=== PATIENT | male | born 1945 | race Caucasian/White ===

== ENCOUNTER → 2018-01-01 08:41 | Outpatient (CLI) | payer MEDICARE, SELFPAY ==
[2018-01-01 09:46] LABS: AST(SGOT) 21 U/L (15-37); Alanine Aminotransfer ALT/SGPT 29 U/L (16-61); Albumin, Serum 3.6 g/dL (3.2-5.0); Alkaline Phosphatase 107 U/L (45-117); Bilirubin, Direct 0.12 mg/dL (0.00-0.30); Cholesterol 96 mg/dL (200); Globulin 3.8 g/dL (2.2-4.2); High Density Lipoprotein 36 mg/dL; Protein, Total 7.4 g/dL (6.4-8.2); Triglycerides 81 mg/dL; Very Low Density Lipoprotein 16 mg/dL (5-40)
== END ==
PROVIDERS: Family Provider Family Medicine Geriatric Medicine; PCP Family Medicine Geriatric Medicine; Visit Provider Internal Medicine Cardiovascular Disease
DX: E78.5 Hyperlipidemia, unspecified (principal); Z79.899 Other long term (current) drug therapy
CPT/HCPCS: 36415; 80061; 80076

== ENCOUNTER → 2018-06-11 16:15 | Outpatient (CLI) | payer MEDICARE, SELFPAY ==
[2018-06-11 17:44] LABS: Absolute Lymphocyte Count 2.13 X10^3/ul (0.83-4.51); Absolute Neutrophil Count 4.4 X10^3/uL (2.0-7.7); Basophil# 0.03 X10^3/uL; Basophil% 0.4 % (0-1); Eosinophil# 0.27 X10^3/uL; Eosinophils% 3.5 % (0-5); Hematocrit 37.2 % (40-54); Hemoglobin 12.7 g/dl (13.0-16.5); Lymphocyte # 2.13 X10^3/ul (4.0); Lymphocyte % 27.4 % (19-41); Mean Corp Hgb Conc 34.1 g/gl (32-36); Mean Corpuscular Hgb 34.5 pg (27.0-32.0); Mean Corpuscular Volume 101.1 fL (80-94); Mean Platelet Vol. 10.2 fl (6.2-12.0); Monocyte# 0.95 X10^3/uL; Monocyte% 12.2 % (0-10); Neutrophil # 4.37 X10^3/uL (2.7-7.7); Neutrophil % 56.2 % (47-70); Platelet Count 191 K/mm3 (150-450); RBC Distribution Width CV 12.8 % (11.6-14.6); RBC Distribution Width SD 46.5 fl (35.1-43.9); Red Blood Count 3.68 M/mm3 (4.6-6.2); White Blood Count 7.8 K/mm3 (4.4-11.0)
[2018-06-11 18:16] LABS: POSITIVE COUNT NO; POSITIVE DIFFERENTIAL NO; POSITIVE MORPHOLOGY NO
[2018-06-11 18:25] LABS: ALB/GLOB Ratio 0.9 RATIO (0.9-2.4); AST(SGOT) 31 U/L (15-37); Alanine Aminotransfer ALT/SGPT 43 U/L (16-61); Albumin, Serum 3.7 g/dL (3.2-5.0); Alkaline Phosphatase 91 U/L (45-117); Anion Gap 6 (5-15); BUN 20 mg/dL (7-18); BUN/Creat Ratio 18.5 RATIO (10-20); Calcium,Total 8.5 mg/dL (8.5-10.1); Chloride 108 mmol/L (98-107); Creatinine, Serum 1.08 mg/dL (0.70-1.30); EST Glomerular Filtration Rate 71 mL/min (>60); Est Glom Filt Rate - Afr Amer 86 mL/min (>60); Globulin 3.9 g/dL (2.2-4.2); Glucose 87 mg/dL (74-106); Potassium 4.4 mmol/L (3.5-5.1); Protein, Total 7.6 g/dL (6.4-8.2); Sodium Level 140 mmol/L (136-145); Thyroid Stim Hormone (TSH) 4.31 uIU/mL (0.358-3.74)
[2018-06-12 09:52] LABS: Vitamin D,25 Hydroxy 30.2 ng/mL (29.95-100.01)
== END ==
PROVIDERS: Family Provider Family Medicine Geriatric Medicine; PCP Family Medicine Geriatric Medicine; Visit Provider Family Medicine Geriatric Medicine
DX: E55.9 Vitamin D deficiency, unspecified (principal); I10 Essential (primary) hypertension
CPT/HCPCS: 36415; 80053; 82306; 84443; 85025

== ENCOUNTER → 2018-06-25 08:40 | Outpatient (CLI) | payer MEDICARE, SELFPAY ==
[2018-06-25 10:14] LABS: AST(SGOT) 35 U/L (15-37); Alanine Aminotransfer ALT/SGPT 47 U/L (16-61); Albumin, Serum 3.7 g/dL (3.2-5.0); Alkaline Phosphatase 91 U/L (45-117); Cholesterol 78 mg/dL (200); High Density Lipoprotein 33 mg/dL; Protein, Total 7.7 g/dL (6.4-8.2); Triglycerides 54 mg/dL; Very Low Density Lipoprotein 11 mg/dL (5-40)
== END ==
PROVIDERS: Family Provider Family Medicine Geriatric Medicine; PCP Family Medicine Geriatric Medicine; Visit Provider Physician Assistant Medical
DX: R07.2 Precordial pain (principal); E78.5 Hyperlipidemia, unspecified
CPT/HCPCS: 36415; 80061; 80076

== ENCOUNTER → 2018-12-02 12:08 | Outpatient (CLI) | payer MEDICARE, SELFPAY ==
[2018-08-01 09:13] VITALS: BMI 29.8
[2018-12-02 13:15] LABS: Absolute Lymphocyte Count 1.68 X10^3/ul (0.83-4.51); Absolute Neutrophil Count 4.7 X10^3/uL (2.0-7.7); Basophil# 0.04 X10^3/uL; Basophil% 0.5 % (0-1); Eosinophil# 0.23 X10^3/uL; Hematocrit 38.7 % (40-54); Hemoglobin 13.1 g/dl (13.0-16.5); Lymphocyte # 1.68 X10^3/ul (4.0); Lymphocyte % 22.2 % (19-41); Mean Corp Hgb Conc 33.9 g/gl (32-36); Mean Corpuscular Hgb 34.3 pg (27.0-32.0); Mean Corpuscular Volume 101.3 fL (80-94); Mean Platelet Vol. 11.1 fl (6.2-12.0); Monocyte# 0.89 X10^3/uL; Monocyte% 11.8 % (0-10); Neutrophil # 4.69 X10^3/uL (2.7-7.7); Neutrophil % 62.1 % (47-70); Platelet Count 212 K/mm3 (150-450); RBC Distribution Width CV 12.7 % (11.6-14.6); Red Blood Count 3.82 M/mm3 (4.6-6.2); White Blood Count 7.6 K/mm3 (4.4-11.0)
[2018-12-02 13:17] LABS: POSITIVE COUNT NO; POSITIVE DIFFERENTIAL NO; POSITIVE MORPHOLOGY NO
[2018-12-02 13:36] LABS: ALB/GLOB Ratio 0.9 RATIO (0.9-2.4); AST(SGOT) 36 U/L (15-37); Alanine Aminotransfer ALT/SGPT 81 U/L (16-61); Albumin, Serum 3.7 g/dL (3.2-5.0); Alkaline Phosphatase 112 U/L (45-117); Anion Gap 8 (5-15); BUN 22 mg/dL (7-18); BUN/Creat Ratio 17.9 RATIO (10-20); Calcium,Total 8.7 mg/dL (8.5-10.1); Chloride 106 mmol/L (98-107); Creatinine, Serum 1.23 mg/dL (0.70-1.30); EST Glomerular Filtration Rate 61 mL/min (>60); Est Glom Filt Rate - Afr Amer 74 mL/min (>60); Globulin 4.1 g/dL (2.2-4.2); Glucose 82 mg/dL (74-106); Potassium 4.3 mmol/L (3.5-5.1); Protein, Total 7.8 g/dL (6.4-8.2); Sodium Level 141 mmol/L (136-145); Thyroid Stim Hormone (TSH) 2.73 uIU/mL (0.358-3.74)
== END ==
PROVIDERS: Family Provider Family Medicine Geriatric Medicine; PCP Family Medicine Geriatric Medicine; Visit Provider Family Medicine Geriatric Medicine
DX: E55.9 Vitamin D deficiency, unspecified (principal); I10 Essential (primary) hypertension
CPT/HCPCS: 36415; 80053; 82306; 84443; 85025

== ENCOUNTER → 2019-06-03 | Outpatient (CLI) | payer MEDICARE, SELFPAY ==
[2018-08-01 09:13] VITALS: BMI 29.8
[2019-06-03 13:01] LABS: Absolute Lymphocyte Count 1.98 X10^3/uL (0.83-4.51); Absolute Neutrophil Count 3.4 X10^3/uL (2.0-7.7); Basophil# 0.05 X10^3/uL; Basophil% 0.8 % (0-1); Eosinophil# 0.24 X10^3/uL; Eosinophils% 3.7 % (0-5); Hemoglobin 12.7 g/dL (13.0-16.5); Lymphocyte # 1.98 X10^3/ul (4.0); Lymphocyte % 30.7 % (19-41); Mean Corp Hgb Conc 33.4 g/dL (32-36); Mean Corpuscular Hgb 34.1 pg (27.0-32.0); Mean Corpuscular Volume 102.2 fL (80-94); Mean Platelet Vol. 10.3 fl (6.2-12.0); Monocyte# 0.73 X10^3/uL; Monocyte% 11.3 % (0-10); NRBC Flagged by Analyzer 0 % (0-5); Neutrophil # 3.42 X10^3/uL (2.7-7.7); Platelet Count 200 K/mm3 (150-450); RBC Distribution Width CV 12.7 % (11.6-14.6); RBC Distribution Width SD 47.8 fl (35.1-43.9); Red Blood Count 3.72 M/mm3 (4.6-6.2); White Blood Count 6.5 K/mm3 (4.4-11.0)
[2019-06-03 13:13] LABS: Vitamin D,25 Hydroxy 29.8 ng/mL (29.95-100.01)
[2019-06-03 13:40] LABS: ALB/GLOB Ratio 0.9 RATIO (0.9-2.4); AST(SGOT) 23 U/L (15-37); Alanine Aminotransfer ALT/SGPT 41 U/L (16-61); Albumin, Serum 3.6 g/dL (3.2-5.0); Alkaline Phosphatase 104 U/L (45-117); Anion Gap 10 (5-15); BUN 20 mg/dL (7-18); BUN/Creat Ratio 20.1 RATIO (10-20); Calcium,Total 8.9 mg/dL (8.5-10.1); Chloride 105 mmol/L (98-107); EST Glomerular Filtration Rate 78 mL/min (>60); Est Glom Filt Rate - Afr Amer 94 mL/min (>60); Globulin 3.9 g/dL (2.2-4.2); Glucose 101 mg/dL (74-106); Potassium 4.7 mmol/L (3.5-5.1); Protein, Total 7.5 g/dL (6.4-8.2); Sodium Level 139 mmol/L (136-145); Thyroid Stim Hormone (TSH) 3.89 uIU/mL (0.358-3.74)
== END | disposition home or self-care (01) ==
LOC: POLAB3 09:05
PROVIDERS: Family Provider Family Medicine Geriatric Medicine; PCP Family Medicine Geriatric Medicine; Visit Provider Family Medicine Geriatric Medicine
DX: I10 Essential (primary) hypertension (principal); E55.9 Vitamin D deficiency, unspecified
CPT/HCPCS: 36415; 80053; 82306; 84443; 85025

== ENCOUNTER → 2019-07-21 09:18 | Outpatient (CLI) | payer MEDICARE, SELFPAY ==
[2018-08-01 09:13] VITALS: BMI 29.8
[2019-07-21 12:58] LABS: Thyroid Stim Hormone (TSH) 1.76 uIU/mL (0.358-3.74)
== END ==
PROVIDERS: Family Provider Family Medicine Geriatric Medicine; PCP Family Medicine Geriatric Medicine; Visit Provider Family Medicine Geriatric Medicine
DX: E03.9 Hypothyroidism, unspecified (principal)
CPT/HCPCS: 36415; 84443

== ENCOUNTER → 2019-07-31 09:31 | Outpatient (CLI) | payer MEDICARE, SELFPAY ==
[2019-07-31 10:37] LABS: AST(SGOT) 30 U/L (15-37); Alanine Aminotransfer ALT/SGPT 40 U/L (16-61); Albumin, Serum 3.5 g/dL (3.2-5.0); Alkaline Phosphatase 103 U/L (45-117); Cholesterol 87 mg/dL (200); Globulin 3.9 g/dL (2.2-4.2); High Density Lipoprotein 37 mg/dL; Protein, Total 7.4 g/dL (6.4-8.2); Triglycerides 57 mg/dL; Very Low Density Lipoprotein 11 mg/dL (5-40)
== END ==
PROVIDERS: Physician Assistant Medical; Family Provider Family Medicine Geriatric Medicine; PCP Family Medicine Geriatric Medicine; Referring Provider Internal Medicine Cardiovascular Disease; Visit Provider Internal Medicine Cardiovascular Disease
DX: E78.5 Hyperlipidemia, unspecified (principal)
CPT/HCPCS: 36415; 80061; 80076

== ENCOUNTER → 2019-12-03 09:21 | Outpatient (CLI) | payer MEDICARE, SELFPAY ==
[2019-08-05 08:05] VITALS: BMI 29.0
[2019-12-03 12:32] LABS: Absolute Lymphocyte Count 1.86 X10^3/uL (0.83-4.51); Absolute Neutrophil Count 4.6 X10^3/uL (2.0-7.7); Basophil# 0.05 X10^3/uL; Basophil% 0.6 % (0-1); Eosinophil# 0.35 X10^3/uL; Eosinophils% 4.5 % (0-5); Hematocrit 38.4 % (40-54); Hemoglobin 12.6 g/dL (13.0-16.5); Lymphocyte # 1.86 X10^3/ul (4.0); Lymphocyte % 23.9 % (19-41); Mean Corp Hgb Conc 32.8 g/dL (32-36); Mean Corpuscular Hgb 33.1 pg (27.0-32.0); Mean Corpuscular Volume 100.8 fL (80-94); Mean Platelet Vol. 10.6 fl (6.2-12.0); Monocyte# 0.91 X10^3/uL; Monocyte% 11.7 % (0-10); NRBC Flagged by Analyzer 0 % (0-5); Neutrophil # 4.59 X10^3/uL (2.7-7.7); Neutrophil % 58.9 % (47-70); Platelet Count 194 K/mm3 (150-450); RBC Distribution Width CV 12.6 % (11.6-14.6); RBC Distribution Width SD 47.1 fl (35.1-43.9); Red Blood Count 3.81 M/mm3 (4.6-6.2); White Blood Count 7.8 K/mm3 (4.4-11.0)
[2019-12-03 12:42] LABS: Vitamin D,25 Hydroxy 29.7 ng/mL (29.95-100.01)
[2019-12-03 12:45] LABS: ALB/GLOB Ratio 0.9 RATIO (0.9-2.4); AST(SGOT) 31 U/L (15-37); Alanine Aminotransfer ALT/SGPT 57 U/L (16-61); Albumin, Serum 3.7 g/dL (3.2-5.0); Alkaline Phosphatase 105 U/L (45-117); Anion Gap 6 (5-15); BUN 17 mg/dL (7-18); BUN/Creat Ratio 15.5 RATIO (10-20); Calcium,Total 8.7 mg/dL (8.5-10.1); Chloride 107 mmol/L (98-107); EST Glomerular Filtration Rate 69 mL/min (>60); Est Glom Filt Rate - Afr Amer 84 mL/min (>60); Glucose 105 mg/dL (74-106); Protein, Total 7.7 g/dL (6.4-8.2); Sodium Level 138 mmol/L (136-145); Thyroid Stim Hormone (TSH) 2.99 uIU/mL (0.358-3.74)
== END ==
PROVIDERS: PCP Family Medicine Geriatric Medicine; Visit Provider Family Medicine Geriatric Medicine
DX: I10 Essential (primary) hypertension (principal); E55.9 Vitamin D deficiency, unspecified
CPT/HCPCS: 36415; 80053; 82306; 84443; 85025

== ENCOUNTER → 2020-05-12 12:34 | Outpatient (CLI) | payer MEDICARE, SELFPAY ==
[2019-08-05 08:05] VITALS: BMI 29.0
[2020-05-19 04:07] LABS: Lyme IgG P18 Ab Absent (.); Lyme IgG P23 Ab Absent (.); Lyme IgG P28 Ab Absent (.); Lyme IgG P30 Ab Absent (.); Lyme IgG P39 Ab Absent (.); Lyme IgG P41 Ab Present (.); Lyme IgG P45 Ab Absent (.); Lyme IgG P58 Ab Absent (.); Lyme IgG P66 Ab Absent (.); Lyme IgG P93 Ab Absent (.); Lyme IgM P23 Ab Absent (.); Lyme IgM P39 Ab Absent (.); Lyme IgM P41 Ab Absent (.)
[2020-05-19 04:19] LABS: Lyme IgG WB Interpretation Negative (.); Lyme IgM WB Interpretation Negative (.)
== END ==
PROVIDERS: PCP Family Medicine Geriatric Medicine; Referring Provider Family Medicine Geriatric Medicine; Visit Provider Family Medicine Geriatric Medicine
DX: K14.1 Geographic tongue (principal)
CPT/HCPCS: 36415; 86617

== ENCOUNTER → 2020-06-18 10:46 | Outpatient (CLI) | payer MEDICARE, SELFPAY ==
[2019-08-05 08:05] VITALS: BMI 29.0
--- NOTE | 2020-06-18 11:15 | RAD_ITS ---
STUDY: X-RAY CHEST REASON FOR EXAM: Male, 74 years old. Shortness of breath. TECHNIQUE: PA and lateral views of the chest. COMPARISON: None. FINDINGS: The lungs are clear and expanded. There is no demonstrated pleural abnormality. Sternal cerclage wires are present from a prior sternotomy. Normal mediastinum and jono. Normal visualized pulmonary arteries. Normal visualized aortic arch and descending thoracic aorta. Normal visualized thoracic spine. Normal visualized ribs, clavicles, and shoulders. There is no demonstrated abnormality of the visualized soft tissue structures of the upper abdomen. RAD/Chest PA and Lateral IMPRESSION: Evidence of median sternotomy. There is no acute cardiopulmonary disease. Electronically Signed: Sandro Person DO at 17:39 EDT Tel [phone], Service support ,
[2020-06-18 11:55] LABS: Absolute Lymphocyte Count 1.36 X10^3/uL (0.83-4.51); Absolute Neutrophil Count 5.9 X10^3/uL (2.0-7.7); Basophil# 0.04 X10^3/uL; Basophil% 0.5 % (0-1); Eosinophil# 0.21 X10^3/uL; Eosinophils% 2.4 % (0-5); Hematocrit 38.3 % (40-54); Hemoglobin 12.6 g/dL (13.0-16.5); Lymphocyte # 1.36 X10^3/ul (4.0); Lymphocyte % 15.5 % (19-41); Mean Corp Hgb Conc 32.9 g/dL (32-36); Mean Corpuscular Hgb 33.6 pg (27.0-32.0); Mean Corpuscular Volume 102.1 fL (80-94); Mean Platelet Vol. 10.2 fl (6.2-12.0); Monocyte% 13.7 % (0-10); NRBC Flagged by Analyzer 0 % (0-5); Neutrophil # 5.91 X10^3/uL (2.7-7.7); Neutrophil % 67.4 % (47-70); Platelet Count 186 K/mm3 (150-450); RBC Distribution Width CV 12.8 % (11.6-14.6); RBC Distribution Width SD 48.5 fl (35.1-43.9); Red Blood Count 3.75 M/mm3 (4.6-6.2); White Blood Count 8.8 K/mm3 (4.4-11.0)
[2020-06-18 12:11] LABS: Vitamin D,25 Hydroxy 34.8 ng/mL
[2020-06-18 12:18] LABS: ALB/GLOB Ratio 0.8 RATIO (0.9-2.4); AST(SGOT) 21 U/L (15-37); Alanine Aminotransfer ALT/SGPT 54 U/L (16-61); Albumin, Serum 3.3 g/dL (3.2-5.0); Alkaline Phosphatase 93 U/L (45-117); Anion Gap 4 (5-15); BUN 22 mg/dL (7-18); BUN/Creat Ratio 21.6 RATIO (10-20); CPK Total, Creatine Kinase 84 U/L (39-308); Chloride 111 mmol/L (98-107); Creatinine, Serum 1.02 mg/dL (0.70-1.30); EST Glomerular Filtration Rate 75 mL/min (>60); Est Glom Filt Rate - Afr Amer 91 mL/min (>60); Globulin 3.9 g/dL (2.2-4.2); Glucose 103 mg/dL (74-106); PSA,Total - Annual Screen 1.34 ng/mL (0.00-4.00); Potassium 4.4 mmol/L (3.5-5.1); Protein, Total 7.2 g/dL (6.4-8.2); Sodium Level 139 mmol/L (136-145); Thyroid Stim Hormone (TSH) 1.47 uIU/mL (0.358-3.74)
[2020-06-18 12:25] LABS: BNP,B-Type NATRIURETIC PEPTIDE 139.6 pg/mL (0-100)
[2020-06-20 01:18] LABS: Myoglobin, Serum 69 ng/mL (28-72)
== END ==
LOC: POLAB3 10:48 → RAD 11:13
PROVIDERS: PCP Family Medicine Geriatric Medicine; Referring Provider Family Medicine Geriatric Medicine; Visit Provider Family Medicine Geriatric Medicine
DX: R06.02 Shortness of breath (principal); I10 Essential (primary) hypertension; E55.9 Vitamin D deficiency, unspecified; N40.0 Benign prostatic hyperplasia without lower urinary tract symptoms
CPT/HCPCS: 36415; 71046; 80053; 82306; 82550; 83874; 83880; 84153; 84443; 84484; 85025; G0103

== ENCOUNTER → 2020-06-23 05:51 | Outpatient (CLI) | payer MEDICARE, SELFPAY ==
[2019-08-05 08:05] VITALS: BMI 29.0
[2020-06-21 12:40] VITALS: BMI 28.7
--- NOTE | 2020-06-23 17:30 | STRESSREP ---
Stress Test Report Pharmacologic myocardial perfusion stress test. 74-year-old male with a history of coronary artery bypass surgery. Assess for ischemia. Resting EKG demonstrates normal sinus rhythm with a rate of 64 bpm normal intervals are noted resting blood pressure is 148/80 mmHg. 0.4 mg of regadenoson was infused per usual protocol followed by Intravenous saline flush injection continuous EKG monitoring was performed. The patient maintained sinus rhythm throughout the recording with frequent premature ventricular complexes noted. At rest there were no ST or T wave changes noted to suggest abnormal flow reserve at peak infusion nonspecific ST-T wave changes were noted with no meet the criteria for ischemia. The resting blood pressure is 148/80 with a final blood pressure of 128/70 mmHg. Myocardial perfusion protocol. 14.7 mCi of technetium 99m sestamibi was injected at rest. 0.4 mg of regadenoson was infused per usual protocol. At peak infusion 44.5 mCi of technetium 99m sestamibi was injected stress images were obtained stress and rest images were reconstructed and compared in the short axis vertical long horizontal long axis. Gated images were not obtained Perfusion SPECT analysis: Review of the stress images demonstrate normal uptake of tracer noted in all areas of the myocardium the resting images similar demonstrate normal uptake of tracer noted in all areas of the myocardium. No reversibility is noted to suggest ischemia no previous infarct is noted. Conclusion: Normal pharmacologic myocardial perfusion stress test. Occasional premature ventricular complexes noted.
== END ==
PROVIDERS: PCP Family Medicine Geriatric Medicine; Referring Provider Family Medicine Geriatric Medicine; Visit Provider Family Medicine Geriatric Medicine
DX: R07.9 Chest pain, unspecified (principal)
CPT/HCPCS: 78452; 93017; A9500; A4216; J2785

== ENCOUNTER → 2020-06-24 07:30 | Outpatient (CLI) | payer MEDICARE, SELFPAY ==
[2020-06-21 12:40] VITALS: BMI 28.7
--- NOTE | 2020-06-24 07:32 | CDU_ITS ---
Reason For Study: Dizziness Rt. Velocities/BP Lt. Velocities/BP Prox CCA 82.6/8.8 cm/sec. Prox CCA 83.9/18.8 cm/sec. Mid CCA 71.7/15.7 cm/sec. Mid CCA 102.3/22.5 cm/sec. Dist CCA 67.3/16.8 cm/sec. Dist CCA 80.2/20 cm/sec. Prox ICA 101/31.6 cm/sec. Prox ICA 145.5/44.5 cm/sec. Mid ICA 75.3/26.2 cm/sec. Mid ICA 132.4/29.2 cm/sec. Dist ICA 79/26.2 cm/sec. Dist ICA 84.6/24.3 cm/sec. Rt. ICA/CCA = 1.4. Lt. ICA/CCA = 1.7. Prox ECA 121.1/9.7 cm/sec. Prox ECA 94.9/15.1 cm/sec. Rt. Vert. 60.5/18.8 cm/sec. Lt. Vert. 52/16.8 cm/sec. Right Extracranial There is intimal thickening but no significant atherosclerotic plaque noted in the right common carotid artery. There is heterogeneous, irregular atherosclerotic plaque noted in the right internal carotid artery. There is intimal thickening but no significant atherosclerotic plaque noted in the right external carotid artery. Antegrade flow is noted in the right vertebral artery. Left Extracranial There is intimal thickening but no significant atherosclerotic plaque noted in the left common carotid artery. There is heterogeneous, irregular atherosclerotic plaque noted in the left internal carotid artery. The atherosclerotic plaque causes acoustic shadowing. There is intimal thickening but no significant atherosclerotic plaque noted in the left external carotid artery. Antegrade flow is noted in the left vertebral artery. Procedure Carotid Duplex 56093. Exam performed in department. Interpretation Summary Irregular calcific plaque at the proximal right internal carotid artery with less than 50% stenosis. <50% stenosis right external carotid Irregular calcific plaque in the proximal left internal carotid artery with 50 to 69% stenosis. <50% stenosis left external carotid Patent and antegrade vertebrals bilaterally Ordering Physician: Tomas Guerrero Referring Physician: Earnest Alex Chi Performed By: Rebecca Mcfarland RVT
== END ==
PROVIDERS: PCP Family Medicine Geriatric Medicine; Referring Provider Nurse Practitioner Family; Visit Provider Nurse Practitioner Family
DX: I65.22 Occlusion and stenosis of left carotid artery (principal); I25.10 Atherosclerotic heart disease of native coronary artery without angina pectoris; R42 Dizziness and giddiness
CPT/HCPCS: 93880

== ENCOUNTER → 2020-06-28 10:43 | Outpatient (CLI) | payer MEDICARE, SELFPAY ==
[2020-06-21 12:40] VITALS: BMI 28.7
== END ==
PROVIDERS: PCP Family Medicine Geriatric Medicine; Referring Provider Nurse Practitioner Family; Visit Provider Nurse Practitioner Family
DX: I49.3 Ventricular premature depolarization (principal); I25.10 Atherosclerotic heart disease of native coronary artery without angina pectoris
CPT/HCPCS: 93225; 93226

== ENCOUNTER → 2020-06-29 13:40 | Outpatient (CLI) | payer MEDICARE, SELFPAY ==
[2020-06-21 12:40] VITALS: BMI 28.7
[2020-06-30 07:02] LABS: SARS-COV-2 TOTAL ABS Nonreactive (Nonreactive)
== END ==
PROVIDERS: PCP Family Medicine Geriatric Medicine; Visit Provider Family Medicine Geriatric Medicine
DX: R06.02 Shortness of breath (principal)
CPT/HCPCS: 36415; 86769

== ENCOUNTER → 2020-07-29 06:53 | Outpatient (CLI) | payer MEDICARE, SELFPAY ==
[2020-06-21 12:40] VITALS: BMI 28.7
[2020-07-13 08:30] VITALS: BMI 28.5
== END ==
PROVIDERS: PCP Family Medicine Geriatric Medicine; Referring Provider Family Medicine Geriatric Medicine; Visit Provider Family Medicine Geriatric Medicine
DX: R06.02 Shortness of breath (principal)
CPT/HCPCS: 94060; 94726; 94729

== ENCOUNTER → 2020-08-02 07:54 | Outpatient (CLI) | payer MEDICARE, SELFPAY ==
[2020-07-13 08:30] VITALS: BMI 28.5
--- NOTE | 2020-08-02 07:54 | ECHOD_ITS ---
Reason For Study: Dyspnea/SOB Procedure This was a 2D Doppler, Color Flow transthoracic echocardiogram. Contrast injection was performed. Exam performed in department. Left Ventricle Normal LV size. Left ventricular systolic function is normal. The estimated ejection fraction is 60 %. No regional wall motion abnormalities noted. Right Ventricle Normal RV size. Normal systolic function. Atria Normal left atrium. Normal right atrium. Mitral Valve Normal mitral valve. Tricuspid Valve Normal tricuspid valve. Aortic Valve Normal aortic valve. Pulmonic Valve Normal pulmonic valve. Great Vessels Normal aortic root. The pulmonary artery is normal size. Normal inferior vena cava. Pericardium/Pleural No pericardial effusion. Medication Diluted definity 4ml given slow IV push to enhance endocardial definition. MMode/2D Measurements & Calculations LVIDd: 5.2 cm IVSd: 1.3 cm Ao root diam: 3.6 cm LVIDs: 3.7 cm LVPWd: 1.1 cm RVDd: 4.5 cm FS: 29.3 % LAV(MOD-bp): 64.6 ml LVAd ap4: 30.8 cm2 SV(MOD-sp4): 58.1 ml LAV(MOD-bp) Indexed: 27.2 ml/m2 EDV(MOD-sp4): 90.3 ml LAV(MOD-sp2): 60.1 ml EDV(sp4-el): 94.5 ml LAV(MOD-sp4): 65.0 ml LVAs ap4: 17.3 cm2 ESV(MOD-sp4): 32.2 ml ESV(sp4-el): 34.0 ml EF(MOD-sp4): 64.4 % EF(sp4-el): 64.0 % SV(sp4-el): 60.5 ml LA A4 area: 20.3 cm2 LA dimension(2D): 4.2 cm RA A4 area: 19.0 cm2 Doppler Measurements & Calculations MV E max elder: 64.5 cm/sec Lat Peak E' Elder: 8.4 cm/sec Med Peak E' Elder: 5.5 cm/sec MV A max elder: 71.3 cm/sec E/E' lat: 7.7 E/E' med: 11.8 MV E/A: 0.90 Ao V2 max: 148.8 cm/sec LV V1 max: 122.7 cm/sec PA V2 max: 111.9 cm/sec Ao max P.9 mmHg LV V1 max P.0 mmHg Ao V2 mean: 103.3 cm/sec Ao mean P.7 mmHg Ao V2 VTI: 34.4 cm TR max elder: 172.6 cm/sec TR max P.9 mmHg Interpretation Summary Normal LV size. Left ventricular systolic function is normal. The estimated ejection fraction is 60 %. Contrast injection was performed. Ordering Physician: Tomas Guerrero Referring Physician: Earnest Alex Chi Performed By: Polly Guerrero RDCS, RVT
== END ==
PROVIDERS: PCP Family Medicine Geriatric Medicine; Referring Provider Nurse Practitioner Family; Visit Provider Nurse Practitioner Family
DX: R06.00 Dyspnea, unspecified (principal); Z95.1 Presence of aortocoronary bypass graft; I49.3 Ventricular premature depolarization; I25.10 Atherosclerotic heart disease of native coronary artery without angina pectoris
CPT/HCPCS: 93306; Q9957; A4216; C8929

== ENCOUNTER → 2020-08-10 15:38 | Outpatient (CLI) | payer MEDICARE, SELFPAY ==
[2020-07-13 08:30] VITALS: BMI 28.5
--- NOTE | 2020-08-10 15:40 | CT_ITS ---
HISTORY: DYSPNEA X 3 MONTHS. CABG TECHNIQUE: Helically acquired images were obtained of the chest. A radiation dose optimization technique was used for this scan. IV Contrast dosage and agent: None. COMPARISON: Chest radiograph on June 18, 2020 FINDINGS: # of images incl. paperwork: [id number] HEART AND PERICARDIUM: The heart is enlarged. CABG. No pericardial effusion VESSELS: Thoracic aorta is not dilated. MEDIASTINUM AND NAVEEN: No mediastinal adenopathy. There are mediastinal lymph nodes are pathologic by size criteria Without intravenous contrast it is difficult to assess for hilar adenopathy SOFT TISSUES: The thyroid gland is unremarkable. No axillary adenopathy LUNGS AND LARGE AIRWAYS: Subpleural groundglass opacities with septal thickening seen within the upper lobes bilaterally. This is most marked on the left. Semisolid nodule within the right upper lobe seen on axial image 69 series 2 measuring approximately 6.3 mm. No additional nodules are seen within the right lung. There is subpleural septal thickening seen within the bilateral lower lobes greater on the left. PLEURA: There is minimal pleural thickening seen along the medial aspect of the superior right lower lobe. No pleural effusions. There is also apical pleural thickening seen bilaterally UPPER ABDOMEN: Cholecystectomy BONES: Midline sternotomy wires. No acute osseous abnormality CT/Chest without Contrast IMPRESSION: Cardiomegaly CABG No adenopathy Nonspecific Subpleural septal thickening is seen within the lungs bilaterally but greater on the left with associated minimal groundglass opacities probably related to atelectasis. Areas of platelike atelectasis is seen within the upper lobes greater on the left as well as the bilateral lower lobes Minimal pleural thickening along the medial aspect of the right lower lobe and apical pleural thickening Cholecystectomy Semisolid nodule within the right upper lobe measuring approximately 6.3 mm. Per Hina recommendation follow-up in 6-12 months or sooner if clinically indicated Individualized dose optimization techniques were used for this CT. at 0636 Reported and signed by: Malu Obrien DO Electronically Signed: Malu Obrien DO at 6:34 EDT Tel , Service support ,
== END ==
PROVIDERS: PCP Family Medicine Geriatric Medicine; Referring Provider Internal Medicine Pulmonary Disease; Visit Provider Internal Medicine Pulmonary Disease
DX: R06.00 Dyspnea, unspecified (principal)
CPT/HCPCS: 71250

== ENCOUNTER → 2020-08-19 09:45 | Outpatient (CLI) | payer MEDICARE, SELFPAY ==
[2020-08-12 09:28] VITALS: BMI 29.0
[2020-08-19 10:15] LABS: Hematocrit 37.1 % (40-54); Hemoglobin 12.2 g/dL (13.0-16.5); Mean Corp Hgb Conc 32.9 g/dL (32-36); Mean Corpuscular Hgb 34.5 pg (27.0-32.0); Mean Corpuscular Volume 104.8 fL (80-94); Mean Platelet Vol. 9.8 fl (6.2-12.0); Platelet Count 205 K/mm3 (150-450); Red Blood Count 3.54 M/mm3 (4.6-6.2); White Blood Count 8.8 K/mm3 (4.4-11.0)
[2020-08-19 10:51] LABS: AST(SGOT) 15 U/L (15-37); Alanine Aminotransfer ALT/SGPT 28 U/L (16-61); Albumin, Serum 3.6 g/dL (3.2-5.0); Alkaline Phosphatase 105 U/L (45-117); CRP 4.93 mg/L (0.0-3.0); Globulin 3.8 g/dL (2.2-4.2); Protein, Total 7.4 g/dL (6.4-8.2); Rheumatoid Factor < 10.0 IU/mL (<15)
[2020-08-20 12:07] LABS: Anti-Scleroderma-70 AB <0.2 AI (0.0-0.9)
[2020-08-20 15:29] LABS: ANTINUCLEAR ANTIBODIES DIRECT Negative (Negative)
[2020-08-20 20:08] LABS: Cytoplasmic Ab (C-ANCA) <1:20 titer (Neg:<1:20)
[2020-08-20 21:59] LABS: Angiotensin Convert Enzyme < 15 U/L (14-82); Perinuclear Ab (P-ANCA) <1:20 titer (Neg:<1:20)
== END ==
PROVIDERS: PCP Family Medicine Geriatric Medicine; Referring Provider Internal Medicine Pulmonary Disease; Visit Provider Internal Medicine Pulmonary Disease
CPT/HCPCS: 36415; 80076; 82164; 85027; 86038; 86140; 86235; 86256; 86431

== ENCOUNTER → 2020-11-08 08:12 | Outpatient (CLI) | payer MEDICARE, SELFPAY ==
[2020-08-12 09:28] VITALS: BMI 29.0
--- NOTE | 2020-11-08 08:13 | CT_ITS ---
STUDY: CT CHEST WITHOUT CONTRAST REASON FOR EXAM: Male, 74 years old. INTERSTITIAL LUNG DZ, COMPARE TO SCAN, SOB, 38 YR SMOKER X 1/2 PPD, QUIT SMOKING 20 YRS AGO, CABG, HTN RADIATION DOSAGE (If Supplied By Facility): CTDIvol = ( 17.67 ) mGy, DLP = ( 719.93 ) mGycm TECHNIQUE: Transaxial imaging was performed without the administration of intravenous contrast material. Multiplanar coronal and sagittal images were reformatted. Individualized dose optimization techniques were used for this CT. COMPARISON: 08/10/2020 FINDINGS: Subpleural hazy groundglass opacity and intralobular septal thickening identified in the upper lobes, lower lobes, right middle lobe and lingula overall similar since the prior study. Mild degree of traction bronchiectasis but no demonstrated honeycombing. Subpleural nodule on image 68 of series 4 measuring 5 mm is slightly smaller when compared side by side. No endobronchial lesions are seen. There is no demonstrated pleural abnormality. Normal heart and pericardium. Sternal wires and mediastinal surgical clips compatible with prior CABG. Normal mediastinum. Normal hilar regions. Normal unenhanced pulmonary arteries. There is atherosclerotic tortuosity of the aortic arch and descending thoracic aorta. There are multi-level degenerative changes of the thoracic spine. Gallstones are present. There is a nonobstructing calculus of the left kidney measuring 2 mm on image 133. CT/Chest without Contrast IMPRESSION: 1. Stable multilobar interstitial fibrotic changes with minimal groundglass opacities. Similar bronchiectasis, no honeycombing. 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 2. Slightly smaller right upper lobe nodule (subpleural). Electronically Signed: Krishan Larose MD ([place]) at 13:13 EST , Service support ,
[2020-11-08 09:47] LABS: Erythrocyte Sedimentation Rate 9 mm/hr (0-20)
[2020-11-08 10:14] LABS: CRP < 2.90 mg/L (0.0-3.0)
== END ==
PROVIDERS: PCP Family Medicine Geriatric Medicine; Referring Provider Internal Medicine Pulmonary Disease; Visit Provider Internal Medicine Pulmonary Disease
DX: R91.1 Solitary pulmonary nodule (principal); J84.9 Interstitial pulmonary disease, unspecified
CPT/HCPCS: 36415; 71250; 85652; 86140

== ENCOUNTER 2020-11-24 08:46 | Outpatient (RCR) | payer MEDICARE, SELFPAY ==
[2020-11-09 08:46] VITALS: BMI 29.9
[2020-11-24 09:58] LABS: AST(SGOT) 23 U/L (15-37); Alanine Aminotransfer ALT/SGPT 91 U/L (16-61); Albumin, Serum 3.4 g/dL (3.2-5.0); Alkaline Phosphatase 73 U/L (45-117); Globulin 3.6 g/dL (2.2-4.2)
== END 2020-11-24 18:00 | disposition home or self-care (01) ==
LOC: LAB 08:46
PROVIDERS: PCP Family Medicine Geriatric Medicine; Referring Provider Internal Medicine Pulmonary Disease; Visit Provider Internal Medicine Pulmonary Disease
DX: J84.10 Pulmonary fibrosis, unspecified (principal)
CPT/HCPCS: 36415; 80076

== ENCOUNTER → 2020-11-29 15:31 | Outpatient (CLI) | payer MEDICARE, SELFPAY ==
[2020-11-09 08:46] VITALS: BMI 29.9
[2020-11-29 16:57] LABS: AST(SGOT) 25 U/L (15-37); Alanine Aminotransfer ALT/SGPT 80 U/L (16-61); Albumin, Serum 3.7 g/dL (3.2-5.0); Alkaline Phosphatase 76 U/L (45-117); Anion Gap 7 (5-15); BUN 31 mg/dL (7-18); Calcium,Total 8.8 mg/dL (8.5-10.1); Chloride 102 mmol/L (98-107); Creatinine, Serum 1.24 mg/dL (0.70-1.30); EST Glomerular Filtration Rate 60 mL/min (>60); Est Glom Filt Rate - Afr Amer 73 mL/min (>60); Globulin 3.7 g/dL (2.2-4.2); Glucose 177 mg/dL (74-106); Potassium 4.8 mmol/L (3.5-5.1); Protein, Total 7.4 g/dL (6.4-8.2); Sodium Level 135 mmol/L (136-145)
[2020-12-01 12:08] LABS: HEPATITIS B SURFACE AG Negative (Negative); Hepatitis A AB, Total Negative (Negative); Hepatitis A IgM Antibody Negative (Negative); Hepatitis B Core AB IgM Negative (Negative); Hepatitis B Core Ab Total Negative (Negative); Hepatitis C Ab <0.1 s/co ratio (0.0-0.9)
[2020-12-01 15:20] LABS: Hep B Surface Antibodies Non Reactive (.)
== END ==
PROVIDERS: PCP Family Medicine Geriatric Medicine; Visit Provider Family Medicine Geriatric Medicine
DX: I10 Essential (primary) hypertension (principal); R74.8 Abnormal levels of other serum enzymes
CPT/HCPCS: 36415; 80053; 86704; 86705; 86706; 86708; 86709; 86803; 87340

== ENCOUNTER → 2020-12-06 10:32 | Outpatient (CLI) | payer MEDICARE, SELFPAY ==
[2020-11-09 08:46] VITALS: BMI 29.9
--- NOTE | 2020-12-06 10:34 | US_ITS ---
STUDY: ABDOMINAL ULTRASOUND - RIGHT UPPER QUADRANT REASON FOR VISIT: Male, 75 years old elevated LFT''s TECHNIQUE: Ultrasound evaluation of the right upper quadrant was performed with real-time and static alvarez-scale imaging. TECHNICAL QUALITY: Adequate. COMPARISON: None. FINDINGS: Liver: The liver measures 13.3 cm. There is increased echogenicity consistent with fatty infiltration. The bile ducts are within normal limits. There is hepatic color flow. The direction of portal flow is hepatopetal. There is no demonstrated mass lesion. Gallbladder: Normal distended gallbladder. The gallbladder wall measures 2 mm. There is a negative sonographic Wu''s sign. There is no pericholecystic fluid. There are multiple echogenic structures within the gallbladder, consistent with multiple gallstones. Common Bile Duct (C.B.D.): The common bile duct measures 3 mm. Pancreas: Normal size of the head, body and tail of the pancreas. There is increased echogenicity of the pancreas. There is no demonstrated pancreatic mass or cyst. Right Kidney: Normal size of the right kidney. The right kidney measures 11.5 cm x 5.7 cm x 5.8 cm. Normal renal cortex. The right cortex measures 1.3 cm. There is no demonstrated renal mass or cyst. There is no right hydronephrosis. US/Abdomen Limited IMPRESSION: Multiple gallstones. Electronically Signed: Ventura Manzo MD at 11:55 EST , Service support ,
== END ==
PROVIDERS: PCP Family Medicine Geriatric Medicine; Referring Provider Family Medicine Geriatric Medicine; Visit Provider Family Medicine Geriatric Medicine
DX: R74.8 Abnormal levels of other serum enzymes (principal)
CPT/HCPCS: 76705

== ENCOUNTER → 2020-12-08 09:31 | Outpatient (CLI) | payer MEDICARE, SELFPAY ==
[2020-11-09 08:46] VITALS: BMI 29.9
[2020-12-08 12:36] LABS: Absolute Lymphocyte Count 1.42 X10^3/uL (0.83-4.51); Absolute Neutrophil Count 6.6 X10^3/uL (2.0-7.7); Basophil# 0.02 X10^3/uL; Basophil% 0.2 % (0-1); Eosinophil# 0.03 X10^3/uL; Eosinophils% 0.3 % (0-5); Hematocrit 42.8 % (40-54); Hemoglobin 14.2 g/dL (13.0-16.5); Lymphocyte # 1.42 X10^3/ul (4.0); Lymphocyte % 16.1 % (19-41); Mean Corp Hgb Conc 33.2 g/dL (32-36); Mean Corpuscular Hgb 33.7 pg (27.0-32.0); Mean Corpuscular Volume 101.7 fL (80-94); Mean Platelet Vol. 10.1 fl (6.2-12.0); Monocyte# 0.74 X10^3/uL; Monocyte% 8.4 % (0-10); NRBC Flagged by Analyzer 0 % (0-5); Neutrophil # 6.56 X10^3/uL (2.7-7.7); Neutrophil % 74.3 % (47-70); Platelet Count 178 K/mm3 (150-450); RBC Distribution Width CV 13.2 % (11.6-14.6); RBC Distribution Width SD 50.2 fl (35.1-43.9); Red Blood Count 4.21 M/mm3 (4.6-6.2); White Blood Count 8.8 K/mm3 (4.4-11.0)
[2020-12-08 12:56] LABS: ALB/GLOB Ratio 0.9 RATIO (0.9-2.4); AST(SGOT) 25 U/L (15-37); Alanine Aminotransfer ALT/SGPT 70 U/L (16-61); Albumin, Serum 3.3 g/dL (3.2-5.0); Alkaline Phosphatase 73 U/L (45-117); Anion Gap 7 (5-15); BUN 31 mg/dL (7-18); BUN/Creat Ratio 28.7 RATIO (10-20); Chloride 105 mmol/L (98-107); Creatinine, Serum 1.08 mg/dL (0.70-1.30); EST Glomerular Filtration Rate 71 mL/min (>60); Est Glom Filt Rate - Afr Amer 85 mL/min (>60); Globulin 3.8 g/dL (2.2-4.2); Glucose 98 mg/dL (74-106); Potassium 4.6 mmol/L (3.5-5.1); Protein, Total 7.1 g/dL (6.4-8.2); Sodium Level 136 mmol/L (136-145); Thyroid Stim Hormone (TSH) 0.65 uIU/mL (0.358-3.74)
== END ==
PROVIDERS: PCP Family Medicine Geriatric Medicine; Visit Provider Family Medicine Geriatric Medicine
DX: I10 Essential (primary) hypertension (principal); E55.9 Vitamin D deficiency, unspecified
CPT/HCPCS: 36415; 80053; 82306; 84443; 85025

== ENCOUNTER → 2020-12-09 08:12 | Outpatient (CLI) | payer MEDICARE, SELFPAY ==
[2020-11-09 08:46] VITALS: BMI 29.9
--- NOTE | 2020-12-09 08:14 | US_ITS ---
STUDY: ABDOMINAL ULTRASOUND - ELASTOGRAPHY REASON FOR VISIT: Male, 75 years old. Fatty infiltration of the liver. TECHNIQUE: Liver stiffness measurements were obtained on a [facility] RS 85 ultrasound machine using a CA 1-7 probe following the SRU guidelines. 3 measurements were obtained using a 2-D-SWE method. The IQR/M was 15% suggesting a quality data set. TECHNICAL QUALITY: Adequate. COMPARISON: None. FINDINGS: Liver: There is evidence of fatty infiltration of the liver. Median liver stiffness measured 7.3 kPa. US/Elastography Parenchyma/Organ IMPRESSION: Liver stiffness measures 7.3 kPa compatible with F2 -- F 3 Metavir score. Electronically Signed: Ventura Manzo MD at 9:35 EST , Service support ,
== END ==
PROVIDERS: PCP Family Medicine Geriatric Medicine; Referring Provider Family Medicine Geriatric Medicine; Visit Provider Family Medicine Geriatric Medicine
DX: K76.0 Fatty (change of) liver, not elsewhere classified (principal)
CPT/HCPCS: 76981

== ENCOUNTER 2020-12-28 10:31 | Outpatient (RCR) | payer MEDICARE, SELFPAY ==
[2020-11-09 08:46] VITALS: BMI 29.9
[2020-12-28 11:08] LABS: AST(SGOT) 19 U/L (15-37); Alanine Aminotransfer ALT/SGPT 60 U/L (16-61); Albumin, Serum 3.3 g/dL (3.2-5.0); Alkaline Phosphatase 59 U/L (45-117); Bilirubin, Direct 0.25 mg/dL (0.00-0.30); Globulin 3.4 g/dL (2.2-4.2); Protein, Total 6.7 g/dL (6.4-8.2)
== END 2020-12-28 18:00 | disposition home or self-care (01) ==
LOC: LAB 10:31
PROVIDERS: PCP Family Medicine Geriatric Medicine; Referring Provider Internal Medicine Pulmonary Disease; Visit Provider Internal Medicine Pulmonary Disease
DX: J84.10 Pulmonary fibrosis, unspecified (principal)
CPT/HCPCS: 36415; 80076

== ENCOUNTER 2021-01-27 08:33 | Outpatient (RCR) | payer MEDICARE, SELFPAY ==
[2020-11-09 08:46] VITALS: BMI 29.9
[2021-01-27 10:28] LABS: AST(SGOT) 24 U/L (15-37); Alanine Aminotransfer ALT/SGPT 36 U/L (16-61); Alkaline Phosphatase 58 U/L (45-117); Bilirubin, Direct 0.25 mg/dL (0.00-0.30); Globulin 3.6 g/dL (2.2-4.2); Protein, Total 6.6 g/dL (6.4-8.2)
== END 2021-01-27 18:00 | disposition home or self-care (01) ==
LOC: LAB 08:33
PROVIDERS: PCP Family Medicine Geriatric Medicine; Referring Provider Internal Medicine Pulmonary Disease; Visit Provider Internal Medicine Pulmonary Disease
DX: J84.10 Pulmonary fibrosis, unspecified (principal)
CPT/HCPCS: 36415; 80076

== ENCOUNTER → 2021-02-02 08:23 | Outpatient (CLI) | payer MEDICARE, SELFPAY ==
[2020-11-09 08:46] VITALS: BMI 29.9
[2021-02-02 08:41] LABS: Erythrocyte Sedimentation Rate 7 mm/hr (0-20)
[2021-02-02 09:23] LABS: CRP 3.75 mg/L (0.0-3.0)
== END ==
PROVIDERS: PCP Family Medicine Geriatric Medicine; Referring Provider Internal Medicine Pulmonary Disease; Visit Provider Internal Medicine Pulmonary Disease
DX: J84.10 Pulmonary fibrosis, unspecified (principal); I10 Essential (primary) hypertension; R06.00 Dyspnea, unspecified
CPT/HCPCS: 36415; 85652; 86140

== ENCOUNTER → 2021-02-22 09:27 | Outpatient (CLI) | payer MEDICARE, SELFPAY ==
[2020-11-09 08:46] VITALS: BMI 29.9
--- NOTE | 2021-02-22 09:32 | PR.ITP_ITS ---
General Information - General Information Admitting Diagnosis: Other INterstitial Pulmonary Diseases with Fibrosis, Idiop athic Pulmonary Fibrosis, CAD, HTN. - PFT FEV1:: 2.54 FVC:: 3.16 FEV1/FVC%:: 80 - Education/Goals Barriers to Learning: Vision Impairment Individual Counseling: Initial Assessment: Dyspnea control techniques at rest, activity, and ADLs, Inhaled and respiratory medications, Home exercise plan & guidelines Patient Goals: Breathe better: Initial Assessment, Increase endurance/stamina: Initial Assessment, Return to recreation/hobby: Initial Assessment, Improve diet and nutrition: Initial Assessment, Symptom management: Initial Assessment, Take medications correctly: Initial Assessment, Improve weight: Initial Assessment Exercise - Initial Assessment - Visit Date of Eval: 02/22/21 - Pre-pulmonary rehab evaluation - Problem/Goals Problems: Deconditioning, Knowledge deficit exercise guidelines, Knowledge deficit exercise safety Goals:: Aerobic exercise 30-60 mins x 9 weeks - Physician Prescribed Exercise Modalities: Treadmill, Rower, Airdyne, NuStep Intensity: 60-80% of age predicted maximum heart rate reserve Target Heart Rate:: 86-114 - Plan Plan and Plan to Review:: Benefits of exercise, Core components of exercise, How to measure dyspnea level, How to monitor dyspnea level, Exercise intensity, Exercise safety guideline, Home exercise guidelines, Lana: 3-4/11-13 Disease Management - Initial - Problems/Goals-Hypoxemia Hypoxemia Goals:: Hypoxemia managed - Problems/Goals-Medications Medication Goals: Adherence to prescribed medications, Correct technique/timing & care of MDI, DPI, nebulizer, and spacer. - Initial Assessment Patient Reports:: No cough - Plans Hypoxemia Plan:: Monitor SpO2 rest & with exercise Reviewed prescribed medications:: Purpose, Schedule, Side effects, Importance of compliance Instruct correct technique/timing & care:: Return demo use of inhaler Bronchial Hygiene Plan: Controlled cough, Vibratory PEP device, Role of exercise in secretion clearance, Hydration, Hand hygiene, Signs/symptoms to report:, Influenza/Pneumovax vaccines Psychosocial - Initial Assess - Problems/Goals Problems: Impaired Q.O.L. - Psychosocial Test Depression:: Impaired QOL Tests Completed: SF - 36 survey completed, Mood Scale Test Referred to MD for counseling:: No - Plan Reviewed screening results: Yes Instructions given regarding:: Benefits of exercise, Relaxation techniques, Training in coping strategies Tobacco - Initial Assessment - Program Goals Tobacco Program Goals: Complete smoking cessation. Attend education classes. Improve Knowledge Test score - Stage of Change Stages of Change:: Action - Learning Barriers Learning Barriers: Vision, Ready to Learn - Family Support Do you have family support?: Yes - Tobacco Use Tobacco Use: Non-smoker Do you use smokeless tobacco?: No - Intervention Smoking Cessation Referral:: No Individual Education/Counseling:: No Education Schedule Given:: Yes - Education Gave Education Materials For:: Pulmonary Disease, Risk Factors, Breathing Techniques, Medical Compliance, Pulmonary A&P, Exacerbation Signs & Symptoms, Stress & Relaxation Nutrition/Wt Mgmt - Initial - Problems/Goals Problems: Overweight Goals: BMI 21-25, Wt Loss 1-2 lbs per week - Weight Management Knowledge Deficit Management of:: Overweight Admit Height:: 6 ft 4 in Admit Weight:: 253 lb Admit BMI:: 30.8 - Diabetes Diabetes:: No - Intervention Referral to dietitian:: Yes - Why Weight Program, Medical Nutrition Therapy Referral to Diabetic Clinic:: No Will attend diet classes:: Yes - Plan Nutrition Plan: Yes Review BMI or WC & identify target wt & strategies for wt control, Yes Weight control education class: Patient Health Questionnaire Initial Assessment 1. Little interest or pleasure in doing things: Several days 2. Feeling down, depressed, or hopeless: Several days 3. Trouble falling or staying asleep, or sleeping too much: Not at all 4. Feeling tired or having little energy: Several days 5. Poor appetite or overeating: More than half the days 6. Feeling bad about yourself -- or that you are a failure or have let yourself or your family down: Not at all 7. Trouble concentrating on things, such as reading the newspaper or watching television: Not at all 8. Moving or speaking so slowly that other people could have noticed. Or the opposite - being so fidgety or restless that you have been moving around a lot more than usual: Not at all 9. Thoughts that you would be better off , or of hurting yourself in some way: Not at all How difficult have these problems made it for you to do your work, take care of things at home, or get along with other people?: Not difficult at all Total Score: 5 COPD Knowledge Test Initial COPD is a lung disease that:: Makes it hard to breathe & gets worse over time In the [place] the term COPD describes 2 main lung conditions:: Emphysema & chroni c bronchitis The most common lung irritant that causes COPD is:: Cigarette smoke Common signs and symptoms of COPD include:: An ongoing cough/cough that produces a large amount of mucus, & SOB If you have COPD, what steps can you take?: All of the above Swelling of the ankles is common in COPD:: False Fatigue [tiredness] is common in COPD:: False Wheezing is common in COPD:: False Crushing chest pain is common in COPD:: False Rapid weight loss is common in COPD:: False Breathlessness is a normal response to exercise: True Exercise should be avoided if it makes you short of breath: True All bronchodilators act within 10 minutes: False A spacer device increases the medication to the lungs: False Annual flu vaccine is recommended for pts w/lung disease: True COPD Knowledge Test Total Score:: 11 Self-Efficacy Initial Assessment We would like to know how confident you are in doing certain activities. Please select your confidence level for:: Select your confidence level for the [facility] using the scale 1-10 where 1 is not at all confident and 10 is totally confident. Your score is the average of all 6 responses. Fatigue: How confident are you that you can keep the fatigue caused by your disease from interfering with the things you want to do? Select Number: 4 Physical Discomfort or Pain: How confident are you that you can keep the physical discomfort or pain of your disease from interfering with the things you want to do? Select Number: 4 Emotional Distress: How confident are you that you can keep the emotional distress caused by your disease from interfering with the things you want to do? Select Number: 4 Other Symptoms or Health Problems: How confident are you that you can keep other symptoms or health problems from interfering with the things you want to do? Select Number: 4 Different Tasks and Activities: How confident are you that you can do the different tasks and activities needed to manage your health condition so as to reduce your need to see a doctor? Select Number: 8 Medication: How confident are you that you can do things other than just taking medication to reduce how much your illness affects your everyday life? Select Number: 8 Total Score:: 5 Nutrition Survey - Nutrition Survey Instructions Scoring Instructions: Scoring is as follows: Yes = 1 points. No = 0 point. Patient score that is >/=12 is considered to be at potential nutritional risk a nd could benefit from a referral to a registered dietitian. - Nutrition Survey Initial Have you lost >10 lbs over the past 2 months without trying?: No Are you following a special diet at home for diabetes, low fat, or low salt?: No Are you interested in meeting with a dietitian for help understanding your diet?: No Do you eat less than 3 meals a day?: No Do you eat fatty meats (davalos, sausage, ribs, etc), fried foods, desserts, large amounts of salad dressings, margarine, butter, or cheese most days?: No Do you have food allergies? [Enter types in comment field]: No Do you eat in restaurants more than 3 times a week?: No Do you season food with salt, seasoning salt, or garlic salt?: Yes Do you used canned, boxed, frozen meals, or soups, seasoning packets?: Yes Total Score:: 2
--- NOTE | 2021-02-22 09:32 | PR.HP_ITS ---
History of Present Illness Arrival date:: 02/22/21 Arrival time:: 09:35 Date of Referral:: 02/11/21 Date of Evaluation: 02/22/21 Referring Physician: Dr. Francisco Camacho Primary Diagnosis: Idiopathic Pulmonary Fibrosis History of Present Illness: 75 yr male history of SHAHIDA, hypertension, CAD, other interstitial pulmonary disease with fibrosis, unspecified dyspnea, solitary pulmonary nodule, idi opathic pulmonary fibrosis, and personla history of nicotine dependence. THe patient was a 3/4 PPD for 30 years, but quit smoking in 2004. mMRC Breathless Scale: When is the patient short of breath? Y/N Grade: Description of Breathlessness: 0 I only get breathless with strenuous exercise. 1 I get short of breath when hurrying on level ground or walking up a slight hill. 2 On level ground, I walk slower than people of the same age because of breathless, or have to stop for breath when walking at my own pace. 3 I stop for breath after walking 100 yards or after a few minutes on level ground. 4 I am too breathless to leave the house or I am breathless when dressing. Respiratory Problems: Yes: Retain Secretions, Able to Speak in Full Sentences, Dyspnea with Activity No: Limited Range of Motion, Dyspnea at Rest, Cough with Secretions Home Medications: Home Medications lisinopril 5 mg tablet 5 mg PO QDAY 12/31/17 tamsulosin 0.4 mg capsule 0.4 mg PO QDAY 12/31/17 metoprolol tartrate 25 mg tablet 12.5 mg PO BID tab 01/04/18 aspirin 325 mg tablet 325 mg PO DAILY 08/05/19 atorvastatin 20 mg tablet 20 mg PO QPM #90 tab 08/05/19 levothyroxine 75 mcg tablet 75 mcg PO DAILY #90 tab 08/05/19 vit A 7,160 unit-vit C 113 mg-vit E 100 mfxs-xsti-zbqijw tablet tab PO tab 08/05/19 fish oil-dha-epa 1,200 mg-144 mg-216 mg capsule 2 cap PO DAILY cap 08/12/20 prednisone 10 mg tablet 10 mg PO DAILY tab 11/09/20 furosemide 40 mg tablet 40 mg PO DAILY #90 tab 11/24/20 Allergies/Adverse Reactions: Allergies Penicillins Adverse Reaction (Severe, Verified 11/09/20 08:46) Rash - Secretions Normal Color:: clear Amount/Day:: depends on time of day Cough:: No A.T.C.: Yes Hx of Sleep Apnea: Yes Do you snore loudly (louder than talking or can be heard through closed doors)?: Yes - SHAHIDA has home BiPAP Do you often feel tired/ fatigued/ sleepy during daytime?: No Has anyone observed you stop breathing during sleep?: Yes History of Hypertension (for STOP score): Yes STOP Results: Positive Medical Utilization Do you use a peak flow meter at home?: No Do you use a spacer device with your inhalers?: No Number of hospital visits in the last year?: 0 Number of emergency room visits in the last year?: 0 Do you see your physician on a regular schedule?: Yes How often?: Bernice-6mo; PCP- 6 mo; Isabellailia to often (2-3 months Advanced Directives - Advanced Directives Power of Employee Relations Director: Yes Living Will: Yes Advance Directives Information Provided: No Advance Directives on File: No DNR Order?:: No - MOLST See MOLST form: No Past Medical History - Covid-19 Screening Fever: No Unexplained muscle aches: No Current respiratory symptoms: Yes - unspecified dyspnea related to lung disease Upper respiratory infections symptoms: No Gastro-intestinal symptoms: No Uho-Hyfa-Elnkrr symptoms: No Has tested positive for COVID-19 in last 30 days: No Had contact w/person w/symptoms or Covid-19 (+) last 14 days: No Has High Risk Exposures ID'd by Health dept/Inf Control team: No 65 years or older:: Yes Lives in Assisted Living facility:: No Has a chronic lung disease or moderate to severe asthma:: Yes Has a serious heart condition:: Yes Immunocompromised:: No Severely obese (Body Mass Index of 40 or higher):: No Diabetic:: No Has chronic kidney disease undergoing dialysis:: No Has liver disease:: No Medical History: Past Medical History (Last Updated 02/22/21 @ 10:00 by Channing Fontenot, DESK DIRECTOR, OCCUPATIONAL THERAPY TECHNICIAN, BS) Pulmonary fibrosis (Chronic) J84.10 Chronic diastolic (congestive) heart failure (Chronic) I50.32 Atherosclerotic heart disease of [place] coronary artery without angina pectoris (Chronic) I25.10 Essential (primary) hypertension (Chronic) I10 Hyperlipidemia (Chronic) E78.5 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 Tru Queen MD) H/O coronary artery bypass surgery (Resolved) Onset Date: 09/13/07 Z95.1 CABG x 3 CRANE-LAD, SVG-D1 and SVG-RCA 09/13/2007 History of detached retina repair Z98.890, Z86.69 History of left heart catheterization Onset Date: 09/12/07 Z98.890 Family History: Family History (Last Reviewed 11/09/20 @ 09:[address] Tru Queen MD) Father Cancer Prostate cancer FH: CABG (coronary artery bypass surgery) FH: rheumatic fever Heart disease Mother Cancer Other Family history of coronary artery disease - Current/ Previous Services Pulmonary Rehab:: No - Comments Comments: [facility]. Social History - Smoking History Smoking Status: Former smoker Years Smokin Hx Smoking Cessation Date: 04/05/05 Hx Tobacco Use: Yes Hx Smoking Exposure: Yes - Alcohol Use Alcohol Usage: Yes - rare occasional (burbon) - Substance Abuse Hx Substance Use: No - Occupation Occupation (List type of work in comments):: Retired - Hobbies, Recreation, Social Activities Hobbies: Sports - Golfing, Woodworking - woodworking (occasionally wears mask), Other - yard work, lawn, working around the house outside. Recreational Activities: I am able to engage in a few activities Functioning ADL/IADL - Current Ability Current Ability: Independent Self-Care (e.g.,grooming, dressing, & bathing), Independent Ambulation, Independent Transfer, Independent Household tasks (e.g., light meal prep, laundry, shopping) - Pt Functioning Prior to Problem Prior Functioning: Self-Care (e.g.,grooming, dressing, & bathing): Independent, Ambulation: Independent, Transfer: Independent, Household tasks (e.g., light meal prep, laundry, shopping): Independent Social Environment - Status Marital Status: - Current Living Arrangements Living Environment:: Spouse - Children How many children do you have?: 1 - daughter, 2 grandchildren Do any of your children live nearby?: Yes - Safety Do you feel safe in your surroundings?: Yes Review of Systems Review of Systems: Right click = Denies (Slash). Left click = Reports ([place]) Respiratory: Reports: SOB upon Exertion, Appetite, Normal, Fatigue - easily fatigues, Sleep, Normal. Denies: Cough, SOB at Rest, Sputum production, Wheezing, Dizziness/Lightheadedness, Sexual changes Is Patient Pain Free?: Yes Pain Location: none Pain Level: 0/10 Risk Factor Assessment - Vital Signs Temperature: 97.3 F Pulse Rate: 60 Pulse Rhythm: Regular Respiratory Rate: 16 Pulse Ox: 95 Blood Pressure: 134/82 - Diabetes Nutrition Referral for Diabetes: No - Obesity Height: 6 ft 4 in Weight:: 253 lb Weight in Pounds: 253.0 lbs Weight Source: Standing Scale Body Mass Index (BMI): 30.8 Nutritional Referral for Obesity: Yes - Risk Stratification Risk Guidelines: Lowest Risk: Risk Factor for Smoking, Risk Factor for Dyslipidemia, Risk Factor for Diabetes, Risk Factor for Sedentary Lifestyle, Risk Factor for Depression, Moderate Risk: Risk Factor for Hypertension, Highest Risk: Risk Factor for Obesity - For Smoking Smoking Risk Guidelines: Smoking Low Risk: None or quit greater than 6 months ago. Smoking Moderate Risk: Smoker or quit 6 months or less ago. Smoking High Risk: Smoker - For Dyslipidemia Dyslipidemia Risk Guidelines: Low Risk: Moderate Risk: High Risk: 15-25% fat 25.1-29% fat >/= 30% fat. <7% sat fat 7-9% sat fat >9% sat fat. <150 mg chol 150-299 mg chol >/= 300 mg chol. LDL <100 LDL 100-129 LDL >/= 130. Chol/HDL ratio <5.0 Chol/HDL ratio 5.0-6.0 Chol/HDL ratio >6.0. Triglycerides <100 Triglycerides 100-149 Triglycerides >/= 150 - For Diabetes Mellitus Diabetes Risk Guidelines: Diabetes Low Risk: HgA1c <6.5% and/or FBG <120. Diabetes Moderate Risk: HgA1c 6.6-7.9% and/or FBG 120-180. Diabetes High Risk: HgA1c >/= 8% and/or FBG >180 - For Obesity/Overweight Obesity/Overweight Risk Guidelines: Obesity Low Risk: BMI <25.0. Obesity Moderate Risk: BMI 25-29.9. Obesity High Risk: BMI >/= 30.0 - For Hypertension Hypertension Risk Guidelines: Hypertension Low Risk: Systolic <120 and Diastolic <80. Hypertension Moderate Risk: Systolic 120-139 and Diastolic 80-89. Hypertension High Risk: Systolic >/= 140 and Diastolic >/= 90 - For Sedentary Lifestyle Sedentary Lifestyle Risk Guidelines: Sedentary Lifestyle Low Risk: >/= 1,500 kcal/week. Sedentary Lifestyle Moderate Risk: 700-1,499 kcal/week. Sedentary Lifestyle High Risk: < 700 kcal/week - For Depression Depression Risk Guidelines: Depression Low Risk: Not clinically depressed. Depression Moderate Risk: Mildly depressed. Depression High Risk: Clinically depressed Motivation - Motivation to Participate On a scale of 1 to 10, how prepared are you to commit to attending program?: 5 - honest; I know I need to. $30.00/visit co-pay What do you see as barriers to successfully being able to complete the program?: Co-pay per visit What do you see as the benefits of succesfully completing the program? In other words, what do you hope to get out of participating in the program?: getting in shape, breathing better Are there issues you are dealing with that will interfere with completing the program?: no Do you have a spouse or signficant other, family or friends who will help support you to complete the program?: Yes Diagnostic Data Review - Pulmonary Function Test FEV1:: 2.54 FVC:: 3.16 FEV1/FVC%:: 80
[2021-02-22 09:53] VITALS: BMI 30.8
[2021-02-22 10:10] VITALS: BP 134/82; PULSE 60; RESP 16; TEMP 36.3; O2SAT 95; BMI 30.8
== END ==
PROVIDERS: PCP Family Medicine Geriatric Medicine; Visit Provider Internal Medicine Pulmonary Disease
DX: I11.0 Hypertensive heart disease with heart failure (principal); I50.32 Chronic diastolic (congestive) heart failure; E78.5 Hyperlipidemia, unspecified

== ENCOUNTER → 2021-02-25 13:17 | Outpatient (CLI) | payer MEDICARE, SELFPAY ==
[2020-11-09 08:46] VITALS: BMI 29.9
[2021-02-22 10:10] VITALS: BMI 30.8
--- NOTE | 2021-02-25 13:20 | CT_ITS ---
STUDY: CT CHEST WITHOUT CONTRAST REASON FOR EXAM: Male, 75 years old. PULM FIBROSIS/DYSPNEA RADIATION DOSAGE (If Supplied By Facility): CTDIvol = ( 19.60 ) mGy, DLP = ( 683.24 ) mGycm TECHNIQUE: Transaxial imaging was performed without the administration of intravenous contrast material. Multiplanar coronal and sagittal images were reformatted. Individualized dose optimization techniques were used for this CT. COMPARISON: Comparison is made with prior examination dated 11/08/2020. FINDINGS: Stable appearance of the bilateral increased interstitial markings involving both lungs both upper and lower lobes with areas of confluence suggestive of a scarring. There is evidence of intralobular septal thickening in the upper and lower lobes. Mild degree of bronchiectasis. There is no demonstrated pleural abnormality. Sternal cerclage wires and vascular clips are present from a prior sternotomy and coronary artery bypass graft procedure (CABG). Coronary artery calcification. Normal mediastinum. Normal hilar regions. Normal unenhanced pulmonary arteries. There is atherosclerotic tortuosity of the aortic arch and descending thoracic aorta. There are multi-level degenerative changes of the thoracic spine. Contracted gallbladder containing gallstones. 2 mm nonobstructive calculus in the upper pole calyx of the left kidney. CT/Chest without Contrast IMPRESSION: Stable examination. Electronically Signed: Ventura Manzo MD at 15:11 EDT , Service support ,
== END ==
PROVIDERS: PCP Family Medicine Geriatric Medicine; Referring Provider Internal Medicine Pulmonary Disease; Visit Provider Internal Medicine Pulmonary Disease
DX: J84.10 Pulmonary fibrosis, unspecified (principal); R06.00 Dyspnea, unspecified
CPT/HCPCS: 36415; 71250; 80076; 97150; G0239

== ENCOUNTER 2021-02-25 13:34 | Outpatient (RCR) | payer MEDICARE, SELFPAY ==
[2020-11-09 08:46] VITALS: BMI 29.9
[2021-02-22 10:10] VITALS: BMI 30.8
[2021-02-25 15:31] LABS: AST(SGOT) 18 U/L (15-37); Alanine Aminotransfer ALT/SGPT 34 U/L (16-61); Albumin, Serum 3.4 g/dL (3.2-5.0); Alkaline Phosphatase 64 U/L (45-117); Globulin 3.5 g/dL (2.2-4.2); Protein, Total 6.9 g/dL (6.4-8.2)
== END 2021-02-25 18:00 | disposition home or self-care (01) ==
LOC: LAB 13:34
PROVIDERS: PCP Family Medicine Geriatric Medicine; Referring Provider Internal Medicine Pulmonary Disease; Visit Provider Internal Medicine Pulmonary Disease
DX: J84.10 Pulmonary fibrosis, unspecified (principal)
CPT/HCPCS: 36415; 80076

== ENCOUNTER 2021-03-04 09:15 | Outpatient (RCR) | payer MEDICARE, SELFPAY ==
[2021-02-22 10:10] VITALS: BMI 30.8
== END 2021-03-04 23:59 ==
LOC: PR 09:15
PROVIDERS: PCP Family Medicine Geriatric Medicine; Referring Provider Internal Medicine Pulmonary Disease; Visit Provider Internal Medicine Pulmonary Disease
DX: J84.10 Pulmonary fibrosis, unspecified (principal)
CPT/HCPCS: 97150; G0239

== ENCOUNTER 2021-03-28 09:45 | Outpatient (RCR) | payer MEDICARE, SELFPAY ==
[2021-02-22 10:10] VITALS: BMI 30.8
[2021-03-28 10:41] LABS: AST(SGOT) 27 U/L (15-37); Alanine Aminotransfer ALT/SGPT 39 U/L (16-61); Albumin, Serum 3.4 g/dL (3.2-5.0); Alkaline Phosphatase 62 U/L (45-117); Bilirubin, Direct 0.23 mg/dL (0.00-0.30); Globulin 3.7 g/dL (2.2-4.2); Protein, Total 7.1 g/dL (6.4-8.2)
== END 2021-03-28 18:00 | disposition home or self-care (01) ==
LOC: LAB 09:45
PROVIDERS: PCP Family Medicine Geriatric Medicine; Referring Provider Internal Medicine Pulmonary Disease; Visit Provider Internal Medicine Pulmonary Disease
DX: J84.10 Pulmonary fibrosis, unspecified (principal)
CPT/HCPCS: 36415; 80076; 97150; G0239

== ENCOUNTER 2021-04-01 09:15 | Outpatient (RCR) | payer MEDICARE, SELFPAY ==
[2021-02-22 10:10] VITALS: BMI 30.8
--- NOTE | 2021-03-22 07:24 | PCM.PR.TP ---
Exercise - 30-Day Assessment - Physician Prescribed Exercise Modalities: Treadmill, Airdyne, NuStep, SciFit Frequency (days/week): 3 Duration (Minutes):: 30-45 Intensity: 60-80% of age predicted maximum heart rate reserve Aerobic Exercise [30-60 min 3-7x/week]:: Progressing Target heart rate: 86-114 Lana-15 METs - Progression: 0.5-1.0 MET, RPE 11-14 WEEK: 4.0 - increase from 3.0 Disease Management - 30-Day - Hypoxemia Reassessment: Demonstrates knowledge of O2 Rx with exercise - Medications Medication list reviewed:: Yes Taking medications 100% of the time:: Met Medication reassessment: Yes Pt demonstrates correct technique timing for MDI, Yes Pt demonstrates correct technique timing for DPI, Yes Pt demonstrates correct technique timing for NEB, Yes Pt demonstrates correct technique timing for spacer - Bronchial Hygiene Bronchial Hygiene Plan: Yes Pt demo correct for improved hydration, Yes Pt demo correct for hand hygiene Psychosocial - 30-Day - Assessment Reassessment: Management of stress & depression, Practicing interventions, Demonstrate coping strategies, Self efficacy score Tobacco - Initial Assessment Tobacco - 30-Day Assessment - Stage of Change Stages of Change:: Action - Learning Barriers Learning Barriers: Participates in education - Family Support Do you have family support?: Yes - Tobacco Use Tobacco Use: Non-smoker - Intervention Smoking Cessation Referral:: No Individual Education/Counseling:: No Education Schedule Given:: Yes - Education Gave Education Materials For:: Pulmonary Disease, Risk Factors, Breathing Techniques, Medical Compliance, Pulmonary A&P, Exacerbation Signs & Symptoms, Stress & Relaxation Tobacco - 60-Day Assessment Tobacco - 90-Day Assessment Tobacco - Final Assessment Nutrition/Wt Mgmt - 30-Day - Weight Management Weight Assessment:: Wt loss 1-2 lbs per week Weight:: 249 lb 8 oz - BMI 30.8 Weight Goals Progress:: Progressing Patient Health Questionnaire 30-Day Re-eval Assessment 1. Little interest or pleasure in doing things: Not at all 2. Feeling down, depressed, or hopeless: Several days 3. Trouble falling or staying asleep, or sleeping too much: Not at all 4. Feeling tired or having little energy: Not at all 5. Poor appetite or overeating: Several days 6. Feeling bad about yourself -- or that you are a failure or have let yourself or your family down: Not at all 7. Trouble concentrating on things, such as reading the newspaper or watching television: Not at all 8. Moving or speaking so slowly that other people could have noticed. Or the opposite - being so fidgety or restless that you have been moving around a lot more than usual: Not at all 9. Thoughts that you would be better off , or of hurting yourself in some way: Not at all How difficult have these problems made it for you to do your work, take care of things at home, or get along with other people?: Not difficult at all Total Score: 2 Self-Efficacy 30-Day Re-eval Assessment We would like to know how confident you are in doing certain activities. Please select your confidence level for:: Select your confidence level for the following using the scale 1-10 where 1 is not at all confident and 10 is totally confident. Your score is the average of all 6 responses. Fatigue: How confident are you that you can keep the fatigue caused by your disease from interfering with the things you want to do? Select Number: 5 Physical Discomfort or Pain: How confident are you that you can keep the physical discomfort or pain of your disease from interfering with the things you want to do? Select Number: 6 Emotional Distress: How confident are you that you can keep the emotional distress caused by your disease from interfering with the things you want to do? Select Number: 7 Other Symptoms or Health Problems: How confident are you that you can keep other symptoms or health problems from interfering with the things you want to do? Select Number: 7 Different Tasks and Activities: How confident are you that you can do the different tasks and activities needed to manage your health condition so as to reduce your need to see a doctor? Select Number: 9 Medication: How confident are you that you can do things other than just taking medication to reduce how much your illness affects your everyday life? Select Number: 9 Total Score:: 7 Nutrition Survey
== END 2021-04-04 23:59 ==
LOC: PR 09:15
PROVIDERS: PCP Family Medicine Geriatric Medicine; Referring Provider Internal Medicine Pulmonary Disease; Visit Provider Internal Medicine Pulmonary Disease
DX: J84.10 Pulmonary fibrosis, unspecified (principal)
CPT/HCPCS: 97150; G0239

== ENCOUNTER 2021-04-25 09:41 | Outpatient (RCR) | payer MEDICARE, SELFPAY ==
[2021-02-22 10:10] VITALS: BMI 30.8
[2021-04-25 11:50] LABS: AST(SGOT) 21 U/L (15-37); Alanine Aminotransfer ALT/SGPT 40 U/L (16-61); Albumin, Serum 3.4 g/dL (3.2-5.0); Alkaline Phosphatase 67 U/L (45-117); Bilirubin, Direct 0.22 mg/dL (0.00-0.30); Globulin 3.5 g/dL (2.2-4.2); Protein, Total 6.9 g/dL (6.4-8.2)
== END 2021-04-25 18:00 | disposition home or self-care (01) ==
LOC: LAB 09:41
PROVIDERS: PCP Family Medicine Geriatric Medicine; Referring Provider Internal Medicine Pulmonary Disease; Visit Provider Internal Medicine Pulmonary Disease
DX: J84.10 Pulmonary fibrosis, unspecified (principal)
CPT/HCPCS: 36415; 80076

== ENCOUNTER → 2021-05-02 09:42 | Outpatient (CLI) | payer MEDICARE, SELFPAY ==
[2021-02-22 10:10] VITALS: BMI 30.8
[2021-05-02 10:31] LABS: Erythrocyte Sedimentation Rate 16 mm/hr (0-20)
[2021-05-02 10:32] LABS: Hematocrit 38.4 % (40-54); Hemoglobin 13.1 g/dL (13.0-16.5); Mean Corp Hgb Conc 34.1 g/dL (32-36); Mean Corpuscular Hgb 36.2 pg (27.0-32.0); Mean Corpuscular Volume 106.1 fL (80-94); Platelet Count 189 K/mm3 (150-450); RBC Distribution Width CV 13.4 % (11.6-14.6); RBC Distribution Width SD 52.8 fl (35.1-43.9); Red Blood Count 3.62 M/mm3 (4.6-6.2); White Blood Count 10.4 K/mm3 (4.4-11.0)
[2021-05-02 11:20] LABS: CRP 4.42 mg/L (0.0-3.0)
== END ==
PROVIDERS: PCP Family Medicine Geriatric Medicine; Referring Provider Internal Medicine Pulmonary Disease; Visit Provider Internal Medicine Pulmonary Disease
DX: R91.1 Solitary pulmonary nodule (principal); R06.00 Dyspnea, unspecified; J84.10 Pulmonary fibrosis, unspecified
CPT/HCPCS: 36415; 85027; 85652; 86140

== ENCOUNTER 2021-05-04 09:15 | Outpatient (RCR) | payer MEDICARE, SELFPAY ==
[2021-02-22 10:10] VITALS: BMI 30.8
--- NOTE | 2021-04-22 07:06 | PCM.PR.TP ---
Exercise - 60-Day Assessment - Physician Prescribed Exercise Modalities: Treadmill, NuStep, SciFit Frequency (days/week): 3 Duration (Minutes):: 30-45 Intensity: 60-80% of age predicted maximum heart rate reserve Aerobic Exercise [30-60 min 3-7x/week]:: Progressing Target heart rate: 86-114 max HR 99 Lana-15 - Home Exercise Home Exercise:: No Disease Management - 60-Day - Hypoxemia Reassessment: Demonstrates knowledge of O2 Rx with exercise - Medications Medication list reviewed:: Yes Taking medications 100% of the time:: Met Medication reassessment: Yes Pt demonstrates correct technique timing for MDI, Yes Pt demonstrates correct technique timing for DPI, Yes Pt demonstrates correct technique timing for NEB, Yes Pt demonstrates correct technique timing for spacer - Bronchial Hygiene Bronchial Hygiene Plan: Yes Pt demo correct for device, Yes Pt demo correct for improved hydration, Yes Pt demo correct for hand hygiene, Yes Pt demo correct for verbalize when to call MD Psychosocial - 60-Day - Assessment Depression reassess: Management of stress: Met, Management of depression: Met, Practicing interventions: Met Tobacco - Initial Assessment Tobacco - 30-Day Assessment Tobacco - 60-Day Assessment - Stage of Change Stages of Change:: Action - Learning Barriers Learning Barriers: Participates in education - Family Support Do you have family support?: Yes - Tobacco Use Tobacco Use: Non-smoker Do you use smokeless tobacco?: No - Intervention Smoking Cessation Referral:: No Individual Education/Counseling:: No - Education Gave Education Materials For:: Pulmonary Disease, Risk Factors, Breathing Techniques, Medical Compliance, Pulmonary A&P, Exacerbation Signs & Symptoms, Stress & Relaxation Tobacco - 90-Day Assessment Tobacco - Final Assessment Nutrition/Wt Mgmt - 60-Day - Weight Management Weight Assessment:: Wt loss 1-2 lbs per week Weight:: 244 lb - BMI Weight Goals Progress:: Progressing Patient Health Questionnaire 60-Day Re-eval Assessment 1. Little interest or pleasure in doing things: Not at all 2. Feeling down, depressed, or hopeless: Several days 3. Trouble falling or staying asleep, or sleeping too much: Several days 4. Feeling tired or having little energy: Not at all 5. Poor appetite or overeating: Several days 6. Feeling bad about yourself -- or that you are a failure or have let yourself or your family down: Not at all 7. Trouble concentrating on things, such as reading the newspaper or watching television: Not at all 8. Moving or speaking so slowly that other people could have noticed. Or the opposite - being so fidgety or restless that you have been moving around a lot more than usual: Not at all 9. Thoughts that you would be better off , or of hurting yourself in some way: Not at all How difficult have these problems made it for you to do your work, take care of things at home, or get along with other people?: Somewhat difficult Total Score: 3 Self-Efficacy 60-Day Re-eval Assessment We would like to know how confident you are in doing certain activities. Please select your confidence level for:: Select your confidence level for the following using the scale 1-10 where 1 is not at all confident and 10 is totally confident. Your score is the average of all 6 responses. Fatigue: How confident are you that you can keep the fatigue caused by your disease from interfering with the things you want to do? Select Number: 6 Physical Discomfort or Pain: How confident are you that you can keep the physical discomfort or pain of your disease from interfering with the things you want to do? Select Number: 6 Emotional Distress: How confident are you that you can keep the emotional distress caused by your disease from interfering with the things you want to do? Select Number: 7 Other Symptoms or Health Problems: How confident are you that you can keep other symptoms or health problems from interfering with the things you want to do? Select Number: 8 Different Tasks and Activities: How confident are you that you can do the different tasks and activities needed to manage your health condition so as to reduce your need to see a doctor? Select Number: 9 Medication: How confident are you that you can do things other than just taking medication to reduce how much your illness affects your everyday life? Select Number: 9 Total Score:: 7 Nutrition Survey
== END 2021-05-04 23:59 ==
LOC: PR 09:15
PROVIDERS: PCP Family Medicine Geriatric Medicine; Referring Provider Internal Medicine Pulmonary Disease; Visit Provider Internal Medicine Pulmonary Disease
DX: J84.10 Pulmonary fibrosis, unspecified (principal)
CPT/HCPCS: 97150; G0239

== ENCOUNTER → 2021-05-27 08:20 | Outpatient (CLI) | payer MEDICARE, SELFPAY ==
[2021-05-20 12:35] VITALS: BMI 29.5
[2021-05-27 09:43] LABS: Hematocrit 34.9 % (40-54); Hemoglobin 11.7 g/dL (13.0-16.5); Mean Corp Hgb Conc 33.5 g/dL (32-36); Mean Corpuscular Hgb 35.7 pg (27.0-32.0); Mean Corpuscular Volume 106.4 fL (80-94); Mean Platelet Vol. 10.3 fl (6.2-12.0); Platelet Count 225 K/mm3 (150-450); RBC Distribution Width CV 13.2 % (11.6-14.6); RBC Distribution Width SD 51.4 fl (35.1-43.9); Red Blood Count 3.28 M/mm3 (4.6-6.2); White Blood Count 11.6 K/mm3 (4.4-11.0)
[2021-05-27 10:14] LABS: AST(SGOT) 22 U/L (15-37); Alanine Aminotransfer ALT/SGPT 50 U/L (16-61); Albumin, Serum 3.2 g/dL (3.2-5.0); Alkaline Phosphatase 60 U/L (45-117); Anion Gap 7 (5-15); BUN 17 mg/dL (7-18); Bilirubin, Direct 0.15 mg/dL (0.00-0.30); CPK Total, Creatine Kinase 42 U/L (39-308); Chloride 103 mmol/L (98-107); EST Glomerular Filtration Rate 70 mL/min (>60); Globulin 3.4 g/dL (2.2-4.2); Potassium 3.8 mmol/L (3.5-5.1); Protein, Total 6.6 g/dL (6.4-8.2); Sodium Level 137 mmol/L (136-145)
== END ==
PROVIDERS: PCP Family Medicine Geriatric Medicine; Referring Provider Internal Medicine Pulmonary Disease; Visit Provider Internal Medicine Pulmonary Disease
DX: I25.10 Atherosclerotic heart disease of native coronary artery without angina pectoris (principal); R09.02 Hypoxemia; R06.00 Dyspnea, unspecified; J84.10 Pulmonary fibrosis, unspecified
CPT/HCPCS: 80051; 80076; 82550; 84520; 85027; 97150; G0239

== ENCOUNTER 2021-05-27 09:30 | Outpatient (RCR) | payer MEDICARE, SELFPAY ==
[2021-02-22 10:10] VITALS: BMI 30.8
--- NOTE | 2021-05-20 07:23 | PCM.PR.TP ---
Exercise - Final Assessment - Physician Prescribed Exercise Modalities: Treadmill, NuStep, SciFit Frequency (days/week): 3 Duration (Minutes):: 30-45 Aerobic Exercise [30-60 min 3-7x/week]:: Progressing - Goal was to meet 5.0 MET Further followup [see D/C Summary]:: Yes Target heart rate: 86-114 Lana-14 METs - Progression: 0.5-1.0 MET, RPE 11-14 WEEK: 4.0 - Home Exercise Home Exercise:: No Disease Management - Final - Hypoxemia Final Assessment: Demonstrates knowledge of O2 Rx with exercise - Medications Medication list reviewed:: Yes Taking medications 100% of the time:: Met Medication reassessment: Yes Pt demonstrates correct technique timing for MDI, Yes Pt demonstrates correct technique timing for DPI, Yes Pt demonstrates correct technique timing for NEB, Yes Pt demonstrates correct technique timing for spacer - Bronchial Hygiene Bronchial Hygiene Plan: Yes Pt demonstrates correctly for effective cough, Yes Pt demo correct for device, Yes Pt demo correct for improved hydration, Yes Pt demo correct for hand hygiene, Yes Pt demo correct for verbalize when to call MD Psychosocial - Final Assess - Assessment Depression reassess: Management of stress: Met, Management of depression: Met, Practicing interventions: Met Tobacco - Initial Assessment Tobacco - 30-Day Assessment Tobacco - 60-Day Assessment Tobacco - 90-Day Assessment Tobacco - Final Assessment - Stage of Change Stages of Change:: Action - Learning Barriers Learning Barriers: Participates in education - Family Support Do you have family support?: Yes - Tobacco Use Tobacco Use: Non-smoker Do you use smokeless tobacco?: No - Intervention Smoking Cessation Referral:: No Individual Education/Counseling:: No Education Schedule Given:: Yes - Education Education Goal Reached?: Yes Nutrition/Wt Mgmt - Final - Weight Management Final Weight Assessment: Wt stable Weight:: 242 lb - DOWN FROM 253 !! Weight Goals Progress:: Progressing Patient Health Questionnaire Discharge Assessment 1. Little interest or pleasure in doing things: Not at all 2. Feeling down, depressed, or hopeless: Not at all 3. Trouble falling or staying asleep, or sleeping too much: Several days 4. Feeling tired or having little energy: Not at all 5. Poor appetite or overeating: Not at all 6. Feeling bad about yourself -- or that you are a failure or have let yourself or your family down: Not at all 7. Trouble concentrating on things, such as reading the newspaper or watching television: Not at all 8. Moving or speaking so slowly that other people could have noticed. Or the opposite - being so fidgety or restless that you have been moving around a lot more than usual: Not at all How difficult have these problems made it for you to do your work, take care of things at home, or get along with other people?: Not difficult at all Total Score: 1 Self-Efficacy Discharge Assessment We would like to know how confident you are in doing certain activities. Please select your confidence level for:: Select your confidence level for the following using the scale 1-10 where 1 is not at all confident and 10 is totally confident. Your score is the average of all 6 responses. Fatigue: How confident are you that you can keep the fatigue caused by your disease from interfering with the things you want to do? Select Number: 9 Physical Discomfort or Pain: How confident are you that you can keep the physical discomfort or pain of your disease from interfering with the things you want to do? Select Number: 9 Emotional Distress: How confident are you that you can keep the emotional distress caused by your disease from interfering with the things you want to do? Select Number: 9 Other Symptoms or Health Problems: How confident are you that you can keep other symptoms or health problems from interfering with the things you want to do? Select Number: 9 Different Tasks and Activities: How confident are you that you can do the different tasks and activities needed to manage your health condition so as to reduce your need to see a doctor? Select Number: 9 Medication: How confident are you that you can do things other than just taking medication to reduce how much your illness affects your everyday life? Nutrition Survey
== END 2021-06-04 23:59 ==
LOC: PR 09:30
PROVIDERS: PCP Family Medicine Geriatric Medicine; Referring Provider Internal Medicine Pulmonary Disease; Visit Provider Internal Medicine Pulmonary Disease
DX: J84.10 Pulmonary fibrosis, unspecified (principal)
CPT/HCPCS: 97150; G0239

== ENCOUNTER 2021-05-30 06:46 | Day surgery (SDC) | payer MEDICARE, SELFPAY ==
[2021-05-20 12:35] VITALS: BMI 29.5
[2021-05-20 15:15] LABS: Absolute Lymphocyte Count 1.26 X10^3/uL (0.83-4.51); Absolute Neutrophil Count 6.1 X10^3/uL (2.0-7.7); Basophil# 0.04 X10^3/uL; Basophil% 0.5 % (0-1); Eosinophil# 0.03 X10^3/uL; Eosinophils% 0.4 % (0-5); Hematocrit 36.2 % (40-54); Hemoglobin 12.4 g/dL (13.0-16.5); Lymphocyte # 1.26 X10^3/ul (0.83-4.51); Lymphocyte % 15.3 % (19-41); Mean Corp Hgb Conc 34.3 g/dL (32-36); Mean Corpuscular Volume 105.2 fL (80-94); Mean Platelet Vol. 10.3 fl (6.2-12.0); Monocyte# 0.74 X10^3/uL; NRBC Flagged by Analyzer 0 % (0-5); Neutrophil # 6.11 X10^3/uL (2.7-7.7); Platelet Count 219 K/mm3 (150-450); RBC Distribution Width CV 13.5 % (11.6-14.6); RBC Distribution Width SD 51.8 fl (35.1-43.9); Red Blood Count 3.44 M/mm3 (4.6-6.2); White Blood Count 8.3 K/mm3 (4.4-11.0)
[2021-05-20 16:08] LABS: Anion Gap 10 (5-15); BUN 14 mg/dL (7-18); BUN/Creat Ratio 10.6 RATIO (10-20); Calcium,Total 9.1 mg/dL (8.5-10.1); Chloride 105 mmol/L (98-107); Creatinine, Serum 1.32 mg/dL (0.70-1.30); EST Glomerular Filtration Rate 56 mL/min (>60); Est Glom Filt Rate - Afr Amer 68 mL/min (>60); Glucose 161 mg/dL (74-106); Potassium 4.2 mmol/L (3.5-5.1); Sodium Level 134 mmol/L (136-145)
[2021-05-27 08:20] VITALS: BMI 29.5
--- NOTE | 2021-05-30 08:13 | CL.D_ITS ---
Patient Name: JOEL YUSUF Study Date: 05/30/2021 Performing: Tru Queen MD Ht: 75.98 inches 193 cm : 1945 Wt: 242.51 lbs 110 kg Age: 75 Gender: male BSA: 2.4 PROCEDURE(S) PERFORMED [id number]-[id number]/COR/LV/CABG CLINICAL PROFILE AND INDICATIONS Indications: Other Heart Failure: None Stress/Imaging Stress/Image Study Performed: No CAD Presentations: Symptom unlikely to be ischemic. CONCLUSIONS [place] coronary artery disease with patent bypass graft to the LAD from the CRANE, saphenous vein judy t to the diagonal branch and saphenous vein graft to right coronary artery. Moderate left circumflex [place] vessel disease and preserved ejection fraction. RECOMMENDATIONS Medical therapy DESCRIPTION OF PROCEDURE The patient arrived to the procedure lab. The risks and benefits of the procedure as well as a full d escription of our services here and current unavailability of surgical backup were fully explained to the patient and/or their significant other prior to the catheterization. The Timeout was completed, verifying the correct patient and procedure. The patient's procedural site was prepped and draped in the usual fashion. Local anesthetic was given subcutaneously to right groin region with Lidocaine 2%. Using a modified Seldinger technique, arterial access was obtained via the right femoral artery, a 5 Fr sheath was inserted. Left Coronary Artery selective angiography was performed in multiple views u sing a 5 Fr. JL4 catheter. Right Coronary Artery selective angiography was then performed in multiple views using a 5 Fr. 3DRC (Yariel) catheter. Saphenous Vein graft to the DIAG 1 selective angiograp hy was performed in multiple views using a 5 Fr. 3DRC (Yariel) catheter. Saphenous Vein graft to the RCA selective angiography was performed in multiple views using a 5 Fr. 3DRC (Yariel) catheter. Left internal mammary artery graft to the LAD selective angiography was performed in multip le views using a 5 Fr. IM catheter. Left Ventriculography was performed in ANTUNEZ projection using a 5 F r. Pigtail catheter. LV to AO pullback pressures were then recorded.The arterial sheath was pulled an d manual compression applied until hemostasis is achieved. CORONARY ANGIOGRAPHY DOMINANCE: Right Dominant LEFT HEART ASSESSMENT Left Ventricular Ejection Fraction: by LV Gram 60 % Normal LV wall motion Normal Left Ventricular systolic function LEFT MAIN: 50 distal % Stenosis LEFT ANTERIOR DESCENDING ARTERY: Severe calcification, Multiple areas of 80% stenosis % Stenosis CIRCUMFLEX ARTERY: PROX CIRC: 70 % Stenosis RIGHT CORONARY ARTERY: MID RCA: is occluded ACUTE MARGINAL: Mild luminal irregularities GRAFTS: CRANE graft to the Mid LAD is patent Saphenous Vein graft to the 1st Diagonal is patent Saphenous Vein graft to the RCA is patent COMPLICATIONS No Complications PROCEDURE MEDICATIONS Versed 1 mg IV Versed 1 mg IV Oxygen: 3 L/min via nasal cannula-as per home SUMMARY OF HEMODYNAMIC DATA Time AIR REST ECG 07:12:32 AO 151/72 (100) SA 07:42:49 LV 146/1, 13 08:01:42 LV 148/1, 16 08:01:48 LV 147/0, 16 08:02:27 LV 151/4, 22 08:02:34 LVp 119/3, 20 08:02:37 AOp 155/64 (96) 08:02:42 Signed By Tru Queen MD On 05/30/2021 08:12:40 Tru Queen MD
== END 2021-05-30 13:30 | disposition home or self-care (01) ==
LOC: CLSP 06:47
PROVIDERS: PCP Family Medicine Geriatric Medicine; Referring Provider Internal Medicine Cardiovascular Disease; Visit Provider Internal Medicine Cardiovascular Disease
DX: I25.10 Atherosclerotic heart disease of native coronary artery without angina pectoris (principal); N40.0 Benign prostatic hyperplasia without lower urinary tract symptoms; I11.0 Hypertensive heart disease with heart failure; I50.32 Chronic diastolic (congestive) heart failure; E78.5 Hyperlipidemia, unspecified; E03.9 Hypothyroidism, unspecified; I65.22 Occlusion and stenosis of left carotid artery; G47.33 Obstructive sleep apnea (adult) (pediatric); J84.112 Idiopathic pulmonary fibrosis; Z95.1 Presence of aortocoronary bypass graft; Z79.82 Long term (current) use of aspirin; Z79.899 Other long term (current) drug therapy; Z87.891 Personal history of nicotine dependence
CPT/HCPCS: 36415; 80048; 85025; 93459; 99152; 99153; J7040; Q9967; C1769

== ENCOUNTER → 2021-05-31 14:48 | Outpatient (CLI) | payer MEDICARE, SELFPAY ==
[2021-05-20 12:35] VITALS: BMI 29.5
[2021-05-27 08:20] VITALS: BMI 29.5
--- NOTE | 2021-05-31 14:49 | CT_ITS ---
STUDY: CT CHEST WITHOUT CONTRAST REASON FOR EXAM: Male, 75 years old. PULMONARY NODULE follow-up. History of pulmonary fibrosis. RADIATION DOSAGE (If Supplied By Facility): CTDIvol = ( 13.95 ) mGy, DLP = ( 561.84 ) mGycm TECHNIQUE: Transaxial imaging was performed without the administration of intravenous contrast material. Multiplanar coronal and sagittal images were reformatted. Individualized dose optimization techniques were used for this CT. COMPARISON: Comparison is made with prior study dated 02/25/2021. FINDINGS: Once again, this is increased interstitial markings in both lungs involving both the upper and lower lobes suggestive of scarring. Stable intralobular septal thickening in the upper and lower lobes. Minimal degree of bibasilar bronchiectasis. There is no demonstrated pleural abnormality. Sternal cerclage wires and vascular clips are present from a prior sternotomy and coronary artery bypass graft procedure (CABG). There are calcifications of the coronary arteries. Normal mediastinum. Normal hilar regions. Normal unenhanced pulmonary arteries. There is atherosclerotic calcification of the aortic arch with tortuosity and elongation of the aortic arch and descending thoracic aorta. There are multi-level degenerative changes of the thoracic spine. Small gallstones. Stable tiny bilateral nonobstructive intrarenal calculi. CT/Chest without Contrast IMPRESSION: Stable examination with evidence of bile bilateral pulmonary scarring. Electronically Signed: Ventura Manzo MD at 12:34 EDT , Service support ,
== END ==
PROVIDERS: PCP Family Medicine Geriatric Medicine; Referring Provider Internal Medicine Pulmonary Disease; Visit Provider Internal Medicine Pulmonary Disease
DX: R91.1 Solitary pulmonary nodule (principal); J84.10 Pulmonary fibrosis, unspecified
CPT/HCPCS: 71250

== ENCOUNTER → 2021-06-08 11:14 | Outpatient (CLI) | payer MEDICARE, SELFPAY ==
[2021-05-27 08:20] VITALS: BMI 29.5
[2021-06-08 12:37] LABS: Absolute Lymphocyte Count 0.78 X10^3/uL (0.83-4.51); Absolute Neutrophil Count 8.9 X10^3/uL (2.0-7.7); Basophil# 0.02 X10^3/uL; Basophil% 0.2 % (0-1); Eosinophil# 0.01 X10^3/uL; Eosinophils% 0.1 % (0-5); Hematocrit 40.1 % (40-54); Lymphocyte # 0.78 X10^3/ul (0.83-4.51); Lymphocyte % 7.2 % (19-41); Mean Corp Hgb Conc 32.4 g/dL (32-36); Mean Corpuscular Hgb 35.9 pg (27.0-32.0); Mean Corpuscular Volume 110.8 fL (80-94); Mean Platelet Vol. 10.3 fl (6.2-12.0); Monocyte% 9.2 % (0-10); NRBC Flagged by Analyzer 0 % (0-5); Neutrophil # 8.85 X10^3/uL (2.7-7.7); Neutrophil % 81.4 % (47-70); Platelet Count 178 K/mm3 (150-450); RBC Distribution Width CV 13.7 % (11.6-14.6); RBC Distribution Width SD 56.5 fl (35.1-43.9); Red Blood Count 3.62 M/mm3 (4.6-6.2); White Blood Count 10.9 K/mm3 (4.4-11.0)
[2021-06-08 12:54] LABS: Vitamin D,25 Hydroxy 32.7 ng/mL
[2021-06-08 13:01] LABS: AST(SGOT) 21 U/L (15-37); Alanine Aminotransfer ALT/SGPT 61 U/L (16-61); Albumin, Serum 3.4 g/dL (3.2-5.0); Alkaline Phosphatase 64 U/L (45-117); Anion Gap 7 (5-15); BUN 17 mg/dL (7-18); BUN/Creat Ratio 18.3 RATIO (10-20); Calcium,Total 9.1 mg/dL (8.5-10.1); Chloride 102 mmol/L (98-107); Creatinine, Serum 0.93 mg/dL (0.70-1.30); EST Glomerular Filtration Rate 84 mL/min (>60); Est Glom Filt Rate - Afr Amer 101 mL/min (>60); Globulin 3.4 g/dL (2.2-4.2); Glucose 134 mg/dL (74-106); Potassium 4.5 mmol/L (3.5-5.1); Protein, Total 6.8 g/dL (6.4-8.2); Sodium Level 134 mmol/L (136-145); Thyroid Stim Hormone (TSH) 0.36 uIU/mL (0.358-3.74)
== END ==
PROVIDERS: PCP Family Medicine Geriatric Medicine; Visit Provider Family Medicine Geriatric Medicine
DX: I10 Essential (primary) hypertension (principal); E55.9 Vitamin D deficiency, unspecified
CPT/HCPCS: 36415; 80053; 82306; 84443; 85025

== ENCOUNTER → 2021-06-13 11:24 | Outpatient (CLI) | payer MEDICARE, SELFPAY ==
[2021-05-27 08:20] VITALS: BMI 29.5
[2021-06-13 12:40] LABS: Absolute Lymphocyte Count 1.01 X10^3/uL (0.83-4.51); Absolute Neutrophil Count 9.5 X10^3/uL (2.0-7.7); Basophil# 0.02 X10^3/uL; Basophil% 0.2 % (0-1); Eosinophil# 0.05 X10^3/uL; Eosinophils% 0.4 % (0-5); Hematocrit 39.1 % (40-54); Lymphocyte # 1.01 X10^3/ul (0.83-4.51); Lymphocyte % 8.4 % (19-41); Mean Corp Hgb Conc 33.2 g/dL (32-36); Mean Corpuscular Hgb 36.1 pg (27.0-32.0); Mean Corpuscular Volume 108.6 fL (80-94); Mean Platelet Vol. 9.9 fl (6.2-12.0); Monocyte# 1.09 X10^3/uL; Monocyte% 9.1 % (0-10); NRBC Flagged by Analyzer 0 % (0-5); Neutrophil # 9.54 X10^3/uL (2.7-7.7); Neutrophil % 79.6 % (47-70); Platelet Count 179 K/mm3 (150-450); RBC Distribution Width CV 13.4 % (11.6-14.6); RBC Distribution Width SD 54.4 fl (35.1-43.9)
== END ==
PROVIDERS: PCP Family Medicine Geriatric Medicine; Visit Provider Family Medicine Geriatric Medicine
DX: D64.9 Anemia, unspecified (principal)
CPT/HCPCS: 36415; 85025

== ENCOUNTER → 2021-06-28 08:27 | Outpatient (CLI) | payer MEDICARE, SELFPAY ==
[2021-06-28 09:30] LABS: Hematocrit 39.2 % (40-54); Hemoglobin 13.1 g/dL (13.0-16.5); Mean Corp Hgb Conc 33.4 g/dL (32-36); Mean Corpuscular Hgb 36.5 pg (27.0-32.0); Mean Corpuscular Volume 109.2 fL (80-94); Mean Platelet Vol. 9.5 fl (6.2-12.0); Platelet Count 113 K/mm3 (150-450); RBC Distribution Width CV 13.2 % (11.6-14.6); RBC Distribution Width SD 53.1 fl (35.1-43.9); Red Blood Count 3.59 M/mm3 (4.6-6.2); White Blood Count 10.3 K/mm3 (4.4-11.0)
[2021-06-28 10:29] LABS: BUN 17 mg/dL (7-18); Creatinine, Serum 1.01 mg/dL (0.70-1.30); EST Glomerular Filtration Rate 76 mL/min (>60); Est Glom Filt Rate - Afr Amer 92 mL/min (>60)
== END ==
LOC: MTLAB 08:28 → LAB 08:28
PROVIDERS: PCP Family Medicine Geriatric Medicine; Referring Provider Internal Medicine Pulmonary Disease; Visit Provider Internal Medicine Pulmonary Disease
DX: R06.00 Dyspnea, unspecified (principal)
CPT/HCPCS: 36415; 82565; 84520; 85027

== ENCOUNTER → 2021-07-04 10:04 | Outpatient (CLI) | payer MEDICARE, SELFPAY ==
[2021-07-04 11:33] LABS: Absolute Lymphocyte Count 1.18 X10^3/uL (0.83-4.51); Absolute Neutrophil Count 7.9 X10^3/uL (2.0-7.7); Basophil# 0.03 X10^3/uL; Basophil% 0.3 % (0-1); Eosinophil# 0.01 X10^3/uL; Eosinophils% 0.1 % (0-5); Hematocrit 39.1 % (40-54); Hemoglobin 12.8 g/dL (13.0-16.5); Lymphocyte # 1.18 X10^3/ul (0.83-4.51); Lymphocyte % 11.4 % (19-41); Mean Corp Hgb Conc 32.7 g/dL (32-36); Mean Corpuscular Hgb 36.2 pg (27.0-32.0); Mean Corpuscular Volume 110.5 fL (80-94); Mean Platelet Vol. 9.6 fl (6.2-12.0); Monocyte# 0.88 X10^3/uL; Monocyte% 8.5 % (0-10); NRBC Flagged by Analyzer 0.3 % (0-5); Neutrophil # 7.85 X10^3/uL (2.7-7.7); Neutrophil % 75.6 % (47-70); Platelet Count 119 K/mm3 (150-450); RBC Distribution Width CV 13.5 % (11.6-14.6); RBC Distribution Width SD 55.6 fl (35.1-43.9); Red Blood Count 3.54 M/mm3 (4.6-6.2); White Blood Count 10.4 K/mm3 (4.4-11.0)
== END ==
PROVIDERS: PCP Family Medicine Geriatric Medicine; Visit Provider Family Medicine Geriatric Medicine
DX: D64.9 Anemia, unspecified (principal)
CPT/HCPCS: 36415; 85025

== ENCOUNTER → 2021-07-05 | Outpatient (CLI) | payer MEDICARE, SELFPAY | END | disposition home or self-care (01) | LOC: LABSPEC 10:07 | PROVIDERS: PCP Family Medicine Geriatric Medicine; Referring Provider Family Medicine Geriatric Medicine; Visit Provider Family Medicine Geriatric Medicine | DX: K92.1 Melena (principal) | CPT/HCPCS: 82274 ==

== ENCOUNTER 2021-08-03 11:35 | Outpatient (RCR) | payer MEDICARE, SELFPAY ==
[2021-02-22 10:10] VITALS: BMI 30.8
[2021-08-03 13:34] LABS: AST(SGOT) 19 U/L (15-37); Alanine Aminotransfer ALT/SGPT 56 U/L (16-61); Albumin, Serum 3.1 g/dL (3.2-5.0); Alkaline Phosphatase 54 U/L (45-117); Bilirubin, Direct 0.17 mg/dL (0.00-0.30); Globulin 3.2 g/dL (2.2-4.2); Protein, Total 6.3 g/dL (6.4-8.2)
== END 2021-08-03 18:00 | disposition home or self-care (01) ==
LOC: LAB 11:35
PROVIDERS: PCP Family Medicine Geriatric Medicine; Referring Provider Internal Medicine Pulmonary Disease; Visit Provider Internal Medicine Pulmonary Disease
DX: J84.10 Pulmonary fibrosis, unspecified (principal)
CPT/HCPCS: 36415; 80076

== ENCOUNTER 2021-10-01 08:27 | Emergency (ER) | payer MEDICARE, SELFPAY ==
[2021-10-01 08:29] VITALS: BP 123/76; PULSE 108; RESP 20; TEMP 36.2; O2SAT 93; BMI 30.4
--- NOTE | 2021-10-01 08:45 | VDLE_ITS ---
Reason For Study: swelling RIGHT CFV, FV, POP V, T/P Trunk, PTV, Peroneal V, and Gastroc V are dilated and noncompressible. GSV is normal. Procedure This is a venous duplex using B-mode, color flow and spectral Doppler. Exam performed portable in ED. The exam was abbreviated due to the COVID 19 protocol. The exam was diagnostic. A preliminary report was called and/or faxed to Dr. Purvis. VL/Venous Duplex US, Unilateral Interpretation Summary Acute deep vein thrombosis is noted in the right common femoral vein. Acute irasema p vein thrombosis is noted in the right femoral vein. Acute deep vein thrombosis is noted in the rig ht popliteal vein. Acute deep vein thrombosis is noted in the right tibio-peroneal trunk. Acute de ep vein thrombosis is noted in the right posterior tibial vein. Acute deep vein thrombosis is noted i n the right peroneal vein. Acute deep vein thrombosis is noted in the right gastrocnemius vein. The right great saphenous vein appears patent and compressible segmentally. Ordering Physician: Julian Purvis Performed By: Bryan Juan RVT
--- NOTE | 2021-10-01 08:46 | EDS_ITS ---
HPI History of Present Illness Chief Complaint: Lower Extremity Injury Informant: patient Narrative Narrative: Patient presents with right lower extremity swelling that he really noted mostly today. He sometimes gets swelling of his feet for which he will take Lasix. He took that today. However normally gets both feet and this is just the right leg and its more the entire right leg. It is a little bit sore but not notably painful. He has no chest pain or palpitations. He has chronic dyspnea from pulmonary fibrosis but is not new or different. He is not coughing. No hemoptysis. He has never had a DVT or PE. No known history of cancer. About 3 weeks ago he did have a flight out to [place] [facility]. He estimates this was about 5 hours. He had no symptoms until late last night where he started to feel a little tightness in his leg. He is on prednisone and has been on this for 13 months. He is down to 15 mg a day on a taper. Nothing really makes his symptoms better or worse. He is on no anticoagulation other than baby aspirin. 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 els ewhere Parageusia Pulmonary fibrosis Solitary pulmonary nodule Home Medications lisinopril 5 mg tablet 5 mg PO QDAY 12/31/17 [History Last Taken 05/30/21] tamsulosin 0.4 mg capsule 0.4 mg PO QDAY 12/31/17 [History Last Taken Unknown] metoprolol tartrate 25 mg tablet 12.5 mg PO BID tab 01/04/18 [History Last Taken 05/30/21] atorvastatin 20 mg tablet 20 mg PO QPM #90 tab 08/05/19 [History Last Taken Unknown] levothyroxine 75 mcg tablet 75 mcg PO DAILY #90 tab 08/05/19 [History Last Taken 05/30/21] vit A 7,160 unit-vit C 113 mg-vit E 100 [id number] tablet tab PO tab 08/05/19 [History Last Taken Unknown] fish oil-dha-epa 1,200 mg-144 mg-216 mg capsule 2 cap PO DAILY cap 10/08/20 [History Last Taken Unknown] prednisone 10 mg tablet 10 mg PO DAILY tab 11/09/20 [History Last Taken Unknown] aspirin 81 mg tablet,delayed release 81 mg PO DAILY 05/20/21 [History Last Taken 05/30/21] furosemide 40 mg tablet 40 mg PO DAILY PRN tab 05/20/21 [History Last Taken Unknown] apixaban [Eliquis] 5 mg PO BID #74 tab 10/01/21 [Rx Last Taken Unknown] Allergy/AdvReac Type Severity Reaction Status Date / Time Penicillins AdvReac Severe Rash Verified 10/01/21 08:32 Family History Father Cancer Prostate cancer FH: CABG (coronary artery bypass surgery) FH: rheumatic fever Heart disease Mother Cancer Other Family history of coronary artery disease Surgical History 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) History of detached retina repair History of left heart catheterization (05/30/21) Social History Smoking Status: Former smoker how long ago did patient quit smokin alcohol intake: current alcohol intake frequency: a few times a month Alcohol type: hard liquor substance use type: does not use caffeine: Yes Type: tea what type of physical activity do you participate in: none seatbelt use: always do you feel safe at home: Yes ROS ROS ED Constitutional Constitutional ED: Denies chills or fever(s) Eyes Eyes: Denies change in vision ENT ENT ED: Denies rhinorrhea or sore throat Cardiovascular Cardiovascular: Denies chest pain Respiratory/Chest Respiratory/Chest: Reports other Details: Chronic dyspnea but no change. ; Denies cough, dyspnea or sputum Gastrointestinal Gastrointestinal: Reports other Details: No melena or hematochezia. ; Denies abdominal pain, nausea or vomiting Genitourinary Genitourinary ED: Denies hematuria Musculoskeletal Musculoskeletal: Reports other Details: Swelling of right leg as in history of present illness. ; Denies back pain, myalgias or neck pain Integumentary Denies rash Neurologic Neurologic: Denies headache(s), paresthesias or weakness Endocrine Endocrinology: Denies polydipsia or polyuria Hematologic/Lymphatic Hematologic/Lymphatic: Denies easy bleeding or easy bruising Allergic/Immunologic Allergic/Immunologic ED: Denies urticaria EXAM Physical Exam Const Vital Signs: 10/01/21 08:29 10/01/21 11:03 Temperature 97.1 F L Temperature Source Oral Pulse Rate 108 H 114 H Respiratory Rate 20 H 18 Blood Pressure 123/76 H 112/72 Blood Pressure Mean 91 85 Pulse Ox 93 96 Oxygen Delivery Method Room Air Room Air Positive well nourished and well developed General Appearance ED: well developed and NAD HEENT Reports moist mucous membranes Neck full ROM Chest Wall inspection of chest normal Resp normal respiratory effort and clear to auscultation bilaterally Auscultation: Negative for rhonchi, wheezes or diminished lung sounds Cardio regular rate, regular rhythm and no murmurs GI non-tender Palpation: soft Back/Spine no CVA tenderness Extremity Extremity Narrative: There is swelling of his right foot leg and thigh area. It is not cold. No change in color. Pulses seem normal. His left leg looks normal. There is a clear difference between the 2. Neuro oriented x3 Sensorium / Orientation: alert Psych mental status grossly normal Skin Lesions: no lesions Rashes: no rashes MDM MDM MDM Narrative Medical decision making narrative: CBC showed no marked abnormalities. Platelets were 132 just minimally low. PT and PTT are normal. Electrolytes are normal other than mild elevation in creatinine. This might be due to increasing his dose of Lasix. I talked to the tech. His ultrasound is positive for DVT that goes all the way up above the inguinal ligament. He really cannot see the terminus or origin of this. Patient would really not want to be admitted to the hospital. I did discuss the case with hospitalist. We agree that we would normally bring this patient in for heparinization to check to make sure he does not progress to any ischemic or blood flow issues for his legs. Patient states he and his watch this very closely. He will elevated every time he is down. He would really want to go home. I think this is a reasonable intelligent and capable patient who will return it for signs of problems. If he develops worsening pain, color changes, trouble breathing, worsening swelling he needs to return. I will start him off on Eliquis. His creatinine is below 1.5. He is age is below 80. I think his creatinine is a little bit high because of his increased dose of Lasix. He will take his normal dose from now on. Lab Data Attestation: I reviewed the patient's lab results. Labs: Laboratory Results - last 24 hr 10/01/21 10/01/21 10/01/21 09:25 09:25 09:25 WBC 9.4 RBC 3.56 L Hgb 12.8 L Hct 37.8 L MCV 106.2 H MCH 36.0 H MCHC 33.9 RDW Std Deviation 60.1 H RDW Coeff of Andrea 15.3 H Plt Count 132 L MPV 9.6 Immature Gran % (Auto) 1.500 H Neut % (Auto) 69.6 Lymph % (Auto) 18.3 L [place] % (Auto) 10.0 Eos % (Auto) 0.3 Baso % (Auto) 0.3 Absolute Neuts (auto) 6.6 Absolute Lymphs (auto) 1.72 Nucleated RBC % 0 PT 13.1 INR 1.1 APTT 24.5 Sodium 138 Potassium 4.3 Chloride 105 Carbon Dioxide 24.0 Anion Gap 9 BUN 24 H Creatinine 1.49 H Estim Creat Clear Calc 50.97 Est GFR (MDRD) Af Amer 59 L Est GFR (MDRD) Non-Af 49 L BUN/Creatinine Ratio 16.1 Glucose 134 H Calcium 9.4 Discharge Plan Triage Chief Complaint: Lower Extremity Injury ED Provider: Julian Purvis Dx/Rx/DC Orders Clinical Impression: Acute deep vein thrombosis (DVT) of right lower extremity Instructions: DVT Complications, DVT Dc Prescriptions: New Eliquis 5 mg tablet 5 mg PO BID Qty: 74 RF: 0 No Action tamsulosin 0.4 mg capsule,extended release 24hr 0.4 mg PO QDAY RF: 0 lisinopril 5 mg tablet 5 mg PO QDAY RF: 0 metoprolol tartrate 25 mg tablet 12.5 mg PO BID RF: 0 vit A-vit C-vit [id number]-kvpzxo 7,160-113-100 uwje-ub-aayg tablet PO RF: 0 levothyroxine 75 mcg tablet 75 mcg PO DAILY Qty: 90 RF: 0 atorvastatin 20 mg tablet 20 mg PO QPM Qty: 90 RF: 0 fish oil-dha-epa 1,200-144-216 mg capsule 2 cap PO DAILY RF: 0 prednisone 10 mg tablet 10 mg PO DAILY RF: 0 furosemide [Lasix] 40 mg tablet 40 mg PO DAILY PRN (Reason: Shortness Of Breath) RF: 0 aspirin [Adult Low Dose Aspirin] 81 mg tablet,delayed release (DR/EC) 81 mg PO DAILY RF: 0 Primary Care Provider: Earnest Alex Chi Referrals: Earnest Alex Chi, MD [Primary Care Provider] - 3-5 Days Disposition Disposition: Home, Self Care
[2021-10-01 09:33] LABS: Absolute Lymphocyte Count 1.72 X10^3/uL (0.83-4.51); Absolute Neutrophil Count 6.6 X10^3/uL (2.0-7.7); Basophil# 0.03 X10^3/uL; Basophil% 0.3 % (0-1); Eosinophil# 0.03 X10^3/uL; Eosinophils% 0.3 % (0-5); Hematocrit 37.8 % (40-54); Hemoglobin 12.8 g/dL (13.0-16.5); Lymphocyte # 1.72 X10^3/ul (0.83-4.51); Lymphocyte % 18.3 % (19-41); Mean Corp Hgb Conc 33.9 g/dL (32-36); Mean Corpuscular Volume 106.2 fL (80-94); Mean Platelet Vol. 9.6 fl (6.2-12.0); Monocyte# 0.94 X10^3/uL; NRBC Flagged by Analyzer 0 % (0-5); Neutrophil # 6.56 X10^3/uL (2.7-7.7); Neutrophil % 69.6 % (47-70); Platelet Count 132 K/mm3 (150-450); RBC Distribution Width CV 15.3 % (11.6-14.6); RBC Distribution Width SD 60.1 fl (35.1-43.9); Red Blood Count 3.56 M/mm3 (4.6-6.2); White Blood Count 9.4 K/mm3 (4.4-11.0)
[2021-10-01 09:41] LABS: International Normalized Ratio 1.1; Prothrombin Time (Protime)PT. 13.1 SECONDS (11.7-14.9)
[2021-10-01 09:42] LABS: Partial Thromboplast Time 24.5 Seconds (24.1-36.2)
[2021-10-01 09:46] LABS: Anion Gap 9 (5-15); BUN 24 mg/dL (7-18); BUN/Creat Ratio 16.1 RATIO (10-20); Calcium,Total 9.4 mg/dL (8.5-10.1); Chloride 105 mmol/L (98-107); Creatinine, Serum 1.49 mg/dL (0.70-1.30); EST Glomerular Filtration Rate 49 mL/min (>60); Est Glom Filt Rate - Afr Amer 59 mL/min (>60); Estimated Creatinine Clearance 50.97 ml/min; Glucose 134 mg/dL (74-106); Potassium 4.3 mmol/L (3.5-5.1); Sodium Level 138 mmol/L (136-145)
[2021-10-01 11:03] VITALS: BP 112/72; PULSE 114; RESP 18; O2SAT 96
[2021-10-01] MEDS: APIXABAN 5 MG TABLET 10 MG PO (12:16)
== END 2021-10-01 12:35 | disposition home or self-care (01) ==
PROVIDERS: Emergency Provider Emergency Medicine; PCP Family Medicine Geriatric Medicine
DX: I82.401 Acute embolism and thrombosis of unspecified deep veins of right lower extremity (principal); E03.9 Hypothyroidism, unspecified; E78.5 Hyperlipidemia, unspecified; G47.33 Obstructive sleep apnea (adult) (pediatric); I25.10 Atherosclerotic heart disease of native coronary artery without angina pectoris; I11.0 Hypertensive heart disease with heart failure; I50.32 Chronic diastolic (congestive) heart failure; I65.22 Occlusion and stenosis of left carotid artery; N40.0 Benign prostatic hyperplasia without lower urinary tract symptoms; J84.112 Idiopathic pulmonary fibrosis; Z95.1 Presence of aortocoronary bypass graft; Z79.01 Long term (current) use of anticoagulants; Z79.82 Long term (current) use of aspirin; Z79.899 Other long term (current) drug therapy; Z87.891 Personal history of nicotine dependence
CPT/HCPCS: 80048; 85025; 85610; 85730; 93971; 99283; A4216

== ENCOUNTER 2021-11-10 16:31 | Outpatient (CLI) | payer MEDICARE, SELFPAY ==
--- NOTE | 2021-11-10 17:00 | RAD_ITS ---
STUDY: X-RAY - ABDOMEN/PELVIS REASON FOR EXAM: Male, 75 years old. ABD. PAIN TECHNIQUE: Single AP view of the abdomen / pelvis. COMPARISON: None. FINDINGS: Sternal wires and mediastinal surgical clips compatible with prior CABG. There is an unremarkable bowel gas pattern. There is no demonstrated free abdominal air. The visualized liver, spleen and kidneys are grossly normal in size and morphology. There are calcified phleboliths in the pelvis. There are diffuse degenerative changes of the visualized lumbar spine. There are degenerative changes of the bilateral hips. Arterial vascular calcifications are present. RAD/Abd Inc Decub and/or Erect IMPRESSION: Nonacute x-ray examination of the abdomen and pelvis. Electronically Signed: Krishan Larose MD ([place]) at 8:47 EST , Service support ,
[2021-11-10 17:07] LABS: Absolute Lymphocyte Count 2.72 X10^3/uL (0.83-4.51); Absolute Neutrophil Count 4.6 X10^3/uL (2.0-7.7); Basophil# 0.06 X10^3/uL; Basophil% 0.7 % (0-1); Eosinophil# 0.17 X10^3/uL; Eosinophils% 1.9 % (0-5); Hemoglobin 11.6 g/dL (13.0-16.5); Lymphocyte # 2.72 X10^3/ul (0.83-4.51); Lymphocyte % 30.4 % (19-41); Mean Corp Hgb Conc 33.1 g/dL (32-36); Mean Corpuscular Hgb 34.9 pg (27.0-32.0); Mean Corpuscular Volume 105.4 fL (80-94); Mean Platelet Vol. 9.5 fl (6.2-12.0); Monocyte# 1.37 X10^3/uL; Monocyte% 15.3 % (0-10); NRBC Flagged by Analyzer 0 % (0-5); Neutrophil # 4.58 X10^3/uL (2.7-7.7); Neutrophil % 51.3 % (47-70); Platelet Count 351 K/mm3 (150-450); RBC Distribution Width CV 13.6 % (11.6-14.6); RBC Distribution Width SD 52.9 fl (35.1-43.9); Red Blood Count 3.32 M/mm3 (4.6-6.2); White Blood Count 8.9 K/mm3 (4.4-11.0)
[2021-11-10 17:40] LABS: Anion Gap 14 (5-15); BUN 11 mg/dL (7-18); BUN/Creat Ratio 7.1 RATIO (10-20); Chloride 100 mmol/L (98-107); Creatinine, Serum 1.54 mg/dL (0.70-1.30); EST Glomerular Filtration Rate 47 mL/min (>60); Est Glom Filt Rate - Afr Amer 57 mL/min (>60); Glucose 162 mg/dL (74-106); Sodium Level 136 mmol/L (136-145)
== END 2021-11-10 23:59 | disposition short-term general hospital (02) ==
PROVIDERS: PCP Family Medicine Geriatric Medicine; Visit Provider Family Medicine Geriatric Medicine
DX: R10.9 Unspecified abdominal pain (principal); R42 Dizziness and giddiness
CPT/HCPCS: 36415; 74019; 80048; 85025

== ENCOUNTER 2021-11-11 08:18 | Outpatient (CLI) | payer MEDICARE, SELFPAY ==
--- NOTE | 2021-11-11 10:31 | VDLE_ITS ---
Reason For Study: EDEMA RIGHT LEFT RT CFV is PARTIALLY COMPRESSIBLE . CFV is compressible, spontaneous, phasic, RT SFJ is PARTIALLY COMPRESSIBLE. competent, and demonstrates normal RT FV is NONCOMPRESSIBLE. augmentation. RT POPV, T/P TRUNK, PTV, PEROV are FV is compressible, spontaneous, phasic, compressible . competent and demonstrates normal RT and LEFT GSV have been harvested for CABG. augmentation. Previous positive study done 10/01/21. POP V is compressible, spontaneous, phasic, Procedure competent and demonstrates normal Exam performed in department. augmentation. A preliminary report was called and/or faxed T/P Trunk is compressible. to DR ALEX. PTV is compressible. LT PerV is compressible. VL/Venous Duplex US - Kam Extrem Interpretation Summary Deep venous thrombosis right common femoral and femoral veins. Partial compress ibility noted of the right common femoral vein and right saphenofemoral junction which suggests slig ht improvement at that location from a previous examination of October 01, 2021 No evidence for acute deep vein thrombosis left lower extremity Proximal right great saphenous vein patent and compressible Surgically harvested left great saphenous vein Ordering Physician: Earnest Alex Referring Physician: Earnest Alex Chi Performed By: Doreen Monsivais, RDCS, RVT
== END 2021-11-11 23:59 | disposition short-term general hospital (02) ==
PROVIDERS: PCP Family Medicine Geriatric Medicine; Referring Provider Family Medicine Geriatric Medicine; Visit Provider Family Medicine Geriatric Medicine
DX: R60.0 Localized edema (principal); N17.0 Acute kidney failure with tubular necrosis; R68.83 Chills (without fever)
CPT/HCPCS: 36415; 80048; 87635; 87804; 87807; 93970; C9803; U0003; U0005

== ENCOUNTER 2021-11-11 11:43 | Outpatient (CLI) | payer MEDICARE, SELFPAY ==
[2021-11-11 13:30] LABS: Anion Gap 10 (5-15); BUN 11 mg/dL (7-18); Calcium,Total 8.7 mg/dL (8.5-10.1); Chloride 106 mmol/L (98-107); Creatinine, Serum 1.57 mg/dL (0.70-1.30); EST Glomerular Filtration Rate 46 mL/min (>60); Est Glom Filt Rate - Afr Amer 55 mL/min (>60); Glucose 114 mg/dL (74-106); Potassium 4.4 mmol/L (3.5-5.1); Sodium Level 138 mmol/L (136-145)
== END 2021-11-11 23:59 | disposition short-term general hospital (02) ==
LOC: POLAB3 11:44
PROVIDERS: PCP Family Medicine Geriatric Medicine; Visit Provider Family Medicine Geriatric Medicine
DX: N17.0 Acute kidney failure with tubular necrosis (principal)
CPT/HCPCS: 36415; 80048

== ENCOUNTER 2021-11-17 10:47 | Outpatient (CLI) | payer MEDICARE, SELFPAY | END 2021-11-17 23:59 | disposition short-term general hospital (02) | PROVIDERS: PCP Family Medicine Geriatric Medicine; Referring Provider Family Medicine Geriatric Medicine; Visit Provider Family Medicine Geriatric Medicine | DX: U07.1 COVID-19 (principal) | CPT/HCPCS: 87635; C9803; U0003; U0005 ==

== ENCOUNTER → 2022-04-11 | Outpatient (CLI) | payer MEDICARE, SELFPAY ==
[2022-04-11 12:34] LABS: Absolute Lymphocyte Count 0.96 X10^3/uL (0.83-4.51); Absolute Neutrophil Count 5.4 X10^3/uL (2.0-7.7); Basophil# 0.03 X10^3/uL; Basophil% 0.4 % (0-1); Eosinophil# 0.02 X10^3/uL; Eosinophils% 0.3 % (0-5); Hematocrit 37.5 % (40-54); Hemoglobin 12.2 g/dL (13.0-16.5); Lymphocyte # 0.96 X10^3/ul (0.83-4.51); Lymphocyte % 13.7 % (19-41); Mean Corp Hgb Conc 32.5 g/dL (32-36); Mean Corpuscular Hgb 32.7 pg (27.0-32.0); Mean Corpuscular Volume 100.5 fL (80-94); Mean Platelet Vol. 10.1 fl (6.2-12.0); Monocyte# 0.51 X10^3/uL; Monocyte% 7.3 % (0-10); NRBC Flagged by Analyzer 0 % (0-5); Neutrophil # 5.43 X10^3/uL (2.7-7.7); Neutrophil % 77.6 % (47-70); Platelet Count 201 K/mm3 (150-450); RBC Distribution Width CV 13.2 % (11.6-14.6); Red Blood Count 3.73 M/mm3 (4.6-6.2)
[2022-04-11 12:54] LABS: ALB/GLOB Ratio 0.9 RATIO (0.9-2.4); AST(SGOT) 23 U/L (15-37); Alanine Aminotransfer ALT/SGPT 27 U/L (16-61); Albumin, Serum 3.4 g/dL (3.2-5.0); Alkaline Phosphatase 75 U/L (45-117); Anion Gap 4 (5-15); BUN 16 mg/dL (7-18); BUN/Creat Ratio 13.7 RATIO (10-20); Chloride 105 mmol/L (98-107); Creatinine, Serum 1.17 mg/dL (0.70-1.30); EST Glomerular Filtration Rate 64 mL/min (>60); Est Glom Filt Rate - Afr Amer 78 mL/min (>60); Globulin 3.7 g/dL (2.2-4.2); Glucose 169 mg/dL (74-106); Potassium 4.7 mmol/L (3.5-5.1); Protein, Total 7.1 g/dL (6.4-8.2); Sodium Level 136 mmol/L (136-145); Thyroid Stim Hormone (TSH) 1.28 uIU/mL (0.358-3.74)
[2022-04-11 13:05] LABS: Vitamin D,25 Hydroxy 32.6 ng/mL
== END | disposition home or self-care (01) ==
LOC: POLAB3 11:15
PROVIDERS: PCP Family Medicine Geriatric Medicine; Visit Provider Family Medicine Geriatric Medicine
DX: E11.9 Type 2 diabetes mellitus without complications (principal); E55.9 Vitamin D deficiency, unspecified; I10 Essential (primary) hypertension
CPT/HCPCS: 36415; 80053; 82306; 84443; 85025

== ENCOUNTER → 2022-10-12 | Outpatient (CLI) | payer MEDICARE, SELFPAY ==
[2022-10-12 13:27] LABS: Absolute Lymphocyte Count 1.28 X10^3/uL (0.83-4.51); Absolute Neutrophil Count 8.4 X10^3/uL (2.0-7.7); Basophil# 0.04 X10^3/uL; Basophil% 0.4 % (0-1); Eosinophil# 0.09 X10^3/uL; Eosinophils% 0.9 % (0-5); Hematocrit 40.3 % (40-54); Lymphocyte # 1.28 X10^3/ul (0.83-4.51); Lymphocyte % 12.2 % (19-41); Mean Corp Hgb Conc 32.3 g/dL (32-36); Mean Corpuscular Hgb 33.7 pg (27.0-32.0); Mean Corpuscular Volume 104.4 fL (80-94); Mean Platelet Vol. 10.6 fl (6.2-12.0); Monocyte# 0.68 X10^3/uL; Monocyte% 6.5 % (0-10); NRBC Flagged by Analyzer 0 % (0-5); Neutrophil # 8.37 X10^3/uL (2.7-7.7); Neutrophil % 79.3 % (47-70); Platelet Count 204 K/mm3 (150-450); RBC Distribution Width CV 13.4 % (11.6-14.6); RBC Distribution Width SD 50.6 fl (35.1-43.9); Red Blood Count 3.86 M/mm3 (4.6-6.2); White Blood Count 10.5 K/mm3 (4.4-11.0)
[2022-10-12 13:41] LABS: Vitamin D,25 Hydroxy 31.7 ng/mL
[2022-10-12 13:52] LABS: AST(SGOT) 24 U/L (15-37); Alanine Aminotransfer ALT/SGPT 35 U/L (16-61); Albumin, Serum 3.5 g/dL (3.2-5.0); Alkaline Phosphatase 79 U/L (45-117); Anion Gap 4 (5-15); BUN 19 mg/dL (7-18); BUN/Creat Ratio 16.8 RATIO (10-20); Calcium,Total 8.9 mg/dL (8.5-10.1); Chloride 107 mmol/L (98-107); Creatinine, Serum 1.13 mg/dL (0.70-1.30); EST Glomerular Filtration Rate 67 mL/min (>60); Est Glom Filt Rate - Afr Amer 81 mL/min (>60); Globulin 3.5 g/dL (2.2-4.2); Glucose 115 mg/dL (74-106); Potassium 4.2 mmol/L (3.5-5.1); Sodium Level 140 mmol/L (136-145); Thyroid Stim Hormone (TSH) 2.58 uIU/mL (0.358-3.74)
== END | disposition home or self-care (01) ==
LOC: POLAB3 09:34
PROVIDERS: PCP Family Medicine Geriatric Medicine; Visit Provider Family Medicine Geriatric Medicine
DX: I10 Essential (primary) hypertension (principal); E11.65 Type 2 diabetes mellitus with hyperglycemia; E55.9 Vitamin D deficiency, unspecified
CPT/HCPCS: 36415; 80053; 82306; 84443; 85025

== ENCOUNTER → 2023-04-12 | Outpatient (CLI) | payer MEDICARE, SELFPAY ==
[2023-04-12 10:53] LABS: Absolute Lymphocyte Count 1.18 X10^3/uL (0.83-4.51); Absolute Neutrophil Count 8.3 X10^3/uL (2.0-7.7); Basophil# 0.08 X10^3/uL; Basophil% 0.7 % (0-1); Eosinophil# 0.09 X10^3/uL; Eosinophils% 0.8 % (0-5); Hematocrit 39.5 % (40-54); Hemoglobin 12.8 g/dL (13.0-16.5); Lymphocyte # 1.18 X10^3/ul (0.83-4.51); Mean Corp Hgb Conc 32.4 g/dL (32-36); Mean Corpuscular Hgb 33.9 pg (27.0-32.0); Mean Corpuscular Volume 104.5 fL (80-94); Monocyte# 1.07 X10^3/uL; NRBC Flagged by Analyzer 0 % (0-5); Neutrophil # 8.26 X10^3/uL (2.7-7.7); Platelet Count 188 K/mm3 (150-450); RBC Distribution Width CV 13.2 % (11.6-14.6); RBC Distribution Width SD 50.5 fl (35.1-43.9); Red Blood Count 3.78 M/mm3 (4.6-6.2); White Blood Count 10.7 K/mm3 (4.4-11.0)
[2023-04-12 11:38] LABS: AST(SGOT) 24 U/L (15-37); Alanine Aminotransfer ALT/SGPT 31 U/L (16-61); Albumin, Serum 3.5 g/dL (3.2-5.0); Alkaline Phosphatase 76 U/L (45-117); Anion Gap -1 (5-15); BUN 21 mg/dL (7-18); BUN/Creat Ratio 18.6 RATIO (10-20); Calcium,Total 8.8 mg/dL (8.5-10.1); Chloride 111 mmol/L (98-107); Creatinine, Serum 1.13 mg/dL (0.70-1.30); EST Glomerular Filtration Rate 67 mL/min (>60); Est Glom Filt Rate - Afr Amer 80 mL/min (>60); Globulin 3.5 g/dL (2.2-4.2); Glucose 114 mg/dL (74-106); Potassium 4.2 mmol/L (3.5-5.1); Sodium Level 136 mmol/L (136-145)
[2023-04-12 11:39] LABS: Vitamin D,25 Hydroxy 48.5 ng/mL
== END | disposition home or self-care (01) ==
LOC: LAB 10:01
PROVIDERS: PCP Family Medicine Geriatric Medicine; Referring Provider Family Medicine Geriatric Medicine; Visit Provider Family Medicine Geriatric Medicine
DX: E11.65 Type 2 diabetes mellitus with hyperglycemia (principal); I10 Essential (primary) hypertension; E55.9 Vitamin D deficiency, unspecified
CPT/HCPCS: 36415; 80053; 82306; 84443; 85025

== ENCOUNTER → 2023-10-18 | Outpatient (CLI) | payer MEDICARE, SELFPAY ==
[2023-10-18 13:15] LABS: Absolute Lymphocyte Count 1.22 X10^3/uL (0.83-4.51); Basophil# 0.05 X10^3/uL; Basophil% 0.5 % (0-1); Eosinophil# 0.11 X10^3/uL; Eosinophils% 1.2 % (0-5); Hematocrit 40.9 % (40-54); Hemoglobin 13.4 g/dL (13.0-16.5); Lymphocyte # 1.22 X10^3/ul (0.83-4.51); Mean Corp Hgb Conc 32.8 g/dL (32-36); Mean Corpuscular Hgb 34.6 pg (27.0-32.0); Mean Corpuscular Volume 105.7 fL (80-94); Mean Platelet Vol. 10.1 fl (6.2-12.0); Monocyte# 0.86 X10^3/uL; Monocyte% 9.2 % (0-10); NRBC Flagged by Analyzer 0 % (0-5); Neutrophil # 7.04 X10^3/uL (2.7-7.7); Neutrophil % 75.4 % (47-70); Platelet Count 208 K/mm3 (150-450); RBC Distribution Width CV 13.5 % (11.6-14.6); RBC Distribution Width SD 52.1 fl (35.1-43.9); Red Blood Count 3.87 M/mm3 (4.6-6.2); White Blood Count 9.4 K/mm3 (4.4-11.0)
[2023-10-18 13:27] LABS: Vitamin D,25 Hydroxy 32.6 ng/mL
[2023-10-18 13:33] LABS: ALB/GLOB Ratio 0.9 RATIO (0.9-2.4); AST(SGOT) 23 U/L (15-37); Alanine Aminotransfer ALT/SGPT 34 U/L (16-61); Albumin, Serum 3.6 g/dL (3.2-5.0); Alkaline Phosphatase 80 U/L (45-117); Anion Gap 5 (5-15); BUN 21 mg/dL (7-18); BUN/Creat Ratio 16.3 RATIO (10-20); Calcium,Total 9.1 mg/dL (8.5-10.1); Chloride 106 mmol/L (98-107); Creatinine, Serum 1.29 mg/dL (0.70-1.30); EST Glomerular Filtration Rate 57 mL/min (>60); Est Glom Filt Rate - Afr Amer 69 mL/min (>60); Globulin 3.9 g/dL (2.2-4.2); Glucose 148 mg/dL (74-106); Potassium 4.2 mmol/L (3.5-5.1); Protein, Total 7.5 g/dL (6.4-8.2); Sodium Level 137 mmol/L (136-145); Thyroid Stim Hormone (TSH) 1.88 uIU/mL (0.358-3.74)
== END | disposition home or self-care (01) ==
LOC: POLAB3 09:42
PROVIDERS: PCP Family Medicine Geriatric Medicine; Visit Provider Family Medicine Geriatric Medicine
DX: E11.65 Type 2 diabetes mellitus with hyperglycemia (principal); I10 Essential (primary) hypertension; E55.9 Vitamin D deficiency, unspecified
CPT/HCPCS: 36415; 80053; 82306; 84443; 85025

== ENCOUNTER → 2024-04-17 | Outpatient (CLI) | payer MEDICARE, SELFPAY ==
[2024-04-17 11:21] LABS: Absolute Lymphocyte Count 1.03 X10^3/uL (0.83-4.51); Absolute Neutrophil Count 7.2 X10^3/uL (2.0-7.7); Basophil# 0.04 X10^3/uL; Basophil% 0.4 % (0-1); Eosinophil# 0.06 X10^3/uL; Eosinophils% 0.7 % (0-5); Hematocrit 39.8 % (40-54); Hemoglobin 13.3 g/dL (13.0-16.5); Lymphocyte # 1.03 X10^3/ul (0.83-4.51); Lymphocyte % 11.3 % (19-41); Mean Corp Hgb Conc 33.4 g/dL (32-36); Mean Corpuscular Hgb 34.7 pg (27.0-32.0); Mean Corpuscular Volume 103.9 fL (80-94); Monocyte# 0.75 X10^3/uL; Monocyte% 8.2 % (0-10); NRBC Flagged by Analyzer 0 % (0-5); Neutrophil # 7.18 X10^3/uL (2.7-7.7); Neutrophil % 78.7 % (47-70); Platelet Count 181 K/mm3 (150-450); RBC Distribution Width CV 12.9 % (11.6-14.6); RBC Distribution Width SD 49.5 fl (35.1-43.9); Red Blood Count 3.83 M/mm3 (4.6-6.2); White Blood Count 9.1 K/mm3 (4.4-11.0)
[2024-04-17 11:48] LABS: Vitamin D,25 Hydroxy 35.3 ng/mL
[2024-04-17 15:37] LABS: Hemoglobin A1c 5.5 % (3.8-5.6)
[2024-04-17 16:45] LABS: ALB/GLOB Ratio 0.9 RATIO (0.9-2.4); AST(SGOT) 29 U/L (15-37); Alanine Aminotransfer ALT/SGPT 34 U/L (16-61); Albumin, Serum 3.4 g/dL (3.2-5.0); Alkaline Phosphatase 77 U/L (45-117); Anion Gap 6 (5-15); BUN 19 mg/dL (7-18); Calcium,Total 9.1 mg/dL (8.5-10.1); Chloride 108 mmol/L (98-107); Cholesterol 101 mg/dL (200); EST Glomerular Filtration Rate 76 mL/min (>60); Est Glom Filt Rate - Afr Amer 92 mL/min (>60); Globulin 3.8 g/dL (2.2-4.2); Glucose 124 mg/dL (74-106); High Density Lipoprotein 49 mg/dL; Potassium 4.1 mmol/L (3.5-5.1); Protein, Total 7.2 g/dL (6.4-8.2); Sodium Level 138 mmol/L (136-145); Thyroid Stim Hormone (TSH) 1.23 uIU/mL (0.358-3.74); Triglycerides 105 mg/dL; Very Low Density Lipoprotein 21 mg/dL (5-40)
== END | disposition home or self-care (01) ==
LOC: LAB 10:27
PROVIDERS: PCP Family Medicine Geriatric Medicine; Referring Provider Family Medicine Geriatric Medicine; Visit Provider Family Medicine Geriatric Medicine
DX: I10 Essential (primary) hypertension (principal); E11.65 Type 2 diabetes mellitus with hyperglycemia; E55.9 Vitamin D deficiency, unspecified; E78.5 Hyperlipidemia, unspecified
CPT/HCPCS: 36415; 80053; 80061; 82306; 83036; 84443; 85025

== ENCOUNTER → 2024-06-30 | Outpatient (CLI) | payer MEDICARE, SELFPAY ==
--- NOTE | 2024-06-30 16:05 | RAD_ITS ---
INDICATION: SOB EXAMINATION/TECHNIQUE: X-RAY - XR Chest 1 View COMPARISON: CT of the chest on same date. FINDINGS: LIFE-SUPPORT AND LINES: 1. Postop changes of prior CABG. HEART AND VESSELS: Cardiac silhouette is large. No congestive failure. LUNGS AND PLEURAL SPACES: Elevation LEFT hemidiaphragm, interstitial prominence at both lung bases greater on LEFT than RIGHT. No airspace consolidation. No effusion. No pulmonary mass is noted. MEDIASTINUM AND HILAR REGIONS: No masses adenopathy noted. No areas of calcification. Visualized upper airway is normal in position. BONY ELEMENTS: No acute bony changes noted. RAD/Chest PA and Lateral IMPRESSION: 1. Postop changes of prior CABG. 2. Borderline cardiomegaly without congestive failure. 3. Coarse interstitial markings at the lung bases. Baseline pattern of interstitial fibrosis/interstitial lung disease suspected. 4. No focal infiltrate or lobar consolidation or effusion. Electronically Signed: Lauro Perera MD at 21:46 EDT ,
[2024-06-30 16:10] LABS: Absolute Lymphocyte Count 1.52 X10^3/uL (0.83-4.51); Absolute Neutrophil Count 8.6 X10^3/uL (2.0-7.7); Basophil# 0.03 X10^3/uL; Basophil% 0.3 % (0-1); Eosinophil# 0.03 X10^3/uL; Eosinophils% 0.3 % (0-5); Hematocrit 37.1 % (40-54); Hemoglobin 12.3 g/dL (13.0-16.5); Lymphocyte # 1.52 X10^3/ul (0.83-4.51); Lymphocyte % 13.5 % (19-41); Mean Corp Hgb Conc 33.2 g/dL (32-36); Mean Corpuscular Hgb 33.7 pg (27.0-32.0); Mean Corpuscular Volume 101.6 fL (80-94); Mean Platelet Vol. 9.4 fl (6.2-12.0); Monocyte# 1.05 X10^3/uL; Monocyte% 9.3 % (0-10); NRBC Flagged by Analyzer 0 % (0-5); Neutrophil # 8.55 X10^3/uL (2.7-7.7); Neutrophil % 76.1 % (47-70); Platelet Count 225 K/mm3 (150-450); RBC Distribution Width SD 49.1 fl (35.1-43.9); Red Blood Count 3.65 M/mm3 (4.6-6.2); White Blood Count 11.2 K/mm3 (4.4-11.0)
[2024-06-30 16:44] LABS: D-Dimer Quantitative (DVT/PE) 0.59 FEU/ug/m (0.27-0.49)
[2024-06-30 16:55] LABS: Anion Gap 7 (5-15); BUN 21 mg/dL (7-18); BUN/Creat Ratio 17.8 RATIO (10-20); Calcium,Total 9.4 mg/dL (8.5-10.1); Chloride 104 mmol/L (98-107); Creatinine, Serum 1.18 mg/dL (0.70-1.30); EST Glomerular Filtration Rate 63 mL/min (>60); Est Glom Filt Rate - Afr Amer 76 mL/min (>60); Glucose 180 mg/dL (74-106); Potassium 4.8 mmol/L (3.5-5.1); Sodium Level 136 mmol/L (136-145)
== END | disposition home or self-care (01) ==
PROVIDERS: PCP Family Medicine Geriatric Medicine; Referring Provider Family Medicine Geriatric Medicine; Visit Provider Family Medicine Geriatric Medicine
DX: E78.5 Hyperlipidemia, unspecified (principal); R53.83 Other fatigue; R06.02 Shortness of breath; R06.2 Wheezing
CPT/HCPCS: 36415; 71046; 80048; 85025; 85379; 87631

== ENCOUNTER → 2024-07-01 | Outpatient (CLI) | payer MEDICARE, SELFPAY ==
--- NOTE | 2024-07-01 09:53 | CT_ITS ---
STUDY: CTA CHEST REASON FOR EXAM: Male, 78 years old. Shortness of breath ELEVATED D DIMER RADIATION DOSAGE (If Supplied By Facility): CTDIvol = ( 11.47 ) mGy, DLP = ( 591.70 ) mGycm TECHNIQUE: The examination was performed with the intravenous administration of IV 100mL Isovue-370. Post-processing of the angiographic images was performed, with multiplanar reformation and 3D reconstruction. Individualized dose optimization techniques were used for this CT. COMPARISON: Comparison is made with prior study dated May 31, 2021. FINDINGS: Normal enhancement of the main pulmonary artery and right and left pulmonary arteries. Normal enhancement of the bilateral peripheral pulmonary arteries. There is no demonstrated pulmonary embolism. Normal thoracic aorta and visualized great vessels. There is no demonstrated aortic dissection. Sternal cerclage wires and vascular clips are present from a prior sternotomy and coronary artery bypass graft procedure (CABG). There are calcifications of the coronary arteries. Cardiomegaly. Normal mediastinum. Normal hilar regions. Normal visualized trachea and bronchi. The lungs are well expanded. Since prior study, there is been a progression of increased interstitial markings in both lungs with areas of confluence more prominent at the upper and lower lobes suggestive of a chronic interstitial fibrosis. Normal pleura. Normal chest wall structures. There are degenerative changes of thoracic spine. Tiny nonobstructive calculi in the upper pole calyx of the left kidney. Layering gallstones along the dependent portion of the gallbladder lumen. CT/CTA Chest W/WO Contrast IMPRESSION: No evidence of pulmonary embolism. Progressive bilateral pulmonary scarring. Electronically Signed: Ventura Manzo MD at 10:44 EDT ,
== END | disposition home or self-care (01) ==
PROVIDERS: PCP Family Medicine Geriatric Medicine; Referring Provider Family Medicine Geriatric Medicine; Visit Provider Family Medicine Geriatric Medicine
DX: R06.02 Shortness of breath (principal)
CPT/HCPCS: 71275; Q9967; A4216

== ENCOUNTER → 2024-07-08 | Outpatient (CLI) | payer MEDICARE, SELFPAY ==
--- NOTE | 2024-07-08 15:12 | RAD_ITS ---
STUDY: X-RAY - RIGHT FOOT CLINICAL: Male, 78 years old. Right-sided pain. TECHNIQUE: 2 view(s) of the foot. COMPARISON: None. FINDINGS: Osteopenia. Large inferior calcaneal spur. Mild arthrosis of the tibiotalar and subtalar joints. Mild arthrosis of the midfoot. Mild arthrosis of the TMT joints. Moderate arthrosis of the MTP and IP joints with hammertoe deformities. Normal soft tissues. RAD/Foot 2 Views IMPRESSION: Osteopenia with calcaneal spur and osteoarthritic changes as described. Electronically Signed: Tawanda Ulrich MD at 15:35 EDT ,
[2024-07-08 16:53] LABS: M R Staph aureus DNA By PCR Negative (Negative); Probe Check PASS; Specimen Processing Control PASS; Staph aureus DNA By PCR POSITIVE (Negative)
== END | disposition home or self-care (01) ==
PROVIDERS: PCP Family Medicine Geriatric Medicine; Referring Provider Family Medicine Geriatric Medicine; Visit Provider Family Medicine Geriatric Medicine
DX: M79.671 Pain in right foot (principal); L97.519 Non-pressure chronic ulcer of other part of right foot with unspecified severity; B95.62 Methicillin resistant Staphylococcus aureus infection as the cause of diseases classified elsewhere
CPT/HCPCS: 73620; 87070; 87075; 87077; 87186; 87205; 87640

== ENCOUNTER → 2024-07-11 | Outpatient (CLI) | payer MEDICARE, SELFPAY ==
--- NOTE | 2024-07-11 09:36 | VDLE_ITS ---
Reason For Study: SWELLING, POLYNEUROPATHY RIGHT LEFT GSV is normal at groin & prox thigh; balance GSV is normal at groin & prox thigh; balance harvested for CABG. harvested for CABG. CFV is compressible, spontaneous, phasic, CFV is compressible, spontaneous, phasic, competent and demonstrates normal competent, and demonstrates normal augmentation. augmentation. FV is compressible, spontaneous, phasic, FV is compressible, spontaneous, phasic, competent and demonstrates normal competent and demonstrates normal augmentation. augmentation. POP V is compressible, spontaneous, phasic, POP V is compressible, spontaneous, phasic, competent and demonstrates normal competent and demonstrates normal augmentation. augmentation. T/P Trunk is compressible. T/P Trunk is compressible. PTV is compressible. PTV is compressible. RT PerV is compressible. LT PerV is compressible. Procedure This is a venous duplex using B-mode, color flow and spectral Doppler. Exam performed in department. A preliminary report was called and/or faxed to Dr. Alex @ [phone] @ 10:20 am. BILAT GSV previously harvest below thigh for CABG. VL/Venous Duplex US - Kam Extrem Interpretation Summary Deep veins of the lower extremities are bilaterally patent and compressible seg mentally. There is no evidence of deep vein thrombosis on either side. Valvular competence appears in tact within the proximal deep venous systems bilaterally. The great saphenous veins are patent and compressible in the groins and proximal thighs bilaterally, but previously harvested more dista lly on both sides. Ordering Physician: Earnest Alex Chi Referring Physician: Earnest Alex Chi Performed By: Alesia Magana, TAJ, RVT
== END | disposition home or self-care (01) ==
LOC: CVS 09:34
PROVIDERS: PCP Family Medicine Geriatric Medicine; Referring Provider Family Medicine Geriatric Medicine; Visit Provider Family Medicine Geriatric Medicine
DX: G62.9 Polyneuropathy, unspecified (principal); M79.89 Other specified soft tissue disorders
CPT/HCPCS: 93970

== ENCOUNTER 2024-07-16 12:40 | Outpatient (CLI) | payer MEDICARE, SELFPAY ==
--- NOTE | 2024-07-16 12:42 | ART_ITS ---
Reason For Study: Polyneuropathy Procedure A bilateral lower extremity continuous wave Doppler with analog waveform analysis and ankle brachial indexes. Left Segmental Pressures Left brachial= 142mmHg. Left posterior tibial artery = >254mmHg. Left dorsalis pedis artery = 146mmHg. Left digit = 99 mmHg. The left dorsalis pedis waveforms are triphasic. The left posterior tibial artery waveforms are triphasic. Right Segmental Pressures Right brachial= 143mmHg. Right posterior tibial artery = 233mmHg. Right dorsalis pedis artery = 194mmHg. Right digit = 119 mmHg. The right dorsalis pedis waveforms are triphasic. The right posterior tibial artery waveforms are triphasic. Indices The right ankle brachial index by the dorsalis pedis is 1.36. The right ankle brachial index by the posterior tibial artery is 1.63. The right digital-brachial index is 0.83. The left ankle brachial index by the dorsalis pedis is 1.02. The left ankle brachial index by the posterior tibial artery is NC. The left digital-brachial index is 0.69. VL/Ankle Brachial Index Interpretation Summary Right REMA 1.63, normal. TBI and Doppler/PVR waveforms of the right leg normal a t rest. Left REMA 1.02, normal. Doppler/PVR waveforms of the left leg normal at rest. TB I diminished, pedal/digit disease vs spasm Ordering Physician: Earnest Alex Chi Referring Physician: EARNEST ALEX CHI, MD Performed By: Rebecca Mcfarland RVT
== END 2024-07-16 23:59 | disposition home or self-care (01) ==
LOC: CVS 12:41
PROVIDERS: PCP Family Medicine Geriatric Medicine; Referring Provider Family Medicine Geriatric Medicine; Visit Provider Family Medicine Geriatric Medicine
DX: L97.512 Non-pressure chronic ulcer of other part of right foot with fat layer exposed (principal); G62.9 Polyneuropathy, unspecified; M79.89 Other specified soft tissue disorders
CPT/HCPCS: 93922

== ENCOUNTER → 2024-08-05 | Outpatient (CLI) | payer MEDICARE, SELFPAY ==
[2024-08-05 12:16] LABS: Absolute Lymphocyte Count 0.83 X10^3/uL (0.83-4.51); Absolute Neutrophil Count 7.4 X10^3/uL (2.0-7.7); Basophil# 0.04 X10^3/uL; Basophil% 0.4 % (0-1); Eosinophil# 0.01 X10^3/uL; Eosinophils% 0.1 % (0-5); Hematocrit 38.2 % (40-54); Hemoglobin 12.8 g/dL (13.0-16.5); Lymphocyte # 0.83 X10^3/ul (0.83-4.51); Lymphocyte % 9.2 % (19-41); Mean Corp Hgb Conc 33.5 g/dL (32-36); Mean Corpuscular Hgb 34.4 pg (27.0-32.0); Mean Corpuscular Volume 102.7 fL (80-94); Mean Platelet Vol. 9.6 fl (6.2-12.0); Monocyte# 0.57 X10^3/uL; Monocyte% 6.3 % (0-10); NRBC Flagged by Analyzer 0 % (0-5); Neutrophil % 82.6 % (47-70); Platelet Count 207 K/mm3 (150-450); RBC Distribution Width CV 13.4 % (11.6-14.6); RBC Distribution Width SD 50.9 fl (35.1-43.9); Red Blood Count 3.72 M/mm3 (4.6-6.2)
[2024-08-05 12:39] LABS: ALB/GLOB Ratio 0.7 RATIO (0.9-2.4); AST(SGOT) 19 U/L (15-37); Alanine Aminotransfer ALT/SGPT 29 U/L (16-61); Albumin, Serum 3.1 g/dL (3.2-5.0); Alkaline Phosphatase 86 U/L (45-117); Anion Gap 5 (5-15); BUN 19 mg/dL (7-18); BUN/Creat Ratio 14.7 RATIO (10-20); Calcium,Total 9.6 mg/dL (8.5-10.1); Chloride 103 mmol/L (98-107); Creatinine, Serum 1.29 mg/dL (0.70-1.30); EST Glomerular Filtration Rate 57 mL/min (>60); Est Glom Filt Rate - Afr Amer 69 mL/min (>60); Globulin 4.6 g/dL (2.2-4.2); Glucose 153 mg/dL (74-106); Protein, Total 7.7 g/dL (6.4-8.2); Sodium Level 132 mmol/L (136-145)
== END | disposition home or self-care (01) ==
LOC: POLAB3 11:47
PROVIDERS: PCP Family Medicine Geriatric Medicine; Visit Provider Family Medicine Geriatric Medicine
DX: I10 Essential (primary) hypertension (principal); L03.031 Cellulitis of right toe; B95.62 Methicillin resistant Staphylococcus aureus infection as the cause of diseases classified elsewhere
CPT/HCPCS: 36415; 80053; 85025; 87070; 87075; 87077; 87186; 87205

== ENCOUNTER → 2024-08-11 | Outpatient (CLI) | payer MEDICARE, SELFPAY ==
--- NOTE | 2024-08-11 10:36 | MRI_ITS ---
STUDY: MRI RIGHT FOREFOOT WITH AND WITHOUT CONTRAST REASON FOR EXAM: Male, 78 years old. OSTEOMYELITIS, PT POPPED BLISTER MEDIAL 1ST TOE A FEW WEEKS AGO, SWELLING/REDNESS TECHNIQUE: Standardized fat and water weighted pulse sequences were obtained in all 3 orthogonal planes, post contrast administration. IV 23 cc Clariscan was administered for the contrast portion of the examination. COMPARISON: None. FINDINGS: There is skin ulceration along the medial aspect of the great toe with fluid signal tracking from the skin surface to the medial cortex of the distal phalanx of the great toe (coronal T2 series 6 image 13; axial T2 series 5 images 28-29). There is abnormal marrow signal in the distal phalanx of the great toe, with enhancement following IV contrast, concerning for osteomyelitis. Normal bone marrow of the remainder of the phalanges, metatarsals, phalanges and visualized distal tarsal row, without fracture, periostitis, erosions or reactive bone edema. Normal sesamoids without sesamoiditis, fracture or avascular necrosis. Normal joint spaces, without effusions. There are no extraarticular fluid collections. Normal visualized Lisfranc joints and normal Lisfranc ligament. Normal intermetatarsal spaces without intermetatarsal (Gore) neuroma or bursitis. There is a tear/rupture of the flexor hallucis longus tendon from the level of the first MTP joint to the interphalangeal joint of the great toe (sagittal STIR series 9 images 7-9). Normal visualized extensor tendons. Normal visualized plantar fascia without fasciitis, fibromatosis or tear. There is atrophy and fatty infiltration of the intrinsic muscles of the foot. There is subcutaneous soft tissue edema around the great toe and along the dorsum of the foot. MRI/Lower Ext Joint Only W/WO Cont IMPRESSION: Skin ulceration along the medial aspect of the great toe with fluid signal tracking from the skin surface to the medial cortex of the distal phalanx of the great toe. Suspected osteomyelitis of the distal phalanx of the great toe. Tear/rupture of the flexor hallucis longus tendon from the level of the first MTP joint to the interphalangeal joint of the great toe. Atrophy and fatty infiltration of the intrinsic muscles of the foot. Subcutaneous soft tissue edema around the great toe and along the dorsum of the foot. Electronically Signed: Grady Patel MD at 13:31 EDT ,
== END | disposition home or self-care (01) ==
PROVIDERS: PCP Family Medicine Geriatric Medicine; Referring Provider Family Medicine Geriatric Medicine; Visit Provider Family Medicine Geriatric Medicine
DX: M79.671 Pain in right foot (principal)
CPT/HCPCS: 73723; A9575

== ENCOUNTER 2024-08-12 11:48 | Inpatient (IN) | payer MEDICARE, SELFPAY ==
[2024-08-12] VITALS (12 sets, daily range): BP systolic 99–186; BP diastolic 56–106; PULSE 57–110; RESP 15–20; TEMP 36.4–36.7; O2SAT 94–98; BMI 29.5; BMI 28.8
--- NOTE | 2024-08-12 12:25 | EKG12_ITS ---
Test Reason : WOUND Blood Pressure : / mmHG Vent. Rate : 055 BPM Atrial Rate : 055 BPM P-R Int : 236 ms QRS Dur : 128 ms QT Int : 458 ms P-R-T Axes : 026 -48 035 degrees QTc Int : 438 ms Sinus bradycardia with 1st degree A-V block Left axis deviation Left ventricular hypertrophy with QRS widening ( R in aVL , Abdoulaye product ) Abnormal ECG Confirmed by INOCENTE KHAN, SOUMYA ([id number]), film editor supervisor ROSA MORROW ([id number]) on 08/13/2024 9:37:31 AM Referred By: Confirmed By:SOUMYA BROWER MD
--- NOTE | 2024-08-12 12:36 | EDS_ITS ---
HPI History of Present Illness Chief Complaint: Wound Narrative Narrative: 78-year-old male past medical history of pulmonary fibrosis, not diabetic, presents with osteomyelitis of the right great toe. He relates history that he became somewhat aggressive and clipping his toenails 3 weeks ago. He started having bleeding on the medial aspect of his right great toe. Since then, the toe has become red, and he is being treated with antibiotics. He is on doxycycline and another medication that his cannot remember the name of. He had an MRI of his right foot yesterday which showed osteomyelitis of the right great toe. Although he is not diabetic, what complicates it is that he has a pressure sore because his second toe presses against his right great toe. While he denies any fevers or chills, no nausea or vomiting, he denies other symptoms and thinks that the great toe redness is actually improved. He has past medical history of neuropathy so he cannot say that he actually has a lot of great toe pain. 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 Kim for admission. 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 in diseases classified elsewhere Idiopathic pulmonary fibrosis Obstructive sleep apnea Pulmonary fibrosis Chronic diastolic (congestive) heart failure Multiple premature ventricular complexes Left carotid artery stenosis Hypothyroidism Essential (primary) hypertension BPH (benign prostatic hyperplasia) Atherosclerotic heart disease of [place] coronary artery without angina pectoris Hyperlipidemia Home Medications ?Medication ?Instructions ?Recorded ?Last Taken ?Type lisinopril 5 mg tablet 5 mg PO DAILY BLOOD PRESSURE 12/31/17 05/30/21 History tamsulosin 0.4 mg capsule 0.4 mg PO DAILY PROSTATE 12/31/17 Unknown History metoprolol tartrate 25 mg tablet 12.5 mg PO DAILY BLOOD PRESSURE 01/04/18 05/30/21 History atorvastatin 20 mg tablet 20 mg PO QPM CHOLESTEROL #90 tabs 08/05/19 Unknown History levothyroxine 75 mcg tablet 75 mcg PO DAILY THYROID #90 tabs 08/05/19 05/30/21 History prednisone 10 mg tablet 10 mg PO DAILY STEROID 11/09/20 Unknown History furosemide 40 mg tablet (Lasix) 40 mg PO DAILY PRN EDEMA 05/20/21 Unknown History albuterol sulfate 90 mcg/actuation 2 puff inhalation Q4H PRN 08/12/24 Unknown History aerosol inhaler SHORTNESS OF BREATH/WHEEZING fexofenadine 180 mg tablet 180 mg PO DAILY 08/12/24 Unknown History (Allergy Relief (fexofenadine)) Allergy/AdvReac Type Severity Reaction Status Date / Time Penicillins AdvReac Severe Rash Verified 08/12/24 11:50 Family History Father Cancer Prostate cancer FH: CABG (coronary artery bypass surgery) FH: rheumatic fever Heart disease Mother Cancer Other Family history of coronary artery disease Surgical History History of detached retina repair History of left heart catheterization (05/30/21) 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) Social History Smoking Status: Former smoker how long ago did patient quit smokin alcohol intake: current alcohol intake frequency: a few times a month Alcohol type: hard liquor substance use type: does not use caffeine: Yes Type: tea what type of physical activity do you participate in: none seatbelt use: always do you feel safe at home: Yes ROS ROS ED ROS Narrative Constitutional: No fever, no chills. HEENT: No sore throat. No neck pain. No loss of vision. No rhinorrhea. Cardiovascular: No chest pain. No palpitations. No pedal edema. Respiratory: No cough, chronic shortness of breath. Abdominal: No abdominal pain. No nausea. No vomiting. Genitourinary: No dysuria. No hematuria. Musculoskeletal: No myalgias. Right great toe erythema, mild pain, but limited secondary to neuropathy. Neurologic: No headaches. No dizziness. No lightheadedness. Skin: No rash. No change in color. Psychiatric: No depression. No anxiety. EXAM Physical Exam Narrative Exam Narrative: Afebrile. Vital signs noted. Nontoxic-appearing. Regular rate and rhythm. Respiratory examination shows no evidence of tachypnea, no overt wheezing or stridor. Abdomen soft nontender with normal active bowel sounds. Inspection of the right great toe shows diffuse erythema throughout the phalanx. Palpable dorsalis pedis pulse. No crepitance. Const Vital Signs: 08/12/24 11:49 08/12/24 11:54 08/12/24 12:44 Temperature 97.5 F L 97.5 F L Temperature Source Oral Oral Pulse Rate 66 66 Respiratory Rate 16 16 Blood Pressure 130/79 H 130/79 H Blood Pressure Mean 96 96 Pulse Ox 98 98 Oxygen Delivery Method Room Air Room Air Room Air 08/12/24 13:30 08/12/24 14:52 Temperature 97.8 F Temperature Source Pulse Rate 57 L 110 H Respiratory Rate 18 18 Blood Pressure 149/77 H 99/56 L Blood Pressure Mean 101 70 Pulse Ox 98 98 Oxygen Delivery Method Room Air MDM MDM MDM Narrative Medical decision making narrative: Differential diagnosis includes but not limited to cellulitis versus osteomyelitis versus necrotizing fasciitis. While the patient is not currently showing any signs of SIRS, sepsis workup will be pursued with addition of a lactic acid. I will obtain blood cultures. I reviewed his prior outpatient rec ord. His outpatient MRI does show ulceration of the skin on the medial aspect of his right great toe consistent with pressure sore with fluid tracking. There is osteomyelitis present of the distal phalanx. I reviewed his laboratory work and he has normal white count of 10.3 with hemoglobin 13.3, hematocrit 40.0, platelet count normal at 231. Sodium normal at 136 with potassium 4.6 and chloride 104, BUN of 13 and creatinine 1.20. Glucose elevated at 135 but anion gap normal at 9. LFTs are grossly unremarkable. Urinalysis is negative for infection. While his lactic acid is elevated at 3.3, he is not meeting any other SIRS criteria, he is not febrile, is not tachycardic, he does not have an elevated white count. His osteomyelitis may be producing his lactic acidosis. I did obtain blood cultures which are pending. He was started on vancomycin and clindamycin as IV antibiotics. I will discuss patient with the hospitalist for admission with consult to podiatry. Patient is in stable condition. History & Record Review Discussion w/independent historian: Patient and Family () Additional record(s) reviewed:: Prior outpatient record Lab Data Attestation: I reviewed the patient's lab results. Labs: Laboratory Results - last 24 hr 10/08/24 10/08/24 12:00 13:00 WBC 10.3 RBC 3.90 L Hgb 13.3 Hct 40.0 MCV 102.6 H MCH 34.1 H MCHC 33.3 RDW Std Deviation 50.8 H RDW Coeff of Andrea 13.3 Plt Count 231 MPV 9.0 Immature Gran % (Auto) 0.600 Neut % (Auto) 79.9 H Lymph % (Auto) 11.3 L [place] % (Auto) 7.2 Eos % (Auto) 0.5 Baso % (Auto) 0.5 Absolute Neuts (auto) 8.3 H Absolute Lymphs (auto) 1.17 Nucleated RBC % 0 Sodium 136 Potassium 4.6 Chloride 104 Carbon Dioxide 23.0 Anion Gap 9 BUN 23 H Creatinine 1.20 Estim Creat Clear Calc 66.67 Est GFR (MDRD) Af Amer 75 Est GFR (MDRD) Non-Af 62 BUN/Creatinine Ratio 19.2 Glucose 135 H Lactic Acid 3.3 H* Calcium 9.2 Total Bilirubin 0.90 AST 22 ALT 39 Alkaline Phosphatase 87 Total Protein 7.6 Albumin 3.2 Globulin 4.4 H Albumin/Globulin Ratio 0.7 L Urine Color Yellow Urine Clarity Clear Urine pH 6.0 Ur Specific [place] 1.020 Urine Protein 30 H Urine Glucose (UA) Normal Urine Ketones Negative Urine Occult Blood 10 H Urine Nitrite Negative Urine Bilirubin Negative Urine Urobilinogen Normal Ur Leukocyte Esterase Negative Urine RBC 0-5 SEEN Urine WBC 0 SEEN Ur Squamous Epith Cells 0 SEEN Urine Bacteria 1+ Urine Mucus 1+ Management Discussion w/another healthcare provider: Hospitalist (Dr. Call) Discharge Plan Triage Chief Complaint: Wound ED Provider: Israel Paiz Dx/Rx/DC Orders Clinical Impression: Osteomyelitis, Pulmonary fibrosis, Lactic acidosis Prescriptions: No Action tamsulosin 0.4 mg capsule,extended release 24hr 0.4 mg PO DAILY lisinopril 5 mg tablet 5 mg PO DAILY metoprolol tartrate 25 mg tablet 12.5 mg PO DAILY levothyroxine 75 mcg tablet 75 mcg PO DAILY Qty: 90 atorvastatin 20 mg tablet 20 mg PO QPM Qty: 90 prednisone 10 mg tablet 10 mg PO DAILY furosemide [Lasix] 40 mg tablet 40 mg PO DAILY PRN (Reason: EDEMA ) albuterol sulfate 90 mcg/actuation HFA aerosol inhaler 2 puff inhalation Q4H PRN (Reason: SHORTNESS OF BREATH/WHEEZING ) fexofenadine [Allergy Relief (fexofenadine)] 180 mg tablet 180 mg PO DAILY Primary Care Provider: Earnest Alex Chi Referrals: Earnest Alex Chi, MD [Primary Care Provider] - Print Language: Ukrainian
[2024-08-12 12:54] LABS: Absolute Lymphocyte Count 1.17 X10^3/uL (0.83-4.51); Absolute Neutrophil Count 8.3 X10^3/uL (2.0-7.7); Basophil# 0.05 X10^3/uL; Basophil% 0.5 % (0-1); Eosinophil# 0.05 X10^3/uL; Eosinophils% 0.5 % (0-5); Hemoglobin 13.3 g/dL (13.0-16.5); Lymphocyte # 1.17 X10^3/ul (0.83-4.51); Lymphocyte % 11.3 % (19-41); Mean Corp Hgb Conc 33.3 g/dL (32-36); Mean Corpuscular Hgb 34.1 pg (27.0-32.0); Mean Corpuscular Volume 102.6 fL (80-94); Monocyte# 0.74 X10^3/uL; Monocyte% 7.2 % (0-10); NRBC Flagged by Analyzer 0 % (0-5); Neutrophil # 8.26 X10^3/uL (2.7-7.7); Neutrophil % 79.9 % (47-70); Platelet Count 231 K/mm3 (150-450); RBC Distribution Width CV 13.3 % (11.6-14.6); RBC Distribution Width SD 50.8 fl (35.1-43.9); White Blood Count 10.3 K/mm3 (4.4-11.0)
[2024-08-12] MEDS: WATER IV (12:56)
[2024-08-12] MEDS: DEXTROSE 5% IV (12:56)
[2024-08-12] MEDS: VANCOMYCIN HCL IV (12:56)
[2024-08-12 13:07] LABS: ALB/GLOB Ratio 0.7 RATIO (0.9-2.4); AST(SGOT) 22 U/L (15-37); Alanine Aminotransfer ALT/SGPT 39 U/L (16-61); Albumin, Serum 3.2 g/dL (3.2-5.0); Alkaline Phosphatase 87 U/L (45-117); Anion Gap 9 (5-15); BUN 23 mg/dL (7-18); BUN/Creat Ratio 19.2 RATIO (10-20); Calcium,Total 9.2 mg/dL (8.5-10.1); Chloride 104 mmol/L (98-107); EST Glomerular Filtration Rate 62 mL/min (>60); Est Glom Filt Rate - Afr Amer 75 mL/min (>60); Estimated Creatinine Clearance 66.67 ml/min; Globulin 4.4 g/dL (2.2-4.2); Glucose 135 mg/dL (74-106); Potassium 4.6 mmol/L (3.5-5.1); Protein, Total 7.6 g/dL (6.4-8.2); Sodium Level 136 mmol/L (136-145)
[2024-08-12 13:09] LABS: Squamous Epithelial Cells - UA 0 SEEN /hpf (0-5); White Blood Cells 0 SEEN /hpf (0-5)
[2024-08-12 13:15] LABS: Color, Urine Yellow (Yellow); Glucose, Dipstick Normal (Normal); Ketone-Dipstick Negative (Negative); Leukocyte Esterase-Dipstick Negative /ul (Negative); Nitrite-Dipstick Negative (Negative); Occult Blood-Urine 10 /ul (Negative); Protein-Dipstick 30 mg/dl (Negative); Urine Bilirubin Dipstick Negative (Negative); Urine Clarity Clear (Clear); Urine Urobilinogen Normal (Normal)
[2024-08-12 13:22] LABS: Bacteria 1+ /hpf (None Seen); Mucous, Urine 1+ /hpf (<or=2+)
[2024-08-12 13:23] LABS: Red Blood Cells-Urine 0-5 SEEN /hpf (0-5)
[2024-08-12 13:59] LABS: Lactic Acid 3.3 mmol/L (0.4-1.9)
--- NOTE | 2024-08-12 14:40 | HP.PCM.HOS_ITS ---
HPI - General General Date of Admission: 08/12/24 Date of Service: 08/12/24 Chief Complaint: Osteomyelitis HPI Narrative JOEL YUSUF, is a 78 M with a significant history of pulmonary fibrosis and neuropathy who presents to the hospital with osteomyelitis. Of note imaging outpatient showed osteomyelitis of the big toe of the right foot. His symptoms began when he accidentally nipped his right big toe while cutting his toenails. Also patient has also of the medial side of the second toe of his right foot. [facility] Medical History (Updated 08/12/24 @ 23:[address] 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 in diseases classified elsewhere Idiopathic pulmonary fibrosis Obstructive sleep apnea Pulmonary fibrosis Chronic diastolic (congestive) heart failure Multiple premature ventricular complexes Left carotid artery stenosis Hypothyroidism Essential (primary) hypertension BPH (benign prostatic hyperplasia) Atherosclerotic heart disease of [place] coronary artery without angina pectoris Hyperlipidemia Home Medications ?Medication ?Instructions ?Recorded ?Last Taken ?Type lisinopril 5 mg tablet 5 mg PO DAILY BLOOD PRESSURE 12/31/17 05/30/21 History tamsulosin 0.4 mg capsule 0.4 mg PO DAILY PROSTATE 12/31/17 Unknown History metoprolol tartrate 25 mg tablet 12.5 mg PO DAILY BLOOD PRESSURE 01/04/18 05/30/21 History atorvastatin 20 mg tablet 20 mg PO QPM CHOLESTEROL #90 tabs 08/05/19 Unknown History levothyroxine 75 mcg tablet 75 mcg PO DAILY THYROID #90 tabs 08/05/19 05/30/21 History prednisone 10 mg tablet 10 mg PO DAILY STEROID 11/09/20 Unknown History furosemide 40 mg tablet (Lasix) 40 mg PO DAILY PRN EDEMA 05/20/21 Unknown History albuterol sulfate 90 mcg/actuation 2 puff inhalation Q4H PRN 08/12/24 Unknown History aerosol inhaler SHORTNESS OF BREATH/WHEEZING fexofenadine 180 mg tablet 180 mg PO DAILY 08/12/24 Unknown History (Allergy Relief (fexofenadine)) Allergy/AdvReac Type Severity Reaction Status Date / Time Penicillins AdvReac Severe Rash Verified 08/12/24 11:50 Family History Father Cancer Prostate cancer FH: CABG (coronary artery bypass surgery) FH: rheumatic fever Heart disease Mother Cancer Other Family history of coronary artery disease Surgical History History of detached retina repair History of left heart catheterization (05/30/21) 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) Social History Smoking Status: Former smoker how long ago did patient quit smokin alcohol intake: current alcohol intake frequency: a few times a month Alcohol type: hard liquor substance use type: does not use caffeine: Yes Type: tea what type of physical activity do you participate in: none seatbelt use: always do you feel safe at home: Yes ROS ROS Narrative Pertinent positives and pertinent negatives as noted in HPI. All other systems were reviewed and are negative Vital Signs Vital Signs Vital Signs: 08/12/24 11:49 08/12/24 11:54 08/12/24 12:44 Temperature 97.5 F L 97.5 F L Temperature Source Oral Oral Pulse Rate 66 66 Respiratory Rate 16 16 Blood Pressure 130/79 H 130/79 H Blood Pressure Mean 96 96 Pulse Ox 98 98 Oxygen Delivery Method Room Air Room Air Room Air 08/12/24 13:30 Temperature Temperature Source Pulse Rate 57 L Respiratory Rate 18 Blood Pressure 149/77 H Blood Pressure Mean 101 Pulse Ox 98 Oxygen Delivery Method Room Air Weight Weight: 109.798 kg Body Mass Index (BMI) 29.5 Physical Exam Narrative Physical exam: General: Well-nourished, well-developed. Head: Normocephalic, excoriation at frontal side of head. Eyes: Vision is grossly intact. EOMI ENT, no trauma, moist mucous membranes, no rhinorrhea Neck: Nontender, No thyromegaly. CVS: Regular rate and rhythm. S1-S2 present. No murmur, gallop or rub. Respiratory : clear to auscultation bilaterally, chest wall nontender Abdomen: Soft, nontender, nondistended, normal bowel sounds, no masses : Deferred Back: Nontender, no CVA tenderness, no midline spinal tenderness, deformities, step-offs Extremities: Desquamation of the big toe of right foot. Ulcer at medial side of second toe of right foot. Skin: Normal color, no trauma, abrasions Neuro: Alert, oriented, cranial nerves II through XII grossly intact. Psychiatry: Normal mood. Normal affect. Not depressed. Not anxious. Results Lab / Micro Data 08/12/24 12:00 08/12/24 12:00 Labs: Laboratory Results - last 24 hr 08/12/24 12:00: WBC 10.3, RBC 3.90 L, Hgb 13.3, Hct 40.0, MCV 102.6 H, MCH 34.1 H, MCHC 33.3, RDW Std Deviation 50.8 H, RDW Coeff of Andrea 13.3, Plt Count 231, MPV 9.0, Immature Gran % (Auto) 0.600, Neut % (Auto) 79.9 H, Lymph % (Auto) 11.3 L, [place] % (Auto) 7.2, Eos % (Auto) 0.5, Baso % (Auto) 0.5, Absolute Neuts (auto) 8.3 H, Absolute Lymphs (auto) 1.17, Nucleated RBC % 0, Sodium 136, Potassium 4.6, Chloride 104, Carbon Dioxide 23.0, Anion Gap 9, BUN 23 H, Creatinine 1.20, Estim Creat Clear Calc 66.67, Est GFR (MDRD) Af Amer 75, Est GFR (MDRD) Non-Af 62, BUN/Creatinine Ratio 19.2, Glucose 135 H, Calcium 9.2, Total Bilirubin 0.90, AST 22, ALT 39, Alkaline Phosphatase 87, Total Protein 7.6, Albumin 3.2, G lobulin 4.4 H, Albumin/Globulin Ratio 0.7 L 08/12/24 13:00: Lactic Acid 3.3 H*, Urine Color Yellow, Urine Clarity Clear, Urine pH 6.0, Ur Specific [place] 1.020, Urine Protein 30 H, Urine Glucose (UA) Normal, Urine Ketones Negative, Urine Occult Blood 10 H, Urine Nitrite Negative, Urine Bilirubin Negative, Urine Urobilinogen Normal, Ur Leukocyte Esterase Negative, Urine RBC 0-5 SEEN, Urine WBC 0 SEEN, Ur Squamous Epith Cells 0 SEEN, Urine Bacteria 1+, Urine Mucus 1+ Assessment & Plan Assessment/Plan (1) Osteomyelitis: QUALIFIERS: Osteomyelitis type: other acute Laterality: right O steomyelitis location: foot Qualified Code(s): M86.171 - Other acute osteomyelitis, right ankle and foot (2) Lactic acidosis: PLAN: Plan Labs and imaging were reviewed. Started on vancomycin and clindamycin at the emergency department. Vancomycin continued. Cefepime and Flagyl ordered. As needed pain control with Tylenol and oxycodone. Consult podiatry. Trend CBC and BMP. Pulmonary fibrosis?stable with no supplemental oxygen required. Advance care planning: Discussed with patient and family advanced directives as well as CODE STATUS. Explained various CODE STATUS: FULL CODE, DNR CCA, DNR CCA with no intubation, and DNR CC- and what each meant. Patient elected to be a DNR CCA with no intubation. is surrogate decision maker.. Order was placed. Time spent on discussion 16 minutes. Time spent in the patient's overall evaluation,decision-making process, review of diagnostic data, adjustment of management, discussion with other providers, nursing and ancillary staff involved in patient's care documentation, 75 minutes. Charges/Coding Visit Charges Inpatient E&M: 70499 Init Hosp L3 Procedures Hospitalists Procedures: 84671 Advncd Care Plan 30 Min
--- NOTE | 2024-08-12 17:00 | PHA.PHARE_ITS ---
Consult Antibiotic Management Pharmacy has been consulted to manage selected antibiotic: Vancomycin Type of Intervention Type of Consult: New start Suspected Infection Suspected Infection: Osteomyelitis Prior Doses of Antibiotics Prior Doses of Antibiotics Received/Current Regimen: received vanc 1750mg IV x1 in E.R. today at 12:56 Labs Labs: Sodium 136 mmol/L (136-145) 08/12/24 12:00 Potassium 4.6 mmol/L (3.5-5.1) 08/12/24 12:00 Chloride 104 mmol/L (98-107) 08/12/24 12:00 Carbon Dioxide 23.0 mmol/L (21.0-32.0) 08/12/24 12:00 Anion Gap 9 (5-15) 08/12/24 12:00 BUN 23 mg/dL (7-18) H 08/12/24 12:00 Creatinine 1.20 mg/dL (0.70-1.30) 08/12/24 12:00 Est GFR (MDRD) Af Amer 75 mL/min (>60) 08/12/24 12:00 Est GFR (MDRD) Non-Af 62 mL/min (>60) 08/12/24 12:00 BUN/Creatinine Ratio 19.2 RATIO (10-20) 08/12/24 12:00 Glucose 135 mg/dL (74-106) H 08/12/24 12:00 Dosing Weight Weight used for dosin.6 kg Estimated Creatinine Clearance Estimated Creatinine Clearance: 67 ml/min Goal Trough Goal Trough: 15-20 mcg/mL Pharmacy Plan for Drug Dosing Pharmacy Plan for Drug Dosing: Starting 12 hours after the E.R. dose, will continue with vanc 1250mg IV q12h per [facility] dosing protocol. Will check a trough before the 4th overall dose. Pharmacy Service will continue to monitor and adjust dosing as required. Follow-Up Labs Follow-Up Labs: Trough: Vancomycin Date/Time Labs Ordered Labs to be done on [date and time ordered]: 08/14/24 00:30
[2024-08-12 17:06] LABS: Reflex Lactate? Y
[2024-08-12] MEDS: Clindamycin 600 MG/50 ML BAG 100 MG IV (17:12)
[2024-08-12] MEDS: 0.9% Normal Saline (1000mL) 1,000 ML 999 ML IV (17:19)
[2024-08-12 18:18] LABS: Lactic Acid 1.7 mmol/L (0.4-1.9)
[2024-08-12] MEDS: 0.9% Normal Saline (1000mL) 1,000 ML 75 ML IV (18:27)
--- NOTE | 2024-08-12 20:24 | PCM.CONS.GEN ---
Assessment & Plan Assessment/Plan (1) Acute osteomyelitis of right foot: (2) Other hereditary and idiopathic neuropathies: PLAN: Plan Evaluation performed. Reviewed diagnostic data. There is evidence of infection right 1st toe, but also trace erythema and edema to right 2nd toe with ulceration. MRI shows findings consistent with osteomyelitis right 1st toe distal phalanx, also concern for osteomyelitis right 2nd toe distal phalanx. I have placed a call to radiologist to discuss this. At this time there is nothing to culture via swab, reviewed previous culture from Jul 2024 which show MSSA. Patient is on antibiotic therapy at this time. Discussed further options with patient course of antibiotic therapy and also amputation options. Reviewed possible benefits vs risks, goals, expectations of each. He relates he is leaning toward the surgery/amputation. He relates his family will be in first time tomorrow morning and would like to involve them in decision, so will discuss with them in morning with patient. If we proceed with the amputation we would plan for 08/14/2024 in the afternoon. Reviewed recent LEAS and noted good arterial flow to right foot. Podiatry will continue to follow, thank you for consultation. HPI Consult Data Date of Consult: 08/12/24 HPI Narrative Reason for Consultation: Right 1st toe bone infection HPI Narrative: JOEL YUSUF, is a 78 M who presents due to osteomyelitis right 1st toe. He relates he has neuropathy in feet, and trimmed his right 1st toenail to close, also 1st toe rubs on 2nd toe, and he has a wound on right 2nd toe as well. He relates to redness and swelling of the right 1st and 2nd toes, although he relates it does appear to be improving. He relates the wound on the right 2nd toe is healing nicely. Patient had MRI right yesterday and shows bone marrow edema to the distal phalanx of the right 1st toe, I also noticed there is bone marrow edema right 2nd toe distal phalanx but radiologist did not read this. Patient has been started on antibiotics Vanc and Cefepime, as well as flagyl. Patient has been admitted for further evaluation and management. [facility] Medical History (Updated 08/12/24 @ 21:[address] 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 in diseases classified elsewhere Idiopathic pulmonary fibrosis Obstructive sleep apnea Pulmonary fibrosis Chronic diastolic (congestive) heart failure Multiple premature ventricular complexes Left carotid artery stenosis Hypothyroidism Essential (primary) hypertension BPH (benign prostatic hyperplasia) Atherosclerotic heart disease of [place] coronary artery without angina pectoris Hyperlipidemia Home Medications ?Medication ?Instructions ?Recorded ?Last Taken ?Type lisinopril 5 mg tablet 5 mg PO DAILY BLOOD PRESSURE 12/31/17 05/30/21 History tamsulosin 0.4 mg capsule 0.4 mg PO DAILY PROSTATE 12/31/17 Unknown History metoprolol tartrate 25 mg tablet 12.5 mg PO DAILY BLOOD PRESSURE 01/04/18 05/30/21 History atorvastatin 20 mg tablet 20 mg PO QPM CHOLESTEROL #90 tabs 08/05/19 Unknown History levothyroxine 75 mcg tablet 75 mcg PO DAILY THYROID #90 tabs 08/05/19 05/30/21 History prednisone 10 mg tablet 10 mg PO DAILY STEROID 11/09/20 Unknown History furosemide 40 mg tablet (Lasix) 40 mg PO DAILY PRN EDEMA 05/20/21 Unknown History albuterol sulfate 90 mcg/actuation 2 puff inhalation Q4H PRN 08/12/24 Unknown History aerosol inhaler SHORTNESS OF BREATH/WHEEZING fexofenadine 180 mg tablet 180 mg PO DAILY 08/12/24 Unknown History (Allergy Relief (fexofenadine)) Allergy/AdvReac Type Severity Reaction Status Date / Time Penicillins AdvReac Severe Rash Verified 08/12/24 11:50 Family History Father Cancer Prostate cancer FH: CABG (coronary artery bypass surgery) FH: rheumatic fever Heart disease Mother Cancer Other Family history of coronary artery disease Surgical History History of detached retina repair History of left heart catheterization (05/30/21) 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) Social History Smoking Status: Former smoker how long ago did patient quit smokin alcohol intake: current alcohol intake frequency: a few times a month Alcohol type: hard liquor substance use type: does not use caffeine: Yes Type: tea what type of physical activity do you participate in: none seatbelt use: always do you feel safe at home: Yes Physical Exam Const alert, oriented x3 and no apparent distress Constitutional Narrative: Right 1st toe with erythema and edema with increased temperature c/w osteomyelitis, the 1st toenail is thickened and dystrophic, there is some distal onycholysis, there is no drainage visible at this time, no fluctuance, no blistering, no maloder, no gangrenous changes, the right 2nd toe has trace erythema and edema distally with dry wound appears down to superficial subcutaneous tissue with no drainage - tissues are viable, no necrosis, no fluctuance, no blistering, no maloder, no gangrenous changes. No visible abscess right foot. Decreased sensation to foot c/w chronic peripheral neuropathy, right; no POP or pain on ROM to foot or ankle, CFT < 2 seconds to all toes with no evidence of acute ischemia right foot. No streaking right foot. No evidence of DVT bilateral. Lab / Micro Data 08/12/24 12:00 08/12/24 12:00 Labs: Laboratory Results - last 24 hr 08/12/24 12:00: WBC 10.3, RBC 3.90 L, Hgb 13.3, Hct 40.0, MCV 102.6 H, MCH 34.1 H, MCHC 33.3, RDW Std Deviation 50.8 H, RDW Coeff of Andrea 13.3, Plt Count 231, MPV 9.0, Immature Gran % (Auto) 0.600, Neut % (Auto) 79.9 H, Lymph % (Auto) 11.3 L, [place] % (Auto) 7.2, Eos % (Auto) 0.5, Baso % (Auto) 0.5, Absolute Neuts (auto) 8.3 H, Absolute Lymphs (auto) 1.17, Nucleated RBC % 0, Sodium 136, Potassium 4.6, Chloride 104, Carbon Dioxide 23.0, Anion Gap 9, BUN 23 H, Creatinine 1.20, Estim Creat Clear Calc 66.67, Est GFR (MDRD) Af Amer 75, Est GFR (MDRD) Non-Af 62, BUN/Creatinine Ratio 19.2, Glucose 135 H, Calcium 9.2, Total Bilirubin 0.90, AST 22, ALT 39, Alkaline Phosphatase 87, Total Protein 7.6, Albumin 3.2, Globulin 4.4 H, Albumin/Globulin Ratio 0.7 L 08/12/24 13:00: Lactic Acid 3.3 H*, Urine Color Yellow, Urine Clarity Clear, Urine pH 6.0, Ur Specific [place] 1.020, Urine Protein 30 H, Urine Glucose (UA) Normal, Urine Ketones Negative, Urine Occult Blood 10 H, Urine Nitrite Negative, Urine Bilirubin Negative, Urine Urobilinogen Normal, Ur Leukocyte Esterase Negative, Urine RBC 0-5 SEEN, Urine WBC 0 SEEN, Ur Squamous Epith Cells 0 SEEN, Urine Bacteria 1+, Urine Mucus 1+ 08/12/24 17:19: Lactic Acid 1.7
[2024-08-12] MEDS: Cefepime HCl 2 GM in 0.9% Normal Saline (100mL MB+) 100 ML IV (21:21)
[2024-08-12] MEDS: metroNIDAZOLE 500 MG/100 ML BAG 100 MG IV (22:35)
[2024-08-13] VITALS (7 sets, daily range): BP systolic 123–148; BP diastolic 69–82; PULSE 63–71; RESP 15–20; TEMP 36.5–36.7; O2SAT 93–99
[2024-08-13] MEDS: Vancomycin HCl 1,250 MG in 0.9% Normal Saline (250mL Bag) 250 ML 167 MG IV ×2 (01:22→13:57)
[2024-08-13] MEDS: Cefepime HCl 2 GM in 0.9% Normal Saline (100mL MB+) 100 ML IV (05:16)
[2024-08-13] MEDS: metroNIDAZOLE 500 MG/100 ML BAG 100 MG IV (05:52)
[2024-08-13 07:03] LABS: Absolute Lymphocyte Count 2.06 X10^3/uL (0.83-4.51); Absolute Neutrophil Count 4.2 X10^3/uL (2.0-7.7); Basophil# 0.05 X10^3/uL; Basophil% 0.7 % (0-1); Eosinophil# 0.13 X10^3/uL; Eosinophils% 1.8 % (0-5); Hematocrit 33.6 % (40-54); Hemoglobin 10.9 g/dL (13.0-16.5); Lymphocyte # 2.06 X10^3/ul (0.83-4.51); Lymphocyte % 28.5 % (19-41); Mean Corp Hgb Conc 32.4 g/dL (32-36); Mean Corpuscular Hgb 33.2 pg (27.0-32.0); Mean Corpuscular Volume 102.4 fL (80-94); Mean Platelet Vol. 9.3 fl (6.2-12.0); Monocyte# 0.77 X10^3/uL; Monocyte% 10.7 % (0-10); NRBC Flagged by Analyzer 0 % (0-5); Neutrophil # 4.18 X10^3/uL (2.7-7.7); Neutrophil % 57.9 % (47-70); Platelet Count 184 K/mm3 (150-450); RBC Distribution Width CV 13.4 % (11.6-14.6); RBC Distribution Width SD 50.7 fl (35.1-43.9); Red Blood Count 3.28 M/mm3 (4.6-6.2); White Blood Count 7.2 K/mm3 (4.4-11.0)
[2024-08-13 07:17] LABS: Anion Gap 4 (5-15); BUN 20 mg/dL (7-18); BUN/Creat Ratio 17.9 RATIO (10-20); Calcium,Total 8.4 mg/dL (8.5-10.1); Chloride 108 mmol/L (98-107); Creatinine, Serum 1.12 mg/dL (0.70-1.30); EST Glomerular Filtration Rate 67 mL/min (>60); Est Glom Filt Rate - Afr Amer 81 mL/min (>60); Estimated Creatinine Clearance 70.77 ml/min; Glucose 90 mg/dL (74-106); Sodium Level 136 mmol/L (136-145)
--- NOTE | 2024-08-13 07:50 | WOUNDNOTE ---
In to assess the right great toe with Dr Kim. no wound or drainage noted at this time. there is some redness and edema noted. family with lots of questions about surgery versus 6 weeks of IV antibiotocs. Dr Lopez has been consulted and notified via text. no need for wound care at this time since there is no open wound. will monitor.
--- NOTE | 2024-08-13 07:51 | PCM.PN.HOSP ---
Reason for Visit Reason for Visit: Right foot osteomyelitis Subjective Subjective Patient is an 78-year-old white male who presented to the emergency department at [facility] on 08/13/2020 for with right foot wound of the great toe. He reported that he became somewhat aggressive and clipping his toenails about 3 weeks prior to presentation and started having bleeding on the medial aspect of his great toe. Since that point in time his great toe had become red and he was being treated in the outpatient setting with oral antibiotics. He is on doxycycline and another medication of which he could not remember at the time of presentation. He follows in the outpatient setting with Dr. Cope but was seen by Dr. Kim due to no improvement in his symptoms and an MRI was performed in the outpatient setting yesterday and consistent with osteomyelitis of the great toe. He had no systemic symptoms and he indicated that he feels that his toe is actually decreased in the amount of redness he has had. He does have some neuropathy but is not diabetic and is not having a great deal of pain. Vital signs on presentation showed temperature of 97.5, heart rate 66, blood pressure 130/79, pulse ox was 98% room air. CBC had no leukocytosis but he did have his left shift with a 79.9% neutrophilia. Chemistry panel was overtly unremarkable other than some mild hyperglycemia with a blood sugar of 135. He did have a hemoglobin A1c in April which was 5.5. Liver functions are normal. Lactic acid on presentation was 3.3 but resolved quickly with fluid administration down to 1.7. His UA is not consistent with infection. MRI was reviewed and shows skin ulceration on the medial aspect of the great toe with a fluid signal tracking from the skin surface to the medial cortex of the distal phalanx of the great toe with suspected osteomyelitis of the distal phalanx of the great toe, tendon rupture at the flexor houses longus at the first MTP, atrophy and fat infiltration of the intrinsic musculature of the foot, subcutaneous soft tissue edema around the great toe and along the dorsum of the foot and increased T2 signal marrow edema consistent with osteomyelitis of the second distal phalanx. He was admitted to the medical floor and placed on broad-spectrum antibiotics. Consultation to podiatry was placed and he was evaluated. Currently patient is leaning towards surgical intervention with amputation but will decide further today. Patient states he is really not having any pain because he has neuropathy in that foot. He is waiting to see what Dr. Lopez has to say and then will make a decision with regards to long-term antibiotics with bone biopsy versus surgery he knows the best options per infectious disease recommendations. He has been putting full weight on that leg. Objective Data Objective Data Vital Signs: Vital Signs Temp Pulse Resp BP Pulse Ox O2 Del Method O2 Flow Rate 97.9 F 63 15 145/75 H 97 Room Air 2 08/13/24 03:00 08/13/24 03:00 08/13/24 04:00 08/13/24 03:00 08/13/24 07:24 08/13/24 07:24 08/13/24 03:00 Oxygen Flow Rate (L/min) 2 Oxygen Delivery Method Room Air Weight: 107.592 kg Body Mass Index (BMI) 28.8 Intake & Output: Intake and Output for Last 24 Hours 08/11/24 08/12/24 08/13/24 23:59 23:59 23:59 Intake Total 2285 / 2285 475 / 475 Balance 2285 / 2285 475 / 475 Lab / Micro Data 08/13/24 06:11 08/13/24 06:11 Labs: Laboratory Results - last 24 hr 08/12/24 12:00: WBC 10.3, RBC 3.90 L, Hgb 13.3, Hct 40.0, MCV 102.6 H, MCH 34.1 H, MCHC 33.3, RDW Std Deviation 50.8 H, RDW Coeff of [place] 13.3, Plt Count 231, MPV 9.0, Immature Gran % (Auto) 0.600, Neut % (Auto) 79.9 H, Lymph % (Auto) 11.3 L, [place] % (Auto) 7.2, Eos % (Auto) 0.5, Baso % (Auto) 0.5, Absolute Neuts (auto) 8.3 H, Absolute Lymphs (auto) 1.17, Nucleated RBC % 0, Sodium 136, Potassium 4.6, Chloride 104, Carbon Dioxide 23.0, Anion Gap 9, BUN 23 H, Creatinine 1.20, Estim Creat Clear Calc 66.67, Est GFR (MDRD) Af Amer 75, Est GFR (MDRD) Non-Af 62, BUN/Creatinine Ratio 19.2, Glucose 135 H, Calcium 9.2, Total Bilirubin 0.90, AST 22, ALT 39, Alkaline Phosphatase 87, Total Protein 7.6, Albumin 3.2, Globulin 4.4 H, Albumin/Globulin Ratio 0.7 L 08/12/24 13:00: Lactic Acid 3.3 H*, Urine Color Yellow, Urine Clarity Clear, Urine pH 6.0, Ur Specific [place] 1.020, Urine Protein 30 H, Urine Glucose (UA) Normal, Urine Ketones Negative, Urine Occult Blood 10 H, Urine Nitrite Negative, Urine Bilirubin Negative, Urine Urobilinogen Normal, Ur Leukocyte Esterase Negative, Urine RBC 0-5 SEEN, Urine WBC 0 SEEN, Ur Squamous Epith Cells 0 SEEN, Urine Bacteria 1+, Urine Mucus 1+ 08/12/24 17:19: Lactic Acid 1.7 08/13/24 06:11: WBC 7.2, RBC 3.28 L, Hgb 10.9 L, Hct 33.6 L, MCV 102.4 H, MCH 33.2 H, MCHC 32.4, RDW Std Deviation 50.7 H, RDW Coeff of [place] 13.4, Plt Count 184, MPV 9.3, Immature Gran % (Auto) 0.400, Neut % (Auto) 57.9, Lymph % (Auto) 28.5, [place] % (Auto) 10.7 H, Eos % (Auto) 1.8, Baso % (Auto) 0.7, Absolute Neuts (auto) 4.2, Absolute Lymphs (auto) 2.06, Nucleated RBC % 0, Sodium 136, Potassium 4.0, Chloride 108 H, Carbon Dioxide 24.0, Anion Gap 4 L, BUN 20 H, Creatinine 1.12, Estim Creat Clear Calc 70.77, Est GFR (MDRD) Af Amer 81, Est GFR (MDRD) Non-Af 67, BUN/Creatinine Ratio 17.9, Glucose 90, Calcium 8.4 L Physical Exam Const alert, oriented x3, no apparent distress, healthy appearing and well nourished Constitutional Narrative: Overweight, elderly, white male, sitting up in bed on computer, family at bedside, appears comfortable, nontoxic appearing HEENT head/scalp atraumatic and moist oral mucous membranes HEENT Narrative: Mallampati 3, no thrush Head and Scalp: normocephalic Resp normal respiratory effort, no retractions, no use of accessory muscles and clear to auscultation bilaterally Auscultation: Negative for rales, rhonchi or wheezes Cardio regular rate, regular rhythm, S1 normal heart sound, S2 normal heart sound, no murmurs, no rub, no gallops and no clicks GI normal to inspection, nondistended, normoactive bowel sounds, soft to palpation and non-tender Extremity no clubbing, cyanosis or edema Skin Skin Narrative: Great toe on right lower extremity is mildly erythematous with clear wound but no significant drainage, digit is swollen and skin is peeling around the distal tip on the medial side Neuro oriented x3, moves all extremities and no focal motor deficits Neuro Narrative: Decreased sensation bilateral lower extremities Speech: speech normal Psych affect normal Psych Narrative: Very pleasant, interacts appropriately, eye contact is good Assessment & Plan Assessment/Plan (1) Acute osteomyelitis of right foot: PLAN: Plan Osteomyelitis of the right first distal phalanx and second distal phalanx -No cultures able to be obtained -Previous culture showed MSSA--> performed in July -Will continue antibiotics but discontinue cefepime and Flagyl and placed on Levaquin -Continue vancomycin for now -Infectious diseases consulted and I suspect we will be able to narrow further for just MSSA coverage -Patient plans to make a surgical decision based on ID input -Possible surgical intervention if patient decides to proceed and will be planned for , 08/14/2024 -With baseline pulmonary issues would recommend block anesthesia versus general anesthesia -Continue as needed Tylenol -Continue as needed oxycodone -Patient does have bowel regimen ordered as needed Acute mild macrocytic anemia -10.9 this morning however patient was hydrated -Appears that baseline is between 12 and 13 -Will follow closely and trend but no signs of obvious bleeding CAD/essential HTN/HPL/chronic HFpEF secondary to diastolic dysfunction -CABG in 2006 and last heart catheterization in 2020 -Hold home lisinopril in the perioperative period and restart postoperatively next-continue home metoprolol -As needed hydralazine for systolic blood pressure greater than 150 -Continue home atorvastatin -Patient is on as needed Lasix and will monitor Pulmonary fibrosis -Patient stable on room air -Continue home chronic prednisone 10 mg BPH with obstruction -Continue home Flomax SHAHIDA -Will continue home BiPAP Left carotid artery stenosis -Continue current management -Continue outpatient follow-up History of tobacco abuse -Remote -Recommend ongoing cessation DVT prophylaxis -Start enoxaparin 40 daily CODE STATUS -DNR CCA okay for short-term intubation per discussion on admission Charges/Coding Visit Charges Inpatient E&M: 69573 Subs Hosp L2
[2024-08-13] MEDS: levoFLOXacin IV 750 MG/150 ML BAG 100 MG IV (08:41)
--- NOTE | 2024-08-13 10:11 | PCM.PROGNOTE ---
Subjective Subjective Patient was seen this morning for follow up on right 1st and 2nd toe osteomyelitis. His daughter and are at bedside. Patient is resting comfortably in bed, no new complaints. No complaints of f/c/n/v. Objective Data Objective Data Vital Signs: Vital Signs Temp Pulse Resp BP Pulse Ox O2 Del Method O2 Flow Rate 98.0 F 66 18 144/77 H 94 Room Air 2 08/13/24 08:17 08/13/24 08:17 08/13/24 08:17 08/13/24 08:17 08/13/24 08:17 08/13/24 08:17 08/13/24 03:00 Oxygen Flow Rate (L/min) 2 Oxygen Delivery Method Room Air Weight: 107.592 kg Body Mass Index (BMI) 28.8 Intake & Output: Intake and Output for Last 24 Hours 08/11/24 08/12/24 08/13/24 23:59 23:59 23:59 Intake Total 2285 / 2285 1475 / 1475 Balance 2285 / 2285 1475 / 1475 Lab / Micro Data 08/13/24 06:11 08/13/24 06:11 Labs: Laboratory Results - last 24 hr 08/12/24 12:00: WBC 10.3, RBC 3.90 L, Hgb 13.3, Hct 40.0, MCV 102.6 H, MCH 34.1 H, MCHC 33.3, RDW Std Deviation 50.8 H, RDW Coeff of [place] 13.3, Plt Count 231, MPV 9.0, Immature Gran % (Auto) 0.600, Neut % (Auto) 79.9 H, Lymph % (Auto) 11.3 L, [place] % (Auto) 7.2, Eos % (Auto) 0.5, Baso % (Auto) 0.5, Absolute Neuts (auto) 8.3 H, Absolute Lymphs (auto) 1.17, Nucleated RBC % 0, Sodium 136, Potassium 4.6, Chloride 104, Carbon Dioxide 23.0, Anion Gap 9, BUN 23 H, Creatinine 1.20, Estim Creat Clear Calc 66.67, Est GFR (MDRD) Af Amer 75, Est GFR (MDRD) Non-Af 62, BUN/Creatinine Ratio 19.2, Glucose 135 H, Calcium 9.2, Total Bilirubin 0.90, AST 22, ALT 39, Alkaline Phosphatase 87, Total Protein 7.6, Albumin 3.2, Globulin 4.4 H, Albumin/Globulin Ratio 0.7 L 08/12/24 13:00: Lactic Acid 3.3 H*, Urine Color Yellow, Urine Clarity Clear, Urine pH 6.0, Ur Specific [place] 1.020, Urine Protein 30 H, Urine Glucose (UA) Normal, Urine Ketones Negative, Urine Occult Blood 10 H, Urine Nitrite Negative, Urine Bilirubin Negative, Urine Urobilinogen Normal, Ur Leukocyte Esterase Negative, Urine RBC 0-5 SEEN, Urine WBC 0 SEEN, Ur Squamous Epith Cells 0 SEEN, Urine Bacteria 1+, Urine Mucus 1+ 08/12/24 17:19: Lactic Acid 1.7 08/13/24 06:11: WBC 7.2, RBC 3.28 L, Hgb 10.9 L, Hct 33.6 L, MCV 102.4 H, MCH 33.2 H, MCHC 32.4, RDW Std Deviation 50.7 H, RDW Coeff of [place] 13.4, Plt Count 184, MPV 9.3, Immature Gran % (Auto) 0.400, Neut % (Auto) 57.9, Lymph % (Auto) 28.5, [place] % (Auto) 10.7 H, Eos % (Auto) 1.8, Baso % (Auto) 0.7, Absolute Neuts (auto) 4.2, Absolute Lymphs (auto) 2.06, Nucleated RBC % 0, Sodium 136, Potassium 4.0, Chloride 108 H, Carbon Dioxide 24.0, Anion Gap 4 L, BUN 20 H, Creatinine 1.12, Estim Creat Clear Calc 70.77, Est GFR (MDRD) Af Amer 81, Est GFR (MDRD) Non-Af 67, BUN/Creatinine Ratio 17.9, Glucose 90, Calcium 8.4 L Physical Exam Const alert, oriented x3 and no apparent distress Constitutional Narrative: Right 1st toe with erythema and edema with increased temperature c/w osteomyelitis - improved today, the 1st toenail is thickened and dystrophic, there is some distal onycholysis, there is no drainage visible at this time, no fluctuance, no blistering, no maloder, no gangrenous changes, the right 2nd toe has trace erythema and edema distally with dry wound appears down to superficial subcutaneous tissue with no drainage - tissues are viable, no necrosis, no fluctuance, no blistering, no maloder, no gangrenous changes. No visible abscess right foot. Decreased sensation to foot c/w chronic peripheral neuropathy, right; no POP or pain on ROM to foot or ankle, CFT < 2 seconds to all toes with no evidence of acute ischemia right foot. No streaking right foot. No evidence of DVT bilateral. Assessment & Plan Assessment/Plan (1) Acute osteomyelitis of right foot: (2) Other hereditary and idiopathic neuropathies: PLAN: Plan Evaluation performed. Reviewed diagnostic data. There is evidence of infection right 1st toe, also trace erythema and edema to right 2nd toe. MRI shows findings consistent with osteomyelitis right 1st and 2nd toe distal phalanx, discussed with radiologist and MRI findings also consistent with osteomyelitis to distal phalanx right 2nd toe. At this time there is nothing to culture via swab, reviewed previous culture from Jul 2024 which show MSSA. Patient is on antibiotic therapy at this time. Discussed further options with patient course of antibiotic therapy and also amputation options. Reviewed possible benefits vs risks, goals, expectations of each. He relates he is leaning toward the surgery/amputation, but his family had further questions which were answered but Dr. Lopez has been consulted as well. If we proceed with the amputation we would plan for 08/14/2024 in the afternoon. Reviewed recent LEAS and noted good arterial flow to right foot. Podiatry will continue to follow.
[2024-08-13] MEDS: Levothyroxine 75 MCG Tablet PO (10:52)
[2024-08-13] MEDS: predniSONE 10 MG Tablet PO (10:52)
[2024-08-13] MEDS: Loratadine 10 MG Tablet PO (10:53)
[2024-08-13] MEDS: Enoxaparin 40 MG/0.4 ML Syringe SC (10:53)
[2024-08-13] MEDS: Metoprolol Tartrate 25 MG Tablet 12.5 MG PO (10:57)
--- NOTE | 2024-08-13 11:40 | CASEMGMT ---
MARGARITA MADDEN Assessment: Face to Face with pt for initial transition planning/care coordination assessment. MARGARITA MADDEN introduced self and role at [facility], pt voices understanding and consents to assessment. Pt is A&O x4 and answers all questions appropriately at this time. Pt sitting up in bed on laptop playing a game. Pt and dtr present. Pt agreeable to assessment with family present. Care providers, pharmacy, and demographics verified/updated. Admitting Dx: osteomyelitis of R great toe Strata Score: 2 PCP:Isai Specialists:Anatoliy pod; Bernice cardio Preferred Pharmacy: [facility] Insurance: [facility] Prescription Benefit: yes LNOK: Becca Vizcaino, Living Arrangements: Pt lives with in a single story home with no steps to enter. Pt reports he is I in ADLs and denies concerns at home. Transportation: Pt drives self and denies concerns with transportation. DME:shower chair, bipap, oxygen through [facility] with portability, pox, walker, canes HHC/SNF: Denies hx of- pt was on hospice but they dc'd 2 years ago Pt states no concerns with going home at time of dc. Pt states he was told his options for care for his toe and currently he is leaning towards IV atb at home. Pt states his son in law is a pharmacist and his was a nurse. Pt states his and dtr would be the teachable cgs for IV's. Discussed the process for this as far as [facility] and infusion company should this be needed. Pt and family verbalize understanding. Pt states he will discuss with ID. MARGARITA MADDEN to follow. Pt states no further concerns/needs. Advised pt to ask CM if any further question/concerns/needs arise, voices understanding. Pt Goal: Home with atb Plan: Home pending ID consult and course of hospitalization Kavon AVILA CM
--- NOTE | 2024-08-13 15:47 | PCM.CONS.GEN ---
Assessment & Plan Assessment/Plan (1) Acute osteomyelitis of right foot: PLAN: Wound cx 07/08/24 with s. epi, enterococcus, MRSA, corynebacter, schaalia. Wound cx 08/05 with mssa and anaerobes. Currently on vanc/levaquin. Podiatry following. D/w Dr. Kim. Toe improving, tentative plan at this will be 6 weeks abx. Will follow, thank you (2) Other hereditary and idiopathic neuropathies: HPI Consult Data Date of Consult: 08/13/24 HPI Narrative Reason for Consultation: osteo HPI Narrative: JOEL YUSUF, is a 78 M with h/o pulm fibrosis, CAD, neuropathy, presented with 3 weeks progressive R 1st and 2nd toe swelling, redness, drainage, and ulceration on 2nd toe. Started after cutting nail on R hallux 4 weeks ago. No fever or chills, no pain in foot. Saw PCP, given doxy and keflex for a week then for a second week, referred to podiatry. MRI done, admitted, started on vanc and levaquin. reports toe much less red today. Full ROS performed and neg except as noted above. FOR[facility]LY [facility] Medical History Former smoker BiPAP (biphasic positive airway pressure) dependence On home oxygen therapy Hypertension Solitary pulmonary nodule Parageusia Other interstitial pulmonary diseases with fibrosis in diseases classified elsewhere Idiopathic pulmonary fibrosis Obstructive sleep apnea Pulmonary fibrosis Chronic diastolic (congestive) heart failure Multiple premature ventricular complexes Left carotid artery stenosis Hypothyroidism Essential (primary) hypertension BPH (benign prostatic hyperplasia) Atherosclerotic heart disease of [place] coronary artery without angina pectoris Hyperlipidemia Home Medications ?Medication ?Instructions ?Recorded ?Last Taken ?Type lisinopril 5 mg tablet 5 mg PO DAILY BLOOD PRESSURE 12/31/17 05/30/21 History tamsulosin 0.4 mg capsule 0.4 mg PO DAILY PROSTATE 12/31/17 Unknown History metoprolol tartrate 25 mg tablet 12.5 mg PO DAILY BLOOD PRESSURE 01/04/18 05/30/21 History atorvastatin 20 mg tablet 20 mg PO QPM CHOLESTEROL #90 tabs 08/05/19 Unknown History levothyroxine 75 mcg tablet 75 mcg PO DAILY THYROID #90 tabs 08/05/19 05/30/21 History prednisone 10 mg tablet 10 mg PO DAILY STEROID 11/09/20 Unknown History furosemide 40 mg tablet (Lasix) 40 mg PO DAILY PRN EDEMA 05/20/21 Unknown History albuterol sulfate 90 mcg/actuation 2 puff inhalation Q4H PRN 08/12/24 Unknown History aerosol inhaler SHORTNESS OF BREATH/WHEEZING fexofenadine 180 mg tablet 180 mg PO DAILY 08/12/24 Unknown History (Allergy Relief (fexofenadine)) Allergy/AdvReac Type Severity Reaction Status Date / Time Penicillins AdvReac Severe Rash Verified 08/12/24 11:50 Family History Father Cancer Prostate cancer FH: CABG (coronary artery bypass surgery) FH: rheumatic fever Heart disease Mother Cancer Other Family history of coronary artery disease Surgical History History of detached retina repair History of left heart catheterization (05/30/21) 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) Social History Smoking Status: Former smoker how long ago did patient quit smokin alcohol intake: current alcohol intake frequency: a few times a month Alcohol type: hard liquor substance use type: does not use caffeine: Yes Type: tea what type of physical activity do you participate in: none seatbelt use: always do you feel safe at home: Yes Physical Exam Const alert, oriented x3 and no apparent distress General Appearance: cooperative HEENT normocephalic and head/scalp atraumatic Eyes PERRL and EOMs intact bilaterally Neck supple and No nodes Resp clear to auscultation bilaterally Auscultation: diminished lung sounds Cardio regular rate and regular rhythm GI soft to palpation, non-tender and non-distended Extremity General Extremity: Negative for edema Skin Skin Narrative: R 1st toe redness, swelling, mild drainage. R 2nd toe shallow ulcer, mild swelling Neuro CN's II-XII intact bilaterally Lab / Micro Data Attestation: I reviewed the patient's lab results. 08/13/24 06:11 08/13/24 06:11 Labs: Laboratory Results - last 24 hr 08/12/24 17:19: Lactic Acid 1.7 08/13/24 06:11: WBC 7.2, RBC 3.28 L, Hgb 10.9 L, Hct 33.6 L, MCV 102.4 H, MCH 33.2 H, MCHC 32.4, RDW Std Deviation 50.7 H, RDW Coeff of Andrea 13.4, Plt Count 184, MPV 9.3, Immature Gran % (Auto) 0.400, Neut % (Auto) 57.9, Lymph % (Auto) 28.5, [place] % (Auto) 10.7 H, Eos % (Auto) 1.8, Baso % (Auto) 0.7, Absolute Neuts (auto) 4.2, Absolute Lymphs (auto) 2.06, Nucleated RBC % 0, Sodium 136, Potassium 4.0, Chloride 108 H, Carbon Dioxide 24.0, Anion Gap 4 L, BUN 20 H, Creatinine 1.12, Estim Creat Clear Calc 70.77, Est GFR (MDRD) Af Amer 81, Est GFR (MDRD) Non-Af 67, BUN/Creatinine Ratio 17.9, Glucose 90, Calcium 8.4 L
[2024-08-13] MEDS: Tamsulosin HCl 0.4 MG Capsule PO (18:22)
[2024-08-13] MEDS: Atorvastatin Calcium 20 MG Tablet PO (21:05)
[2024-08-14 01:35] LABS: Vancomycin, Trough Level 18.6 ug/mL (5.0-15.0)
--- NOTE | 2024-08-14 01:43 | PCM.RX.CS ---
Consult Antibiotic Management Pharmacy has been consulted to manage selected antibiotic: Vancomycin Type of Intervention Type of Consult: Follow-up Suspected Infection Suspected Infection: Osteomyelitis Labs Labs: Sodium 136 mmol/L (136-145) 08/13/24 06:11 Potassium 4.0 mmol/L (3.5-5.1) 08/13/24 06:11 Chloride 108 mmol/L (98-107) H 08/13/24 06:11 Carbon Dioxide 24.0 mmol/L (21.0-32.0) 08/13/24 06:11 Anion Gap 4 (5-15) L 08/13/24 06:11 BUN 20 mg/dL (7-18) H 08/13/24 06:11 Creatinine 1.12 mg/dL (0.70-1.30) 08/13/24 06:11 Est GFR (MDRD) Af Amer 81 mL/min (>60) 08/13/24 06:11 Est GFR (MDRD) Non-Af 67 mL/min (>60) 08/13/24 06:11 BUN/Creatinine Ratio 17.9 RATIO (10-20) 08/13/24 06:11 Glucose 90 mg/dL (74-106) 08/13/24 06:11 Vancomycin Trough 18.6 ug/mL (5.0-15.0) H 08/14/24 00:51 Dosing Weight Weight used for dosin.6 kg Estimated Creatinine Clearance Estimated Creatinine Clearance: 71 Goal Trough Goal Trough: 15-20 mcg/mL Pharmacy Plan for Drug Dosing Pharmacy Plan for Drug Dosing: Vancomycin trough level of 18.6, drawn 11 hours post-dose, was within the target range of 15-20. Will continue dosing at 1250mg q12h and will draw another trough in two days. Pharmacy Service will continue to monitor and adjust dosing as required. Follow-Up Labs Follow-Up Labs: Trough: Vancomycin Date/Time Labs Ordered Labs to be done on [date and time ordered]: 08/16/24 @0030
[2024-08-14 01:46] VITALS: BP 153/80; PULSE 65; RESP 18; TEMP 36.5; O2SAT 95
[2024-08-14] MEDS: 0.9% Saline Lock 10 ML Syringe IV ×2 (01:54→06:58)
[2024-08-14] MEDS: Vancomycin HCl 1,250 MG in 0.9% Normal Saline (250mL Bag) 250 ML 167 MG IV ×2 (01:54→13:24)
[2024-08-14] MEDS: Levothyroxine 75 MCG Tablet PO (05:33)
[2024-08-14 06:27] LABS: Absolute Lymphocyte Count 2.23 X10^3/uL (0.83-4.51); Absolute Neutrophil Count 4.8 X10^3/uL (2.0-7.7); Basophil# 0.06 X10^3/uL; Basophil% 0.7 % (0-1); Eosinophil# 0.12 X10^3/uL; Eosinophils% 1.5 % (0-5); Hematocrit 35.2 % (40-54); Hemoglobin 11.6 g/dL (13.0-16.5); Lymphocyte # 2.23 X10^3/ul (0.83-4.51); Lymphocyte % 27.3 % (19-41); Mean Corpuscular Hgb 33.6 pg (27.0-32.0); Monocyte# 0.91 X10^3/uL; Monocyte% 11.1 % (0-10); NRBC Flagged by Analyzer 0 % (0-5); Neutrophil # 4.81 X10^3/uL (2.7-7.7); Neutrophil % 58.9 % (47-70); Platelet Count 174 K/mm3 (150-450); RBC Distribution Width CV 13.3 % (11.6-14.6); RBC Distribution Width SD 50.1 fl (35.1-43.9); Red Blood Count 3.45 M/mm3 (4.6-6.2); White Blood Count 8.2 K/mm3 (4.4-11.0)
[2024-08-14 07:04] VITALS: O2SAT 98
[2024-08-14 07:17] LABS: Anion Gap 5 (5-15); BUN 18 mg/dL (7-18); BUN/Creat Ratio 16.1 RATIO (10-20); Calcium,Total 8.8 mg/dL (8.5-10.1); Chloride 107 mmol/L (98-107); Creatinine, Serum 1.12 mg/dL (0.70-1.30); EST Glomerular Filtration Rate 67 mL/min (>60); Est Glom Filt Rate - Afr Amer 81 mL/min (>60); Estimated Creatinine Clearance 70.77 ml/min; Glucose 88 mg/dL (74-106); Potassium 4.2 mmol/L (3.5-5.1); Sodium Level 137 mmol/L (136-145)
[2024-08-14 08:19] VITALS: BP 155/67; PULSE 64; RESP 20; TEMP 36.6; O2SAT 94
[2024-08-14 08:27] VITALS: PULSE 64
[2024-08-14] MEDS: Metoprolol Tartrate 25 MG Tablet 12.5 MG PO (08:27)
[2024-08-14] MEDS: predniSONE 10 MG Tablet PO (08:28)
[2024-08-14] MEDS: Loratadine 10 MG Tablet PO (08:28)
[2024-08-14] MEDS: Enoxaparin 40 MG/0.4 ML Syringe SC (08:28)
[2024-08-14] MEDS: Lisinopril 5 MG Tablet PO (08:30)
--- NOTE | 2024-08-14 09:49 | CASEMGMT ---
Discharge Planning A list of HH providers including quality and resource use data and consistent with the patient's preferred geographic region, medical needs, and insurance network was created in [employer] Guide.? This list was provided to the RN MARYANNE. Mary Ellis, Discharge Planning Asst.
--- NOTE | 2024-08-14 10:24 | PCM.PN.ID ---
Physical Exam Narrative Feeling better, able to move toe now, no fever, no n/v/d. Mild soft stool. Const alert and no apparent distress General Appearance: cooperative Resp normal air movement and clear to auscultation bilaterally Cardio regular rate and regular rhythm GI soft to palpation, non-tender and non-distended Skin Skin Narrative: R 1st toe much less red ID ID: Route of nutrition/ use of supplements: [] Nutritional Intake: [] IV Site: [] Walters Catheter: [] Assessment & Plan Assessment/Plan (1) Acute osteomyelitis of right foot: PLAN: Wound cx 07/08/24 with s. epi, enterococcus, MRSA, corynebacter, schaalia. Wound cx 08/05 with mssa and anaerobes. Currently on vanc/levaquin. Podiatry following. D/w Dr. Kim. Toe improving, plan at this will be 6 weeks abx. Will order 6 weeks iv vanc/ceftriaxone and po flagyl, stop date 09/23/24 with weekly labs, ID followup in 2 weeks. Will follow, d/w primary team and telephonic nurse case manager (2) Other hereditary and idiopathic neuropathies:
[2024-08-14] MEDS: Ceftriaxone 2 GM in 0.9% Normal Saline (50mL MB+) 50 ML IV (10:37)
[2024-08-14] MEDS: metroNIDAZOLE 500 MG Tablet PO (10:38)
--- NOTE | 2024-08-14 11:02 | CASEMGMT ---
Addendum entered by Octavia Hughes 08/14/24 14:01: Faxed [facility] IV rx at this time. Addendum entered by Octavia Hughes 08/14/24 13:59: MARGARITA MADDEN into pt room, pt , son in law and dtr present. Pt is aware of cost of medication/supplies for IV and agreeable to this cost. Updated [facility]. Pt is aware that [facility] from [facility] accepted him and will see him tomorrow morning and will call and set up a time for him today yet. Pt states his dtr is a physical therapist and he does not feel that he needs therapy. He states he has DME available if needed but feels he can maintain his wt bearing status. Pt is aware that will follow [facility] until he sees . Discussed that pt will have both meds in the morning as he does not want to stay for a 1am dose of vanc. All questions answered and pt and family deny further questions. Addendum entered by Octavia Hughes 08/14/24 13:33: Received acceptance from Magdalene at [facility], they will see pt in the morning for IV atb. Spoke with [facility], meds will be delivered tonight. Pt cost is $116.16 per week. Spoke to Dr. Kim, he is willing to follow the [facility] until pt sees . Magdalene at [facility] is aware of this. Original Note: Received iv rx for pt from ID. MARGARITA MADDEN into pt room, pt present. Provided pt with a list of [employer] created by [place] social work assistant. Pt has chosen 1.[facility] 2.[facility] 3.[facility] 4. [facility]. 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 Referral sent to [facility] at this time via [employer]. TC to Magdalene at [facility], referral made. Will await acceptance.
--- NOTE | 2024-08-14 12:48 | PCM.DC.SUM ---
Providers Date of Admission: 08/12/24 Date of Discharge: 08/14/24 Primary Care Physician: Dr. Earnest Alex MD Consultations 08/12/24 16:44 Consult: Podiatry Routine Consulting Provider: Crow Kim Reason for Consult: R great toe osteomyelitis EMERGENT Consult: No Notified: Yes Date Notified: 08/12/24 Time Notified: 16:49 Method of Notification: Text 08/13/24 07:42 Consult: Infectious Disease Routine Consulting Provider: Francisco Lopez Reason for Consult: right great and 2nd toe infection EMERGENT Consult: No Notified: Yes Date Notified: 08/13/24 Time Notified: 07:42 Method of Notification: Answering Service Reason For Visit: OSTEOMYELITIS OF R GREAT TOE Diagnosis Discharge Diagnosis (1) Acute osteomyelitis of right foot: Status: Acute Code(s): M86.171 - Other acute osteomyelitis, right ankle and foot (2) Other hereditary and idiopathic neuropathies: Status: Acute Code(s): G60.8 - Other hereditary and idiopathic neuropathies Medications at Discharge Home Medications lisinopril 5 mg tablet 5 mg PO DAILY BLOOD PRESSURE 12/31/17 tamsulosin 0.4 mg capsule 0.4 mg PO DAILY PROSTATE 12/31/17 metoprolol tartrate 25 mg tablet 12.5 mg PO DAILY BLOOD PRESSURE 01/04/18 atorvastatin 20 mg tablet 20 mg PO QPM CHOLESTEROL #90 tabs 08/05/19 levothyroxine 75 mcg tablet 75 mcg PO DAILY THYROID #90 tabs 08/05/19 prednisone 10 mg tablet 10 mg PO DAILY STEROID 11/09/20 furosemide 40 mg tablet (Lasix) 40 mg PO DAILY PRN EDEMA 05/20/21 albuterol sulfate 90 mcg/actuation aerosol inhaler 2 puff inhalation Q4H PRN SHORTNESS OF BREATH/WHEEZING 08/12/24 fexofenadine 180 mg tablet (Allergy Relief (fexofenadine)) 180 mg PO DAILY 08/12/24 ceftriaxone 2 gram intravenous solution 2 g IV Q24H 39 days 08/14/24 metronidazole 500 mg tablet 500 mg PO TID 39 days #117 tabs 08/14/24 vancomycin 1.25 gram intravenous solution 1.25 g IV Q12H 39 days 08/14/24 Hospital Course Operations None Procedures PICC line placement Summary of Care Provided Minutes Spent on Discharge: 37 Hospital Course: Patient is an 78-year-old white male who presented to the emergency department at [facility] on 08/13/2020 for with right foot wound of the great toe. He reported that he became somewhat aggressive and clipping his toenails about 3 weeks prior to presentation and started having bleeding on the medial aspect of his great toe. Since that point in time his great toe had become red and he was being treated in the outpatient setting with oral antibiotics. He is on doxycycline and another medication of which he could not remember at the time of presentation. He follows in the outpatient setting with Dr. Cope but was seen by Dr. Kim due to no improvement in his symptoms and an MRI was performed in the outpatient setting yesterday and consistent with osteomyelitis of the great toe. He had no systemic symptoms and he indicated that he feels that his toe is actually decreased in the amount of redness he has had. He does have some neuropathy but is not diabetic and is not having a great deal of pain. Vital signs on presentation showed temperature of 97.5, heart rate 66, blood pressure 130/79, pulse ox was 98% room air. CBC had no leukocytosis but he did have his left shift with a 79.9% neutrophilia. Chemistry panel was overtly unremarkable other than some mild hyperglycemia with a blood sugar of 135. He did have a hemoglobin A1c in April which was 5.5. Liver functions are normal. Lactic acid on presentation was 3.3 but resolved quickly with fluid administration down to 1.7. His UA is not consistent with infection. MRI was reviewed and shows skin ulceration on the medial aspect of the great toe with a fluid signal tracking from the skin surface to the medial cortex of the distal phalanx of the great toe with suspected osteomyelitis of the distal phalanx of the great toe, tendon rupture at the flexor houses longus at the first MTP, atrophy and fat infiltration of the intrinsic musculature of the foot, subcutaneous soft tissue edema around the great toe and along the dorsum of the foot and increased T2 signal marrow edema consistent with osteomyelitis of the second distal phalanx. He was admitted to the medical floor and placed on broad-spectrum antibiotics. He was evaluated by podiatry and infectious disease. Podiatry offered amputation versus antibiotics and the patient wanted to discuss options with infectious disease as well. They evaluated the patient and patient opted for long-term antibiotics with ongoing outpatient evaluation. A PICC line was placed. Based on previous outpatient cultures with staph epi, Enterococcus, MRSA, corynebacterium, and schaalia and culture on 08 05 with MSSA and anaerobes discharge antibiotics were recommended to be 6 weeks of IV vancomycin, ceftriaxone, and oral Flagyl with stop date of 09/23/2024. The patient is to have weekly labs ordered by infectious disease as outpatient and follow-up with ID in 2 weeks. Case was discussed with Dr. Kim from podiatry and he would like to see the patient in 1 week. The patient was advised to be partial weightbearing through the heel on his right lower extremity in a postoperative shoe was given to the patient. He will likely need to ambulate with his cane or a walker for balance and he has both available at home. He does have a history of chronic nondiabetic neuropathy which will affect his gait and balance with his weightbearing status changes. PICC line was placed prior to discharge and home health care was set up by case management. The patient was discharged home in stable condition on 08/14/2024. He has to follow-up with his primary care physician as needed per previous recommendations. Discharge diagnoses: Acute osteomyelitis of the right foot-distal first and second phalanx Acute mild macrocytic anemia CAD Essential hypertension Hyperlipidemia Chronic HFpEF secondary to diastolic dysfunction Pulmonary fibrosis BPH with obstruction SHAHIDA Left carotid artery stenosis Tobacco abuse history Physical Exam Const alert, oriented x3, no apparent distress, no limitations, healthy appearing and well nourished; Negative for average body habitus Constitutional Narrative: Overweight, elderly, white male, sitting up in bed and is just returned from the bathroom, family at bedside, appears comfortable, nontoxic, excited that he is able to go home today General Appearance: cooperative, comfortable, well kempt and well developed Orientation / Consciousness: awake, oriented to person, oriented to place and oriented to time Exam Limitations: no limitations Nutritional Appearance: overweight HEENT normocephalic, head/scalp atraumatic and moist oral mucous membranes; Negative for hearing grossly normal bilaterally HEENT Narrative: Mild hearing loss, Mallampati 3, no thrush Eyes EOMs intact bilaterally Eyes Narrative: No scleral icterus Neck no lymphadenopathy and supple Neck Narrative: Neck is short and thick, trachea midline Resp normal respiratory effort, no retractions, no use of accessory muscles and clear to auscultation bilaterally Auscultation: Negative for rales, rhonchi or wheezes Cardio regular rate, regular rhythm, S1 normal heart sound, S2 normal heart sound, no murmurs, no rub, no gallops and no clicks GI normal to inspection, nondistended, normoactive bowel sounds, soft to palpation and non-tender Extremity no clubbing, cyanosis or edema Skin skin turgor normal and no jaundice Skin Narrative: Right great toe and foot are dressed with clean dry and intact dressing at this time Neuro oriented x3, moves all extremities and no focal motor deficits Neuro Narrative: Decreased sensation bilateral lower extremities Speech: speech normal Psych affect normal Psych Narrative: Very pleasant, interacts appropriately, eye contact is good Weight / BMI Weight Weight: 107.592 kg Body Mass Index (BMI) 28.8 ABG / Lab / Microbiology Data 08/14/24 05:41 08/14/24 05:41 Laboratory: Laboratory Results - last 24 hr 08/14/24 00:51: Vancomycin Trough 18.6 H 08/14/24 05:41: WBC 8.2, RBC 3.45 L, Hgb 11.6 L, Hct 35.2 L, MCV 102.0 H, MCH 33.6 H, MCHC 33.0, RDW Std Deviation 50.1 H, RDW Coeff of Andrea 13.3, Plt Count 174, MPV 9.0, Immature Gran % (Auto) 0.500, Neut % (Auto) 58.9, Lymph % (Auto) 27.3, [place] % (Auto) 11.1 H, Eos % (Auto) 1.5, Baso % (Auto) 0.7, Absolute Neuts (auto) 4.8, Absolute Lymphs (auto) 2.23, Nucleated RBC % 0, Sodium 137, Potassium 4.2, Chloride 107, Carbon Dioxide 25.0, Anion Gap 5, BUN 18, Creatinine 1.12, Estim Creat Clear Calc 70.77, Est GFR (MDRD) Af Amer 81, Est GFR (MDRD) Non-Af 67, BUN/Creatinine Ratio 16.1, Glucose 88, Calcium 8.8 Microbiology: Microbiology 08/12/24 13:00 Urine, Clean Catch Urine Culture - Final Culture exhibits no growth. D/C Instructions Discharge Diet: Low fat / Low cholesterol Discharge Activity: Use Walker (Or cane and limit weight on right foot to heel only for now) Weight Bearing Status: Partial weight bearing (Heel only right lower extremity) Keep extremity elevated above heart level: Right Leg (When you are resting) Meaningful Use Info Meaningful Use Meaningful Use Diagnoses (Choose all that apply): None applicable Ischemic Stroke Statin Dosing Therapy Reference: STATIN DOSE THERAPY REFERENCE: * Patients > 75 years receive moderate or high dose statin therapy. * Patients 75 years or YOUNGER should receive HIGH intensity statin dose unless contraindicated. You will be required to document reason for non-treatment if statin daily dose does not meet guidelines. HIGH DOSE STATIN THERAPY DAILY Atorvastatin > than or = to 40 mg Rosuvastatin > than or = to 20 mg Amlodipine + Atorvastatin > than or = to 2.5/40 mg Ezetimibe + Simvastatin 10/80 mg Simvastatin 80mg Discharge Plan Admission Admit Date/Time: 08/12/24 14:43 Primary Reason for Your Visit: Right foot wound Attending Provider: Oralia Patel Primary Care Provider: Earnest Alex Chi Consulting Providers: Crow Kim; Miguel Call; Francisco Lopez Discharge Orders/Prescriptions Prescriptions: New ceftriaxone 2 gram recon soln 2 g IV Q24H 39 Days Rx Instructions: stop date 09/23/24. Dx: toe osteomyelitis weekly bmp, cbc, vanc trough, and esr. Fax to [phone]. routine picc care per protocol metronidazole 500 mg Tablet 500 mg PO TID 39 Days Qty: 117 0RF vancomycin 1.25 gram recon soln 1.25 g IV Q12H 39 Days Rx Instructions: stop date 09/23/24. Dx: toe osteomyelitis weekly bmp, cbc, vanc trough, and esr. Fax to [phone]. routine picc care per protocol Continued tamsulosin 0.4 mg capsule,extended release 24hr 0.4 mg PO DAILY lisinopril 5 mg tablet 5 mg PO DAILY metoprolol tartrate 25 mg tablet 12.5 mg PO DAILY levothyroxine 75 mcg tablet 75 mcg PO DAILY Qty: 90 atorvastatin 20 mg tablet 20 mg PO QPM Qty: 90 prednisone 10 mg tablet 10 mg PO DAILY furosemide [Lasix] 40 mg tablet 40 mg PO DAILY PRN (Reason: EDEMA ) albuterol sulfate 90 mcg/actuation HFA aerosol inhaler 2 puff inhalation Q4H PRN (Reason: SHORTNESS OF BREATH/WHEEZING ) fexofenadine [Allergy Relief (fexofenadine)] 180 mg tablet 180 mg PO DAILY Referrals / Follow Up: Crow Kim DPM [Med Staff - Active Staff] - Within 1 Week Francisco Lopez MD [Med Staff - Active Staff] - Within 2 Weeks Earnest Alex Chi, MD [Primary Care Provider] - See Referral Note (as scheduled for next appt) Disposition Disposition (needs filled in before D/C Order can be placed): Home Health Service Charges/Coding Visit Charges Inpatient E&M: 73652 Disch Hosp >30min
--- NOTE | 2024-08-14 13:30 | RAD_ITS ---
STUDY: X-RAY - RIGHT FOOT CLINICAL: Male, 78 years old. Pain TECHNIQUE: 3 view(s) of the foot. COMPARISON: None. FINDINGS: There is irregularity on the proximal medial aspect of the distal phalanx of the great toe with some erosions and a bubble of subcutaneous emphysema suggesting there may be osteomyelitis present. Normal talus and tarsal bones. Calcaneal spurs Normal visualized subtalar, talonavicular, calcaneocuboid, tarsal and tarsometatarsal articulations. Normal metatarsi. There is mild arthrosis of the metatarsophalangeal joint of the hallux . Normal tibial and fibular sesamoid bones. There is mild arthrosis of the interphalangeal joint of the great toe. Normal phalanges of the great toe. Normal second through fifth metatarsophalangeal joints. Mild interphalangeal joint narrowing. Normal remaining phalanges of the lesser toes. Vascular calcifications are noted RAD/Foot min 3 Views IMPRESSION: Erosive changes of the proximal medial cortex of the distal phalanx of the great toe with subcutaneous emphysema noted. Findings are concerning for osteomyelitis here. Distal joint arthrosis Calcaneal spurs Electronically Signed: Ye Lima MD at 13:42 EDT ,
--- NOTE | 2024-08-14 13:40 | PN_ITS ---
Subjective Subjective Patient was seen today for follow up on right 1st and 2nd toes. He has elected to proceed with course of antibiotic therapy. He relates he is excited to go home. He is resting comfortably in bed with son in law at bedside. No new complaints. Objective Data Objective Data Vital Signs: Vital Signs Temp Pulse Resp BP Pulse Ox O2 Del Method O2 Flow Rate 97.8 F 64 20 H 155/67 H 94 Room Air 2 08/14/24 08:19 08/14/24 08:27 08/14/24 08:19 08/14/24 08:19 08/14/24 08:19 08/14/24 08:19 08/13/24 03:00 Oxygen Flow Rate (L/min) 2 Oxygen Delivery Method Room Air Weight: 107.592 kg Body Mass Index (BMI) 28.8 Intake & Output: Intake and Output for Last 24 Hours 08/12/24 08/13/24 08/14/24 23:59 23:59 23:59 Intake Total 2285 / 2285 2910 / 2910 1125 / 1125 Balance 2285 / 2285 2910 / 2910 1125 / 1125 Lab / Micro Data 08/14/24 05:41 08/14/24 05:41 Labs: Laboratory Results - last 24 hr 08/14/24 00:51: Vancomycin Trough 18.6 H 08/14/24 05:41: WBC 8.2, RBC 3.45 L, Hgb 11.6 L, Hct 35.2 L, MCV 102.0 H, MCH 33.6 H, MCHC 33.0, RDW Std Deviation 50.1 H, RDW Coeff of Andrea 13.3, Plt Count 174, MPV 9.0, Immature Gran % (Auto) 0.500, Neut % (Auto) 58.9, Lymph % (Auto) 27.3, [place] % (Auto) 11.1 H, Eos % (Auto) 1.5, Baso % (Auto) 0.7, Absolute Neuts (auto) 4.8, Absolute Lymphs (auto) 2.23, Nucleated RBC % 0, Sodium 137, Potassium 4.2, Chloride 107, Carbon Dioxide 25.0, Anion Gap 5, BUN 18, Creatinine 1.12, Estim Creat Clear Calc 70.77, Est GFR (MDRD) Af Amer 81, Est GFR (MDRD) Non-Af 67, BUN/Creatinine Ratio 16.1, Glucose 88, Calcium 8.8 Micro: Microbiology 08/12/24 12:00 Blood Culture (Wb) - Anticubital Left Blood Culture - Preliminary No growth in 48 hours. 08/12/24 13:00 Urine, Clean Catch Urine Culture - Final Culture exhibits no growth. Physical Exam Const alert, oriented x3 and no apparent distress Constitutional Narrative: Right 1st toe with erythema and edema with increased temperature c/w osteomyelitis - continued improvement, the 1st toenail is thickened and dystrophic, there is ulceration to the medial aspect of the 1st toe at level of IPJ with nonviable tissue, no fluctuance, no blistering, no maloder, no gangrenous changes, the right 2nd toe has trace erythema and edema distally with dry wound appears down to superficial subcutaneous tissue with no drainage - tissues are viable, no necrosis, no fluctuance, no blistering, no maloder, no gangrenous changes. No visible abscess right foot. Decreased sensation to foot c/w chronic peripheral neuropathy, right; no POP or pain on ROM to foot or ankle, CFT < 2 seconds to all toes with no evidence of acute ischemia right foot. No streaking right foot. No evidence of DVT bilateral. Assessment & Plan Assessment/Plan (1) Acute osteomyelitis of right foot: (2) Other hereditary and idiopathic neuropathies: PLAN: Plan Evaluation performed. Reviewed diagnostic data. Infectious Disease is on consult and managing antibiotic therapy - vanc/ceftriaxone and po flagyl - patient has elected to proceed with course of antibiotic and hold off on surgery at this time. Reviewed recent LEAS and noted good arterial flow to right foot. There is a wound to the medial right 1st toe - there was some nonviable tissue and the ulceration was debrided today in excisional fashion using an 11 blade down to and including subcutaneous tissue - measured 0.3cm x 0.3cm and down to and including subcutaneous tissue, hemostasis achieved with pressure and gauze, applied betadine soln and gauze dressing - change daily. Patient has surgical shoe he will use when on right foot, advised patient to limit weightbearing to right foot as much as possible. Podiatry will continue to follow, patient to follow up in office next week, sooner if needed.
[2024-08-14 14:57] VITALS: BP 124/71; PULSE 67; RESP 18; TEMP 37.1; O2SAT 95
== END 2024-08-14 15:55 | disposition home health service (06) | DRG 540 ==
LOC: ED 12:32 → MS3 15:24
PROVIDERS: Admitting Provider Hospitalist; Emergency Provider Emergency Medicine; PCP Family Medicine Geriatric Medicine; Visit Provider Internal Medicine
DX: M86.171 Other acute osteomyelitis, right ankle and foot (principal); E87.20 Acidosis, unspecified; I50.32 Chronic diastolic (congestive) heart failure; I11.0 Hypertensive heart disease with heart failure; D53.9 Nutritional anemia, unspecified; I65.22 Occlusion and stenosis of left carotid artery; E03.9 Hypothyroidism, unspecified; J84.10 Pulmonary fibrosis, unspecified; G60.9 Hereditary and idiopathic neuropathy, unspecified; I25.10 Atherosclerotic heart disease of native coronary artery without angina pectoris; E78.5 Hyperlipidemia, unspecified; G47.33 Obstructive sleep apnea (adult) (pediatric); G62.9 Polyneuropathy, unspecified; Z87.891 Personal history of nicotine dependence; Z79.52 Long term (current) use of systemic steroids; N40.1 Benign prostatic hyperplasia with lower urinary tract symptoms; Z99.81 Dependence on supplemental oxygen; Z79.899 Other long term (current) drug therapy; B95.61 Methicillin susceptible Staphylococcus aureus infection as the cause of diseases classified elsewhere
CPT/HCPCS: 36415; 36569; 73630; 73723; 80048; 80053; 80202; 81001; 83605; 85025; 87040; 87086; 93005; 97802; 99285; A9575; J7030; J7040; J7050; A4216; J0696

== ENCOUNTER 2024-08-20 10:41 | Outpatient (RCR) | payer MEDICARE, SELFPAY ==
[2024-08-20 11:14] LABS: Hematocrit 27.9 % (40-54); Hemoglobin 9.3 g/dL (13.0-16.5); Mean Corp Hgb Conc 33.3 g/dL (32-36); Mean Corpuscular Hgb 34.6 pg (27.0-32.0); Mean Corpuscular Volume 103.7 fL (80-94); Mean Platelet Vol. 10.2 fl (6.2-12.0); Platelet Count 103 K/mm3 (150-450); RBC Distribution Width CV 13.8 % (11.6-14.6); Red Blood Count 2.69 M/mm3 (4.6-6.2); White Blood Count 10.7 K/mm3 (4.4-11.0)
[2024-08-20 11:15] LABS: Erythrocyte Sedimentation Rate 7 mm/hr (0-20)
[2024-08-20 11:17] LABS: Anion Gap 7 (5-15); BUN 24 mg/dL (7-18); BUN/Creat Ratio 11.2 RATIO (10-20); Calcium,Total 8.3 mg/dL (8.5-10.1); Chloride 108 mmol/L (98-107); Creatinine, Serum 2.15 mg/dL (0.70-1.30); EST Glomerular Filtration Rate 32 mL/min (>60); Est Glom Filt Rate - Afr Amer 38 mL/min (>60); Glucose 165 mg/dL (74-106); Potassium 3.5 mmol/L (3.5-5.1); Sodium Level 138 mmol/L (136-145)
[2024-08-20 11:19] LABS: Vancomycin, Trough Level 34.2 ug/mL (5.0-15.0)
[2024-08-22 13:59] LABS: Anion Gap 7 (5-15); BUN 29 mg/dL (7-18); BUN/Creat Ratio 13.7 RATIO (10-20); Calcium,Total 8.3 mg/dL (8.5-10.1); Chloride 108 mmol/L (98-107); Creatinine, Serum 2.11 mg/dL (0.70-1.30); EST Glomerular Filtration Rate 32 mL/min (>60); Est Glom Filt Rate - Afr Amer 39 mL/min (>60); Glucose 153 mg/dL (74-106); Potassium 3.3 mmol/L (3.5-5.1); Sodium Level 138 mmol/L (136-145)
[2024-08-22 14:05] LABS: Vancomycin, Trough Level 20.5 ug/mL (5.0-15.0)
[2024-08-22 14:28] LABS: Hematocrit 28.1 % (40-54); Hemoglobin 9.2 g/dL (13.0-16.5); Mean Corp Hgb Conc 32.7 g/dL (32-36); Mean Corpuscular Hgb 33.9 pg (27.0-32.0); Mean Corpuscular Volume 103.7 fL (80-94); Mean Platelet Vol. 10.1 fl (6.2-12.0); Platelet Count 116 K/mm3 (150-450); RBC Distribution Width CV 13.9 % (11.6-14.6); Red Blood Count 2.71 M/mm3 (4.6-6.2); White Blood Count 8.9 K/mm3 (4.4-11.0)
[2024-08-22 14:37] LABS: Erythrocyte Sedimentation Rate 11 mm/hr (0-20)
== END 2024-08-20 18:00 | disposition home or self-care (01) ==
LOC: HHLAB 10:41
PROVIDERS: PCP Family Medicine Geriatric Medicine; Referring Provider Internal Medicine Infectious Disease; Visit Provider Internal Medicine Infectious Disease
DX: M86.171 Other acute osteomyelitis, right ankle and foot (principal)
CPT/HCPCS: 80048; 80202; 85027; 85652

== ENCOUNTER → 2024-08-21 | Outpatient (CLI) | payer MEDICARE, SELFPAY | END | disposition home or self-care (01) | LOC: LAB 16:35 | PROVIDERS: PCP Family Medicine Geriatric Medicine; Referring Provider Family Medicine Geriatric Medicine; Visit Provider Family Medicine Geriatric Medicine | DX: D64.9 Anemia, unspecified (principal) | CPT/HCPCS: 82274 ==

== ENCOUNTER 2024-09-03 10:10 | Outpatient (RCR) | payer MEDICARE, SELFPAY ==
[2024-08-26 09:33] LABS: Hematocrit 27.6 % (40-54); Mean Corp Hgb Conc 32.6 g/dL (32-36); Mean Corpuscular Volume 104.2 fL (80-94); Mean Platelet Vol. 10.1 fl (6.2-12.0); Platelet Count 167 K/mm3 (150-450); RBC Distribution Width CV 13.9 % (11.6-14.6); RBC Distribution Width SD 52.6 fl (35.1-43.9); Red Blood Count 2.65 M/mm3 (4.6-6.2); White Blood Count 8.5 K/mm3 (4.4-11.0)
[2024-08-26 09:35] LABS: Erythrocyte Sedimentation Rate 13 mm/hr (0-20)
[2024-08-26 09:44] LABS: Anion Gap 6 (5-15); BUN 22 mg/dL (7-18); BUN/Creat Ratio 12.2 RATIO (10-20); Calcium,Total 8.6 mg/dL (8.5-10.1); Chloride 108 mmol/L (98-107); EST Glomerular Filtration Rate 39 mL/min (>60); Est Glom Filt Rate - Afr Amer 47 mL/min (>60); Glucose 121 mg/dL (74-106); Potassium 3.6 mmol/L (3.5-5.1); Sodium Level 139 mmol/L (136-145); Vancomycin, Trough Level 15.8 ug/mL (5.0-15.0)
[2024-09-03 10:40] LABS: Anion Gap 7 (5-15); BUN 19 mg/dL (7-18); BUN/Creat Ratio 10.9 RATIO (10-20); Calcium,Total 8.5 mg/dL (8.5-10.1); Chloride 107 mmol/L (98-107); Creatinine, Serum 1.74 mg/dL (0.70-1.30); EST Glomerular Filtration Rate 40 mL/min (>60); Est Glom Filt Rate - Afr Amer 49 mL/min (>60); Glucose 127 mg/dL (74-106); Potassium 3.5 mmol/L (3.5-5.1); Sodium Level 141 mmol/L (136-145)
[2024-09-03 10:41] LABS: Vancomycin, Trough Level 14.5 ug/mL (5.0-15.0)
[2024-09-03 10:54] LABS: Hematocrit 29.9 % (40-54); Hemoglobin 9.5 g/dL (13.0-16.5); Mean Corp Hgb Conc 31.8 g/dL (32-36); Mean Corpuscular Hgb 33.6 pg (27.0-32.0); Mean Corpuscular Volume 105.7 fL (80-94); Mean Platelet Vol. 10.3 fl (6.2-12.0); Platelet Count 186 K/mm3 (150-450); RBC Distribution Width CV 14.3 % (11.6-14.6); RBC Distribution Width SD 55.2 fl (35.1-43.9); Red Blood Count 2.83 M/mm3 (4.6-6.2); White Blood Count 6.6 K/mm3 (4.4-11.0)
[2024-09-03 11:11] LABS: Erythrocyte Sedimentation Rate 8 mm/hr (0-20)
== END 2024-09-03 18:00 | disposition home or self-care (01) ==
LOC: HHLAB 10:10
PROVIDERS: PCP Family Medicine Geriatric Medicine; Referring Provider Internal Medicine Infectious Disease; Visit Provider Internal Medicine Infectious Disease
DX: M86.171 Other acute osteomyelitis, right ankle and foot (principal)
CPT/HCPCS: 80048; 80202; 85027; 85652

== ENCOUNTER → 2024-09-09 | Outpatient (CLI) | payer MEDICARE, SELFPAY ==
[2024-09-09 16:47] LABS: Absolute Neutrophil Count 4.7 X10^3/uL (2.0-7.7); Basophil# 0.05 X10^3/uL; Basophil% 0.8 % (0-1); Eosinophil# 0.07 X10^3/uL; Eosinophils% 1.1 % (0-5); Hematocrit 31.2 % (40-54); Hemoglobin 10.4 g/dL (13.0-16.5); Lymphocyte % 13.8 % (19-41); Mean Corp Hgb Conc 33.3 g/dL (32-36); Mean Corpuscular Hgb 34.7 pg (27.0-32.0); Mean Platelet Vol. 10.3 fl (6.2-12.0); Monocyte# 0.74 X10^3/uL; Monocyte% 11.4 % (0-10); NRBC Flagged by Analyzer 0 % (0-5); Neutrophil # 4.72 X10^3/uL (2.7-7.7); Neutrophil % 72.6 % (47-70); Platelet Count 172 K/mm3 (150-450); RBC Distribution Width CV 14.2 % (11.6-14.6); RBC Distribution Width SD 54.2 fl (35.1-43.9); RET-HE 37.1 pg (30-35); Reticulocyte Count 1.38 % (0.5-1.5); White Blood Count 6.5 K/mm3 (4.4-11.0)
[2024-09-09 17:04] LABS: Vitamin B12 412 pg/mL (211-911)
[2024-09-09 17:14] LABS: Ferritin 369 ng/mL (26-388); Iron 39 ug/dL (65-175); Iron Binding Capacity,Total 167 ug/dL (250-450); PERCENT IRON SATURATION 23.4 % (15.0-55.0)
== END | disposition home or self-care (01) ==
LOC: POLAB3 16:29
PROVIDERS: PCP Family Medicine Geriatric Medicine; Visit Provider Family Medicine Geriatric Medicine
DX: D64.9 Anemia, unspecified (principal)
CPT/HCPCS: 36415; 82607; 82728; 82746; 83540; 83550; 85025; 85045

== ENCOUNTER 2024-09-22 09:50 | Outpatient (RCR) | payer MEDICARE, SELFPAY ==
[2024-09-08 10:56] LABS: Erythrocyte Sedimentation Rate 8 mm/hr (0-20)
[2024-09-08 10:58] LABS: Hematocrit 28.3 % (40-54); Mean Corp Hgb Conc 31.8 g/dL (32-36); Mean Corpuscular Hgb 33.8 pg (27.0-32.0); Mean Corpuscular Volume 106.4 fL (80-94); Mean Platelet Vol. 10.6 fl (6.2-12.0); Platelet Count 147 K/mm3 (150-450); RBC Distribution Width CV 14.2 % (11.6-14.6); RBC Distribution Width SD 55.6 fl (35.1-43.9); Red Blood Count 2.66 M/mm3 (4.6-6.2); White Blood Count 6.3 K/mm3 (4.4-11.0)
[2024-09-08 11:00] LABS: Anion Gap 7 (5-15); BUN 13 mg/dL (7-18); BUN/Creat Ratio 8.2 RATIO (10-20); Calcium,Total 8.4 mg/dL (8.5-10.1); Chloride 106 mmol/L (98-107); Creatinine, Serum 1.58 mg/dL (0.70-1.30); EST Glomerular Filtration Rate 45 mL/min (>60); Est Glom Filt Rate - Afr Amer 54 mL/min (>60); Glucose 124 mg/dL (74-106); Potassium 3.9 mmol/L (3.5-5.1); Sodium Level 140 mmol/L (136-145)
[2024-09-08 11:03] LABS: Vancomycin, Trough Level 13.7 ug/mL (5.0-15.0)
[2024-09-15 09:34] LABS: Erythrocyte Sedimentation Rate 10 mm/hr (0-20)
[2024-09-15 09:41] LABS: Anion Gap 4 (5-15); BUN 20 mg/dL (7-18); Calcium,Total 8.8 mg/dL (8.5-10.1); Chloride 104 mmol/L (98-107); Creatinine, Serum 1.43 mg/dL (0.70-1.30); EST Glomerular Filtration Rate 51 mL/min (>60); Est Glom Filt Rate - Afr Amer 61 mL/min (>60); Glucose 119 mg/dL (74-106); Potassium 3.9 mmol/L (3.5-5.1); Sodium Level 137 mmol/L (136-145)
[2024-09-15 09:43] LABS: Hematocrit 28.7 % (40-54); Hemoglobin 9.3 g/dL (13.0-16.5); Mean Corp Hgb Conc 32.4 g/dL (32-36); Mean Corpuscular Hgb 34.1 pg (27.0-32.0); Mean Corpuscular Volume 105.1 fL (80-94); Mean Platelet Vol. 10.2 fl (6.2-12.0); Platelet Count 161 K/mm3 (150-450); RBC Distribution Width CV 14.2 % (11.6-14.6); RBC Distribution Width SD 54.5 fl (35.1-43.9); Red Blood Count 2.73 M/mm3 (4.6-6.2); Vancomycin, Trough Level 14.3 ug/mL (5.0-15.0); White Blood Count 7.2 K/mm3 (4.4-11.0)
[2024-09-23 09:51] LABS: Erythrocyte Sedimentation Rate 9 mm/hr (0-20)
[2024-09-23 09:53] LABS: Hemoglobin 9.5 g/dL (13.0-16.5); Mean Corp Hgb Conc 32.8 g/dL (32-36); Mean Corpuscular Hgb 34.4 pg (27.0-32.0); Mean Corpuscular Volume 105.1 fL (80-94); Mean Platelet Vol. 9.9 fl (6.2-12.0); Platelet Count 153 K/mm3 (150-450); RBC Distribution Width SD 53.9 fl (35.1-43.9); Red Blood Count 2.76 M/mm3 (4.6-6.2)
[2024-09-23 10:12] LABS: Vancomycin, Trough Level 14.5 ug/mL (5.0-15.0)
[2024-09-23 10:19] LABS: Anion Gap 5 (5-15); BUN 25 mg/dL (7-18); BUN/Creat Ratio 19.1 RATIO (10-20); Calcium,Total 8.5 mg/dL (8.5-10.1); Chloride 108 mmol/L (98-107); Creatinine, Serum 1.31 mg/dL (0.70-1.30); EST Glomerular Filtration Rate 56 mL/min (>60); Est Glom Filt Rate - Afr Amer 68 mL/min (>60); Glucose 100 mg/dL (74-106); Potassium 4.1 mmol/L (3.5-5.1); Sodium Level 138 mmol/L (136-145)
== END 2024-10-04 18:00 | disposition home or self-care (01) ==
LOC: HHLAB 09:50
PROVIDERS: PCP Family Medicine Geriatric Medicine; Referring Provider Internal Medicine Infectious Disease; Visit Provider Internal Medicine Infectious Disease
DX: M86.171 Other acute osteomyelitis, right ankle and foot (principal)
CPT/HCPCS: 80048; 80202; 85027; 85652

== ENCOUNTER → 2024-10-16 | Outpatient (CLI) | payer MEDICARE, SELFPAY ==
[2024-10-16 09:06] LABS: Absolute Lymphocyte Count 1.53 X10^3/uL (0.83-4.51); Absolute Neutrophil Count 8.1 X10^3/uL (2.0-7.7); Basophil# 0.04 X10^3/uL; Basophil% 0.4 % (0-1); Eosinophil# 0.18 X10^3/uL; Eosinophils% 1.6 % (0-5); Hematocrit 34.5 % (40-54); Hemoglobin 11.3 g/dL (13.0-16.5); Lymphocyte # 1.53 X10^3/ul (0.83-4.51); Lymphocyte % 13.9 % (19-41); Mean Corp Hgb Conc 32.8 g/dL (32-36); Mean Corpuscular Volume 103.9 fL (80-94); Mean Platelet Vol. 9.4 fl (6.2-12.0); Monocyte# 1.02 X10^3/uL; Monocyte% 9.3 % (0-10); NRBC Flagged by Analyzer 0 % (0-5); Neutrophil # 8.09 X10^3/uL (2.7-7.7); Neutrophil % 73.6 % (47-70); Platelet Count 169 K/mm3 (150-450); RBC Distribution Width CV 13.9 % (11.6-14.6); RBC Distribution Width SD 53.1 fl (35.1-43.9); Red Blood Count 3.32 M/mm3 (4.6-6.2)
[2024-10-16 09:42] LABS: Vitamin D,25 Hydroxy 27.1 ng/mL
[2024-10-16 09:51] LABS: Hemoglobin A1c 5.9 % (3.8-5.6)
[2024-10-16 09:55] LABS: ALB/GLOB Ratio 0.9 RATIO (0.9-2.4); AST(SGOT) 15 U/L (15-37); Alanine Aminotransfer ALT/SGPT 18 U/L (16-61); Albumin, Serum 3.5 g/dL (3.2-5.0); Alkaline Phosphatase 74 U/L (45-117); Anion Gap 5 (5-15); BUN 26 mg/dL (7-18); BUN/Creat Ratio 18.7 RATIO (10-20); Chloride 108 mmol/L (98-107); Cholesterol 134 mg/dL (200); Creatinine, Serum 1.39 mg/dL (0.70-1.30); EST Glomerular Filtration Rate 52 mL/min (>60); Est Glom Filt Rate - Afr Amer 63 mL/min (>60); Globulin 3.7 g/dL (2.2-4.2); Glucose 168 mg/dL (74-106); High Density Lipoprotein 60 mg/dL; Potassium 4.1 mmol/L (3.5-5.1); Protein, Total 7.2 g/dL (6.4-8.2); Sodium Level 139 mmol/L (136-145); Triglycerides 109 mg/dL; Very Low Density Lipoprotein 22 mg/dL (5-40)
== END | disposition home or self-care (01) ==
LOC: POLAB3 08:47
PROVIDERS: PCP Family Medicine Geriatric Medicine; Visit Provider Family Medicine Geriatric Medicine
DX: E11.65 Type 2 diabetes mellitus with hyperglycemia (principal); I10 Essential (primary) hypertension; E55.9 Vitamin D deficiency, unspecified; E78.5 Hyperlipidemia, unspecified
CPT/HCPCS: 36415; 80053; 80061; 82306; 83036; 84443; 85025

== ENCOUNTER → 2025-02-23 | Outpatient (CLI) | payer MEDICARE, SELFPAY | END | disposition home or self-care (01) | PROVIDERS: PCP Family Medicine Geriatric Medicine; Referring Provider Family Medicine Geriatric Medicine; Visit Provider Family Medicine Geriatric Medicine | DX: J98.8 Other specified respiratory disorders (principal); R05.9 Cough, unspecified; R06.2 Wheezing | CPT/HCPCS: 87631 ==

== ENCOUNTER → 2025-04-20 | Outpatient (CLI) | payer MEDICARE, SELFPAY ==
[2025-04-20 10:32] LABS: Absolute Lymphocyte Count 1.16 X10^3/uL (0.83-4.51); Absolute Neutrophil Count 6.3 X10^3/uL (2.0-7.7); Basophil# 0.04 X10^3/uL; Basophil% 0.5 % (0-1); Eosinophil# 0.05 X10^3/uL; Eosinophils% 0.6 % (0-5); Hematocrit 35.3 % (40-54); Hemoglobin 11.9 g/dL (13.0-16.5); Lymphocyte # 1.16 X10^3/ul (0.83-4.51); Lymphocyte % 13.6 % (19-41); Mean Corp Hgb Conc 33.7 g/dL (32-36); Mean Corpuscular Hgb 35.5 pg (27.0-32.0); Mean Corpuscular Volume 105.4 fL (80-94); Mean Platelet Vol. 9.6 fl (6.2-12.0); Monocyte# 0.83 X10^3/uL; Monocyte% 9.7 % (0-10); NRBC Flagged by Analyzer 0 % (0-5); Neutrophil # 6.34 X10^3/uL (2.7-7.7); Neutrophil % 74.2 % (47-70); Platelet Count 157 K/mm3 (150-450); RBC Distribution Width CV 13.7 % (11.6-14.6); RBC Distribution Width SD 53.1 fl (35.1-43.9); Red Blood Count 3.35 M/mm3 (4.6-6.2); White Blood Count 8.5 K/mm3 (4.4-11.0)
--- OUTSIDE RECORDS SUMMARY | 2025-04-20 21:50 | XMS RPT_ITS | CCD ---
Author Organization [facility] Care Team Providers Care Handbell Choir Director Name Role Phone Mary Robison RN Unavailable Unavailable [facility] Nurse Unavailable Unavailable Mary Robison RN Unavailable Unavailable Salvador Soto Unavailable Unavailable MD Queen Cyril S Unavailable Salvador Soto Unavailable Unavailable MD Queen Cyril S Unavailable Salvador Soto Unavailable Unavailable Isai, Earnest Chi Primary Care Unavailable Isai, Earnest Chi Referring Unavailable Isai, Earnest Chi Attending Unavailable Francisco Lopez Attending Unavailable Francisco Lopez Referring Unavailable Isai, Earnest Chi Primary Care Unavailable Isai, Earnest Chi Primary Care Unavailable Isai, Earnest Chi Attending Unavailable Isai, Earnest Chi Referring Unavailable Isai, Earnest Chi Primary Care Unavailable Isai, Earnest Chi Attending Unavailable Isai, Earnest Chi Primary Care Unavailable Isai, Earnest Chi Referring Unavailable Isai, Earnest Chi Attending Unavailable Isai, Earnest Chi Referring Unavailable Isai, Earnest Chi Primary Care Unavailable Isai, Earnest Chi Attending Unavailable Francisco Lopez Attending Unavailable Francisco Lopez Referring Unavailable Isai, Earnest Chi Primary Care Unavailable Francisco Lopez Referring Unavailable Francisco Lopez Attending Unavailable Isai, Earnest Chi Primary Care Unavailable Isai, Earnest Chi Primary Care Unavailable Isai, Earnest Chi Referring Unavailable Isai, Earnest Chi Attending Unavailable Isai, Earnest Chi Primary Care Unavailable Isai, Earnest Chi Attending Unavailable Francisco Lopez Referring Unavailable Francisco Lopez Attending Unavailable Isai, Earnest Chi Primary Care Unavailable Francisco Lopez Attending Unavailable Francisco Lopez Referring Unavailable Isai, Earnest Chi Primary Care Unavailable Crow Kim Consulting Unavailable Isai, Earnest Chi Primary Care Unavailable Oralia Patel Attending Unavailable Miguel Call Admitting Unavailable Miguel Call Consulting Unavailable Francisco Lopez Consulting Unavailable Isai, Earnest Chi Referring Unavailable Isai, Earnest Chi Primary Care Unavailable Isai, Earnest Chi Attending Unavailable Isai, Earnest Chi Referring Unavailable Isai, Earnest Chi Primary Care Unavailable Isai, Earnest Chi Attending Unavailable Isai, Earnest Chi Primary Care Unavailable Isai, Earnest Chi Attending Unavailable Isai, Earnest Chi Referring Unavailable Isai, Earnest Chi Primary Care Unavailable Isai, Earnest Chi Attending Unavailable Isai, Earnest Chi Primary Care Unavailable Su Adams Attending Unavailable Crow Kim Consulting Unavailable Isai, Earnest Chi Primary Care Unavailable Miguel Call Admitting Unavailable Miguel Call Attending Unavailable Miguel Call Consulting Unavailable Oralia Patel Attending Unavailable Francisco Lopez Consulting Unavailable Oralia Patel Consulting Unavailable Isai, Earnest Chi Referring Unavailable Kris Schroeder Attending Unavailable Isai, Earnest Chi Primary Care Unavailable Isai, Earnest Chi Referring Unavailable Isai, Earnest Chi Primary Care Unavailable Isai, Earnest Chi Attending Unavailable Allergies Allergy Classification Reported Allergen(s) Allergy Type Date of Onset Reaction(s) Facility (9 sources) penicillin drug allergy 1 [facility] Work Phone: (2 sources) Penicillins Propensity to adverse reactions 2 [facility] (1 source) Penicillins Drug allergy (disorder) 4 [facility] Repository Medications Current Medications Medication Drug Class(es) Dates Sig (Normalized) Sig (Original) apixaban 5 mg oral tablet (2 sources) Factor Xa Inhibitor Start: 10-01-2021 take 2 tablets by mouth twice daily, then take 1 tablet by mouth twice daily Apixaban (Eliquis) 5 mg tablet Active 5 MG PO TWICE A DAY October 01, 2021 12:00am 10 mg twice a day for the first week. Then 5 mg twice a day. aspirin 81 mg delayed release oral tablet (20 sources) Platelet Aggregation Inhibitor, Nonsteroidal Anti-inflammatory Drug Start: 05-20-2021 Aspirin (Adult Low Dose Aspirin) 81 mg tablet,delayed release (DR/EC) Active 81 MG PO DAILY May 19, 2021 11:00pm Start: 08-05-2019 End: 05-20-2021 take 325 mg by mouth once daily Aspirin Discontinued 3 25 MG PO DAILY August 04, 2019 11:00pm May 20, 2021 1:50pm Start: 05-11-2011 End: 08-05-2019 Aspirin (Adult Low Dose Aspi rin) 81 mg tablet,delayed release (DR/EC) Discontinued 81 MG PO daily December 31, 2017 12:00am August 05, 2019 8:32am Start: 05-11-2011 take 1 tablet by kirk th once daily ASPIRIN 325 MG TABS One tablet by mouth daily ASPIRIN [id number] Sana Bowens Start: 05-11-2011 take 1 tablet by kirk th once daily ASPIRIN 81 MG TABS One tablet by mouth daily ASPIRIN [id number] Tru Queen MD Start: 05-11-2011 take 1 tablet by kirk th once daily ASPIRIN 81 MG TABS One tablet by mouth daily ASPIRIN [id number] Tru Queen MD atorvastatin 20 mg oral tablet (13 sources) HMG-CoA Reductase Inhibitor Start: 08-05-2019 take 20 mg by mouth once daily in the evening Atorvastatin Active 20 MG PO EVERY EVENING August 04, 2019 11:00pm Start: 11-27-2014 End: 08-05-2019 take 10 mg by mouth once daily Atorvastatin Discontinu ed 10 MG PO daily December 31, 2017 12:00am August 05, 2019 8:34am Fish Oil-Dha-Epa (2 sources) Start: 08-12-2020 take 2 capsules by mouth once daily Fish Oil-Dha-Epa Active 2 CAP PO DAILY August 11, 2020 11:00pm levothyroxine sodium 0.075 mg oral tablet (20 sources) l-Thyrox ine Start: 08-05-2019 take 75 ug by mouth once daily Levothyroxine Active 75 MCG PO DAILY August 04, 2019 11:00pm Start: 11-27-2014 End: 08-05-2019 take 25 ug by mouth once daily Levothyroxine Discontin ued 25 MCG PO daily December 31, 2017 12:00am August 05, 2019 8:33am Start: 11-27-2014 take 1 tablet by mouth once LE VOTHYROXINE SODIUM 50 MCG TABS One tablet by mouth daily per Dr. Arvizu verify dose at next visit LEVOTHYROXINE SODIUM [id number] Tru Queen MD lisinopril 5 mg oral tablet (11 sources) Angiotensin Converting Enzyme Inhibitor Start: 05-11-2011 take 5 mg by mouth once daily Lisinopril Active 5 MG PO daily December 31, 2017 12:00am metoprolol tartrate 25 mg oral tablet (20 sources) beta-Adrenergic Larissa Start: 01-04-2018 take 12.5 mg by mouth twice daily Metoprolol Tartrate Active 12.5 MG PO TWICE A DAY January 04, 2018 10:07am Start: 05-28-2012 End: 01-04-2018 take 25 mg by mouth twice daily Metoprolol Tartrate Discontinued 25 MG PO TWICE A DAY December 31, 2017 12:00am January 04, 2018 10:07am Start: 05-11-2011 METOPROLOL TAR TRATE 25 MG TABS 1/2 tablet 2 X daily METOPROLOL TARTRATE [id number] Alivia Collins, LULÚ predniSONE 10 mg oral tablet (2 sources) Start: 11-09-2020 take 10 mg by mouth once daily Prednisone Active 10 MG PO DAILY November 09, 2020 12:00am tamsulosin hydrochloride 0.4 mg oral capsule (11 sources) alpha-Adrenergi c Larissa Start: 05-11-2011 take 0.4 mg by mouth once daily Tamsulosin Active 0.4 MG PO daily December 31, 2017 12:00am Vit A-Vit C-Vit W-Apku-Jvslmt (2 sources) Start: 08-05-2019 Vit A-Vit C-Vi t I-Mmkh-Ehyfjf Active TABLET PO August 04, 2019 11:00pm Completed/Discontinued Medications Medication Drug Class(es) Dates Sig (Normalized) Sig (Original) BUDESONIDE-FORMOTER OL FUMARATE (18 sources) Corticosteroid, beta2-Adrenergic Agonist Start: 11-27-2014 End: 05-26-2015 SYMBICORT 160-4.5 MCG/ACT AERO inhale as directed BUDESONIDE-FORMOTER OL FUMARATE [id number] Alivia Collins PA-C Start: 11-27-2014 SYMBICORT 160- 4.5 MCG/ACT AERO inhale as directed BUDESONIDE-FORMOTEROL FUMARATE [id number] Tru Queen MD Start: 11-27-2014 End: 05-26-2015 SYMBICORT 160-4.5 MCG/ACT AE RO inhale as directed BUDESONIDE-FORMOTEROL FUMARATE [id number] Tru Queen MD Start: 11-27-2014 SYMBICORT 160- 4.5 MCG/ACT AERO inhale as directed BUDESONIDE-FORMOTEROL FUMARATE [id number] Tru Queen MD Start: 11-27-2014 End: 05-26-2015 SYMBICORT 160-4.5 MCG/ACT AE RO inhale as directed BUDESONIDE-FORMOTEROL FUMARATE [id number] Alivia Collins PA-C furosemide 40 mg oral tablet (8 sources) Loop Diuretic Start: 08-12-2020 End: 05-20-2021 take 1 tablet by mouth once daily Furosemide (Lasix) 40 mg tablet Discontinued 40 MG PO DAILY November 24, 2020 3:12pm May 20, 2021 12:49pm latanoprost 0.05 mg/ml ophthalmic solution (11 sources) Prostaglandin Analog Start: 08-01-2018 End: 08-12-2020 Latanoprost Discontinued 1 DRP OPHTHALMIC EVERY EVENING July 31, 2018 11:00pm August 12, 2020 8:32am Start: 05-11-2011 XALATAN 0.005 % SOLN eye gtts as directed LATANOPROST [id number] Sana Bowens Start: 05-11-2011 XALATAN 0.005 % SOLN eye gtts as directed LATANOPROST [id number] Sana Bowens Start: 05-11-2011 XALATAN 0.005 % SOLN eye gtts as directed LATANOPROST [id number] Sana Bowens lutein 6 mg oral capsule (18 sources) Start: 05-11-2011 End: 05-27-2014 take 1 tablet by mouth once daily LUTEIN 6 MG CAPS One tablet by mouth daily LUTEIN [id number] Alivia Collins PA-C MULTIPLE VITAMIN (7 sources) Start: 05-11-2011 take 1 tablet by mouth once daily MULTIVITAMINS TABS One tablet by mouth daily MULTIPLE VITAMIN [id number] Sana Bowens MULTIPLE VITAMIN (2 sources) Start: 05-11-2011 take 1 tablet by mouth once daily MULTIVITAMINS TABS One tablet by mouth daily MULTIPLE VITAMIN [id number] Sana Bowens MULTIPLE VITAMINS-MINERALS (7 sources) Start: 11-27-2014 take 1 tablet by mouth once daily [facility] One tablet by mouth daily MULTIPLE VITAMINS-MINERALS [id number] Tru Queen MD Start: 11-27-2014 take 1 tablet by kirk th once daily [facility] MISC One tablet by mouth daily MULTIPLE VITAMINS-MINERALS [id number] Tru Queen MD MULTIPLE VITAMINS-MINERALS (2 sources) Start: 11-27-2014 take 1 tablet by mouth once daily [facility] MISC One tablet by mouth daily MULTIPLE VITAMINS-MINERALS [id number] Tru Queen MD niacin 500 mg extended release oral tablet (20 sources) Nicotinic Acid Start: 05-11-2011 End: 11-27-2014 take 1 tablet by mouth once daily NIASPAN 500 MG CR-TABS One tablet by mouth daily NIACIN (ANTIHYPERLIPIDEMIC) [id number] Tru Queen MD Start: 05-11-2011 End: 11-27-2014 take 1 tablet by mouth once daily NIASPAN 500 MG CR-TABS One tablet by mouth daily NIACIN (ANTIHYPERLIPIDEMIC) [id number] Tru Queen MD OMEGA-3 FATTY ACIDS CPDR (7 sources) Start: 12-02-2015 take 1 tablet by mouth once daily OMEGA 3 CPDR One tablet by mouth daily OMEGA-3 FATTY ACIDS CPDR [id number] Tru Queen MD OMEGA-3 FATTY ACIDS CPDR (2 sources) Start: 12-02-2015 take 1 tablet by mouth once daily OMEGA 3 CPDR One tablet by mouth daily OMEGA-3 FATTY ACIDS CPDR [id number] Tru Queen MD simvastatin 20 mg oral tablet (20 sources) HMG-CoA Reductase Inhibitor Start: 05-11-2011 End: 11-27-2014 take 1 tablet by mouth once daily ZOCOR 20 MG TABS One tablet by mouth daily SIMVASTATIN [id number] Alivia Collins PA-C Problems Active Problems Problem Classification Problem Date Documented Da te Episodic/Chronic Cardiac dysrhythmias (2 sources) Multiple premature ventricular complexes; Translations: [Ventricular premature depolarization] 08-11-2020 Chronic Chronic ulcer of skin (1 source) Non-pressure chronic ulcer of other part of right foot with fat layer exposed; Translations: [Non-pressure chronic ulcer of other part of right foot with fat layer exposed] Onset: 4 Chronic Complication of device; implant or graft (9 sources) Arteriosclerosis of coronary artery bypass graft; Translations: [Atherosclerosis of coronary artery bypass graft(s) without angina pectoris] Onset: 4 12-05-2013 Chronic Congestive heart failure; nonhypertensive (2 sources) Chronic diastolic heart failure; Translations: [Chronic diastolic (congestive) heart failure] 10-25-2020 Chronic Coronary atherosclerosis and other heart disease (11 sources) Atherosclerotic heart disease of [place] coronary artery without angina pectoris; Translations: [Coronary atherosclerosis] Onset: 1 05-11-2011 Chronic Diabetes mellitus with complications (1 source) Type 2 diabetes mellitus with hyperglycemia; Translations: [Type 2 diabetes mellitus with hyperglycemia] Onset: 5 Chronic Disorders of lipid metabolism (12 sources) Hyperlipidemia; Translations: [Hyperlipidemia, unspecified] Onset: 3 05-26-2013 Chronic Essential hypertension (12 sources) Hypertensive disorder; Translations: [Essential hypertension] Onset: 1 05-11-2011 Chronic Infective arthritis and osteomyelitis (except that caused by tuberculosis or sexually transmitted disease) (6 sources) Osteomyelitis, unspecified; Translations: [Other acute osteomyelitis, right ankle and foot] Onset: 4 Chronic Malaise and fatigue (2 sources) Fatigue; Translations: [Other fatigue] 08-11-2020 Episodic Occlusion or stenosis of precerebral arteries (2 sources) Left carotid artery stenosis; Translations: [Occlusion and stenosis of left carotid artery] 08-11-2020 Chronic Other aftercare (2 sources) Patient encounter status; Translations: [Other long term care administrator (current) drug therapy] 07-31-2018 Episodic Other lower respiratory disease (2 sources) Fibrosis of lung; Translations: [Pulmonary fibrosis, unspecified] 05-20-2021 Chronic Other lower respiratory disease (13 sources) Dyspnea; Translations: [Shortness of breath] Onset: 1 05-11-2011 Episodic Other lower respiratory disease (1 source) Other specified respiratory disorders; Translations: [Other specified respiratory disorders] Onset: 5 Episodic Other nervous system disorders (1 source) Other hereditary and idiopathic neuropathies; Translations: [Other hereditary and idiopathic neuropathies] Onset: 4 Chronic Other nervous system disorders (1 source) Polyneuropathy, unspecified; Translations: [Polyneuropathy, unspecified] Onset: 4 Chronic Other nutritional; endocrine; and metabolic disorders (9 sources) Body mass index (BMI) 30.0-30.9, adult; Translations: [Body mass index (BMI) 30.0-30.9, adult] Onset: 4 12-05-2013 Chronic Phlebitis; thrombophlebitis and thromboembolism (2 sources) Acute deep vein thrombosis of lower limb; Translations: [Acute embolism and thrombosis of unspecified deep veins of right lower extremity] 10-09-2021 Episodic Unclassified (2 sources) Long-term drug therapy; Translations: [Other long term care administrator (current) drug therapy] Onset: 1 05-11-2011 Unclassified (2 sources) Age more than 65 years; Translations: [Over 65 years old] 11-21-2021 Unclassified (1 source) Acidosis, unspecified; Translations: [Acidosis, unspecified] Onset: 4 Viral infection (2 sources) Disease caused by 2019-nCoV; Translations: [COVID-19] 11-21-2021 Episodic Past or Other Problems Problem Classification Problem Date Documented Da te Episodic/Chronic Coronary atherosclerosis and other heart disease (9 sources) Presence of aortocoronary bypass graft; Translations: [Presence of aortocoronary bypass graft] Onset: 05-11-2011 05-11-2011 Episodic Deficiency and other anemia (1 source) Anemia, unspecified; Translations: [Anemia, unspecified] Onset: 10-01-2024 Episodic Nonspecific chest pain (9 sources) Precordial pain; Translations: [Precordial pain] Onset: 05-11-2011 05-11-2011 Episodic Other aftercare (7 sources) Other long term care administrator (current) drug therapy; Translations: [Other long term care administrator (current) drug therapy] Onset: 05-11-2011 05-11-2011 Episodic Other connective tissue disease (1 source) Pain in right foot; Translations: [Pain in right foot] Onset: 09-01-2024 Episodic Other lower respiratory disease (1 source) Shortness of breath; Translations: [Shortness of breath] Onset: 07-08-2024 Episodic Other nutritional; endocrine; and metabolic disorders (9 sources) Body mass index (BMI) 29.0-29.9, adult; Translations: [Body mass index (BMI) 29.0-29.9, adult] Onset: 12-05-2013 11-27-2014 Episodic Residual codes; unclassified (9 sources) Family history of ischemic heart disease and other diseases of the circulatory system; Translations: [Family history of ischemic heart disease and other diseases of the circulatory system] 05-27-2014 Episodic Results Test Name Value Interpretation Reference Range Facility M100.678on 02-23-2025 M100.678 Pending SARS-CoV-2 (COVID 19) Negative INFLUENZA A Negative INFLUENZA B Negative RSV PCR Negative Normal [facility] Comment on above: Performed By: #### L 100.0500, L501.8820, L500.2500, L101.9900 #### [facility] [address] [place], [place], [id number] CBC W/Diff, Automatedon 10-05 Absolute Lymph 1.53 X10 3/uL Normal 0.83-4.51 [facility] Comment on above: Performed By: #### L 100.0500, L501.8820, L500.2500, L101.9900 #### [facility] [address] [place], [address] Absolute Neut 8.1 X10 3/uL High 2.0-7.7 [facility] Comment on above: Performed By: #### L 100.0500, L501.8820, L500.2500, L101.9900 #### [facility] [address] [place], [address] Basophils/100 WBC (Bld) 0.4 % Normal 0-1 [facility] Comment on above: Performed By: #### L 100.0500, L501.8820, L500.2500, L101.9900 #### [facility] [address] [place], [address] Eosinophils/100 WBC (Bld) 1.6 % Normal 0-5 [facility] Comment on above: Performed By: #### L 100.0500, L501.8820, L500.2500, L101.9900 #### [facility] [address] [place], [address] Erythrocyte distribution width (RBC) [Ratio] 13.9 % Normal 11.6-14.6 [facility] Comment on above: Performed By: #### L 100.0500, L501.8820, L500.2500, L101.9900 #### [facility] [address] [place], [address] Hematocrit (Bld) [Volume fraction] 34.5 % Low 40-54 [facility] Comment on above: Performed By: #### L 100.0500, L501.8820, L500.2500, L101.9900 #### [facility] [address] [place], [address] Hemoglobin (Bld) [Mass/Vol] 11.3 g/dL Low 13.0-16.5 [facility] Comment on above: Performed By: #### L 100.0500, L501.8820, L500.2500, L101.9900 #### [facility] [address] [place] [place], [address] IG% 1.200 High 0.0-0.9 [facility] Comment on above: Result Comment: IG% - Immature Granulocytes (promyelocytes, myelocytes and metamyelocytes) > 1% indicates that a LEFT SHIFT is Present. Performed By: #### L 100.0500, L501.8820, L500.2500, L101.9900 #### [facility] [address] [place], [address] Lymphocytes/100 WBC (Bld) 13.9 % Low 19-41 [facility] Comment on above: Performed By: #### L 100.0500, L501.8820, L500.2500, L101.9900 #### [facility] [address] [place], [address] MCH (RBC) [Entitic mass] 34.0 pg High 27.0-32.0 [facility] Comment on above: Performed By: #### L 100.0500, L501.8820, L500.2500, L101.9900 #### [facility] [address] [place], [address] MCHC (RBC) [Mass/Vol] 32.8 g/dL Normal 32-36 [facility] Comment on above: Performed By: #### L 100.0500, L501.8820, L500.2500, L101.9900 #### [facility] [address] [place], [address] MCV (RBC) [Entitic vol] 103.9 fL High 80-94 [facility] Comment on above: Performed By: #### L 100.0500, L501.8820, L500.2500, L101.9900 #### [facility] [address] [place], [address] Monocytes/100 WBC (Bld) 9.3 % Normal 0-10 [facility] Comment on above: Performed By: #### L 100.0500, L501.8820, L500.2500, L101.9900 #### [facility] [address] [place], [address] Neutrophils/100 WBC (Bld) 73.6 % High 47-70 [facility] Comment on above: Performed By: #### L 100.0500, L501.8820, L500.2500, L101.9900 #### [facility] [address] [place], [address] Nucleated RBC (Bld) [#/Vol] 0 10*3/uL Normal 0-5 [facility] Comment on above: Performed By: #### L 100.0500, L501.8820, L500.2500, L101.9900 #### [facility] [address] [place], [address] Platelet mean volume (Bld) [Entitic vol] 9.4 fL Normal 6.2-12.0 [facility] Comment on above: Performed By: #### L 100.0500, L501.8820, L500.2500, L101.9900 #### [facility] [address] [place], [address] Platelets (Bld) [#/Vol] 169 10*3/uL Normal 150-450 [facility] Comment on above: Performed By: #### L 100.0500, L501.8820, L500.2500, L101.9900 #### [facility] [address] [place], [address] RBC (Bld) [#/Vol] 3.32 10*6/uL Low 4.6-6.2 [facility] Comment on above: Performed By: #### L 100.0500, L501.8820, L500.2500, L101.9900 #### [facility] [address] [place], [address] RDW SD 53.1 fl High 35.1-43.9 [facility] Comment on above: Performed By: #### L 100.0500, L501.8820, L500.2500, L101.9900 #### [facility] [address] [place], [address] WBC (Bld) [#/Vol] 11.0 10*3/uL Normal 4.4-11.0 [facility] Comment on above: Performed By: #### L 100.0500, L501.8820, L500.2500, L101.9900 #### [facility] [address] [place], [address] Comprehensive Metabolic Prof ilon 10-16-2024 Albumin [Mass/Vol] 3.5 g/dL Normal 3.2-5.0 [facility] Comment on above: Performed By: #### L 100.0500, L501.8820, L500.2500, L101.9900 #### [facility] [address] [place], [address] Albumin/Globulin [Mass ratio] 0.9 {ratio} Normal 0.9-2.4 [facility] Comment on above: Performed By: #### L 100.0500, L501.8820, L500.2500, L101.9900 #### [facility] [address] [place], [address] ALK P 74 U/L Normal 45-117 [facility] Comment on above: Performed By: #### L 100.0500, L501.8820, L500.2500, L101.9900 #### [facility] [address] [place], [address] ALT [Catalytic activity/Vol] 18 U/L Normal 16-61 [facility] Comment on above: Performed By: #### L 100.0500, L501.8820, L500.2500, L101.9900 #### [facility] [address] [place], [address] AST [Catalytic activity/Vol] 15 U/L Normal 15-37 [facility] Comment on above: Performed By: #### L 100.0500, L501.8820, L500.2500, L101.9900 #### [facility] [address] [place], [address] Bilirubin [Mass/Vol] 0.70 mg/dL Normal 0.20-1.00 [facility] Comment on above: Result Comment: For patients on eltrombopag therapy, use of Dimension [place] TBIL is not recommended. Performed By: #### L 100.0500, L501.8820, L500.2500, L101.9900 #### [facility] [address] [place], [address] BUN/CRE 18.7 RATIO Normal 10-20 [facility] Comment on above: Performed By: #### L 100.0500, L501.8820, L500.2500, L101.9900 #### [facility] [address] [place], [address] CA,Total 9.0 mg/dL Normal 8.5-10.1 [facility] Comment on above: Performed By: #### L 100.0500, L501.8820, L500.2500, L101.9900 #### [facility] [address] [place], [address] Chloride [Moles/Vol] 108 mmol/L High 98-107 [facility] Comment on above: Performed By: #### L 100.0500, L501.8820, L500.2500, L101.9900 #### [facility] [address] [place], [address] CO2 [Moles/Vol] 25.0 mmol/L Normal 21.0-32.0 [facility] Comment on above: Performed By: #### L 100.0500, L501.8820, L500.2500, L101.9900 #### [facility] [address] [place], [address] Creatinine [Mass/Vol] 1.39 mg/dL High 0.70-1.30 [facility] Comment on above: Result Comment: The validity of the calculated GFR GFRAA in patients over 70 years has not been determined. Clinical correlation is essential. Performed By: #### L 100.0500, L501.8820, L500.2500, L101.9900 #### [facility] [address] [place], [address] EST GFR - AA 63 mL/min Normal >60 [facility] Comment on above: Result Comment: Afri can [place] GFR Calc Performed By: #### L 100.0500, L501.8820, L500.2500, L101.9900 #### [facility] [facility] [address] [place], [address] GAP 5 Normal 5-15 [facility] Comment on above: Performed By: #### L 100.0500, L501.8820, L500.2500, L101.9900 #### [facility] [address] [place], [address] GFR/1.73 sq M.predicted among non-blacks MDRD (S/P/Bld) [Vol rate/Area] 52 mL/min/{1.73_m2} Low >60 [facility] Comment on above: Result Comment: Non- GFR Calc Performed By: #### L 100.0500, L501.8820, L500.2500, L101.9900 #### [facility] [address] [place], [address] Globulin (S) [Mass/Vol] 3.7 g/dL Normal 2.2-4.2 [facility] Comment on above: Performed By: #### L 100.0500, L501.8820, L500.2500, L101.9900 #### [facility] [address] [place], [address] Glucose [Mass/Vol] 168 mg/dL High 74-106 [facility] Comment on above: Result Comment: Fast ing Glucose result greater than or equal to 126 mg/dL suggests DIABETES MELLITUS per A.D.A. criteria. Performed By: #### L 100.0500, L501.8820, L500.2500, L101.9900 #### [facility] [address] [place], [address] Potassium [Moles/Vol] 4.1 mmol/L Normal 3.5-5.1 [facility] Comment on above: Performed By: #### L 100.0500, L501.8820, L500.2500, L101.9900 #### [facility] [address] [place], [address] Sodium [Moles/Vol] 139 mmol/L Normal 136-145 [facility] Comment on above: Performed By: #### L 100.0500, L501.8820, L500.2500, L101.9900 #### [facility] [address], [address] T PROT 7.2 g/dL Normal 6.4-8.2 [facility] Comment on above: Performed By: #### L 100.0500, L501.8820, L500.2500, L101.9900 #### [facility] [address] [place], [address] Urea nitrogen [Mass/Vol] 26 mg/dL High 7-18 [facility] Comment on above: Performed By: #### L 100.0500, L501.8820, L500.2500, L101.9900 #### [facility] [address] [place], [address] Hemoglobin A1con 10-16-2024 HbA1c (Bld) [Mass fraction] 5.9 % High 3.8-5.6 [facility] Comment on above: Result Comment: Norm al < 5.7 % Prediabetic 5.7 - 6.4 % Diabetic >or= 6.5 % Please note range changes. Performed By: #### L 100.0500, L501.8820, L500.2500, L101.9900 #### [facility] [address] [place], [address] Lipid Profileon 10-16-2024 Cholesterol [Mass/Vol] 134 mg/dL Normal 200 [facility] Comment on above: Result Comment: <200 mg/dL Desirable 200-240 mg/dL Borderline >240 mg/dL High Risk Performed By: #### L 100.0500, L501.8820, L500.2500, L101.9900 #### [facility] [address] [place], [address] Cholesterol in HDL [Mass/Vol] 60 mg/dL Normal [facility] Comment on above: Result Comment: The drugs N-Acetylcysteine and Metamizole may falsely depress this assay. Reference Range HDL <40 mg/dL Low HDL Cholesterol HDL >or= 60 mg/dL High HDL Cholesterol Performed By: #### L 100.0500, L501.8820, L500.2500, L101.9900 #### [facility] [address] [place], [address] Cholesterol in LDL [Mass/Vol] 52 mg/dL Normal 0-130 [facility] Comment on above: Performed By: #### L 100.0500, L501.8820, L500.2500, L101.9900 #### [facility] [address] [place], [address] Cholesterol in VLDL [Mass/Vol] 22 mg/dL Normal 5-40 [facility] Comment on above: Performed By: #### L 100.0500, L501.8820, L500.2500, L101.9900 #### [facility] [address] [place], [address] Triglyceride [Mass/Vol] 109 mg/dL Normal [facility] Comment on above: Result Comment: The drugs N-Acetylcysteine and Metamizole may falsely depress this assay. Serum Triglycerides Reference Interval Normal <150 mg/dL Borderline high 150 - 199 mg/dL High 200 - 499 mg/dL Very High > or = 500 mg/dL Performed By: #### L 100.0500, L501.8820, L500.2500, L101.9900 #### [facility] [address] [place], [address] Thyroid Stim Hormone (TSH)on 10-16-2024 TSH 1.540 uIU/mL Normal 0.358-3.740 [facility] Comment on above: Performed By: #### L 100.0500, L501.8820, L500.2500, L101.9900 #### [facility] [address] [place], [address] Vitamin D,25 Hydroxyon 10-16 Vitamin D 25-OH 27.1 ng/mL Normal [facility] Comment on above: Result Comment: Mary min D 25(OH) Status Range Deficiency <20 ng/mL (50nmol/L) Insufficiency 20 - 30 ng/mL (50 - 75 nmol/L) Sufficiency 30 - 100 ng/mL (75 - 250 nmol/L) Toxicity >100 ng/mL (>250 nmol/L) Performed By: #### L 100.0500, L501.8820, L500.2500, L101.9900 #### [facility] [address] [place], [address] Basic Metabolic Profile (BMP )on 09-23-2024 BUN/CRE 19.1 RATIO Normal - [facility] Comment on above: Performed By: #### L 100.0500, L501.8820, L500.2500, L101.9900 #### [facility] [address] [place], [address] CA,Total 8.5 mg/dL Normal 8.5-10.1 [facility] Comment on above: Performed By: #### L 100.0500, L501.8820, L500.2500, L101.9900 #### [facility] [address] [place], [address] Chloride [Moles/Vol] 108 mmol/L High 98-107 [facility] Comment on above: Performed By: #### L 100.0500, L501.8820, L500.2500, L101.9900 #### [facility] [address] [place], [address] CO2 [Moles/Vol] 24.0 mmol/L Normal 21.0-32.0 [facility] Comment on above: Performed By: #### L 100.0500, L501.8820, L500.2500, L101.9900 #### [facility] [address] [place], [address] Creatinine [Mass/Vol] 1.31 mg/dL High 0.70-1.30 [facility] Comment on above: Result Comment: The validity of the calculated GFR GFRAA in patients over 70 years has not been determined. Clinical correlation is essential. Performed By: #### L 100.0500, L501.8820, L500.2500, L101.9900 #### [facility] [address] [place], [address] EST GFR - AA 68 mL/min Normal >60 [facility] Comment on above: Result Comment: Afri can [place] GFR Calc Performed By: #### L 100.0500, L501.8820, L500.2500, L101.9900 #### [facility] [address] [place], [address] GAP 5 Normal 5-15 [facility] Comment on above: Performed By: #### L 100.0500, L501.8820, L500.2500, L101.9900 #### [facility] [address] [place], [address] GFR/1.73 sq M.predicted among non-blacks MDRD (S/P/Bld) [Vol rate/Area] 56 mL/min/{1.73_m2} Low >60 [facility] Comment on above: Result Comment: Non- GFR Calc Performed By: #### L 100.0500, L501.8820, L500.2500, L101.9900 #### [facility] [address] [place], [address] Glucose [Mass/Vol] 100 mg/dL Normal 74-106 [facility] Comment on above: Result Comment: Fast ing Glucose result from 100 to 125 mg/dL suggests IMPAIRED HOMEOSTASIS per A.D.A. criteria. Performed By: #### L 100.0500, L501.8820, L500.2500, L101.9900 #### [facility] [address] [place], [address] Potassium [Moles/Vol] 4.1 mmol/L Normal 3.5-5.1 [facility] Comment on above: Performed By: #### L 100.0500, L501.8820, L500.2500, L101.9900 #### [facility] [address] [place], [address] Sodium [Moles/Vol] 138 mmol/L Normal 136-145 [facility] Comment on above: Performed By: #### L 100.0500, L501.8820, L500.2500, L101.9900 #### [facility] [address] [place], [address] Urea nitrogen [Mass/Vol] 25 mg/dL High 7-18 [facility] Comment on above: Performed By: #### L 100.0500, L501.8820, L500.2500, L101.9900 #### [facility] [address] [place], [address] CBC-Complete Blood Cnt No Narcisa crainon 09-23-2024 Erythrocyte distribution width (RBC) [Ratio] 14.0 % Normal 11.6-14.6 [facility] Comment on above: Performed By: #### L 100.0500, L501.8820, L500.2500, L101.9900 #### [facility] [address] [place], [address] Hematocrit (Bld) [Volume fraction] 29.0 % Low 40-54 [facility] Comment on above: Performed By: #### L 100.0500, L501.8820, L500.2500, L101.9900 #### [facility] [address] [place], [address] Hemoglobin (Bld) [Mass/Vol] 9.5 g/dL Low 13.0-16.5 [facility] Comment on above: Performed By: #### L 100.0500, L501.8820, L500.2500, L101.9900 #### [facility] [address] [place], [address] MCH (RBC) [Entitic mass] 34.4 pg High 27.0-32.0 [facility] Comment on above: Performed By: #### L 100.0500, L501.8820, L500.2500, L101.9900 #### [facility] [address] [place], [address] MCHC (RBC) [Mass/Vol] 32.8 g/dL Normal 32-36 [facility] Comment on above: Performed By: #### L 100.0500, L501.8820, L500.2500, L101.9900 #### [facility] [address] [place], [address] MCV (RBC) [Entitic vol] 105.1 fL High 80-94 [facility] Comment on above: Performed By: #### L 100.0500, L501.8820, L500.2500, L101.9900 #### [facility] [address] [place], [address] Platelet mean volume (Bld) [Entitic vol] 9.9 fL Normal 6.2-12.0 [facility] Comment on above: Performed By: #### L 100.0500, L501.8820, L500.2500, L101.9900 #### [facility] [address] [place], [address] Platelets (Bld) [#/Vol] 153 10*3/uL Normal 150-450 [facility] Comment on above: Performed By: #### L 100.0500, L501.8820, L500.2500, L101.9900 #### [facility] [address] [place], [address] RBC (Bld) [#/Vol] 2.76 10*6/uL Low 4.6-6.2 [facility] Comment on above: Performed By: #### L 100.0500, L501.8820, L500.2500, L101.9900 #### [facility] [address] [place], [address] RDW SD 53.9 fl High 35.1-43.9 [facility] Comment on above: Performed By: #### L 100.0500, L501.8820, L500.2500, L101.9900 #### [facility] [address] [place], [address] WBC (Bld) [#/Vol] 9.0 10*3/uL Normal 4.4-11.0 [facility] Comment on above: Performed By: #### L 100.0500, L501.8820, L500.2500, L101.9900 #### [facility] [address] [place], [address] Erythrocyte Sed Rateon 09-23 SED RATE 9 mm/hr Normal 0-20 [facility] Comment on above: Performed By: #### L 100.0500, L501.8820, L500.2500, L101.9900 #### [facility] [address] [place], [address] Vancomycin, Trough Levelon 1 2023 VANCO, TROUGH 14.5 ug/mL Normal 5.0-15.0 [facility] Comment on above: Order Comment: 0000 Result Comment: VANC OMYCIN STANDARED DRUG THERAPY TROUGH LEVEL: 5.0 - 15.0 mg/L VANCOMYCIN HIGH INTENSITY THERAPY TROUGH LEVEL: 15.0 - 20.0 mg/L High Intensity therapy recommended for serious life threatening infections include: - Meningitis -Endocarditis -Pneumonia (Ventilator/Healtcare Associated) -Sepsis PLEASE CONTACT PHARMACY SERVICES (#[id number]) FOR INTERPRETATION OF RESULTS. Performed By: #### L 100.0500, L501.8820, L500.2500, L101.9900 #### [facility] [address] [place], [address] Basic Metabolic Profile (BMP )on 09-22-2024 BUN Normal -18 [facility] Comment on above: Result Comment: ON TUBE DID NOT MATCH ORDER/COMPUTER. PER JANEL PATIENT BEING REDRAWN. Performed By: #### L 500.2500, L100.0100 #### [facility] [address] [place], [address] BUN/CRE Normal 10-20 [facility] Comment on above: Result Comment: ON TUBE DID NOT MATCH ORDER/COMPUTER. PER JANEL PATIENT BEING REDRAWN. Performed By: #### L 500.2500, L100.0100 #### [facility] [address] [place], [address] CA,Total Normal 8.5-10.1 [facility] Comment on above: Result Comment: ON TUBE DID NOT MATCH ORDER/COMPUTER. PER JANEL PATIENT BEING REDRAWN. Performed By: #### L 500.2500, L100.0100 #### [facility] [address] [place], [address] CL Normal 98-107 [facility] Comment on above: Result Comment: ON TUBE DID NOT MATCH ORDER/COMPUTER. PER JANEL PATIENT BEING REDRAWN. Performed By: #### L 500.2500, L100.0100 #### [facility] [address] [place], [address] CO2 Normal 21.0-32.0 [facility] Comment on above: Result Comment: ON TUBE DID NOT MATCH ORDER/COMPUTER. PER JANEL PATIENT BEING REDRAWN. Performed By: #### L 500.2500, L100.0100 #### [facility] [address] [place], [address] CREAT,SERUM Normal 0.70-1.30 [facility] Comment on above: Result Comment: ON TUBE DID NOT MATCH ORDER/COMPUTER. PER JANEL PATIENT BEING REDRAWN. Performed By: #### L 500.2500, L100.0100 #### [facility] [address] [place], [address] EST GFR Normal >60 [facility] Comment on above: Result Comment: ON TUBE DID NOT MATCH ORDER/COMPUTER. PER JANEL PATIENT BEING REDRAWN. Performed By: #### L 500.2500, L100.0100 #### [facility] [address] [place], [address] EST GFR - AA Normal >60 [facility] Comment on above: Result Comment: ON TUBE DID NOT MATCH ORDER/COMPUTER. PER JANEL PATIENT BEING REDRAWN. Performed By: #### L 500.2500, L100.0100 #### [facility] [address] [place], [address] GAP Normal 5-15 [facility] Comment on above: Result Comment: ON TUBE DID NOT MATCH ORDER/COMPUTER. PER JANEL PATIENT BEING REDRAWN. Performed By: #### L 500.2500, L100.0100 #### [facility] [address] [place], [address] GLU Normal 74-106 [facility] Comment on above: Result Comment: ON TUBE DID NOT MATCH ORDER/COMPUTER. PER JANEL PATIENT BEING REDRAWN. Performed By: #### L 500.2500, L100.0100 #### [facility] [address] [place], [address] Potassium Normal 3.5-5.1 [facility] Comment on above: Result Comment: ON TUBE DID NOT MATCH ORDER/COMPUTER. PER JANEL PATIENT BEING REDRAWN. Performed By: #### L 500.2500, L100.0100 #### [facility] [address] [place], [address] Basic Metabolic Profile (BMP) Normal 136-145 [facility] Comment on above: Result Comment: ON TUBE DID NOT MATCH ORDER/COMPUTER. PER JANEL PATIENT BEING REDRAWN. Performed By: #### L 500.2500, L100.0100 #### [facility] [address] [place], [address] CBC-Complete Blood Cnt No Di ffon 09-22-2024 HCT Normal 40-54 [facility] Comment on above: Result Comment: ON TUBE DID NOT MATCH ORDER/COMPUTER. PER JANEL PATIENT BEING REDRAWN. Performed By: #### L 500.2500, L100.0100 #### [facility] [address] [place], [address] HGB Normal 13.0-16.5 [facility] Comment on above: Result Comment: ON TUBE DID NOT MATCH ORDER/COMPUTER. PER JANEL PATIENT BEING REDRAWN. Performed By: #### L 500.2500, L100.0100 #### [facility] [address] [place], [address] MCH Normal 27.0-32.0 [facility] Comment on above: Result Comment: ON TUBE DID NOT MATCH ORDER/COMPUTER. PER JANEL PATIENT BEING REDRAWN. Performed By: #### L 500.2500, L100.0100 #### [facility] [address] [place], [address] MCHC Normal 32-36 [facility] Comment on above: Result Comment: ON TUBE DID NOT MATCH ORDER/COMPUTER. PER JANEL PATIENT BEING REDRAWN. Performed By: #### L 500.2500, L100.0100 #### [facility] [address] [place], [address] MCV Normal 80-94 [facility] Comment on above: Result Comment: ON TUBE DID NOT MATCH ORDER/COMPUTER. PER JANEL PATIENT BEING REDRAWN. Performed By: #### L 500.2500, L100.0100 #### [facility] [address] [place], [address] PLT Normal 150-450 [facility] Comment on above: Result Comment: ON TUBE DID NOT MATCH ORDER/COMPUTER. PER JANEL PATIENT BEING REDRAWN. Performed By: #### L 500.2500, L100.0100 #### [facility] [address] [place], [address] RBC Normal 4.6-6.2 [facility] Comment on above: Result Comment: ON TUBE DID NOT MATCH ORDER/COMPUTER. PER JANEL PATIENT BEING REDRAWN. Performed By: #### L 500.2500, L100.0100 #### [facility] [address] [place], [address] RDW CV Normal 11.6-14.6 [facility] Comment on above: Result Comment: ON TUBE DID NOT MATCH ORDER/COMPUTER. PER JANEL PATIENT BEING REDRAWN. Performed By: #### L 500.2500, L100.0100 #### [facility] [address] [place], [address] RDW SD Normal 35.1-43.9 [facility] Comment on above: Result Comment: ON TUBE DID NOT MATCH ORDER/COMPUTER. PER JANEL PATIENT BEING REDRAWN. Performed By: #### L 500.2500, L100.0100 #### [facility] [address] [place], [address] WBC Normal 4.4-11.0 [facility] Comment on above: Result Comment: ON TUBE DID NOT MATCH ORDER/COMPUTER. PER JANEL PATIENT BEING REDRAWN. Performed By: #### L 500.2500, L100.0100 #### [facility] [address] [place], [address] Erythrocyte Sed Rateon 09-22 SED RATE Normal 0-20 [facility] Comment on above: Result Comment: ON TUBE DID NOT MATCH ORDER/COMPUTER. PER JANEL PATIENT BEING REDRAWN. Performed By: #### L 500.2500, L100.0100 #### [facility] [address] [place], [address] Basic Metabolic Profile (BMP )on 09-15-2024 BUN/CRE 14.0 RATIO Normal 10-20 [facility] Comment on above: Performed By: #### L 500.2500, L100.0100 #### [facility] [address] [place], [address] CA,Total 8.8 mg/dL Normal 8.5-10.1 [facility] Comment on above: Performed By: #### L 500.2500, L100.0100 #### [facility] [address] [place], [address] Chloride [Moles/Vol] 104 mmol/L Normal 98-107 [facility] Comment on above: Performed By: #### L 500.2500, L100.0100 #### [facility] [address] [place], [address] CO2 [Moles/Vol] 28.0 mmol/L Normal 21.0-32.0 [facility] Comment on above: Performed By: #### L 500.2500, L100.0100 #### [facility] [address] [place], [address] Creatinine [Mass/Vol] 1.43 mg/dL High 0.70-1.30 [facility] Comment on above: Result Comment: The validity of the calculated GFR GFRAA in patients over 70 years has not been determined. Clinical correlation is essential. Performed By: #### L 500.2500, L100.0100 #### [facility] [address] [place], [address] EST GFR - AA 61 mL/min Normal >60 [facility] Comment on above: Result Comment: Afri can [place] GFR Calc Performed By: #### L 500.2500, L100.0100 #### [facility] [address] [place], [address] GAP 4 Low 5-15 [facility] Comment on above: Performed By: #### L 500.2500, L100.0100 #### [facility] [address] [place], [address] GFR/1.73 sq M.predicted among non-blacks MDRD (S/P/Bld) [Vol rate/Area] 51 mL/min/{1.73_m2} Low >60 [facility] Comment on above: Result Comment: Non- GFR Calc Performed By: #### L 500.2500, L100.0100 #### [facility] [address] [place], [address] Glucose [Mass/Vol] 119 mg/dL High 74-106 [facility] Comment on above: Result Comment: Fast ing Glucose result from 100 to 125 mg/dL suggests IMPAIRED HOMEOSTASIS per A.D.A. criteria. Performed By: #### L 500.2500, L100.0100 #### [facility] [address] [place], [address] Potassium [Moles/Vol] 3.9 mmol/L Normal 3.5-5.1 [facility] Comment on above: Performed By: #### L 500.2500, L100.0100 #### [facility] [address] [place], [address] Sodium [Moles/Vol] 137 mmol/L Normal 136-145 [facility] Comment on above: Performed By: #### L 500.2500, L100.0100 #### [facility] [address] [place], [address] Urea nitrogen [Mass/Vol] 20 mg/dL High 7-18 [facility] Comment on above: Performed By: #### L 500.2500, L100.0100 #### [facility] [address] [place], [address] CBC-Complete Blood Cnt No Di ffon 09-15-2024 Erythrocyte distribution width (RBC) [Ratio] 14.2 % Normal 11.6-14.6 [facility] Comment on above: Performed By: #### L 500.2500, L100.0100 #### [facility] [address] [place], [address] Hematocrit (Bld) [Volume fraction] 28.7 % Low 40-54 [facility] Comment on above: Performed By: #### L 500.2500, L100.0100 #### [facility] [address] [place], [address] Hemoglobin (Bld) [Mass/Vol] 9.3 g/dL Low 13.0-16.5 [facility] Comment on above: Performed By: #### L 500.2500, L100.0100 #### [facility] [address] [place], [address] MCH (RBC) [Entitic mass] 34.1 pg High 27.0-32.0 [facility] Comment on above: Performed By: #### L 500.2500, L100.0100 #### [facility] [address] [place], [address] MCHC (RBC) [Mass/Vol] 32.4 g/dL Normal 32-36 [facility] Comment on above: Performed By: #### L 500.2500, L100.0100 #### [facility] [address] [place], [address] MCV (RBC) [Entitic vol] 105.1 fL High 80-94 [facility] Comment on above: Performed By: #### L 500.2500, L100.0100 #### [facility] [address] [place], [address] Platelet mean volume (Bld) [Entitic vol] 10.2 fL Normal 6.2-12.0 [facility] Comment on above: Performed By: #### L 500.2500, L100.0100 #### [facility] [address] [place], [address] Platelets (Bld) [#/Vol] 161 10*3/uL Normal 150-450 [facility] Comment on above: Performed By: #### L 500.2500, L100.0100 #### [facility] [address] [place], [address] RBC (Bld) [#/Vol] 2.73 10*6/uL Low 4.6-6.2 [facility] Comment on above: Performed By: #### L 500.2500, L100.0100 #### [facility] [address] [place], [address] RDW SD 54.5 fl High 35.1-43.9 [facility] Comment on above: Performed By: #### L 500.2500, L100.0100 #### [facility] [address] [place], [address] WBC (Bld) [#/Vol] 7.2 10*3/uL Normal 4.4-11.0 [facility] Comment on above: Performed By: #### L 500.2500, L100.0100 #### [facility] [address] [place], [address] Erythrocyte Sed Rateon 09-15 SED RATE 10 mm/hr Normal 0-20 [facility] Comment on above: Performed By: #### L 500.2500, L100.0100 #### [facility] [address] [place], [address] Vancomycin, Trough Levelon 11-15-2023 VANCO, TROUGH 14.3 ug/mL Normal 5.0-15.0 [facility] Comment on above: Order Comment: 0000 Result Comment: VANC OMYCIN STANDARED DRUG THERAPY TROUGH LEVEL: 5.0 - 15.0 mg/L VANCOMYCIN HIGH INTENSITY THERAPY TROUGH LEVEL: 15.0 - 20.0 mg/L High Intensity therapy recommended for serious life threatening infections include: - Meningitis -Endocarditis -Pneumonia (Ventilator/Healtcare Associated) -Sepsis PLEASE CONTACT PHARMACY SERVICES (#[id number]) FOR INTERPRETATION OF RESULTS. Performed By: #### L 500.2500, L100.0100 #### [facility] [address] [place], [address] CBC W/Diff, Automatedon Absolute Lymph 0.90 X10 3/uL Normal 0.83-4.51 [facility] Comment on above: Performed By: #### L 100.0500, L501.8820, L500.2500, L101.9900 #### [facility] [address] [place], [address] Absolute Neut 4.7 X10 3/uL Normal 2.0-7.7 [facility] Comment on above: Performed By: #### L 100.0500, L501.8820, L500.2500, L101.9900 #### [facility] [address] [place], [address] Basophils/100 WBC (Bld) 0.8 % Normal 0-1 [facility] Comment on above: Performed By: #### L 100.0500, L501.8820, L500.2500, L101.9900 #### [facility] [address] [place], [address] Eosinophils/100 WBC (Bld) 1.1 % Normal 0-5 [facility] Comment on above: Performed By: #### L 100.0500, L501.8820, L500.2500, L101.9900 #### [facility] [address] [place], [address] Erythrocyte distribution width (RBC) [Ratio] 14.2 % Normal 11.6-14.6 [facility] Comment on above: Performed By: #### L 100.0500, L501.8820, L500.2500, L101.9900 #### [facility] [address] [place], [address] Hematocrit (Bld) [Volume fraction] 31.2 % Low 40-54 [facility] Comment on above: Performed By: #### L 100.0500, L501.8820, L500.2500, L101.9900 #### [facility] [address] [place], [address] Hemoglobin (Bld) [Mass/Vol] 10.4 g/dL Low 13.0-16.5 [facility] Comment on above: Performed By: #### L 100.0500, L501.8820, L500.2500, L101.9900 #### [facility] [address] [place], [address] IG% 0.300 Normal 0.0-0.9 [facility] Comment on above: Result Comment: IG% - Immature Granulocytes (promyelocytes, myelocytes and metamyelocytes) > 1% indicates that a LEFT SHIFT is Present. Performed By: #### L 100.0500, L501.8820, L500.2500, L101.9900 #### [facility] [address] [place], [address] Lymphocytes/100 WBC (Bld) 13.8 % Low 19-41 [facility] Comment on above: Performed By: #### L 100.0500, L501.8820, L500.2500, L101.9900 #### [facility] [address] [place], [address] MCH (RBC) [Entitic mass] 34.7 pg High 27.0-32.0 [facility] Comment on above: Performed By: #### L 100.0500, L501.8820, L500.2500, L101.9900 #### [facility] [address] [place], [address] MCHC (RBC) [Mass/Vol] 33.3 g/dL Normal 32-36 [facility] Comment on above: Performed By: #### L 100.0500, L501.8820, L500.2500, L101.9900 #### [facility] [address] [place], [address] MCV (RBC) [Entitic vol] 104.0 fL High 80-94 [facility] Comment on above: Performed By: #### L 100.0500, L501.8820, L500.2500, L101.9900 #### [facility] [address] [place], [address] Monocytes/100 WBC (Bld) 11.4 % High 0-10 [facility] Comment on above: Performed By: #### L 100.0500, L501.8820, L500.2500, L101.9900 #### [facility] [address] [place], [address] Neutrophils/100 WBC (Bld) 72.6 % High 47-70 [facility] Comment on above: Performed By: #### L 100.0500, L501.8820, L500.2500, L101.9900 #### [facility] [address] [place], [address] Nucleated RBC (Bld) [#/Vol] 0 10*3/uL Normal 0-5 [facility] Comment on above: Performed By: #### L 100.0500, L501.8820, L500.2500, L101.9900 #### [facility] [address] [place], [address] Platelet mean volume (Bld) [Entitic vol] 10.3 fL Normal 6.2-12.0 [facility] Comment on above: Performed By: #### L 100.0500, L501.8820, L500.2500, L101.9900 #### [facility] [address] [place], [address] Platelets (Bld) [#/Vol] 172 10*3/uL Normal 150-450 [facility] Comment on above: Performed By: #### L 100.0500, L501.8820, L500.2500, L101.9900 #### [facility] [address] [place], [address] RBC (Bld) [#/Vol] 3.00 10*6/uL Low 4.6-6.2 [facility] Comment on above: Performed By: #### L 100.0500, L501.8820, L500.2500, L101.9900 #### [facility] [address] [place], [address] RDW SD 54.2 fl High 35.1-43.9 [facility] Comment on above: Performed By: #### L 100.0500, L501.8820, L500.2500, L101.9900 #### [facility] [address] [place], [address] WBC (Bld) [#/Vol] 6.5 10*3/uL Normal 4.4-11.0 [facility] Comment on above: Performed By: #### L 100.0500, L501.8820, L500.2500, L101.9900 #### [facility] [address] [place], [address] Ferritinon 09-09-2024 Ferritin [Mass/Vol] 369 ng/mL Normal 26-388 [facility] Comment on above: Order Comment: N Performed By: #### L 100.0500, L501.8820, L101.9900, L500.2500 #### [facility] [address] [place], [address] Folates, (Folic Acid)on FOLATES 6.40 ng/mL Normal 3.1-55.4 [facility] Comment on above: Order Comment: N Performed By: #### L 100.0500, L501.8820, L101.9900, L500.2500 #### [facility] [address] [place], [address] Folates, RBCon 09-09-2024 Fol.,Hemolysate Normal [facility] Comment on above: Result Comment: WRON G TEST ORDERED Performed By: #### L 100.0500, L501.8820, L500.2500, L101.9900 #### [facility] [address] [place], [address] Folate, RBC Normal 280-791 [facility] Comment on above: Result Comment: WRON G TEST ORDERED Performed By: #### L 100.0500, L501.8820, L500.2500, L101.9900 #### [facility] [address] [place], [address] Hematocrit Normal 36.0-50.0 [facility] Comment on above: Result Comment: WRON G TEST ORDERED Performed By: #### L 100.0500, L501.8820, L500.2500, L101.9900 #### [facility] [address] [place], [address] Iron+Iron Binding Capacityon 09-09-2024 Iron [Mass/Vol] 39 ug/dL Low 65-175 [facility] Comment on above: Order Comment: N Performed By: #### L 100.0500, L501.8820, L500.2500, L101.9900 #### [facility] [address] [place], [address] IRON SATURATION 23.4 Normal 15.0-55.0 [facility] Comment on above: Order Comment: N Performed By: #### L 100.0500, L501.8820, L500.2500, L101.9900 #### [facility] [address] [place], [address] TIBC 167 ug/dL Low 250-450 [facility] Comment on above: Order Comment: N Performed By: #### L 100.0500, L501.8820, L500.2500, L101.9900 #### [facility] [address] [place], [address] Retic Panelon 09-09-2024 IM RET FRACTION 10.50 Normal 3.00-15.90 [facility] Comment on above: Performed By: #### L 100.0500, L501.8820, L500.2500, L101.9900 #### [facility] [address] [place], [address] RET-HE 37.1 pg High 30-35 [facility] Comment on above: Performed By: #### L 100.0500, L501.8820, L500.2500, L101.9900 #### [facility] [address] [place], [address] Retic Count 1.38 Normal 0.5-1.5 [facility] Comment on above: Performed By: #### L 100.0500, L501.8820, L500.2500, L101.9900 #### [facility] [address] [place], [address] Vitamin B12on 09-09-2024 Cobalamin (Vitamin B12) [Mass/Vol] 412 pg/mL Normal 211-911 [facility] Comment on above: Performed By: #### L 100.0500, L501.8820, L500.2500, L101.9900 #### [facility] [address] [place], [address] Basic Metabolic Profile (BMP )on 09-08-2024 BUN/CRE 8.2 RATIO Low 10-20 [facility] Comment on above: Performed By: #### L 500.4050, L100.0100 #### [facility] [address] [place], [address] CA,Total 8.4 mg/dL Low 8.5-10.1 [facility] Comment on above: Performed By: #### L 500.4050, L100.0100 #### [facility] [address] [place], [address] Chloride [Moles/Vol] 106 mmol/L Normal 98-107 [facility] Comment on above: Performed By: #### L 500.4050, L100.0100 #### [facility] [address] [place], [address] CO2 [Moles/Vol] 27.0 mmol/L Normal 21.0-32.0 [facility] Comment on above: Performed By: #### L 500.4050, L100.0100 #### [facility] [address] [place], [address] Creatinine [Mass/Vol] 1.58 mg/dL High 0.70-1.30 [facility] Comment on above: Result Comment: The validity of the calculated GFR GFRAA in patients over 70 years has not been determined. Clinical correlation is essential. Performed By: #### L 500.4050, L100.0100 #### [facility] [address] [place], [address] EST GFR - AA 54 mL/min Low >60 [facility] Comment on above: Result Comment: Afri can [place] GFR Calc Performed By: #### L 500.4050, L100.0100 #### [facility] [address] [place], [address] GAP 7 Normal 5-15 [facility] Comment on above: Performed By: #### L 500.4050, L100.0100 #### [facility] [address] [place], [address] GFR/1.73 sq M.predicted among non-blacks MDRD (S/P/Bld) [Vol rate/Area] 45 mL/min/{1.73_m2} Low >60 [facility] Comment on above: Result Comment: Non- GFR Calc Performed By: #### L 500.4050, L100.0100 #### [facility] [address] [place], [address] Glucose [Mass/Vol] 124 mg/dL High 74-106 [facility] Comment on above: Result Comment: Fast ing Glucose result from 100 to 125 mg/dL suggests IMPAIRED HOMEOSTASIS per A.D.A. criteria. Performed By: #### L 500.4050, L100.0100 #### [facility] [address] [place], [address] Potassium [Moles/Vol] 3.9 mmol/L Normal 3.5-5.1 [facility] Comment on above: Performed By: #### L 500.4050, L100.0100 #### [facility] [address] [place], [address] Sodium [Moles/Vol] 140 mmol/L Normal 136-145 [facility] Comment on above: Performed By: #### L 500.4050, L100.0100 #### [facility] [address] [place], [address] Urea nitrogen [Mass/Vol] 13 mg/dL Normal 7-18 [facility] Comment on above: Performed By: #### L 500.4050, L100.0100 #### [facility] [address] [place], [address] [facility] Erythrocyte distribution width (RBC) [Ratio] 14.2 % Normal 11.6-14.6 [facility] Comment on above: Performed By: #### L 100.0500, L501.8820, L101.9900, L500.2500 #### [facility] [address] [place], [address] Hematocrit (Bld) [Volume fraction] 28.3 % Low 40-54 [facility] Comment on above: Performed By: #### L 100.0500, L501.8820, L101.9900, L500.2500 #### [facility] [address] [place], [address] Hemoglobin (Bld) [Mass/Vol] 9.0 g/dL Low 13.0-16.5 [facility] Comment on above: Performed By: #### L 100.0500, L501.8820, L101.9900, L500.2500 #### [facility] [address] [place], [address] MCH (RBC) [Entitic mass] 33.8 pg High 27.0-32.0 [facility] Comment on above: Performed By: #### L 100.0500, L501.8820, L101.9900, L500.2500 #### [facility] [address] [place], [address] MCHC (RBC) [Mass/Vol] 31.8 g/dL Low 32-36 [facility] Comment on above: Performed By: #### L 100.0500, L501.8820, L101.9900, L500.2500 #### [facility] [address] [place], [address] MCV (RBC) [Entitic vol] 106.4 fL High 80-94 [facility] Comment on above: Performed By: #### L 100.0500, L501.8820, L101.9900, L500.2500 #### [facility] [address] [place], [address] Platelet mean volume (Bld) [Entitic vol] 10.6 fL Normal 6.2-12.0 [facility] Comment on above: Performed By: #### L 100.0500, L501.8820, L101.9900, L500.2500 #### [facility] [address] [place], [address] Platelets (Bld) [#/Vol] 147 10*3/uL Low 150-450 [facility] Comment on above: Performed By: #### L 100.0500, L501.8820, L101.9900, L500.2500 #### [facility] [address] [place], [address] RBC (Bld) [#/Vol] 2.66 10*6/uL Low 4.6-6.2 [facility] Comment on above: Performed By: #### L 100.0500, L501.8820, L101.9900, L500.2500 #### [facility] [address] [place], [address] RDW SD 55.6 fl High 35.1-43.9 [facility] Comment on above: Performed By: #### L 100.0500, L501.8820, L101.9900, L500.2500 #### [facility] [address] [place], [address] WBC (Bld) [#/Vol] 6.3 10*3/uL Normal 4.4-11.0 [facility] Comment on above: Performed By: #### L 100.0500, L501.8820, L101.9900, L500.2500 #### [facility] [address] [place], [address] Erythrocyte Sed Rateon 09-08 SED RATE 8 mm/hr Normal 0-20 [facility] Comment on above: Performed By: #### L 100.0500, L501.8820, L101.9900, L500.2500 #### [facility] [address] [place], [address] Vancomycin, Trough Levelon 1 11-08-2023 VANCO, TROUGH 13.7 ug/mL Normal 5.0-15.0 [facility] Comment on above: Order Comment: 1043 Result Comment: VANC OMYCIN STANDARED DRUG THERAPY TROUGH LEVEL: 5.0 - 15.0 mg/L VANCOMYCIN HIGH INTENSITY THERAPY TROUGH LEVEL: 15.0 - 20.0 mg/L High Intensity therapy recommended for serious life threatening infections include: - Meningitis -Endocarditis -Pneumonia (Ventilator/Healtcare Associated) -Sepsis PLEASE CONTACT PHARMACY SERVICES (#[id number]) FOR INTERPRETATION OF RESULTS. Performed By: #### L 500.4050, L100.0100 #### [facility] [address] [place], [address] Basic Metabolic Profile (BMP )on 09-03-2024 BUN/CRE 10.9 RATIO Normal 10-20 [facility] Comment on above: Performed By: #### L 500.4050, L100.0100 #### [facility] [address] [place], [address] CA,Total 8.5 mg/dL Normal 8.5-10.1 [facility] Comment on above: Performed By: #### L 500.4050, L100.0100 #### [facility] [address] [place], [address] Chloride [Moles/Vol] 107 mmol/L Normal 98-107 [facility] Comment on above: Performed By: #### L 500.4050, L100.0100 #### [facility] [address] [place], [address] CO2 [Moles/Vol] 27.0 mmol/L Normal 21.0-32.0 [facility] Comment on above: Performed By: #### L 500.4050, L100.0100 #### [facility] [address] [place], [address] Creatinine [Mass/Vol] 1.74 mg/dL High 0.70-1.30 [facility] Comment on above: Result Comment: The validity of the calculated GFR GFRAA in patients over 70 years has not been determined. Clinical correlation is essential. Performed By: #### L 500.4050, L100.0100 #### [facility] [address] [place], [address] EST GFR - AA 49 mL/min Low >60 [facility] Comment on above: Result Comment: Afri can [place] GFR Calc Performed By: #### L 500.4050, L100.0100 #### [facility] [address] [place], [address] GAP 7 Normal 5-15 [facility] Comment on above: Performed By: #### L 500.4050, L100.0100 #### [facility] [address] [place], [address] GFR/1.73 sq M.predicted among non-blacks MDRD (S/P/Bld) [Vol rate/Area] 40 mL/min/{1.73_m2} Low >60 [facility] Comment on above: Result Comment: Non- GFR Calc Performed By: #### L 500.4050, L100.0100 #### [facility] [address] [place], [address] Glucose [Mass/Vol] 127 mg/dL High 74-106 [facility] Comment on above: Result Comment: Fast ing Glucose result greater than or equal to 126 mg/dL suggests DIABETES MELLITUS per A.D.A. criteria. Performed By: #### L 500.4050, L100.0100 #### [facility] [address] [place], [address] Potassium [Moles/Vol] 3.5 mmol/L Normal 3.5-5.1 [facility] Comment on above: Performed By: #### L 500.4050, L100.0100 #### [facility] [address] [place], [address] Sodium [Moles/Vol] 141 mmol/L Normal 136-145 [facility] Comment on above: Performed By: #### L 500.4050, L100.0100 #### [facility] [address] [place], [address] Urea nitrogen [Mass/Vol] 19 mg/dL High 7-18 [facility] Comment on above: Performed By: #### L 500.4050, L100.0100 #### [facility] [address] [place], [address] CBC-Complete Blood Cnt No Di ffon 09-03-2024 Erythrocyte distribution width (RBC) [Ratio] 14.3 % Normal 11.6-14.6 [facility] Comment on above: Performed By: #### L 500.4050, L100.0100 #### [facility] [address] [place], [address] Hematocrit (Bld) [Volume fraction] 29.9 % Low 40-54 [facility] Comment on above: Performed By: #### L 500.4050, L100.0100 #### [facility] [address] [place], [address] Hemoglobin (Bld) [Mass/Vol] 9.5 g/dL Low 13.0-16.5 [facility] Comment on above: Performed By: #### L 500.4050, L100.0100 #### [facility] [address] [place], [address] MCH (RBC) [Entitic mass] 33.6 pg High 27.0-32.0 [facility] Comment on above: Performed By: #### L 500.4050, L100.0100 #### [facility] [address] [place], [address] MCHC (RBC) [Mass/Vol] 31.8 g/dL Low 32-36 [facility] Comment on above: Performed By: #### L 500.4050, L100.0100 #### [facility] [address] [place], [address] MCV (RBC) [Entitic vol] 105.7 fL High 80-94 [facility] Comment on above: Performed By: #### L 500.4050, L100.0100 #### [facility] [address] [place], [address] Platelet mean volume (Bld) [Entitic vol] 10.3 fL Normal 6.2-12.0 [facility] Comment on above: Performed By: #### L 500.4050, L100.0100 #### [facility] [address] [place], [address] Platelets (Bld) [#/Vol] 186 10*3/uL Normal 150-450 [facility] Comment on above: Performed By: #### L 500.4050, L100.0100 #### [facility] [address] [place], [address] RBC (Bld) [#/Vol] 2.83 10*6/uL Low 4.6-6.2 [facility] Comment on above: Performed By: #### L 500.4050, L100.0100 #### [facility] [address] [place], [address] RDW SD 55.2 fl High 35.1-43.9 [facility] Comment on above: Performed By: #### L 500.4050, L100.0100 #### [facility] [address] [place], [address] WBC (Bld) [#/Vol] 6.6 10*3/uL Normal 4.4-11.0 [facility] Comment on above: Performed By: #### L 500.4050, L100.0100 #### [facility] [address] [place], [address] Erythrocyte Sed Rateon 09-03 SED RATE 8 mm/hr Normal 0-20 [facility] Comment on above: Performed By: #### L 500.4050, L100.0100 #### [facility] [address] [place], [address] Vancomycin, Trough Levelon 1 VANCO, TROUGH 14.5 ug/mL Normal 5.0-15.0 [facility] Comment on above: Order Comment: 0000 Result Comment: VANC OMYCIN STANDARED DRUG THERAPY TROUGH LEVEL: 5.0 - 15.0 mg/L VANCOMYCIN HIGH INTENSITY THERAPY TROUGH LEVEL: 15.0 - 20.0 mg/L High Intensity therapy recommended for serious life threatening infections include: - Meningitis -Endocarditis -Pneumonia (Ventilator/Healtcare Associated) -Sepsis PLEASE CONTACT PHARMACY SERVICES (#[id number]) FOR INTERPRETATION OF RESULTS. Performed By: #### L 500.4050, L100.0100 #### [facility] [address] [place], [address] Basic Metabolic Profile (BMP )on 08-26-2024 BUN/CRE 12.2 RATIO Normal - [facility] Comment on above: Performed By: #### L 500.2500, L100.0100 #### [facility] [address] [place], [address] CA,Total 8.6 mg/dL Normal 8.5-10.1 [facility] Comment on above: Performed By: #### L 500.2500, L100.0100 #### [facility] [address] [place], [address] Chloride [Moles/Vol] 108 mmol/L High 98-107 [facility] Comment on above: Performed By: #### L 500.2500, L100.0100 #### [facility] [address] [place], [address] CO2 [Moles/Vol] 25.0 mmol/L Normal 21.0-32.0 [facility] Comment on above: Performed By: #### L 500.2500, L100.0100 #### [facility] [address] [place], [address] Creatinine [Mass/Vol] 1.80 mg/dL High 0.70-1.30 [facility] Comment on above: Result Comment: The validity of the calculated GFR GFRAA in patients over 70 years has not been determined. Clinical correlation is essential. Performed By: #### L 500.2500, L100.0100 #### [facility] [address] [place], [address] EST GFR - AA 47 mL/min Low >60 [facility] Comment on above: Result Comment: Afri can [place] GFR Calc Performed By: #### L 500.2500, L100.0100 #### [facility] [address] [place], [address] GAP 6 Normal 5-15 [facility] Comment on above: Performed By: #### L 500.2500, L100.0100 #### [facility] [address] [place], [address] GFR/1.73 sq M.predicted among non-blacks MDRD (S/P/Bld) [Vol rate/Area] 39 mL/min/{1.73_m2} Low >60 [facility] Comment on above: Result Comment: Non- GFR Calc Performed By: #### L 500.2500, L100.0100 #### [facility] [address] [place], [address] Glucose [Mass/Vol] 121 mg/dL High 74-106 [facility] Comment on above: Result Comment: Fast ing Glucose result from 100 to 125 mg/dL suggests IMPAIRED HOMEOSTASIS per A.D.A. criteria. Performed By: #### L 500.2500, L100.0100 #### [facility] [address] [place], [address] Potassium [Moles/Vol] 3.6 mmol/L Normal 3.5-5.1 [facility] Comment on above: Performed By: #### L 500.2500, L100.0100 #### [facility] [address] [place], [address] Sodium [Moles/Vol] 139 mmol/L Normal 136-145 [facility] Comment on above: Performed By: #### L 500.2500, L100.0100 #### [facility] [address] [place], [address] Urea nitrogen [Mass/Vol] 22 mg/dL High 7-18 [facility] Comment on above: Performed By: #### L 500.2500, L100.0100 #### [facility] [address] [place], [address] CBC-Complete Blood Cnt No Di ffon 08-26-2024 Erythrocyte distribution width (RBC) [Ratio] 13.9 % Normal 11.6-14.6 [facility] Comment on above: Performed By: #### L 500.2500, L100.0100 #### [facility] [address] [place], [address] Hematocrit (Bld) [Volume fraction] 27.6 % Low 40-54 [facility] Comment on above: Performed By: #### L 500.2500, L100.0100 #### [facility] [address] [place], [address] Hemoglobin (Bld) [Mass/Vol] 9.0 g/dL Low 13.0-16.5 [facility] Comment on above: Performed By: #### L 500.2500, L100.0100 #### [facility] [address] [place], [address] MCH (RBC) [Entitic mass] 34.0 pg High 27.0-32.0 [facility] Comment on above: Performed By: #### L 500.2500, L100.0100 #### [facility] [address] [place], [address] MCHC (RBC) [Mass/Vol] 32.6 g/dL Normal 32-36 [facility] – [facility] Comment on above: Performed By: #### L 500.2500, L100.0100 #### [facility] [address] [place], [address] MCV (RBC) [Entitic vol] 104.2 fL High 80-94 [facility] Comment on above: Performed By: #### L 500.2500, L100.0100 #### [facility] [address] [place], [address] Platelet mean volume (Bld) [Entitic vol] 10.1 fL Normal 6.2-12.0 [facility] Comment on above: Performed By: #### L 500.2500, L100.0100 #### [facility] [address] [place], [address] Platelets (Bld) [#/Vol] 167 10*3/uL Normal 150-450 [facility] Comment on above: Performed By: #### L 500.2500, L100.0100 #### [facility] [address] [place], [address] RBC (Bld) [#/Vol] 2.65 10*6/uL Low 4.6-6.2 [facility] Comment on above: Performed By: #### L 500.2500, L100.0100 #### [facility] [address] [place], [address] RDW SD 52.6 fl High 35.1-43.9 [facility] Comment on above: Performed By: #### L 500.2500, L100.0100 #### [facility] [address] [place], [address] WBC (Bld) [#/Vol] 8.5 10*3/uL Normal 4.4-11.0 [facility] Comment on above: Performed By: #### L 500.2500, L100.0100 #### [facility] [address] [place], [address] Erythrocyte Sed Rateon 08-26 SED RATE 13 mm/hr Normal 0-20 [facility] Comment on above: Performed By: #### L 500.2500, L100.0100 #### [facility] [address] [place], [address] Vancomycin, Trough Levelon VANCO, TROUGH 15.8 ug/mL High 5.0-15.0 [facility] Comment on above: Order Comment: 0000 Result Comment: VANC OMYCIN STANDARED DRUG THERAPY TROUGH LEVEL: 5.0 - 15.0 mg/L VANCOMYCIN HIGH INTENSITY THERAPY TROUGH LEVEL: 15.0 - 20.0 mg/L High Intensity therapy recommended for serious life threatening infections include: - Meningitis -Endocarditis -Pneumonia (Ventilator/Healtcare Associated) -Sepsis PLEASE CONTACT PHARMACY SERVICES (#[id number]) FOR INTERPRETATION OF RESULTS. Performed By: #### L 500.2500, L100.0100 #### [facility] [address] [place], [address] Basic Metabolic Profile (BMP )on 08-22-2024 BUN/CRE 13.7 RATIO Normal - [facility] Comment on above: Performed By: #### L 500.2500, L100.0100 #### [facility] [address] [place], [address] CA,Total 8.3 mg/dL Low 8.5-10.1 [facility] Comment on above: Performed By: #### L 500.2500, L100.0100 #### [facility] [address] [place], [address] Chloride [Moles/Vol] 108 mmol/L High 98-107 [facility] Comment on above: Performed By: #### L 500.2500, L100.0100 #### [facility] [address] [place], [address] CO2 [Moles/Vol] 23.0 mmol/L Normal 21.0-32.0 [facility] Comment on above: Performed By: #### L 500.2500, L100.0100 #### [facility] [address] [place], [address] Creatinine [Mass/Vol] 2.11 mg/dL High 0.70-1.30 [facility] Comment on above: Result Comment: The validity of the calculated GFR GFRAA in patients over 70 years has not been determined. Clinical correlation is essential. Performed By: #### L 500.2500, L100.0100 #### [facility] [address] [place], [address] EST GFR - AA 39 mL/min Low >60 [facility] Comment on above: Result Comment: Afri can [place] GFR Calc Performed By: #### L 500.2500, L100.0100 #### [facility] [address] [place], [address] GAP 7 Normal 5-15 [facility] Comment on above: Performed By: #### L 500.2500, L100.0100 #### [facility] [address] [place], [address] GFR/1.73 sq M.predicted among non-blacks MDRD (S/P/Bld) [Vol rate/Area] 32 mL/min/{1.73_m2} Low >60 [facility] Comment on above: Result Comment: Non- GFR Calc Performed By: #### L 500.2500, L100.0100 #### [facility] [address] [place], [address] Glucose [Mass/Vol] 153 mg/dL High 74-106 [facility] Comment on above: Result Comment: Fast ing Glucose result greater than or equal to 126 mg/dL suggests DIABETES MELLITUS per A.D.A. criteria. Performed By: #### L 500.2500, L100.0100 #### [facility] [address] [place], [address] Potassium [Moles/Vol] 3.3 mmol/L Low 3.5-5.1 [facility] Comment on above: Performed By: #### L 500.2500, L100.0100 #### [facility] [address] [place], [address] Sodium [Moles/Vol] 138 mmol/L Normal 136-145 [facility] Comment on above: Performed By: #### L 500.2500, L100.0100 #### [facility] [address] [place], [address] Urea nitrogen [Mass/Vol] 29 mg/dL High 7-18 [facility] Comment on above: Performed By: #### L 500.2500, L100.0100 #### [facility] [address] [place], [address] CBC-Complete Blood Cnt No Di ffon 08-22-2024 Erythrocyte distribution width (RBC) [Ratio] 13.9 % Normal 11.6-14.6 [facility] Comment on above: Performed By: #### L 500.2500, L100.0100 #### [facility] [address] [place], [address] Hematocrit (Bld) [Volume fraction] 28.1 % Low 40-54 [facility] Comment on above: Performed By: #### L 500.2500, L100.0100 #### [facility] [address] [place], [address] Hemoglobin (Bld) [Mass/Vol] 9.2 g/dL Low 13.0-16.5 [facility] Comment on above: Performed By: #### L 500.2500, L100.0100 #### [facility] [address] [place], [address] MCH (RBC) [Entitic mass] 33.9 pg High 27.0-32.0 [facility] Comment on above: Performed By: #### L 500.2500, L100.0100 #### [facility] [address] [place], [address] MCHC (RBC) [Mass/Vol] 32.7 g/dL Normal 32-36 [facility] Comment on above: Performed By: #### L 500.2500, L100.0100 #### [facility] [address] [place], [address] MCV (RBC) [Entitic vol] 103.7 fL High 80-94 [facility] Comment on above: Performed By: #### L 500.2500, L100.0100 #### [facility] [address] [place], [address] Platelet mean volume (Bld) [Entitic vol] 10.1 fL Normal 6.2-12.0 [facility] Comment on above: Performed By: #### L 500.2500, L100.0100 #### [facility] [address] [place], [address] Platelets (Bld) [#/Vol] 116 10*3/uL Low 150-450 [facility] Comment on above: Performed By: #### L 500.2500, L100.0100 #### [facility] [address] [place], [address] RBC (Bld) [#/Vol] 2.71 10*6/uL Low 4.6-6.2 [facility] Comment on above: Performed By: #### L 500.2500, L100.0100 #### [facility] [address] [place], [address] RDW SD 53.0 fl High 35.1-43.9 [facility] Comment on above: Performed By: #### L 500.2500, L100.0100 #### [facility] [address] [place], [address] WBC (Bld) [#/Vol] 8.9 10*3/uL Normal 4.4-11.0 [facility] Comment on above: Performed By: #### L 500.2500, L100.0100 #### [facility] [address] [place], [address] Erythrocyte Sed Rateon 08-22 SED RATE 11 mm/hr Normal 0-20 [facility] Comment on above: Performed By: #### L 500.2500, L100.0100 #### [facility] [address] [place], [address] Vancomycin, Trough Levelon 1 VANCO, TROUGH 20.5 ug/mL High 5.0-15.0 [facility] Comment on above: Order Comment: 0061 Result Comment: VANC OMYCIN STANDARED DRUG THERAPY TROUGH LEVEL: 5.0 - 15.0 mg/L VANCOMYCIN HIGH INTENSITY THERAPY TROUGH LEVEL: 15.0 - 20.0 mg/L High Intensity therapy recommended for serious life threatening infections include: - Meningitis -Endocarditis -Pneumonia (Ventilator/Healtcare Associated) -Sepsis PLEASE CONTACT PHARMACY SERVICES (#[id number]) FOR INTERPRETATION OF RESULTS. Performed By: #### L 500.2500, L100.0100 #### [facility] [address] [place], [address] Stool Occult Blood iFOBon STOB Negative Normal [facility] Comment on above: Performed By: #### L 100.0500, L501.8820, L500.2500, L101.9900 #### [facility] [address] [place], [address] Basic Metabolic Profile (BMP )on 08-20-2024 BUN/CRE 11.2 RATIO Normal 08-24 [facility] Comment on above: Order Comment: FAX R ESULTS TO [phone] Performed By: #### L 100.0500, L501.8820, L500.2500, L101.9900 #### [facility] [address] [place], [address] CA,Total 8.3 mg/dL Low 8.5-10.1 [facility] Comment on above: Order Comment: FAX R ESULTS TO [phone] Performed By: #### L 100.0500, L501.8820, L500.2500, L101.9900 #### [facility] [address] [place], [address] Chloride [Moles/Vol] 108 mmol/L High 98-107 [facility] Comment on above: Order Comment: FAX R ESULTS TO [phone] Performed By: #### L 100.0500, L501.8820, L500.2500, L101.9900 #### [facility] [address] [place], [address] CO2 [Moles/Vol] 22.0 mmol/L Normal 21.0-32.0 [facility] Comment on above: Order Comment: FAX R ESULTS TO [phone] Performed By: #### L 100.0500, L501.8820, L500.2500, L101.9900 #### [facility] [address] [place], [address] Creatinine [Mass/Vol] 2.15 mg/dL High 0.70-1.30 [facility] Comment on above: Order Comment: FAX R ESULTS TO [phone] Result Comment: The validity of the calculated GFR GFRAA in patients over 70 years has not been determined. Clinical correlation is essential. Performed By: #### L 100.0500, L501.8820, L500.2500, L101.9900 #### [facility] [address] [place], [address] EST GFR - AA 38 mL/min Low >60 [facility] Comment on above: Order Comment: FAX R ESULTS TO [phone] Result Comment: Afri can [place] GFR Calc Performed By: #### L 100.0500, L501.8820, L500.2500, L101.9900 #### [facility] [address] [place], [address] GAP 7 Normal 5-15 [facility] Comment on above: Order Comment: FAX R ESULTS TO [phone] Performed By: #### L 100.0500, L501.8820, L500.2500, L101.9900 #### [facility] [address] [place], [address] GFR/1.73 sq M.predicted among non-blacks MDRD (S/P/Bld) [Vol rate/Area] 32 mL/min/{1.73_m2} Low >60 [facility] Comment on above: Order Comment: FAX R ESULTS TO [phone] Result Comment: Non- GFR Calc Performed By: #### L 100.0500, L501.8820, L500.2500, L101.9900 #### [facility] [address] [place], [address] Glucose [Mass/Vol] 165 mg/dL High 74-106 [facility] Comment on above: Order Comment: FAX R ESULTS TO [phone] Result Comment: Fast ing Glucose result greater than or equal to 126 mg/dL suggests DIABETES MELLITUS per A.D.A. criteria. Performed By: #### L 100.0500, L501.8820, L500.2500, L101.9900 #### [facility] [address] [place], [address] Potassium [Moles/Vol] 3.5 mmol/L Normal 3.5-5.1 [facility] Comment on above: Order Comment: FAX R ESULTS TO [phone] Performed By: #### L 100.0500, L501.8820, L500.2500, L101.9900 #### [facility] [address] [place], [address] Sodium [Moles/Vol] 138 mmol/L Normal 136-145 [facility] Comment on above: Order Comment: FAX R ESULTS TO [phone] Performed By: #### L 100.0500, L501.8820, L500.2500, L101.9900 #### [facility] [address] [place], [address] Urea nitrogen [Mass/Vol] 24 mg/dL High 7-18 [facility] Comment on above: Order Comment: FAX R ESULTS TO [phone] Performed By: #### L 100.0500, L501.8820, L500.2500, L101.9900 #### [facility] [address] [place], [address] CBC-Complete Blood Cnt No Di ffon 08-20-2024 Erythrocyte distribution width (RBC) [Ratio] 13.8 % Normal 11.6-14.6 [facility] Comment on above: Performed By: #### L 100.0500, L501.8820, L500.2500, L101.9900 #### [facility] [address] [place], [address] Hematocrit (Bld) [Volume fraction] 27.9 % Low 40-54 [facility] Comment on above: Performed By: #### L 100.0500, L501.8820, L500.2500, L101.9900 #### [facility] [address] [place], [address] Hemoglobin (Bld) [Mass/Vol] 9.3 g/dL Low 13.0-16.5 [facility] Comment on above: Performed By: #### L 100.0500, L501.8820, L500.2500, L101.9900 #### [facility] [address] [place], [address] MCH (RBC) [Entitic mass] 34.6 pg High 27.0-32.0 [facility] Comment on above: Performed By: #### L 100.0500, L501.8820, L500.2500, L101.9900 #### [facility] [address] [place], [address] MCHC (RBC) [Mass/Vol] 33.3 g/dL Normal 32-36 [facility] Comment on above: Performed By: #### L 100.0500, L501.8820, L500.2500, L101.9900 #### [facility] [address] [place], [address] MCV (RBC) [Entitic vol] 103.7 fL High 80-94 [facility] Comment on above: Performed By: #### L 100.0500, L501.8820, L500.2500, L101.9900 #### [facility] [address] [place], [address] Platelet mean volume (Bld) [Entitic vol] 10.2 fL Normal 6.2-12.0 [facility] Comment on above: Performed By: #### L 100.0500, L501.8820, L500.2500, L101.9900 #### [facility] [address] [place], [address] Platelets (Bld) [#/Vol] 103 10*3/uL Low 150-450 [facility] Comment on above: Performed By: #### L 100.0500, L501.8820, L500.2500, L101.9900 #### [facility] [address] [place], [address] RBC (Bld) [#/Vol] 2.69 10*6/uL Low 4.6-6.2 [facility] Comment on above: Performed By: #### L 100.0500, L501.8820, L500.2500, L101.9900 #### [facility] [address] [place], [address] RDW SD 52.0 fl High 35.1-43.9 [facility] Comment on above: Performed By: #### L 100.0500, L501.8820, L500.2500, L101.9900 #### [facility] [address] [place], [address] WBC (Bld) [#/Vol] 10.7 10*3/uL Normal 4.4-11.0 [facility] Comment on above: Performed By: #### L 100.0500, L501.8820, L500.2500, L101.9900 #### [facility] [address] [place], [address] Erythrocyte Sed Rateon 08-20 SED RATE 7 mm/hr Normal 0-20 [facility] Comment on above: Performed By: #### L 100.0500, L501.8820, L500.2500, L101.9900 #### [facility] [address] [place], [address] Vancomycin, Trough Levelon VANCO, TROUGH 34.2 ug/mL High 5.0-15.0 [facility] Comment on above: Order Comment: 1050 Result Comment: VANC OMYCIN STANDARED DRUG THERAPY TROUGH LEVEL: 5.0 - 15.0 mg/L VANCOMYCIN HIGH INTENSITY THERAPY TROUGH LEVEL: 15.0 - 20.0 mg/L High Intensity therapy recommended for serious life threatening infections include: - Meningitis -Endocarditis -Pneumonia (Ventilator/Healtcare Associated) -Sepsis PLEASE CONTACT PHARMACY SERVICES (#[id number]) FOR INTERPRETATION OF RESULTS. Performed By: #### L 100.0500, L501.8820, L500.2500, L101.9900 #### [facility] [address] [place], [address] Culture, Blood (WB)on 2023 CUB Blood cultures x2, from two different sites No growth in 5 days. Normal [facility] Comment on above: Performed By: #### L 500.2500, L100.0100 #### [facility] [address] [place], [address] Basic Metabolic Profile (BMP )on 08-14-2024 BUN/CRE 16.1 RATIO Normal 10-20 [facility] Comment on above: Performed By: #### L 500.2500, L100.0100 #### [facility] [address] [place], [address] CA,Total 8.8 mg/dL Normal 8.5-10.1 [facility] Comment on above: Performed By: #### L 500.2500, L100.0100 #### [facility] [address] [place], [address] Chloride [Moles/Vol] 107 mmol/L Normal 98-107 [facility] Comment on above: Performed By: #### L 500.2500, L100.0100 #### [facility] [address] [place], [address] CO2 [Moles/Vol] 25.0 mmol/L Normal 21.0-32.0 [facility] Comment on above: Performed By: #### L 500.2500, L100.0100 #### [facility] [address] [place], [address] Creatinine [Mass/Vol] 1.12 mg/dL Normal 0.70-1.30 [facility] Comment on above: Result Comment: The validity of the calculated GFR GFRAA in patients over 70 years has not been determined. Clinical correlation is essential. Performed By: #### L 500.2500, L100.0100 #### [facility] [address] [place], [address] ECRCL 70.77 ml/min Normal [facility] Comment on above: Performed By: #### L 500.2500, L100.0100 #### [facility] [address] [place], [address] EST GFR - AA 81 mL/min Normal >60 [facility] Comment on above: Result Comment: Afri can [place] GFR Calc Performed By: #### L 500.2500, L100.0100 #### [facility] [address] [place], [address] GAP 5 Normal 5-15 [facility] Comment on above: Performed By: #### L 500.2500, L100.0100 #### [facility] [address] [place], [address] GFR/1.73 sq M.predicted among non-blacks MDRD (S/P/Bld) [Vol rate/Area] 67 mL/min/{1.73_m2} Normal >60 [facility] Comment on above: Result Comment: Non- GFR Calc Performed By: #### L 500.2500, L100.0100 #### [facility] [address] [place], [address] Glucose [Mass/Vol] 88 mg/dL Normal 74-106 [facility] Comment on above: Performed By: #### L 500.2500, L100.0100 #### [facility] [address] [place], [address] Potassium [Moles/Vol] 4.2 mmol/L Normal 3.5-5.1 [facility] Comment on above: Performed By: #### L 500.2500, L100.0100 #### [facility] [address] [place], [address] Sodium [Moles/Vol] 137 mmol/L Normal 136-145 [facility] Comment on above: Performed By: #### L 500.2500, L100.0100 #### [facility] [address] [place], [address] Urea nitrogen [Mass/Vol] 18 mg/dL Normal 7-18 [facility] Comment on above: Performed By: #### L 500.2500, L100.0100 #### [facility] [address] [place], [address] CBC W/Diff, Automatedon 10- 0-4 Absolute Lymph 2.23 X10 3/uL Normal 0.83-4.51 [facility] Comment on above: Performed By: #### L 500.2500, L100.0100 #### [facility] [address] [place], [address] Absolute Neut 4.8 X10 3/uL Normal 2.0-7.7 [facility] Comment on above: Performed By: #### L 500.2500, L100.0100 #### [facility] [address] [place], [address] Basophils/100 WBC (Bld) 0.7 % Normal 0-1 [facility] Comment on above: Performed By: #### L 500.2500, L100.0100 #### [facility] [address] [place], [address] Eosinophils/100 WBC (Bld) 1.5 % Normal 0-5 [facility] Comment on above: Performed By: #### L 500.2500, L100.0100 #### [facility] [address] [place], [address] Erythrocyte distribution width (RBC) [Ratio] 13.3 % Normal 11.6-14.6 [facility] Comment on above: Performed By: #### L 500.2500, L100.0100 #### [facility] [address] [place], [address] Hematocrit (Bld) [Volume fraction] 35.2 % Low 40-54 [facility] Comment on above: Performed By: #### L 500.2500, L100.0100 #### [facility] [address] [place], [address] Hemoglobin (Bld) [Mass/Vol] 11.6 g/dL Low 13.0-16.5 [facility] Comment on above: Performed By: #### L 500.2500, L100.0100 #### [facility] [address] [place], [address] IG% 0.500 Normal 0.0-0.9 [facility] Comment on above: Result Comment: IG% - Immature Granulocytes (promyelocytes, myelocytes and metamyelocytes) > 1% indicates that a LEFT SHIFT is Present. Performed By: #### L 500.2500, L100.0100 #### [facility] [address] [place], [address] Lymphocytes/100 WBC (Bld) 27.3 % Normal 19-41 [facility] Comment on above: Performed By: #### L 500.2500, L100.0100 #### [facility] [address] [place], [address] MCH (RBC) [Entitic mass] 33.6 pg High 27.0-32.0 [facility] Comment on above: Performed By: #### L 500.2500, L100.0100 #### [facility] [address] [place], [address] MCHC (RBC) [Mass/Vol] 33.0 g/dL Normal 32-36 [facility] Comment on above: Performed By: #### L 500.2500, L100.0100 #### [facility] [address] [place], [address] MCV (RBC) [Entitic vol] 102.0 fL High 80-94 [facility] Comment on above: Performed By: #### L 500.2500, L100.0100 #### [facility] [address] [place], [address] Monocytes/100 WBC (Bld) 11.1 % High 0-10 [facility] Comment on above: Performed By: #### L 500.2500, L100.0100 #### [facility] [address] [place], [address] Neutrophils/100 WBC (Bld) 58.9 % Normal 47-70 [facility] Comment on above: Performed By: #### L 500.2500, L100.0100 #### [facility] [address] [place], [address] Nucleated RBC (Bld) [#/Vol] 0 10*3/uL Normal 0-5 [facility] Comment on above: Performed By: #### L 500.2500, L100.0100 #### [facility] [address] [place], [address] Platelet mean volume (Bld) [Entitic vol] 9.0 fL Normal 6.2-12.0 [facility] Comment on above: Performed By: #### L 500.2500, L100.0100 #### [facility] [address] [place], [address] Platelets (Bld) [#/Vol] 174 10*3/uL Normal 150-450 [facility] Comment on above: Performed By: #### L 500.2500, L100.0100 #### [facility] [address] [place], [address] RBC (Bld) [#/Vol] 3.45 10*6/uL Low 4.6-6.2 [facility] Comment on above: Performed By: #### L 500.2500, L100.0100 #### [facility] [address] [place], [address] RDW SD 50.1 fl High 35.1-43.9 [facility] Comment on above: Performed By: #### L 500.2500, L100.0100 #### [facility] [address] [place], [address] WBC (Bld) [#/Vol] 8.2 10*3/uL Normal 4.4-11.0 [facility] Comment on above: Performed By: #### L 500.2500, L100.0100 #### [facility] [address] [place], [address] Foot min 3 Viewson 4 Foot min 3 Views [facility] [address] [place] [address] Foot min 3 Views MR#: [id number] Acct: [id number] Name: LB VIZCAINO Rep #: [id number] : 1945 M 78 From: Fidel Lima MD PCP: Dr. Earnest Arvizu MD Status: ADM IN Study: Foot min 3 Views Date of Exam: 08/14/24 Exam# [id number] Ordering Dr: Crow Kim DPDonald [id number] STUDY: X-RAY - RIGHT FOOT CLINICAL: Male, 78 years old. Pain TECHNIQUE: 3 view(s) of the foot. COMPARISON: None. FINDINGS: There is irregularity on the proximal medial aspect of the distal phalanx of the great toe with some erosions and a bubble of subcutaneous emphysema suggesting there may be osteomyelitis present. Normal talus and tarsal bones. Calcaneal spurs Normal visualized subtalar, talonavicular, calcaneocuboid, tarsal and tarsometatarsal articulations. Normal metatarsi. There is mild arthrosis of the metatarsophalangeal joint of the hallux . Normal tibial and fibular sesamoid bones. There is mild arthrosis of the interphalangeal joint of the great toe. Normal phalanges of the great toe. Normal second through fifth metatarsophalangeal joints. Mild interphalangeal joint narrowing. Normal remaining phalanges of the lesser toes. Vascular calcifications are noted RAD/Foot min 3 Views IMPRESSION: Erosive changes of the proximal medial cortex of the distal phalanx of the great toe with subcutaneous emphysema noted. Findings are concerning for osteomyelitis here. Distal joint arthrosis Calcaneal spurs Electronically Signed: Ye Lima MD at 13:42 EDT , CC: DPDonald Kim; Dr. Earnest Arvizu MD Ekg Tech: Signed Normal [facility] Vancomycin, Trough Levelon VANCO, TROUGH 18.6 ug/mL High 5.0-15.0 [facility] Comment on above: Order Comment: 0100 Result Comment: VANC OMYCIN STANDARED DRUG THERAPY TROUGH LEVEL: 5.0 - 15.0 mg/L VANCOMYCIN HIGH INTENSITY THERAPY TROUGH LEVEL: 15.0 - 20.0 mg/L High Intensity therapy recommended for serious life threatening infections include: - Meningitis -Endocarditis -Pneumonia (Ventilator/Healtcare Associated) -Sepsis PLEASE CONTACT PHARMACY SERVICES (#[id number]) FOR INTERPRETATION OF RESULTS. Performed By: #### L 100.0500, L501.8820, L101.9900, L500.2500 #### [facility] [address] [place], [address] Basic Metabolic Profile (BMP )on 08-13-2024 BUN/CRE 17.9 RATIO Normal 08-24 [facility] Comment on above: Performed By: #### L 100.0500, L501.8820, L500.2500, L101.9900 #### [facility] [address] [place], [address] CA,Total 8.4 mg/dL Low 8.5-10.1 [facility] Comment on above: Performed By: #### L 100.0500, L501.8820, L500.2500, L101.9900 #### [facility] [address] [place], [address] Chloride [Moles/Vol] 108 mmol/L High 98-107 [facility] Comment on above: Performed By: #### L 100.0500, L501.8820, L500.2500, L101.9900 #### [facility] [address] [place], [address] CO2 [Moles/Vol] 24.0 mmol/L Normal 21.0-32.0 [facility] Comment on above: Performed By: #### L 100.0500, L501.8820, L500.2500, L101.9900 #### [facility] [address] [place], [address] Creatinine [Mass/Vol] 1.12 mg/dL Normal 0.70-1.30 [facility] Comment on above: Result Comment: The validity of the calculated GFR GFRAA in patients over 70 years has not been determined. Clinical correlation is essential. Performed By: #### L 100.0500, L501.8820, L500.2500, L101.9900 #### [facility] [address] [place], [address] ECRCL 70.77 ml/min Normal [facility] Comment on above: Performed By: #### L 100.0500, L501.8820, L500.2500, L101.9900 #### [facility] [address] [place], [address] EST GFR - AA 81 mL/min Normal >60 [facility] Comment on above: Result Comment: Afri can [place] GFR Calc Performed By: #### L 100.0500, L501.8820, L500.2500, L101.9900 #### [facility] [address] [place], [address] GAP 4 Low 5-15 [facility] Comment on above: Performed By: #### L 100.0500, L501.8820, L500.2500, L101.9900 #### [facility] [address] [place], [address] GFR/1.73 sq M.predicted among non-blacks MDRD (S/P/Bld) [Vol rate/Area] 67 mL/min/{1.73_m2} Normal >60 [facility] Comment on above: Result Comment: Non- GFR Calc Performed By: #### L 100.0500, L501.8820, L500.2500, L101.9900 #### [facility] [address] [place], [address] Glucose [Mass/Vol] 90 mg/dL Normal 74-106 [facility] Comment on above: Performed By: #### L 100.0500, L501.8820, L500.2500, L101.9900 #### [facility] [address] [place], [address] Potassium [Moles/Vol] 4.0 mmol/L Normal 3.5-5.1 [facility] Comment on above: Performed By: #### L 100.0500, L501.8820, L500.2500, L101.9900 #### [facility] [address] [place], [address] Sodium [Moles/Vol] 136 mmol/L Normal 136-145 [facility] Comment on above: Performed By: #### L 100.0500, L501.8820, L500.2500, L101.9900 #### [facility] [address] [place], [address] Urea nitrogen [Mass/Vol] 20 mg/dL High 7-18 [facility] Comment on above: Performed By: #### L 100.0500, L501.8820, L500.2500, L101.9900 #### [facility] [address] [place], [address] CBC W/Diff, Automatedon 10-0 9-2023 Absolute Lymph 2.06 X10 3/uL Normal 0.83-4.51 [facility] Comment on above: Performed By: #### L 100.0500, L501.8820, L500.2500, L101.9900 #### [facility] [address] [place], [address] Absolute Neut 4.2 X10 3/uL Normal 2.0-7.7 [facility] Comment on above: Performed By: #### L 100.0500, L501.8820, L500.2500, L101.9900 #### [facility] [address] [place], [address] Basophils/100 WBC (Bld) 0.7 % Normal 0-1 [facility] Comment on above: Performed By: #### L 100.0500, L501.8820, L500.2500, L101.9900 #### [facility] [address] [place], [address] Eosinophils/100 WBC (Bld) 1.8 % Normal 0-5 [facility] Comment on above: Performed By: #### L 100.0500, L501.8820, L500.2500, L101.9900 #### [facility] [address] [place], [address] Erythrocyte distribution width (RBC) [Ratio] 13.4 % Normal 11.6-14.6 [facility] Comment on above: Performed By: #### L 100.0500, L501.8820, L500.2500, L101.9900 #### [facility] [address] [place], [address] Hematocrit (Bld) [Volume fraction] 33.6 % Low 40-54 [facility] Comment on above: Performed By: #### L 100.0500, L501.8820, L500.2500, L101.9900 #### [facility] [address] [place], [address] Hemoglobin (Bld) [Mass/Vol] 10.9 g/dL Low 13.0-16.5 [facility] Comment on above: Performed By: #### L 100.0500, L501.8820, L500.2500, L101.9900 #### [facility] [address] [place], [address] IG% 0.400 Normal 0.0-0.9 [facility] Comment on above: Result Comment: IG% - Immature Granulocytes (promyelocytes, myelocytes and metamyelocytes) > 1% indicates that a LEFT SHIFT is Present. Performed By: #### L 100.0500, L501.8820, L500.2500, L101.9900 #### [facility] [address] [place], [address] Lymphocytes/100 WBC (Bld) 28.5 % Normal 19-41 [facility] Comment on above: Performed By: #### L 100.0500, L501.8820, L500.2500, L101.9900 #### [facility] [address] [place], [address] MCH (RBC) [Entitic mass] 33.2 pg High 27.0-32.0 [facility] Comment on above: Performed By: #### L 100.0500, L501.8820, L500.2500, L101.9900 #### [facility] [address] [place], [address] MCHC (RBC) [Mass/Vol] 32.4 g/dL Normal 32-36 [facility] Comment on above: Performed By: #### L 100.0500, L501.8820, L500.2500, L101.9900 #### [facility] [address] [place], [address] MCV (RBC) [Entitic vol] 102.4 fL High 80-94 [facility] Comment on above: Performed By: #### L 100.0500, L501.8820, L500.2500, L101.9900 #### [facility] [address] [place], [address] Monocytes/100 WBC (Bld) 10.7 % High 0-10 [facility] Comment on above: Performed By: #### L 100.0500, L501.8820, L500.2500, L101.9900 #### [facility] [address] [place], [address] Neutrophils/100 WBC (Bld) 57.9 % Normal 47-70 [facility] Comment on above: Performed By: #### L 100.0500, L501.8820, L500.2500, L101.9900 #### [facility] [address] [place], [address] Nucleated RBC (Bld) [#/Vol] 0 10*3/uL Normal 0-5 [facility] Comment on above: Performed By: #### L 100.0500, L501.8820, L500.2500, L101.9900 #### [facility] [address] [place], [address] Platelet mean volume (Bld) [Entitic vol] 9.3 fL Normal 6.2-12.0 [facility] Comment on above: Performed By: #### L 100.0500, L501.8820, L500.2500, L101.9900 #### [facility] [address] [place], [address] Platelets (Bld) [#/Vol] 184 10*3/uL Normal 150-450 [facility] Comment on above: Performed By: #### L 100.0500, L501.8820, L500.2500, L101.9900 #### [facility] [address] [place], [address] RBC (Bld) [#/Vol] 3.28 10*6/uL Low 4.6-6.2 [facility] Comment on above: Performed By: #### L 100.0500, L501.8820, L500.2500, L101.9900 #### [facility] [address] [place], [address] RDW SD 50.7 fl High 35.1-43.9 [facility] Comment on above: Performed By: #### L 100.0500, L501.8820, L500.2500, L101.9900 #### [facility] [address] [place], [address] WBC (Bld) [#/Vol] 7.2 10*3/uL Normal 4.4-11.0 [facility] Comment on above: Performed By: #### L 100.0500, L501.8820, L500.2500, L101.9900 #### [facility] [address] [place], [address] Consultation - Infectious Dx on 08-13-2024 Consultation - Infectious Dx [facility] Medical Records Department [address] [place] [address] Consultation - Infectious Dx 08/13/24 1547 MR#: [id number] Acct: [id number] Name: LB VIZCAINO Rep #: [id number] : 1945 78 From: Francisco Lopez MD PCP: Dr. Earnest Arvizu MD Status:ADM IN [facility] Assessment Plan Assessment/Plan (1) Acute osteomyelitis of right foot: PLAN: Wound cx 07/08/24 with s. epi, enterococcus, MRSA, corynebacter, schaalia. Wound cx 08/05 with mssa and anaerobes. Currently on vanc/levaquin. Podiatry following. D/w Dr. Kim. Toe improving, tentative plan at this will be 6 weeks abx. Will follow, thank you (2) Other hereditary and idiopathic neuropathies: HPI Consult Data Date of Consult: 08/13/24 HPI Narrative Reason for Consultation: osteo HPI Narrative: LB VIZCAINO, is a 78 M with h/o pulm fibrosis, CAD, neuropathy, presented with 3 weeks progressive R 1st and 2nd toe swelling, redness, drainage, and ulceration on 2nd toe. Started after cutting nail on R hallux 4 weeks ago. No fever or chills, no pain in foot. Saw PCP, given doxy and keflex for a week then for a second week, referred to podiatry. MRI done, admitted, started on vanc and levaquin. reports toe much less red today. Full ROS performed and neg except as noted above. 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 in diseases classified elsewhere Idiopathic pulmonary fibrosis Obstructive sleep apnea Pulmonary fibrosis Chronic diastolic (congestive) heart failure Multiple premature ventricular complexes Left carotid artery stenosis Hypothyroidism Essential (primary) hypertension BPH (benign prostatic hyperplasia) Atherosclerotic heart disease of [place] coronary artery without angina pectoris Hyperlipidemia Home Medications ???Medication ???Instructions ???Recorded ???Last Taken ???Type lisinopril 5 mg tablet 5 mg PO DAILY BLOOD PRESSURE 12/31/17 05/30/21 History tamsulosin 0.4 mg capsule 0.4 mg PO DAILY PROSTATE 12/31/17 Unknown History metoprolol tartrate 25 mg tablet 12.5 mg PO DAILY BLOOD PRESSURE 01/04/18 05/30/21 History atorvastatin 20 mg tablet 20 mg PO QPM CHOLESTEROL #90 tabs 08/05/19 Unknown History levothyroxine 75 mcg tablet 75 mcg PO DAILY THYROID #90 tabs 08/05/19 05/30/21 History prednisone 10 mg tablet 10 mg PO DAILY STEROID 11/09/20 Unknown History furosemide 40 mg tablet (Lasix) 40 mg PO DAILY PRN EDEMA 05/20/21 Unknown History albuterol sulfate 90 mcg/actuation 2 puff inhalation Q4H PRN 08/12/24 Unknown History aerosol inhaler SHORTNESS OF BREATH/WHEEZING fexofenadine 180 mg tablet 180 mg PO DAILY 08/12/24 Unknown History (Allergy Relief (fexofenadine)) Allergy/AdvReac Type Severity Reaction Status Date / Time Penicillins AdvReac Severe Rash Verified 08/12/24 11:50 Family History Father Cancer Prostate cancer FH: CABG (coronary artery bypass surgery) FH: rheumatic fever Heart disease Mother Cancer Other Family history of coronary artery disease Surgical History History of detached retina repair History of left heart catheterization (05/30/21) 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) Social History Smoking Status: Former smoker how long ago did patient quit smokin alcohol intake: current alcohol intake frequency: a few times a month Alcohol type: hard liquor substance use type: does not use caffeine: Yes Type: tea what type of physical activity do you participate in: none seatbelt use: always do you feel safe at home: Yes Physical Exam Const alert, oriented x3 and no apparent distress General Appearance: cooperative HEENT normocephalic and head/scalp atraumatic Eyes PERRL and EOMs intact bilaterally Neck supple and No nodes Resp clear to auscultation bilaterally Auscultation: diminished lung sounds Cardio regular rate and regular rhythm GI soft to palpation, non-tender and non-distended Extremity General Extremity: Negative for edema Skin Skin Narrative: R 1st toe redness, swelling, mild drainage. R 2nd toe shallow ulcer, mild swelling Neuro CN's II-XII intact bilaterally Lab / Micro Data Attestation: I reviewed the patient's lab results. 08/13/24 06:11 08/13/24 06:11 Labs: Laboratory Results - last 24 hr 08/12/24 17:19: Lactic Acid 1.7 08/13/24 06:11: WBC 7.2, RBC 3.28 L, Hgb 10.9 L, Hct 33.6 L, MCV 102.4 H, MCH 33.2 H, MCH (more content not included)... Normal [facility] Urine Cultureon 08-13-2024 URC Culture exhibits no growth. Normal [facility] Comment on above: Performed By: #### L 100.0500, L501.8820, L500.2500, L101.9900 #### [facility] [address] [place], [address] 12 Lead EKGon 08-12-2024 12 Lead EKG [facility] [address] [place] [address] 12 Lead EKG 08/12/24 1255 MR#: [id number] Acct: [id number] Name: LB VIZCAINO Rep #: [id number] : 1945 78 From: Tru Queen MD Attending Dr: Dr. Oralia Patel DO Status: ADM I N Ordering Dr: Israel Paiz MD Date: 08/12/24 Location: [facility] Sex: M C Admitted: 08/12/24 Test Reason : WOUND Blood Pressure : / mmHG Vent. Rate : 055 BPM Atrial Rate : 055 BPM P-R Int : 236 ms QRS Dur : 128 ms QT Int : 458 ms P-R-T Axes : 026 -48 035 degrees QTc Int : 438 ms Sinus bradycardia with 1st degree A-V block Left axis deviation Left ventricular hypertrophy with QRS widening ( R in aVL , Abdoulaye product ) Abnormal ECG Confirmed by INOCENTE KHAN, TRU ([id number]), newspaper photo editor ROSA MORROW ([id number]) on 08/13/2024 9:37:31 AM Referred By: Confirmed By:TRU QUEEN MD 08/13/24 0937 Date Tru Queen MD CC: Dr. Israel Paiz MD; Dr. Oralia Patel DO; Dr. Earnest Arvizu MD Signed Normal [facility] CBC W/Diff, Automatedon 10-0 Absolute Lymph 1.17 X10 3/uL Normal 0.83-4.51 [facility] Comment on above: Performed By: #### L 100.0500, L501.8820, L101.9900, L500.2500 #### [facility] [address] [place], [address] Absolute Neut 8.3 X10 3/uL High 2.0-7.7 [facility] Comment on above: Performed By: #### L 100.0500, L501.8820, L101.9900, L500.2500 #### [facility] [address] [place], [address] Basophils/100 WBC (Bld) 0.5 % Normal 0-1 [facility] Comment on above: Performed By: #### L 100.0500, L501.8820, L101.9900, L500.2500 #### [facility] [address] [place], [address] Eosinophils/100 WBC (Bld) 0.5 % Normal 0-5 [facility] Comment on above: Performed By: #### L 100.0500, L501.8820, L101.9900, L500.2500 #### [facility] [address] [place], [address] Erythrocyte distribution width (RBC) [Ratio] 13.3 % Normal 11.6-14.6 [facility] Comment on above: Performed By: #### L 100.0500, L501.8820, L101.9900, L500.2500 #### [facility] [address] [place], [address] Hematocrit (Bld) [Volume fraction] 40.0 % Normal 40-54 [facility] Comment on above: Performed By: #### L 100.0500, L501.8820, L101.9900, L500.2500 #### [facility] [address] [place], [address] Hemoglobin (Bld) [Mass/Vol] 13.3 g/dL Normal 13.0-16.5 [facility] Comment on above: Performed By: #### L 100.0500, L501.8820, L101.9900, L500.2500 #### [facility] [address] [place], [address] IG% 0.600 Normal 0.0-0.9 [facility] Comment on above: Result Comment: IG% - Immature Granulocytes (promyelocytes, myelocytes and metamyelocytes) > 1% indicates that a LEFT SHIFT is Present. Performed By: #### L 100.0500, L501.8820, L101.9900, L500.2500 #### [facility] [address] [place], [address] Lymphocytes/100 WBC (Bld) 11.3 % Low 19-41 [facility] Comment on above: Performed By: #### L 100.0500, L501.8820, L101.9900, L500.2500 #### [facility] [address] [place], [address] MCH (RBC) [Entitic mass] 34.1 pg High 27.0-32.0 [facility] Comment on above: Performed By: #### L 100.0500, L501.8820, L101.9900, L500.2500 #### [facility] [address] [place], [address] MCHC (RBC) [Mass/Vol] 33.3 g/dL Normal 32-36 [facility] Comment on above: Performed By: #### L 100.0500, L501.8820, L101.9900, L500.2500 #### [facility] [address] [place], [address] MCV (RBC) [Entitic vol] 102.6 fL High 80-94 [facility] Comment on above: Performed By: #### L 100.0500, L501.8820, L101.9900, L500.2500 #### [facility] [address] [place], [address] Monocytes/100 WBC (Bld) 7.2 % Normal 0-10 [facility] Comment on above: Performed By: #### L 100.0500, L501.8820, L101.9900, L500.2500 #### [facility] [address] [place], [address] Neutrophils/100 WBC (Bld) 79.9 % High 47-70 [facility] Comment on above: Performed By: #### L 100.0500, L501.8820, L101.9900, L500.2500 #### [facility] [address] [place], [address] Nucleated RBC (Bld) [#/Vol] 0 10*3/uL Normal 0-5 [facility] Comment on above: Performed By: #### L 100.0500, L501.8820, L101.9900, L500.2500 #### [facility] [address] [place], [address] Platelet mean volume (Bld) [Entitic vol] 9.0 fL Normal 6.2-12.0 [facility] Comment on above: Performed By: #### L 100.0500, L501.8820, L101.9900, L500.2500 #### [facility] [address] [place], [address] Platelets (Bld) [#/Vol] 231 10*3/uL Normal 150-450 [facility] Comment on above: Performed By: #### L 100.0500, L501.8820, L101.9900, L500.2500 #### [facility] [address] [place], [address] RBC (Bld) [#/Vol] 3.90 10*6/uL Low 4.6-6.2 [facility] Comment on above: Performed By: #### L 100.0500, L501.8820, L101.9900, L500.2500 #### [facility] [address] [place], [address] RDW SD 50.8 fl High 35.1-43.9 [facility] Comment on above: Performed By: #### L 100.0500, L501.8820, L101.9900, L500.2500 #### [facility] [address] [place], [address] WBC (Bld) [#/Vol] 10.3 10*3/uL Normal 4.4-11.0 [facility] Comment on above: Performed By: #### L 100.0500, L501.8820, L101.9900, L500.2500 #### [facility] [address] [place], [address] Comprehensive Metabolic Prof [facility] 08-12-2024 Albumin [Mass/Vol] 3.2 g/dL Normal 3.2-5.0 [facility] Comment on above: Performed By: #### L 100.0500, L501.8820, L101.9900, L500.2500 #### [facility] [address] [place], [address] Albumin/Globulin [Mass ratio] 0.7 {ratio} Low 0.9-2.4 [facility] Comment on above: Performed By: #### L 100.0500, L501.8820, L101.9900, L500.2500 #### [facility] [address] [place], [address] ALK P 87 U/L Normal 45-117 [facility] Comment on above: Performed By: #### L 100.0500, L501.8820, L101.9900, L500.2500 #### [facility] [address] [place], [address] ALT [Catalytic activity/Vol] 39 U/L Normal 16-61 [facility] Comment on above: Performed By: #### L 100.0500, L501.8820, L101.9900, L500.2500 #### [facility] [address] [place], [address] AST [Catalytic activity/Vol] 22 U/L Normal 15-37 [facility] Comment on above: Performed By: #### L 100.0500, L501.8820, L101.9900, L500.2500 #### [facility] [address] [place], [address] Bilirubin [Mass/Vol] 0.90 mg/dL Normal 0.20-1.00 [facility] Comment on above: Result Comment: For patients on eltrombopag therapy, use of Dimension [place] TBIL is not recommended. Performed By: #### L 100.0500, L501.8820, L101.9900, L500.2500 #### [facility] [address] [place], [address] BUN/CRE 19.2 RATIO Normal 10-20 [facility] Comment on above: Performed By: #### L 100.0500, L501.8820, L101.9900, L500.2500 #### [facility] [address] [place], [address] CA,Total 9.2 mg/dL Normal 8.5-10.1 [facility] Comment on above: Performed By: #### L 100.0500, L501.8820, L101.9900, L500.2500 #### [facility] [address] [place], [address] Chloride [Moles/Vol] 104 mmol/L Normal 98-107 [facility] Comment on above: Performed By: #### L 100.0500, L501.8820, L101.9900, L500.2500 #### [facility] [address] [place], [address] CO2 [Moles/Vol] 23.0 mmol/L Normal 21.0-32.0 [facility] Comment on above: Performed By: #### L 100.0500, L501.8820, L101.9900, L500.2500 #### [facility] [address] [place], [address] Creatinine [Mass/Vol] 1.20 mg/dL Normal 0.70-1.30 [facility] Comment on above: Result Comment: The validity of the calculated GFR GFRAA in patients over 70 years has not been determined. Clinical correlation is essential. Performed By: #### L 100.0500, L501.8820, L101.9900, L500.2500 #### [facility] [address] [place], [address] ECRCL 66.67 ml/min Normal [facility] Comment on above: Performed By: #### L 100.0500, L501.8820, L101.9900, L500.2500 #### [facility] [address] [place], [address] EST GFR - AA 75 mL/min Normal >60 [facility] Comment on above: Result Comment: Afri can [place] GFR Calc Performed By: #### L 100.0500, L501.8820, L101.9900, L500.2500 #### [facility] [address] [place], [address] GAP 9 Normal 5-15 [facility] Comment on above: Performed By: #### L 100.0500, L501.8820, L101.9900, L500.2500 #### [facility] [address] [place], [address] GFR/1.73 sq M.predicted among non-blacks MDRD (S/P/Bld) [Vol rate/Area] 62 mL/min/{1.73_m2} Normal >60 [facility] Comment on above: Result Comment: Non- GFR Calc Performed By: #### L 100.0500, L501.8820, L101.9900, L500.2500 #### [facility] [address] [place], [address] Globulin (S) [Mass/Vol] 4.4 g/dL High 2.2-4.2 [facility] Comment on above: Performed By: #### L 100.0500, L501.8820, L101.9900, L500.2500 #### [facility] [address] [place], [address] Glucose [Mass/Vol] 135 mg/dL High 74-106 [facility] Comment on above: Result Comment: Fast ing Glucose result greater than or equal to 126 mg/dL suggests DIABETES MELLITUS per A.D.A. criteria. Performed By: #### L 100.0500, L501.8820, L101.9900, L500.2500 #### [facility] [address] [place], [address] Potassium [Moles/Vol] 4.6 mmol/L Normal 3.5-5.1 [facility] Comment on above: Performed By: #### L 100.0500, L501.8820, L101.9900, L500.2500 #### [facility] [address] [place], [address] Sodium [Moles/Vol] 136 mmol/L Normal 136-145 [facility] Comment on above: Performed By: #### L 100.0500, L501.8820, L101.9900, L500.2500 #### [facility] [address] [place], [address] T PROT 7.6 g/dL Normal 6.4-8.2 [facility] Comment on above: Performed By: #### L 100.0500, L501.8820, L101.9900, L500.2500 #### [facility] [address] [place], [address] Urea nitrogen [Mass/Vol] 23 mg/dL High 7-18 [facility] Comment on above: Performed By: #### L 100.0500, L501.8820, L101.9900, L500.2500 #### [facility] [address] [place], [address] Emergency Department Summary on 08-12-2024 Emergency Department Summary [facility] Medical Records Department [address] [place] [address] Emergency Department Summary 08/12/24 MR#: [id number] Acct: [id number] Name: LB VIZCAINO Rep #: [id number] : 1945 78 From: Israel Paiz MD PCP: Dr. Earnest Arvizu MD Status:REG ER Location: ED HPI History of Present Illness Chief Complaint: Wound Narrative Narrative: 78-year-old male past medical history of pulmonary fibrosis, not diabetic, presents with osteomyelitis of the right great toe. He relates history that he became somewhat aggressive and clipping his toenails 3 weeks ago. He started having bleeding on the medial aspect of his right great toe. Since then, the toe has become red, and he is being treated with antibiotics. He is on doxycycline and another medication that his cannot remember the name of. He had an MRI of his right foot yesterday which showed osteomyelitis of the right great toe. Although he is not diabetic, what complicates it is that he has a pressure sore because his second toe presses against his right great toe. While he denies any fevers or chills, no nausea or vomiting, he denies other symptoms and thinks that the great toe redness is actually improved. He has past medical history of neuropathy so he cannot say that he actually has a lot of great toe pain. His night auditor Dr. 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 Kim for admission. 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 in diseases classified elsewhere Idiopathic pulmonary fibrosis Obstructive sleep apnea Pulmonary fibrosis Chronic diastolic (congestive) heart failure Multiple premature ventricular complexes Left carotid artery stenosis Hypothyroidism Essential (primary) hypertension BPH (benign prostatic hyperplasia) Atherosclerotic heart disease of [place] coronary artery without angina pectoris Hyperlipidemia Home Medications ???Medication ???Instructions ???Recorded ???Last Taken ???Type lisinopril 5 mg tablet 5 mg PO DAILY BLOOD PRESSURE 12/31/17 05/30/21 History tamsulosin 0.4 mg capsule 0.4 mg PO DAILY PROSTATE 12/31/17 Unknown History metoprolol tartrate 25 mg tablet 12.5 mg PO DAILY BLOOD PRESSURE 01/04/18 05/30/21 History atorvastatin 20 mg tablet 20 mg PO QPM CHOLESTEROL #90 tabs 08/05/19 Unknown History levothyroxine 75 mcg tablet 75 mcg PO DAILY THYROID #90 tabs 08/05/19 05/30/21 History prednisone 10 mg tablet 10 mg PO DAILY STEROID 11/09/20 Unknown History furosemide 40 mg tablet (Lasix) 40 mg PO DAILY PRN EDEMA 05/20/21 Unknown History albuterol sulfate 90 mcg/actuation 2 puff inhalation Q4H PRN 08/12/24 Unknown History aerosol inhaler SHORTNESS OF BREATH/WHEEZING fexofenadine 180 mg tablet 180 mg PO DAILY 08/12/24 Unknown History (Allergy Relief (fexofenadine)) Allergy/AdvReac Type Severity Reaction Status Date / Time Penicillins AdvReac Severe Rash Verified 08/12/24 11:50 Family History Father Cancer Prostate cancer FH: CABG (coronary artery bypass surgery) FH: rheumatic fever Heart disease Mother Cancer Other Family history of coronary artery disease Surgical History History of detached retina repair History of left heart catheterization (05/30/21) 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) Social History Smoking Status: Former smoker how long ago did patient quit smokin alcohol intake: current alcohol intake frequency: a few times a month Alcohol type: hard liquor substance use type: does not use caffeine: Yes Type: tea what type of physical activity do you participate in: none seatbelt use: always do you feel safe at home: Yes ROS ROS ED ROS Narrative Constitutional: No fever, no chills. HEENT: No sore throat. No neck pain. No loss of vision. No rhinorrhea. Cardiovascular: No chest pain. No palpitations. No pedal edema. Respiratory: No cough, chronic shortness of breath. Abdominal: No abdominal pain. No nausea. No vomiting. Genitourinary: No dysuria. No hematuria. Musculoskeletal: No myalgias. Right great toe erythema, mild pain, but limited secondary to neuropathy. Neurologic: No headaches. No dizziness. No lightheadedness. Skin: No rash. No change in color. Psychiatric: No depression. No anxiety. EXAM Physical Exam Narrative Exam Narrative: Afebrile. Vital signs noted. Nontoxic-appearing. Regular rate and rhythm. Respiratory examination shows no evidence o (more content not included)... Normal [facility] H AND P Exam - [facility] 08-12-2024 H&P Exam - Hospitalist [facility] Medical Records Department [address] [place] [address] H P Exam - [facility] 08/12/24 1440 MR#: [id number] Acct: [id number] Name: LB VIZCAINO Rep #: [id number] : 1945 78 From: Miguel Call MD PCP: Dr. Earnest Arvizu MD Status:ADM IN Location: NC3 [id number] HPI - General General Date of Admission: 08/12/24 Date of Service: 08/12/24 Chief Complaint: Osteomyelitis HPI Narrative LB VIZCAINO, is a 78 M with a significant history of pulmonary fibrosis and neuropathy who presents to the hospital with osteomyelitis. Of note imaging outpatient showed osteomyelitis of the big toe of the right foot. His symptoms began when he accidentally nipped his right big toe while cutting his toenails. Also patient has also of the medial side of the second toe of his right foot. [facility] Medical History (Updated 08/12/24 @ 23:[address] 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 in diseases classified elsewhere Idiopathic pulmonary fibrosis Obstructive sleep apnea Pulmonary fibrosis Chronic diastolic (congestive) heart failure Multiple premature ventricular complexes Left carotid artery stenosis Hypothyroidism Essential (primary) hypertension BPH (benign prostatic hyperplasia) Atherosclerotic heart disease of [place] coronary artery without angina pectoris Hyperlipidemia Home Medications ???Medication ???Instructions ???Recorded ???Last Taken ???Type lisinopril 5 mg tablet 5 mg PO DAILY BLOOD PRESSURE 12/31/17 05/30/21 History tamsulosin 0.4 mg capsule 0.4 mg PO DAILY PROSTATE 12/31/17 Unknown History metoprolol tartrate 25 mg tablet 12.5 mg PO DAILY BLOOD PRESSURE 01/04/18 05/30/21 History atorvastatin 20 mg tablet 20 mg PO QPM CHOLESTEROL #90 tabs 08/05/19 Unknown History levothyroxine 75 mcg tablet 75 mcg PO DAILY THYROID #90 tabs 08/05/19 05/30/21 History prednisone 10 mg tablet 10 mg PO DAILY STEROID 11/09/20 Unknown History furosemide 40 mg tablet (Lasix) 40 mg PO DAILY PRN EDEMA 05/20/21 Unknown History albuterol sulfate 90 mcg/actuation 2 puff inhalation Q4H PRN 08/12/24 Unknown History aerosol inhaler SHORTNESS OF BREATH/WHEEZING fexofenadine 180 mg tablet 180 mg PO DAILY 08/12/24 Unknown History (Allergy Relief (fexofenadine)) Allergy/AdvReac Type Severity Reaction Status Date / Time Penicillins AdvReac Severe Rash Verified 08/12/24 11:50 Family History Father Cancer Prostate cancer FH: CABG (coronary artery bypass surgery) FH: rheumatic fever Heart disease Mother Cancer Other Family history of coronary artery disease Surgical History History of detached retina repair History of left heart catheterization (05/30/21) 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) Social History Smoking Status: Former smoker how long ago did patient quit smokin alcohol intake: current alcohol intake frequency: a few times a month Alcohol type: hard liquor substance use type: does not use caffeine: Yes Type: tea what type of physical activity do you participate in: none seatbelt use: always do you feel safe at home: Yes ROS ROS Narrative Pertinent positives and pertinent negatives as noted in HPI. All other systems were reviewed and are negative Vital Signs Vital Signs Vital Signs: 08/12/24 11:49 08/12/24 11:54 08/12/24 12:44 Temperature 97.5 F L 97.5 F L Temperature Source Oral Oral Pulse Rate 66 66 Respiratory Rate 16 16 Blood Pressure 130/79 H 130/79 H Blood Pressure Mean 96 96 Pulse Ox 98 98 Oxygen Delivery Method Room Air Room Air Room Air 08/12/24 13:30 Temperature Temperature Source Pulse Rate 57 L Respiratory Rate 18 Blood Pressure 149/77 H Blood Pressure Mean 101 Pulse Ox 98 Oxygen Delivery Method Room Air Weight Weight: 109.798 kg Body Mass Index (BMI) 29.5 Physical Exam Narrative Physical exam: General: Well-nourished, well-developed. Head: Normocephalic, excoriation at frontal side of head. Eyes: Vision is grossly intact. EOMI ENT, no trauma, moist mucous membranes, no rhinorrhea Neck: Nontender, No thyromegaly. CVS: Regular rate and rhythm. S1-S2 present. No murmur, gallop or rub. Respiratory : clear to auscultation bilaterally, chest wall nontender Abdomen: Soft, nontender, nondistended, normal bowel sounds, no masses : Deferred Back: Nontender, no CVA tenderness, no midline spinal tenderness, deformities, step-off (more content not included)... Normal [facility] Lactic Acidon 08-12-2024 Lactate [Moles/Vol] 1.7 mmol/L Normal 0.4-1.9 [facility] Comment on above: Performed By: #### L 100.0500, L501.8820, L500.2500, L101.9900 #### [facility] [address] [place], [place], [id number] Lactate [Moles/Vol] 3.3 mmol/L Invalid Interpretation Code 0.4-1.9 [facility] Comment on above: Order Comment: Y Result Comment: Crit ical Result(s) Called at: 13:43:55 08/12/2024 by: Xin Wyatt to Lizzette Aguilera. Results read back by same. Performed By: #### L 100.0500, L501.8820, L101.9900, L500.2500 #### [facility] [address] [place], [address] Urinalysis, Completeon 08-12 RBC 0-5 SEEN Normal 0-5 [facility] Comment on above: Order Comment: 0000 Performed By: #### L 100.0500, L501.8820, L500.2500, L101.9900 #### [facility] [address] [place], [address] BACTERIA 1+ /hpf Normal None Seen [facility] Comment on above: Order Comment: 0000 Performed By: #### L 100.0500, L501.8820, L500.2500, L101.9900 #### [facility] [address] [place], [address] Mucus Ql (Urine sed) 1+ /hpf Normal [facility] Comment on above: Order Comment: 0000 Performed By: #### L 100.0500, L501.8820, L500.2500, L101.9900 #### [facility] [address] [place], [address] EPI,SQUAMOUS 0 SEEN Normal 0-5 [facility] Comment on above: Order Comment: 0000 Performed By: #### L 100.0500, L501.8820, L500.2500, L101.9900 #### [facility] [address] [place], [address] WBC 0 SEEN Normal 0-5 [facility] Comment on above: Order Comment: 0000 Performed By: #### L 100.0500, L501.8820, L500.2500, L101.9900 #### [facility] [address] [place], [address] Lower Ext Joint Only W/WO Co nton 08-11-2024 Lower Ext Joint Only W/WO Cont [facility] Imaging Services [address] [address] Lower Ext Joint Only W/WO Cont MR#: [id number] Acct: [id number] Name: LB VIZCAINO Rep #: [id number] : 1945 M 78 From: Grady Patel MD PCP: Dr. Earnest Arvizu MD Status: REG CLI Study: Lower Ext Joint Only W/WO Cont Date of Exam: Exam# [id number] Ordering Dr: Earnest Arvizu MD ADDENDUM by Dr. Filemon Garces MD on 08/12/24 at 2123 ====== ADDENDUM ====== [id number] Additionally, there is increased T2 signal marrow edema consistent with osteomyelitis of the second distal phalanx, series 9 image 18 and series 7 image 30. Electronically Signed: Filemon Garces MD at 21:24 EDT , 08/12/242123 Date cc: Dr. Earnest Arvizu MD * Signed ADDENDUM by Dr. Filemon Garces MD on 08/12/24 at 2124 MRI/Lower Ext Joint Only W/WO Cont IMPRESSION: undefined 08/12/242130 Date cc: Dr. Earnest Arvizu MD * Signed [id number] STUDY: MRI RIGHT FOREFOOT WITH AND WITHOUT CONTRAST REASON FOR EXAM: Male, 78 years old. OSTEOMYELITIS, PT POPPED BLISTER MEDIAL 1ST TOE A FEW WEEKS AGO, SWELLING/REDNESS TECHNIQUE: Standardized fat and water weighted pulse sequences were obtained in all 3 orthogonal planes, post contrast administration. IV 23 cc Clariscan was administered for the contrast portion of the examination. COMPARISON: None. FINDINGS: There is skin ulceration along the medial aspect of the great toe with fluid signal tracking from the skin surface to the medial cortex of the distal phalanx of the great toe (coronal T2 series 6 image 13; axial T2 series 5 images 28-29). There is abnormal marrow signal in the distal phalanx of the great toe, with enhancement following IV contrast, concerning for osteomyelitis. Normal bone marrow of the remainder of the phalanges, metatarsals, phalanges and visualized distal tarsal row, without fracture, periostitis, erosions or reactive bone edema. Normal sesamoids without sesamoiditis, fracture or avascular necrosis. Normal joint spaces, without effusions. There are no extraarticular fluid collections. Normal visualized Lisfranc joints and normal Lisfranc ligament. Normal intermetatarsal spaces without intermetatarsal (Gore) neuroma or bursitis. There is a tear/rupture of the flexor hallucis longus tendon from the level of the first MTP joint to the interphalangeal joint of the great toe (sagittal STIR series 9 images 7-9). Normal visualized extensor tendons. Normal visualized plantar fascia without fasciitis, fibromatosis or tear. There is atrophy and fatty infiltration of the intrinsic muscles of the foot. There is subcutaneous soft tissue edema around the great toe and along the dorsum of the foot. MRI/Lower Ext Joint Only W/WO Cont IMPRESSION: Skin ulceration along the medial aspect of the great toe with fluid signal tracking from the skin surface to the medial cortex of the distal phalanx of the great toe. Suspected osteomyelitis of the distal phalanx of the great toe. Tear/rupture of the flexor hallucis longus tendon from the level of the first MTP joint to the interphalangeal joint of the great toe. Atrophy and fatty infiltration of the intrinsic muscles of the foot. Subcutaneous soft tissue edema around the great toe and along the dorsum of the foot. Electronically Signed: Grady Patel MD at 13:31 EDT Reading Location ID and State: [facility] / MD , Service support , CC: Dr. Earnest Arvizu MD Ekg Tech: Signed Normal [facility] Culture, Anaerobic Any [facility] matt 08-08-2024 CUAN GREAT RIGHT TOE Studies have confirmed that Anaerobic Gram Positive Cocci are routinely SUSCEPTABLE to Penicillin and generally susceptible to Beta-lactams and Beta-lactamase inhibitors, Cephalosporins, Carbapenems and Metronidazole. They are showing increased RESISTANCE to Clindamycin Anaerobic cocci Normal [facility] Comment on above: Performed By: #### L 100.0500, L501.8820, L500.2500, L101.9900 #### [facility] [address] [place], [address] Wound Cultureon 08-07-2024 WC GREAT RIGHT TOE Staphylococcus aureus Amount Growth 3+ Normal [facility] Comment on above: Performed By: #### L 100.0500, L501.8820, L500.2500, L101.9900 #### [facility] [address] [place], [address] Gram Stainon 08-06-2024 GS GREAT RIGHT TOE Gram Stain Rare Epithelial cells Rare Gram positive cocci Normal [facility] Comment on above: Performed By: #### L 100.0500, L501.8820, L500.2500, L101.9900 #### [facility] [address] [place], [address] CBC W/Diff, Automatedon 10-0 1-4 Absolute Lymph 0.83 X10 3/uL Normal 0.83-4.51 [facility] Comment on above: Performed By: #### L 500.4050, L100.0100 #### [facility] [address] [place], [address] Absolute Neut 7.4 X10 3/uL Normal 2.0-7.7 [facility] Comment on above: Performed By: #### L 500.4050, L100.0100 #### [facility] [address] [place], [address] Basophils/100 WBC (Bld) 0.4 % Normal 0-1 [facility] Comment on above: Performed By: #### L 500.4050, L100.0100 #### [facility] [address] [place], [address] Eosinophils/100 WBC (Bld) 0.1 % Normal 0-5 [facility] Comment on above: Performed By: #### L 500.4050, L100.0100 #### [facility] [address] [place], [address] Erythrocyte distribution width (RBC) [Ratio] 13.4 % Normal 11.6-14.6 [facility] Comment on above: Performed By: #### L 500.4050, L100.0100 #### [facility] [address] [place], [address] Hematocrit (Bld) [Volume fraction] 38.2 % Low 40-54 [facility] Comment on above: Performed By: #### L 500.4050, L100.0100 #### [facility] [address] [place], [address] Hemoglobin (Bld) [Mass/Vol] 12.8 g/dL Low 13.0-16.5 [facility] Comment on above: Performed By: #### L 500.4050, L100.0100 #### [facility] [address] [place], [address] IG% 1.400 High 0.0-0.9 [facility] Comment on above: Result Comment: IG% - Immature Granulocytes (promyelocytes, myelocytes and metamyelocytes) > 1% indicates that a LEFT SHIFT is Present. Performed By: #### L 500.4050, L100.0100 #### [facility] [address] [place], [address] Lymphocytes/100 WBC (Bld) 9.2 % Low 19-41 [facility] Comment on above: Performed By: #### L 500.4050, L100.0100 #### [facility] [address] [place], [address] MCH (RBC) [Entitic mass] 34.4 pg High 27.0-32.0 [facility] Comment on above: Performed By: #### L 500.4050, L100.0100 #### [facility] [address] [place], [address] MCHC (RBC) [Mass/Vol] 33.5 g/dL Normal 32-36 [facility] Comment on above: Performed By: #### L 500.4050, L100.0100 #### [facility] [address] [place], [address] MCV (RBC) [Entitic vol] 102.7 fL High 80-94 [facility] Comment on above: Performed By: #### L 500.4050, L100.0100 #### [facility] [address] [place], [address] Monocytes/100 WBC (Bld) 6.3 % Normal 0-10 [facility] Comment on above: Performed By: #### L 500.4050, L100.0100 #### [facility] [address] [place], [address] Neutrophils/100 WBC (Bld) 82.6 % High 47-70 [facility] Comment on above: Performed By: #### L 500.4050, L100.0100 #### [facility] [address] [place], [address] Nucleated RBC (Bld) [#/Vol] 0 10*3/uL Normal 0-5 [facility] Comment on above: Performed By: #### L 500.4050, L100.0100 #### [facility] [address] [place], [address] Platelet mean volume (Bld) [Entitic vol] 9.6 fL Normal 6.2-12.0 [facility] Comment on above: Performed By: #### L 500.4050, L100.0100 #### [facility] [address] [place], [address] Platelets (Bld) [#/Vol] 207 10*3/uL Normal 150-450 [facility] Comment on above: Performed By: #### L 500.4050, L100.0100 #### [facility] [address] [place], [address] RBC (Bld) [#/Vol] 3.72 10*6/uL Low 4.6-6.2 [facility] Comment on above: Performed By: #### L 500.4050, L100.0100 #### [facility] [address] [place], [address] RDW SD 50.9 fl High 35.1-43.9 [facility] Comment on above: Performed By: #### L 500.4050, L100.0100 #### [facility] [address] [place], [address] WBC (Bld) [#/Vol] 9.0 10*3/uL Normal 4.4-11.0 [facility] Comment on above: Performed By: #### L 500.4050, L100.0100 #### [facility] [address] [place], [address] Comprehensive Metabolic Prof ilon 08-05-2024 Albumin [Mass/Vol] 3.1 g/dL Low 3.2-5.0 [facility] Comment on above: Performed By: #### L 500.4050, L100.0100 #### [facility] [address] [place], [address] Albumin/Globulin [Mass ratio] 0.7 {ratio} Low 0.9-2.4 [facility] Comment on above: Performed By: #### L 500.4050, L100.0100 #### [facility] [address] [place], [address] ALK P 86 U/L Normal 45-117 [facility] Comment on above: Performed By: #### L 500.4050, L100.0100 #### [facility] [address] [place], [address] ALT [Catalytic activity/Vol] 29 U/L Normal 16-61 [facility] Comment on above: Performed By: #### L 500.4050, L100.0100 #### [facility] [address] [place], [address] AST [Catalytic activity/Vol] 19 U/L Normal 15-37 [facility] Comment on above: Performed By: #### L 500.4050, L100.0100 #### [facility] [address] [place], [address] Bilirubin [Mass/Vol] 0.80 mg/dL Normal 0.20-1.00 [facility] Comment on above: Result Comment: For patients on eltrombopag therapy, use of Dimension [place] TBIL is not recommended. Performed By: #### L 500.4050, L100.0100 #### [facility] [address] [place], [address] BUN/CRE 14.7 RATIO Normal 10-20 [facility] Comment on above: Performed By: #### L 500.4050, L100.0100 #### [facility] [address] [place], [address] CA,Total 9.6 mg/dL Normal 8.5-10.1 [facility] Comment on above: Performed By: #### L 500.4050, L100.0100 #### [facility] [address] [place], [address] Chloride [Moles/Vol] 103 mmol/L Normal 98-107 [facility] Comment on above: Performed By: #### L 500.4050, L100.0100 #### [facility] [address] [place], [address] CO2 [Moles/Vol] 24.0 mmol/L Normal 21.0-32.0 [facility] Comment on above: Performed By: #### L 500.4050, L100.0100 #### [facility] [address] [place], [address] Creatinine [Mass/Vol] 1.29 mg/dL Normal 0.70-1.30 [facility] Comment on above: Result Comment: The validity of the calculated GFR GFRAA in patients over 68 years has not been determined. Clinical correlation is essential. Performed By: #### L 500.4050, L100.0100 #### [facility] [address] [place], [address] EST GFR - AA 69 mL/min Normal >60 [facility] Comment on above: Result Comment: Afri can [place] GFR Calc Performed By: #### L 500.4050, L100.0100 #### [facility] [address] [place], [address] GAP 5 Normal 5-15 [facility] Comment on above: Performed By: #### L 500.4050, L100.0100 #### [facility] [address] [place], [address] GFR/1.73 sq M.predicted among non-blacks MDRD (S/P/Bld) [Vol rate/Area] 57 mL/min/{1.73_m2} Low >60 [facility] Comment on above: Result Comment: Non- GFR Calc Performed By: #### L 500.4050, L100.0100 #### [facility] [address] [place], [address] Globulin (S) [Mass/Vol] 4.6 g/dL High 2.2-4.2 [facility] Comment on above: Performed By: #### L 500.4050, L100.0100 #### [facility] [address] [place], [address] Glucose [Mass/Vol] 153 mg/dL High 74-106 [facility] Comment on above: Result Comment: Fast ing Glucose result greater than or equal to 126 mg/dL suggests DIABETES MELLITUS per A.D.A. criteria. Performed By: #### L 500.4050, L100.0100 #### [facility] [address] [place], [address] Potassium [Moles/Vol] 5.0 mmol/L Normal 3.5-5.1 [facility] Comment on above: Performed By: #### L 500.4050, L100.0100 #### [facility] [address] [place], [address] Sodium [Moles/Vol] 132 mmol/L Low 136-145 [facility] Comment on above: Performed By: #### L 500.4050, L100.0100 #### [facility] [address] [place], [address] T PROT 7.7 g/dL Normal 6.4-8.2 [facility] Comment on above: Performed By: #### L 500.4050, L100.0100 #### [facility] [address] [place], [address] Urea nitrogen [Mass/Vol] 19 mg/dL High 7-18 [facility] Comment on above: Performed By: #### L 500.4050, L100.0100 #### [facility] [address] [place], [address] Ankle Brachial Indexon 07-16 Ankle Brachial Index [facility] [address] [place] [address] Ankle Brachial Index 07/16/24 1248 MR#: [id number] Acct: [id number] Name: LB VIZCAINO Rep #: [id number] : 1945 78 From: Kris Schroeder MD Attending Dr: Dr. Earnest Arvizu MD Status: REG CLI Ordering Dr: Earnest Arvizu MD Date: 07/16/24 Location: [facility] Sex: M C Admitted: Reason For Study: Polyneuropathy Procedure A bilateral lower extremity continuous wave Doppler with analog waveform analysis and ankle brachial indexes. Left Segmental Pressures Left brachial= 142mmHg. Left posterior tibial artery = >254mmHg. Left dorsalis pedis artery = 146mmHg. Left digit = 99 mmHg. The left dorsalis pedis waveforms are triphasic. The left posterior tibial artery waveforms are triphasic. Right Segmental Pressures Right brachial= 143mmHg. Right posterior tibial artery = 233mmHg. Right dorsalis pedis artery = 194mmHg. Right digit = 119 mmHg. The right dorsalis pedis waveforms are triphasic. The right posterior tibial artery waveforms are triphasic. Indices The right ankle brachial index by the dorsalis pedis is 1.36. The right ankle brachial index by the posterior tibial artery is 1.63. The right digital-brachial index is 0.83. The left ankle brachial index by the dorsalis pedis is 1.02. The left ankle brachial index by the posterior tibial artery is NC. The left digital-brachial index is 0.69. VL/Ankle Brachial Index Interpretation Summary Right REMA 1.63, normal. TBI and Doppler/PVR waveforms of the right leg normal at rest. Left REMA 1.02, normal. Doppler/PVR waveforms of the left leg normal at rest. TBI diminished, pedal/digit disease vs spasm Ordering Physician: Earnest Arvizu Chi Referring Physician: EARNEST ARVIZU CHI, MD Performed By: Rebecca Mcfarland Lara 07/17/24 1257 Date Kris Schroeder MD CC: Dr. Earnest Arvizu MD Date Dictated: 07/16/24 1248 Date Transcribed: 07/17/24 1257 Ekg Tech: Signed Normal [facility] Wound Cultureon 07-15-2024 #4,5 Susceptibility not normally performed on this organism Bacteria Wnd Cult Copy of report sent to Infection Control Printer [id number] 07/11/24 0723 [facility]. Staphylococcus epidermidis Amount Growth 2+ Enterococcus faecalis Amount Growth 2+ Meth. resistant Staph. aureus Amount Growth 2+ mecA Testing not performed Corynebacterium jeikeium Amount Growth 2+ [place] odontolyticus Amount Growth 2+ Staphylococcus epidermidis: REACTION cefOXitin Susc Islt POS Clindamycin.induced Susc Islt NEG Erythromycin Islt JAZMINE >=8 R Gentamicin Islt JAZMINE <=0.5 S Linezolid Islt JAZMINE 1 S Oxacillin Susc Islt >=4 R Tetracycline Islt JAZMINE >=16 R Vancomycin Islt JAZMINE 2 S Enterococcus faecalis: REACTION Ampicillin Islt JAZMINE <=2 S Gentamicin Synergy Susc Islt SYN-S S Linezolid Islt JAZMINE 2 S Streptomycin High Pot Susc Islt SYN-S S Vancomycin Islt JAZMINE 2 S Meth. resistant Staph. aureus: REACTION cefOXitin Susc Islt POS Doxycycline Islt JAZMINE <=0.5 S Clindamycin.induced Susc Islt NEG Erythromycin Islt JAZMINE <=0.25 S Gentamicin Islt JAZMINE <=0.5 S Linezolid Islt JAZMINE 2 S Oxacillin Susc Islt R Tetracycline Islt JAZMINE <=1 S TMP SMX Islt JAZMINE <=10 S Vancomycin Islt JAZMINE 1 S Normal [facility] Comment on above: Performed By: #### L 100.0500, L501.8820, L500.2500, L101.9900 #### [facility] [address] [place], [address] Culture, Anaerobic Any Sourc matt 07-11-2024 CUAN No anaerobic bacteri a isolated. Normal [facility] Comment on above: Performed By: #### L 100.0500, L501.8820, L500.2500, L101.9900 #### [facility] [address] [place], [address] Venous Duplex US - Kam Extre [facility] 07-11-2024 Venous Duplex US - Kam Extrem [facility] [address] [place] [address] Venous Duplex US - Kam [facility] 07/11/24 1012 MR#: [id number] Acct: [id number] Name: LB VIZCAINO Rep #: [id number] : 1945 78 From: Anton Gutiérrez MD Attending Dr: Dr. Earnest Arvizu MD Status: REG CLI Ordering Dr: Earnest Arvizu MD Date: 07/11/24 Location: [facility] Sex: M C Admitted: Reason For Study: SWELLING, POLYNEUROPATHY RIGHT LEFT GSV is normal at groin prox thigh; balance GSV is normal at groin prox thigh; balance harvested for CABG. harvested for CABG. CFV is compressible, spontaneous, phasic, CFV is compressible, spontaneous, phasic, competent and demonstrates normal competent, and demonstrates normal augmentation. augmentation. FV is compressible, spontaneous, phasic, FV is compressible, spontaneous, phasic, competent and demonstrates normal competent and demonstrates normal augmentation. augmentation. POP V is compressible, spontaneous, phasic, POP V is compressible, spontaneous, phasic, competent and demonstrates normal competent and demonstrates normal augmentation. augmentation. T/P Trunk is compressible. T/P Trunk is compressible. PTV is compressible. PTV is compressible. RT PerV is compressible. LT PerV is compressible. Procedure This is a venous duplex using B-mode, color flow and spectral Doppler. Exam performed in department. A preliminary report was called and/or faxed to Dr. Arvizu @ [phone] @ 10:20 am. BILAT GSV previously harvest below thigh for CABG. VL/Venous Duplex US - Kam Extrem Interpretation Summary Deep veins of the lower extremities are bilaterally patent and compressible segmentally. There is no evidence of deep vein thrombosis on either side. Valvular competence appears intact within the proximal deep venous systems bilaterally. The great saphenous veins are patent and compressible in the groins and proximal thighs bilaterally, but previously harvested more distally on both sides. Ordering Physician: Earnest Arvizu Chi Referring Physician: Earnest Arvizu Chi Performed By: Alesia Magana, RDCS, RVT 07/12/24 3362 Date Anton Gutéirrez MD CC: Dr. Earnest Arvizu MD Date Dictated: 07/11/24 1012 Date Transcribed: 07/12/24 597 Ekg Tech: Signed Normal [facility] 07-09-2024 GS Positive Normal [facility] Comment on above: Performed By: #### L 100.0500, L501.8820, L500.2500, L101.9900 #### [facility] [address] [place], [address] Foot 2 Viewson 07-08-2024 Foot 2 Views [facility] Services [address] [place] [address] Foot 2 Views MR#: [id number] Acct: [id number] Name: LB VIZCAINO Rep #: [id number] : 1945 M 78 From: Tawanda Ulrich MD PCP: Dr. Earnest Arvizu MD Status: REG CL Study: Foot 2 Views Date of Exam: 07/08/24 Exam# [id number] Ordering Dr: Earnest Arvizu MD [id number] STUDY: X-RAY - RIGHT FOOT CLINICAL: Male, 78 years old. Right-sided pain. TECHNIQUE: 2 view(s) of the foot. COMPARISON: None. FINDINGS: Osteopenia. Large inferior calcaneal spur. Mild arthrosis of the tibiotalar and subtalar joints. Mild arthrosis of the midfoot. Mild arthrosis of the TMT joints. Moderate arthrosis of the MTP and IP joints with hammertoe deformities. Normal soft tissues. RAD/Foot 2 Views IMPRESSION: Osteopenia with calcaneal spur and osteoarthritic changes as described. Electronically Signed: Tawanda Ulrich MD at 15:35 EDT , CC: Dr. Earnest Arvizu MD Ekg Tech: Signed Normal [facility] MRSA Wound DNA by PCRon MRSA DNA ASSAY Negative Normal Negative [facility] Comment on above: Order Comment: 0000 Performed By: #### L 100.0500, L501.8820, L500.2500, L101.9900 #### [facility] [address] [place], [address] SA DNA ASSAY Positive Abnormal Negative [facility] Comment on above: Order Comment: 0000 Performed By: #### L 100.0500, L501.8820, L500.2500, L101.9900 #### [facility] [address] [place], [address] CTA Chest W/WO Contraston CTA Chest W/WO Contrast [facility] Services [address] [place] [address] CTA Chest W/WO Contrast MR#: [id number] Acct: [id number] Name: LB VIZCAINO Rep #: [id number] : 1945 M 78 From: Ventura nelson MD PCP: Dr. Earnest Arvizu MD Status: REG [facility] Study: CTA Chest W/WO Contrast Date of Exam: 07/01/24 Exam# [id number] Ordering Dr: Earnest Arvizu MD [id number] STUDY: CTA CHEST REASON FOR EXAM: Male, 78 years old. Shortness of breath ELEVATED D DIMER RADIATION DOSAGE (If Supplied By Facility): CTDIvol = ( 11.47 ) mGy, DLP = ( 591.70 ) mGycm TECHNIQUE: The examination was performed with the intravenous administration of IV 100mL Isovue-370. Post-processing of the angiographic images was performed, with multiplanar reformation and 3D reconstruction. Individualized dose optimization techniques were used for this CT. COMPARISON: Comparison is made with prior study dated May 31, 2021. FINDINGS: Normal enhancement of the main pulmonary artery and right and left pulmonary arteries. Normal enhancement of the bilateral peripheral pulmonary arteries. There is no demonstrated pulmonary embolism. Normal thoracic aorta and visualized great vessels. There is no demonstrated aortic dissection. Sternal cerclage wires and vascular clips are present from a prior sternotomy and coronary artery bypass graft procedure (CABG). There are calcifications of the coronary arteries. Cardiomegaly. Normal mediastinum. Normal hilar regions. Normal visualized trachea and bronchi. The lungs are well expanded. Since prior study, there is been a progression of increased interstitial markings in both lungs with areas of confluence more prominent at the upper and lower lobes suggestive of a chronic interstitial fibrosis. Normal pleura. Normal chest wall structures. There are degenerative changes of thoracic spine. Tiny nonobstructive calculi in the upper pole calyx of the left kidney. Layering gallstones along the dependent portion of the gallbladder lumen. CT/CTA Chest W/WO Contrast IMPRESSION: No evidence of pulmonary embolism. Progressive bilateral pulmonary scarring. Electronically Signed: Ventura Manzo MD at 10:44 EDT , CC: Dr. Earnest Arvizu MD Ekg Tech: Signed Normal [facility] Basic Metabolic Profile (BMP )on 06-30-2024 BUN/CRE 17.8 RATIO Normal 10-20 [facility] Comment on above: Performed By: #### L 100.0500, L501.8820, L101.9900, L500.2500 #### [facility] [address] [place], [address] CA,Total 9.4 mg/dL Normal 8.5-10.1 [facility] Comment on above: Performed By: #### L 100.0500, L501.8820, L101.9900, L500.2500 #### [facility] [address] [place], [address] Chloride [Moles/Vol] 104 mmol/L Normal 98-107 [facility] Comment on above: Performed By: #### L 100.0500, L501.8820, L101.9900, L500.2500 #### [facility] [address] [place], [address] CO2 [Moles/Vol] 25.0 mmol/L Normal 21.0-32.0 [facility] Comment on above: Performed By: #### L 100.0500, L501.8820, L101.9900, L500.2500 #### [facility] [address] [place], [address] Creatinine [Mass/Vol] 1.18 mg/dL Normal 0.70-1.30 [facility] Comment on above: Result Comment: The validity of the calculated GFR GFRAA in patients over 70 years has not been determined. Clinical correlation is essential. Performed By: #### L 100.0500, L501.8820, L101.9900, L500.2500 #### [facility] [address] [place], [address] EST GFR - AA 76 mL/min Normal >60 [facility] Comment on above: Result Comment: Afri can [place] GFR Calc Performed By: #### L 100.0500, L501.8820, L101.9900, L500.2500 #### [facility] [address] [place], [address] GAP 7 Normal 5-15 [facility] Comment on above: Performed By: #### L 100.0500, L501.8820, L101.9900, L500.2500 #### [facility] [address] [place], [address] GFR/1.73 sq M.predicted among non-blacks MDRD (S/P/Bld) [Vol rate/Area] 63 mL/min/{1.73_m2} Normal >60 [facility] Comment on above: Result Comment: Non- GFR Calc Performed By: #### L 100.0500, L501.8820, L101.9900, L500.2500 #### [facility] [address] [place], [address] Glucose [Mass/Vol] 180 mg/dL High 74-106 [facility] Comment on above: Result Comment: Fast ing Glucose result greater than or equal to 126 mg/dL suggests DIABETES MELLITUS per A.D.A. criteria. Performed By: #### L 100.0500, L501.8820, L101.9900, L500.2500 #### [facility] [address] [place], [address] Potassium [Moles/Vol] 4.8 mmol/L Normal 3.5-5.1 [facility] Comment on above: Performed By: #### L 100.0500, L501.8820, L101.9900, L500.2500 #### [facility] [address] [place], [address] Sodium [Moles/Vol] 136 mmol/L Normal 136-145 [facility] Comment on above: Performed By: #### L 100.0500, L501.8820, L101.9900, L500.2500 #### [facility] [address] [place], [address] Urea nitrogen [Mass/Vol] 21 mg/dL High 7-18 [facility] Comment on above: Performed By: #### L 100.0500, L501.8820, L101.9900, L500.2500 #### [facility] [address] [place], [address] CBC W/Diff, Automatedon 08-2 Absolute Lymph 1.52 X10 3/uL Normal 0.83-4.51 [facility] Comment on above: Performed By: #### L 100.0500, L501.8820, L101.9900, L500.2500 #### [facility] [address] [place], [address] Absolute Neut 8.6 X10 3/uL High 2.0-7.7 [facility] Comment on above: Performed By: #### L 100.0500, L501.8820, L101.9900, L500.2500 #### [facility] [address] [place], [address] Basophils/100 WBC (Bld) 0.3 % Normal 0-1 [facility] Comment on above: Performed By: #### L 100.0500, L501.8820, L101.9900, L500.2500 #### [facility] [address] [place], [address] Eosinophils/100 WBC (Bld) 0.3 % Normal 0-5 [facility] Comment on above: Performed By: #### L 100.0500, L501.8820, L101.9900, L500.2500 #### [facility] [address] [place], [address] Erythrocyte distribution width (RBC) [Ratio] 13.0 % Normal 11.6-14.6 [facility] Comment on above: Performed By: #### L 100.0500, L501.8820, L101.9900, L500.2500 #### [facility] [address] [place], [address] Hematocrit (Bld) [Volume fraction] 37.1 % Low 40-54 [facility] Comment on above: Performed By: #### L 100.0500, L501.8820, L101.9900, L500.2500 #### [facility] [address] [place], [address] Hemoglobin (Bld) [Mass/Vol] 12.3 g/dL Low 13.0-16.5 [facility] Comment on above: Performed By: #### L 100.0500, L501.8820, L101.9900, L500.2500 #### [facility] [address] [place], [address] IG% 0.500 Normal 0.0-0.9 [facility] Comment on above: Result Comment: IG% - Immature Granulocytes (promyelocytes, myelocytes and metamyelocytes) > 1% indicates that a LEFT SHIFT is Present. Performed By: #### L 100.0500, L501.8820, L101.9900, L500.2500 #### [facility] [address] [place], [address] Lymphocytes/100 WBC (Bld) 13.5 % Low 19-41 [facility] Comment on above: Performed By: #### L 100.0500, L501.8820, L101.9900, L500.2500 #### [facility] [address] [place], [address] MCH (RBC) [Entitic mass] 33.7 pg High 27.0-32.0 [facility] Comment on above: Performed By: #### L 100.0500, L501.8820, L101.9900, L500.2500 #### [facility] [address] [place], [address] MCHC (RBC) [Mass/Vol] 33.2 g/dL Normal 32-36 [facility] Comment on above: Performed By: #### L 100.0500, L501.8820, L101.9900, L500.2500 #### [facility] [address] [place], [address] MCV (RBC) [Entitic vol] 101.6 fL High 80-94 [facility] Comment on above: Performed By: #### L 100.0500, L501.8820, L101.9900, L500.2500 #### [facility] [address] [place], [address] Monocytes/100 WBC (Bld) 9.3 % Normal 0-10 [facility] Comment on above: Performed By: #### L 100.0500, L501.8820, L101.9900, L500.2500 #### [facility] [address] [place], [address] Neutrophils/100 WBC (Bld) 76.1 % High 47-70 [facility] Comment on above: Performed By: #### L 100.0500, L501.8820, L101.9900, L500.2500 #### [facility] [address] [place], [address] Nucleated RBC (Bld) [#/Vol] 0 10*3/uL Normal 0-5 [facility] Comment on above: Performed By: #### L 100.0500, L501.8820, L101.9900, L500.2500 #### [facility] [address] [place], [address] Platelet mean volume (Bld) [Entitic vol] 9.4 fL Normal 6.2-12.0 [facility] Comment on above: Performed By: #### L 100.0500, L501.8820, L101.9900, L500.2500 #### [facility] [address] [place], [address] Platelets (Bld) [#/Vol] 225 10*3/uL Normal 150-450 [facility] Comment on above: Performed By: #### L 100.0500, L501.8820, L101.9900, L500.2500 #### [facility] [address] [place], [address] RBC (Bld) [#/Vol] 3.65 10*6/uL Low 4.6-6.2 [facility] Comment on above: Performed By: #### L 100.0500, L501.8820, L101.9900, L500.2500 #### [facility] [address] [place], [address] RDW SD 49.1 fl High 35.1-43.9 [facility] Comment on above: Performed By: #### L 100.0500, L501.8820, L101.9900, L500.2500 #### [facility] [address] [place], [address] WBC (Bld) [#/Vol] 11.2 10*3/uL High 4.4-11.0 [facility] Comment on above: Performed By: #### L 100.0500, L501.8820, L101.9900, L500.2500 #### [facility] [address] [place], [address] Chest PA and Lateralon 06-30 Chest PA and Lateral [facility] Imaging Services [address] [place] [address] Chest PA and Lateral MR#: [id number] Acct: [id number] Name: LB VIZCAINO Rep #: [id number] : 1945 M 78 From: Lauro Ron PCP: Dr. Earnest Arvizu MD Status: [facility] [address] Study: Chest PA and Lateral Date of Exam: 06/30/24 Exam# [id number] Ordering Dr: Earnest Arvizu MD [id number] INDICATION: SOB EXAMINATION/TECHNIQUE: X-RAY - XR Chest 1 View COMPARISON: CT of the chest on same date. FINDINGS: LIFE-SUPPORT AND LINES: 1. Postop changes of prior CABG. HEART AND VESSELS: Cardiac silhouette is large. No congestive failure. LUNGS AND PLEURAL SPACES: Elevation LEFT hemidiaphragm, interstitial prominence at both lung bases greater on LEFT than RIGHT. No airspace consolidation. No effusion. No pulmonary mass is noted. MEDIASTINUM AND HILAR REGIONS: No masses adenopathy noted. No areas of calcification. Visualized upper airway is normal in position. BONY ELEMENTS: No acute bony changes noted. RAD/Chest PA and Lateral IMPRESSION: 1. Postop changes of prior CABG. 2. Borderline cardiomegaly without congestive failure. 3. Coarse interstitial markings at the lung bases. Baseline pattern of interstitial fibrosis/interstitial lung disease suspected. 4. No focal infiltrate or lobar consolidation or effusion. Electronically Signed: Lauro Perera MD at 21:46 EDT , CC: Dr. Earnest Arvizu MD Ekg Tech: Signed Normal [facility] D-Dimer Quantitative (DVT/PE )on 06-30-2024 D-DIMER QUANT 0.59 FEU/ug/m Invalid Interpretation Code 0.27-0.49 [facility] Comment on above: Result Comment: D-Di analisa ELEVATED (>0.49): Additional studies and clinical assessments are indicated to conclude diagnosis of: Deep Vein Thrombosis (DVT) or Pulmonary Embolism (PE) CRITICAL VALUE VERIFIED. CALLED TO Ancelmo MORALES 06/30/24 1644 Xin Wyatt. RESULTS READ BACK BY . Performed By: #### L 100.0500, L501.8820, L101.9900, L500.2500 #### [facility] [address] [place], [address] M100.678on 06-30-2024 M100.678 Pending SARS-CoV-2 (COVID 19) Negative INFLUENZA A Negative INFLUENZA B Negative RSV PCR Negative Normal [facility] Comment on above: Performed By: #### L 100.0500, L501.8820, L101.9900, L500.2500 #### [facility] [address] [place], [address] CBC W/Diff, Automatedon 06-11 07-2023 Absolute Lymph 1.03 X10 3/uL Normal 0.83-4.51 [facility] Comment on above: Performed By: #### L 500.4050, L100.0100 #### [facility] [address] [place], [address] Absolute Neut 7.2 X10 3/uL Normal 2.0-7.7 [facility] Comment on above: Performed By: #### L 500.4050, L100.0100 #### [facility] [address] [place], [address] Basophils/100 WBC (Bld) 0.4 % Normal 0-1 [facility] Comment on above: Performed By: #### L 500.4050, L100.0100 #### [facility] [address] [place], [address] Eosinophils/100 WBC (Bld) 0.7 % Normal 0-5 [facility] Comment on above: Performed By: #### L 500.4050, L100.0100 #### [facility] [address] [place], [address] Erythrocyte distribution width (RBC) [Ratio] 12.9 % Normal 11.6-14.6 [facility] Comment on above: Performed By: #### L 500.4050, L100.0100 #### [facility] [address] [place], [address] Hematocrit (Bld) [Volume fraction] 39.8 % Low 40-54 [facility] Comment on above: Performed By: #### L 500.4050, L100.0100 #### [facility] [address] [place], [address] Hemoglobin (Bld) [Mass/Vol] 13.3 g/dL Normal 13.0-16.5 [facility] Comment on above: Performed By: #### L 500.4050, L100.0100 #### [facility] [address] [place], [address] IG% 0.700 Normal 0.0-0.9 [facility] Comment on above: Result Comment: IG% - Immature Granulocytes (promyelocytes, myelocytes and metamyelocytes) > 1% indicates that a LEFT SHIFT is Present. Performed By: #### L 500.4050, L100.0100 #### [facility] [address] [place], [address] Lymphocytes/100 WBC (Bld) 11.3 % Low 19-41 [facility] Comment on above: Performed By: #### L 500.4050, L100.0100 #### [facility] [address] [place], [address] MCH (RBC) [Entitic mass] 34.7 pg High 27.0-32.0 [facility] Comment on above: Performed By: #### L 500.4050, L100.0100 #### [facility] [address] [place], [address] MCHC (RBC) [Mass/Vol] 33.4 g/dL Normal 32-36 [facility] Comment on above: Performed By: #### L 500.4050, L100.0100 #### [facility] [address] [place], [address] MCV (RBC) [Entitic vol] 103.9 fL High 80-94 [facility] Comment on above: Performed By: #### L 500.4050, L100.0100 #### [facility] [address] [place], [address] Monocytes/100 WBC (Bld) 8.2 % Normal 0-10 [facility] Comment on above: Performed By: #### L 500.4050, L100.0100 #### [facility] [address] [place], [address] Neutrophils/100 WBC (Bld) 78.7 % High 47-70 [facility] Comment on above: Performed By: #### L 500.4050, L100.0100 #### [facility] [address] [place], [address] Nucleated RBC (Bld) [#/Vol] 0 10*3/uL Normal 0-5 [facility] Comment on above: Performed By: #### L 500.4050, L100.0100 #### [facility] [address] [place], [address] Platelet mean volume (Bld) [Entitic vol] 10.0 fL Normal 6.2-12.0 [facility] Comment on above: Performed By: #### L 500.4050, L100.0100 #### [facility] [address] [place], [address] Platelets (Bld) [#/Vol] 181 10*3/uL Normal 150-450 [facility] Comment on above: Performed By: #### L 500.4050, L100.0100 #### [facility] [address] [place], [address] RBC (Bld) [#/Vol] 3.83 10*6/uL Low 4.6-6.2 [facility] Comment on above: Performed By: #### L 500.4050, L100.0100 #### [facility] [address] [place], [address] RDW SD 49.5 fl High 35.1-43.9 [facility] Comment on above: Performed By: #### L 500.4050, L100.0100 #### [facility] [address] [place], [address] WBC (Bld) [#/Vol] 9.1 10*3/uL Normal 4.4-11.0 [facility] Comment on above: Performed By: #### L 500.4050, L100.0100 #### [facility] [address] [place], [address] Comprehensive Metabolic Prof ilon 04-17-2024 Albumin [Mass/Vol] 3.4 g/dL Normal 3.2-5.0 [facility] Comment on above: Performed By: #### L 500.4050, L100.0100 #### [facility] [address] [place], [address] Albumin/Globulin [Mass ratio] 0.9 {ratio} Normal 0.9-2.4 [facility] Comment on above: Performed By: #### L 500.4050, L100.0100 #### [facility] [address] [place], [address] ALK P 77 U/L Normal 45-117 [facility] Comment on above: Performed By: #### L 500.4050, L100.0100 #### [facility] [address] [place], [address] ALT [Catalytic activity/Vol] 34 U/L Normal 16-61 [facility] Comment on above: Performed By: #### L 500.4050, L100.0100 #### [facility] [address] [place], [address] AST [Catalytic activity/Vol] 29 U/L Normal 15-37 [facility] Comment on above: Performed By: #### L 500.4050, L100.0100 #### [facility] [address] [place], [address] Bilirubin [Mass/Vol] 0.50 mg/dL Normal 0.20-1.00 [facility] Comment on above: Result Comment: For patients on eltrombopag therapy, use of Dimension Oglesby TBIL is not recommended. Performed By: #### L 500.4050, L100.0100 #### [facility] [address] [place], [address] BUN/CRE 19.0 RATIO Normal 10-20 [facility] Comment on above: Performed By: #### L 500.4050, L100.0100 #### [facility] [address] [place], [address] CA,Total 9.1 mg/dL Normal 8.5-10.1 [facility] Comment on above: Performed By: #### L 500.4050, L100.0100 #### [facility] [address] [place], [address] Chloride [Moles/Vol] 108 mmol/L High 98-107 [facility] Comment on above: Performed By: #### L 500.4050, L100.0100 #### [facility] [address] [place], [address] CO2 [Moles/Vol] 24.0 mmol/L Normal 21.0-32.0 [facility] Comment on above: Performed By: #### L 500.4050, L100.0100 #### [facility] [address] [place], [address] Creatinine [Mass/Vol] 1.00 mg/dL Normal 0.70-1.30 [facility] Comment on above: Result Comment: The validity of the calculated GFR GFRAA in patients over 70 years has not been determined. Clinical correlation is essential. Performed By: #### L 500.4050, L100.0100 #### [facility] [address] [place], [address] EST GFR - AA 92 mL/min Normal >60 [facility] Comment on above: Result Comment: Afri can [place] GFR Calc Performed By: #### L 500.4050, L100.0100 #### [facility] [address] [place], [address] GAP 6 Normal 5-15 [facility] Comment on above: Performed By: #### L 500.4050, L100.0100 #### [facility] [address] [place], [address] GFR/1.73 sq M.predicted among non-blacks MDRD (S/P/Bld) [Vol rate/Area] 76 mL/min/{1.73_m2} Normal >60 [facility] Comment on above: Result Comment: Non- GFR Calc Performed By: #### L 500.4050, L100.0100 #### [facility] [address] [place], [address] Globulin (S) [Mass/Vol] 3.8 g/dL Normal 2.2-4.2 [facility] Comment on above: Performed By: #### L 500.4050, L100.0100 #### [facility] [address] [place], [address] Glucose [Mass/Vol] 124 mg/dL High 74-106 [facility] Comment on above: Result Comment: Fast ing Glucose result from 100 to 125 mg/dL suggests IMPAIRED HOMEOSTASIS per A.D.A. criteria. Performed By: #### L 500.4050, L100.0100 #### [facility] [address] [place], [address] Potassium [Moles/Vol] 4.1 mmol/L Normal 3.5-5.1 [facility] Comment on above: Performed By: #### L 500.4050, L100.0100 #### [facility] [address] [place], [address] Sodium [Moles/Vol] 138 mmol/L Normal 136-145 [facility] Comment on above: Performed By: #### L 500.4050, L100.0100 #### [facility] [place] [facility] [address] [place], [address] T PROT 7.2 g/dL Normal 6.4-8.2 [facility] Comment on above: Performed By: #### L 500.4050, L100.0100 #### [facility] [address] [place], [address] Urea nitrogen [Mass/Vol] 19 mg/dL High 7-18 [facility] Comment on above: Performed By: #### L 500.4050, L100.0100 #### [facility] [address] [place], [address] Hemoglobin A1con 04-17-2024 HbA1c (Bld) [Mass fraction] 5.5 % Normal 3.8-5.6 [facility] Comment on above: Result Comment: Norm al < 5.7 % Prediabetic 5.7 - 6.4 % Diabetic >or= 6.5 % Please note range changes. Performed By: #### L 500.4050, L100.0100 #### [facility] [address] [place], [address] Lipid Profileon 04-17-2024 Cholesterol [Mass/Vol] 101 mg/dL Normal 200 [facility] Comment on above: Result Comment: <200 mg/dL Desirable 200-240 mg/dL Borderline >240 mg/dL High Risk Performed By: #### L 500.2500, L100.0100 #### [facility] [address] [place], [address] Cholesterol in HDL [Mass/Vol] 49 mg/dL Normal [facility] Comment on above: Result Comment: The drugs N-Acetylcysteine and Metamizole may falsely depress this assay. Reference Range HDL <40 mg/dL Low HDL Cholesterol HDL >or= 60 mg/dL High HDL Cholesterol Performed By: #### L 500.2500, L100.0100 #### [facility] [address] [place], [address] Cholesterol in LDL [Mass/Vol] 31 mg/dL Normal 0-130 [facility] Comment on above: Performed By: #### L 500.2500, L100.0100 #### [facility] [address] [place], [address] Cholesterol in VLDL [Mass/Vol] 21 mg/dL Normal 5-40 [facility] Comment on above: Performed By: #### L 500.2500, L100.0100 #### [facility] [address] [place], [address] Triglyceride [Mass/Vol] 105 mg/dL Normal [facility] Comment on above: Result Comment: The drugs N-Acetylcysteine and Metamizole may falsely depress this assay. Serum Triglycerides Reference Interval Normal <150 mg/dL Borderline high 150 - 199 mg/dL High 200 - 499 mg/dL Very High > or = 500 mg/dL Performed By: #### L 500.2500, L100.0100 #### [facility] [address] [place], [address] Thyroid Stim Hormone (TSH)on 04-17-2024 TSH 1.23 uIU/mL Normal 0.358-3.74 [facility] Comment on above: Performed By: #### L 500.2500, L100.0100 #### [facility] [address] [place], [address] Vitamin D,25 Hydroxyon 04-17 Vitamin D 25-OH 35.3 ng/mL Normal [facility] Comment on above: Result Comment: Mary min D 25(OH) Status Range Deficiency <20 ng/mL (50nmol/L) Insufficiency 20 - 30 ng/mL (50 - 75 nmol/L) Sufficiency 30 - 100 ng/mL (75 - 250 nmol/L) Toxicity >100 ng/mL (>250 nmol/L) Performed By: #### L 500.4050, L100.0100 #### [facility] [address] [place], [address] Absolute lymphocyte countOrd ered By: Earnest Arvizu on 10-18-2023 Lymphocytes Auto (Unsp spec) [#/Vol] 1.22 10*3/uL 0.83-4.51 [facility] Basophil percentageOrdered B y: Earnest Arvizu on 10-18-2023 Basophils/100 WBC (Bld) 0.5 % 0-1 [facility] Bilirubin [Mass/Vol] 0.90 mg/dL 0.20-1.00 [facility] Comment on above: For patients on eltr ombopag therapy, use of Dimension [place] TBIL is not recommended. Chloride [Moles/Vol] 106 mmol/L 98-107 [facility] Eosinophils/100 WBC (Bld) 1.2 % 0-5 [facility] Glucose [Mass/Vol] 148 mg/dL 74-106 [facility] Comment on above: Fasting Glucose resu lt greater than or equal to 126 mg/dL suggests DIABETES MELLITUS per A.D.A. criteria. Neutrophils (Bld) [#/Vol] 7.0 10*3/uL 2.0-7.7 [facility] Neutrophils/100 WBC (Bld) 75.4 % 47-70 [facility] Potassium [Moles/Vol] 4.2 mmol/L 3.5-5.1 [facility] Protein [Mass/Vol] 7.5 g/dL 6.4-8.2 [facility] Sodium [Moles/Vol] 137 mmol/L 136-145 [facility] WBC (Bld) [#/Vol] 9.4 10*3/uL 4.4-11.0 [facility] Blood erythrocytes count (nu mber/volume)Ordered By: Earnest Arvizu on 10-18-2023 RBC (Bld) [#/Vol] 3.87 10*6/uL 4.6-6.2 [facility] Blood hemoglobin measurement (mass/volume)Ordered By: Earnest Arvizu on 10-18-2023 Hemoglobin (Bld) [Mass/Vol] 13.4 g/dL 13.0-16.5 [facility] Blood lymphocytes/100 leukoc ytesOrdered By: Earnest Arvizu on 10-18-2023 Lymphocytes/100 WBC (Bld) 13.0 % 19-41 [facility] Blood monocytes/100 leukocyt esOrdered By: Earnest Arvizu on 10-18-2023 Monocytes/100 WBC (Bld) 9.2 % 0-10 [facility] Blood platelet mean volumeOr dered By: Earnest Arvizu on 10-18-2023 Platelet mean volume (Bld) [Entitic vol] 10.1 fL 6.2-12.0 [facility] Determination of erythrocyte mean corpuscular volume (MCV)Ordered By: Earnest Arvizu on 10-18-2023 MCV (RBC) [Entitic vol] 105.7 fL 80-94 [facility] Hematocrit Auto (Bld) [Volum e fraction][facility]-18-2023 Hematocrit (Bld) [Volume fraction] 40.9 % 40-54 [facility] - Chemistry and C hemistry - challengeOrdered By: [facility] 10-18-2023 ALP [Catalytic activity/Vol] 80 U/L 45-117 [facility] ALT [Catalytic activity/Vol] 34 U/L 16-61 [facility] CO2 [Moles/Vol] 26.0 mmol/L 21.0-32.0 [facility] Globulin (S) [Mass/Vol] 3.9 g/dL 2.2-4.2 [facility] Urea nitrogen/Creatinine [Mass ratio] 16.3 mg/mg 10-20 [facility] - Hematology and Cell countsOrdered By: [facility] 10-18-2023 Erythrocyte distribution width (RBC) [Entitic vol] 52.1 fL 35.1-43.9 [facility] Erythrocyte distribution width (RBC) [Ratio] 13.5 % 11.6-14.6 [facility] Immature granulocytes/100 WBC (Bld) 0.700 % 0.0-0.9 [facility] Comment on above: IG% - Immature Granu locytes (promyelocytes, myelocytes and metamyelocytes) > 1% indicates that a LEFT SHIFT is Present. MCH (RBC) [Entitic mass] 34.6 pg 27.0-32.0 [facility] Nucleated RBC/100 WBC (Bld) [Ratio] 0 % 0-5 [facility] Auto (RBC) [Mass/Vol]Or dered By: Earnest Arvizu on 10-18-2023 MCHC (RBC) [Mass/Vol] 32.8 g/dL 32-36 [facility] No Panel InformationOrdered By: Earnest Arvizu on 10-18-2023 Estimated GFR (MDRD) Amer 69 mL/min >60 [facility] Comment on above: GFR Calc Estimated GFR (MDRD) Non-Af Amer 57 mL/min >60 [facility] Comment on above: Non- GFR Calc Thyroid Stimulating Hormone (TSH) 1.88 uIU/mL 0.358-3.74 [facility] Vitamin D 25-Hydroxy 32.6 ng/mL [facility] Comment on above: Vitamin D 25(OH) Sta tus Range Deficiency <20 ng/mL (50nmol/L) Insufficiency 20 - 30 ng/mL (50 - 75 nmol/L) Sufficiency 30 - 100 ng/mL (75 - 250 nmol/L) Toxicity >100 ng/mL (>250 nmol/L) Platelets bldOrdered By: Earnest Arvizu on 10-18-2023 Platelets (Bld) [#/Vol] 208 10*3/uL 150-450 [facility] Serum or plasma albumin jimmy urement (mass/volume)Ordered By: Earnest Arvizu 10-18-2023 Albumin [Mass/Vol] 3.6 g/dL 3.2-5.0 [facility] Serum or plasma albumin/glob ulin mass ratioOrdered By: Earnest Arvizu 10-18-2023 Albumin/Globulin [Mass ratio] 0.9 {ratio} 0.9-2.4 [facility] Serum or plasma calcium jimmy urement (mass/volume)Ordered By: Earnest Arvizu 10-18-2023 Calcium [Mass/Vol] 9.1 mg/dL 8.5-10.1 [facility] Serum or plasma creatinine m easurement (mass/volume)Ordered By: Earnest Arvizu 10-18-2023 Creatinine [Mass/Vol] 1.29 mg/dL 0.70-1.30 [facility] Comment on above: The validity of the calculated GFR & GFRAA in patients over 70 years has not been determined. Clinical correlation is essential. Serum or plasma urea nitroge n measurement (mass/volume)Ordered By: Earnest Arvizu on 10-18-2023 Urea nitrogen [Mass/Vol] 21 mg/dL 7-18 [facility] Thin prep Papanicolaou smear with manual screeningOrdered By: Earnest Arvizu on 10-18-2023 Thin prep Papanicolaou smear with manual screening 23 U/L 15-37 [facility] Thin prep Papanicolaou smear with manual screening 5 5-15 [facility] Absolute lymphocyte counton 10-12-2022 Lymphocytes Auto (Unsp spec) [#/Vol] 1.28 10*3/uL 0.83-4.51 [facility] Work Phone: Basophil percentageon 2021 Basophils/100 WBC (Bld) 0.4 % 0-1 [facility] Work Phone: Bilirubin [Mass/Vol] 0.60 mg/dL 0.20-1.00 [facility] Work Phone: Comment on above: For patients on eltr ombopag therapy, use of Dimension [place] TBIL is not recommended. Chloride [Moles/Vol] 107 mmol/L 98-107 [facility] Work Phone: Eosinophils/100 WBC (Bld) 0.9 % 0-5 [facility] Work Phone: Glucose [Mass/Vol] 115 mg/dL 74-106 [facility] Work Phone: Comment on above: Fasting Glucose resu lt from 100 to 125 mg/dL suggests IMPAIRED HOMEOSTASIS per A.D.A. criteria. Neutrophils (Bld) [#/Vol] 8.4 10*3/uL 2.0-7.7 [facility] Work Phone: Neutrophils/100 WBC (Bld) 79.3 % 47-70 [facility] Work Phone: Potassium [Moles/Vol] 4.2 mmol/L 3.5-5.1 [facility] Work Phone: Protein [Mass/Vol] 7.0 g/dL 6.4-8.2 [facility] Work Phone: Sodium [Moles/Vol] 140 mmol/L 136-145 [facility] Work Phone: [phone] WBC (Bld) [#/Vol] 10.5 10*3/uL 4.4-11.0 [facility] Work Phone: Blood erythrocytes count (nu mber/volume)on 10-12-2022 RBC (Bld) [#/Vol] 3.86 10*6/uL 4.6-6.2 [facility] Work Phone: Blood hemoglobin measurement (mass/volume)on 10-12-2022 Hemoglobin (Bld) [Mass/Vol] 13.0 g/dL 13.0-16.5 [facility] Work Phone: Blood lymphocytes/100 leukoc yteson 10-12-2022 Lymphocytes/100 WBC (Bld) 12.2 % 19-41 [facility] Work Phone: [phone] Blood monocytes/100 leukocyt eson 10-12-2022 Monocytes/100 WBC (Bld) 6.5 % 0-10 [facility] Work Phone: [phone] Blood platelet mean volumeon 10-12-2022 Platelet mean volume (Bld) [Entitic vol] 10.6 fL 6.2-12.0 [facility] Work Phone: [phone] Determination of erythrocyte mean corpuscular volume (MCV)on 10-12-2022 MCV (RBC) [Entitic vol] 104.4 fL 80-94 [facility] Work Phone: Hematocrit Auto (Bld) [Volum e fraction]on 10-12-2022 Hematocrit (Bld) [Volume fraction] 40.3 % 40-54 [facility] Work Phone: Laboratory - Chemistry and C hemistry - challengeon 10-12-2022 ALP [Catalytic activity/Vol] 79 U/L 45-117 [facility] Work Phone: [phone] ALT [Catalytic activity/Vol] 35 U/L 16-61 [facility] Work Phone: [phone] CO2 [Moles/Vol] 29.0 mmol/L 21.0-32.0 [facility] Work Phone: [phone] Globulin (S) [Mass/Vol] 3.5 g/dL 2.2-4.2 [facility] Work Phone: [phone] Urea nitrogen/Creatinine [Mass ratio] 16.8 mg/mg 10-20 [facility] Work Phone: [phone] Laboratory - Hematology and Cell countson 10-12-2022 Erythrocyte distribution width (RBC) [Entitic vol] 50.6 fL 35.1-43.9 [facility] Work Phone: [phone] Erythrocyte distribution width (RBC) [Ratio] 13.4 % 11.6-14.6 [facility] Work Phone: [phone] Immature granulocytes/100 WBC (Bld) 0.700 % 0.0-0.9 [facility] Work Phone: [phone] Comment on above: IG% - Immature Granu locytes (promyelocytes, myelocytes and metamyelocytes) > 1% indicates that a LEFT SHIFT is Present. MCH (RBC) [Entitic mass] 33.7 pg 27.0-32.0 [facility] Work Phone: [phone] Nucleated RBC/100 WBC (Bld) [Ratio] 0 % 0-5 [facility] Work Phone: [phone] MCHC Auto (RBC) [Mass/Vol]on 10-12-2022 MCHC (RBC) [Mass/Vol] 32.3 g/dL 32-36 [facility] Work Phone: [phone] Panel Informationon 10-12 Estimated GFR (MDRD) Amer 81 mL/min >60 [facility] Work Phone: [phone] Comment on above: GFR Calc Estimated GFR (MDRD) Non-Af Amer 67 mL/min >60 [facility] Work Phone: [phone] Comment on above: Non- GFR Calc Thyroid Stimulating Hormone (TSH) 2.58 uIU/mL 0.358-3.74 [facility] Work Phone: Vitamin D 25-Hydroxy 31.7 ng/mL [facility] Work Phone: Comment on above: Vitamin D 25(OH) Sta tus Range Deficiency <20 ng/mL (50nmol/L) Insufficiency 20 - 30 ng/mL (50 - 75 nmol/L) Sufficiency 30 - 100 ng/mL (75 - 250 nmol/L) Toxicity >100 ng/mL (>250 nmol/L) Platelets bldon 10-12-2022 Platelets (Bld) [#/Vol] 204 10*3/uL 150-450 [facility] Work Phone: Serum or plasma albumin jimmy urement (mass/volume)on 10-12-2022 Albumin [Mass/Vol] 3.5 g/dL 3.2-5.0 [facility] Work Phone: Serum or plasma albumin/glob ulin mass ratioon 10-12-2022 Albumin/Globulin [Mass ratio] 1.0 {ratio} 0.9-2.4 [facility] Work Phone: Serum or plasma calcium jimmy urement (mass/volume)on 10-12-2022 Calcium [Mass/Vol] 8.9 mg/dL 8.5-10.1 [facility] Work Phone: Serum or plasma creatinine m easurement (mass/volume)on 10-12-2022 Creatinine [Mass/Vol] 1.13 mg/dL 0.70-1.30 [facility] Work Phone: Comment on above: The validity of the calculated GFR & GFRAA in patients over 70 years has not been determined. Clinical correlation is essential. Serum or plasma urea nitroge n measurement (mass/volume)on 10-12-2022 Urea nitrogen [Mass/Vol] 19 mg/dL 7-18 [facility] Work Phone: Thin prep Papanicolaou smear with manual screeningon 10-12-2022 Thin prep Papanicolaou smear with manual screening 24 U/L 15-37 [facility] Work Phone: Thin prep Papanicolaou smear with manual screening 4 -15 [facility] Work Phone: CNPShira 11-10-2021 PRETTYN Telephone (PULAYALA) LB VIZCAINO ([id number]) 1945 M Date Time Provider Department 11/10/21 CELIA LOPEZ During your visit today, we recorded the following information about you: Celia Lopez APRN.[employer] WOMAN 11/10/2021 1:26 PM Signed Spoke to the patient and his : Has over the past 2-3 months experiencing Dark colored urine Decreased appetite Poor fluid intake Loose watery diarrhea Started esbriet two weeks ago and experienced severe n/v and abdominal bloating Stopped esbriet and symptoms did not improve or return baseline Voiding two times per day--described as dark brown Eating small bites Maintaining weight Baseline ble +1-2 Still having abdominal bloating Still having loose watery diarrhea several times per day Feels so weak needs to use a walker No hemoptysis or cough No fever No blood in stool or urine dizzy Breathing at baseline with shortness of breath with moderate exertion HX of: --ipf--did not tolerate ofev in the past --hx of dvt on eliquis --hx of fluid overload on bumex 1 mg Long discussion regarding timing and onset of symptoms. Reviewed based on poor urine output, decreased strength associated these more acute non-pulmonary issues require assessment by ed, urgent care or pcp to rule potential causes including potential dehydration, ?arf, bowel blockage, ?IPF flare (less likely), covid? The family discussed potential preference of sites and will go to [place] ED. I further discussed related to his pulmonary needs he will need an appointment with either Nelda or Dr. Sharma to discuss potential agents to control his IPF once his acute symptoms are resolved or investigated. I let them know the office will call them to arrange appointments Plan: ED management to further assess the patient's many ongoing complaints Appoint scheduling request made to further discuss medication management of ipf given the patient did not tolerate ofev or esbriet. 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 - apixaban (ELIQUIS) 5 mg tab(s) Take by mouth twice daily. - predniSONE (DELTASONE) 5 mg tablet Take 3 tablets per day for 2 weeks, then take 2 tablets per day for 2 weeks, then take 1 tablet per day for 2 weeks. - metoprolol tartrate, short acting, (LOPRESSOR) 25 mg tablet Take 12.5 mg by mouth twice daily. - atorvastatin (LIPITOR) 20 mg tablet once daily. - lisinopril (ZESTRIL, PRINIVIL) 5 mg tablet once daily. - tamsulosin (FLOMAX) 0.4 mg Take 0.4 mg by mouth once daily. - MULTIVITAMIN ORAL Take by mouth. - Lacto.acidophilus-Bif. animalis (ONE-A-DAY TRUBIOTICS) 2 billion cell cap Take by mouth. - Magnesium 250 mg tab Take 250 mg by mouth once daily. Problem List As Of Date 11/10/2021 Noted Resolved Lung disease [J98.4] 11/10/2021 Encounter Status:Closed by CELIA LOPEZ on 11/10/21 [facility] Gem 10-26-2021 PRETTYN Telephone (PULMMN) LB VIZCAINO ([id number]) 1945 M Date Time Provider Department 10/26/21 ELIJAH WOODS (COORD) During your visit today, we recorded the following information about you: Elijah Cage 10/26/2021 12:51 PM Signed PA for pt's Esbriet has been done through cover my meds and has been approved. Approvedtoday CaseId:[id number];Status :Approved;Review Type:Prior Auth;Coverage Start Date:09/26/2021;Covera ge End Date:10/26/2022; Pt and pharmacy have been notified. Allergies As of Date: 10/26/2021 Noted Allergy Reaction PENICILLINS 05/11/2011 2 - Rash Date Reviewed: 09/20/2021 Reviewed by: Divina Hernandez - Fully Assessed Reason for Visit: Insurance Authorization [[id number]] Prescriptions as of 10/26/2021 - furosemide (LASIX) 20 mg tablet Take 1 tablet by mouth once daily. - apixaban (ELIQUIS) 5 mg tab(s) Take by mouth twice daily. - predniSONE (DELTASONE) 5 mg tablet Take 3 tablets per day for 2 weeks, then take 2 tablets per day for 2 weeks, then take 1 tablet per day for 2 weeks. - metoprolol tartrate, short acting, (LOPRESSOR) 25 mg tablet Take 12.5 mg by mouth twice daily. - atorvastatin (LIPITOR) 20 mg tablet once daily. - lisinopril (ZESTRIL, PRINIVIL) 5 mg tablet once daily. - tamsulosin (FLOMAX) 0.4 mg Take 0.4 mg by mouth once daily. - MULTIVITAMIN ORAL Take by mouth. - Lacto.acidophilus-Bif. animalis (ONE-A-DAY TRUBIOTICS) 2 billion cell cap Take by mouth. - Magnesium 250 mg tab Take 250 mg by mouth once daily. Problem List As Of Date: 10/26/2021 (None) Encounter Status:Closed by ELIJAH VICKERS on 10/26/21 [facility] Gem 10-17-2021 PRETTYN Telephone (ISAIAHMMN) LB VIZCAINO ([id number]) 1945 M Date Time Provider Department 10/17/21 SAMANTHA SHARMA During your visit today, we recorded the following information about you: [place]gy [place] [facility] [place] 9:32 AM Signed Patient's Kaity called stating they have not heard anything yet on Esbriet. Looks like Elijah Woods sent in the prescription to [facility] on 09/22/21. Elijah, please let patient know status on Esbriet @ [phone]. Thank you. Allergies As of Date: 10/17/2021 Noted Allergy Reaction PENICILLINS 05/11/2011 2 - Rash Date Reviewed: 09/20/2021 Reviewed by: Divina Hernandez - Fully Assessed Reason for Visit: specialty medication Esbriet [Other] Prescriptions as of 10/26/2021 - furosemide (LASIX) 20 mg tablet Take 1 tablet by mouth once daily. - apixaban (ELIQUIS) 5 mg tab(s) Take by mouth twice daily. - predniSONE (DELTASONE) 5 mg tablet Take 3 tablets per day for 2 weeks, then take 2 tablets per day for 2 weeks, then take 1 tablet per day for 2 weeks. - metoprolol tartrate, short acting, (LOPRESSOR) 25 mg tablet Take 12.5 mg by mouth twice daily. - atorvastatin (LIPITOR) 20 mg tablet once daily. - lisinopril (ZESTRIL, PRINIVIL) 5 mg tablet once daily. - tamsulosin (FLOMAX) 0.4 mg Take 0.4 mg by mouth once daily. - MULTIVITAMIN ORAL Take by mouth. - Lacto.acidophilus-Bif. animalis (ONE-A-DAY TRUBIOTICS) 2 billion cell cap Take by mouth. - Magnesium 250 mg tab Take 250 mg by mouth once daily. Problem List As Of Date: 10/17/2021 (None) Encounter Status:Closed by LORA BRIONESNOHELIA on 10/26/21 [facility] Gem 10-03-2021 MATHEW Telephone (PULMMN) MADELINLB ([id number]) 1945 M Date Time Provider Department 10/03/21 SAMANTHA SHARMA During your visit today, we recorded the following information about you: Maggy [place] [facility] [place]03/[place] 12:33 PM Signed Patient's called to advise Dr. Zachary Asher went to [place] ER on 10/01/21, for a blood clot in his leg. They placed him on Elliquis and they want to confirm there will be no contraindication with the treatment plan Dr. Sharma is doing. They may be reached @ [phone] or [phone]. Thank you. Nelda Morrison PA-C 10/04/2021 2:34 PM Signed Spoke to Mr. Vizcaino. Asked a bit more about hospital admission for DVT. He was very sedentary on - 6-7 hours of sitting. Updated med list: Add apixaban Furosemide Remove cellceot Has tapered down to 15mg prednisone No interactions with upcoming pirfenidone. Nelda Morrison PA-C 10/11/2021 2:42 PM Signed Addended by: NELDA MORRISON on: 10/11/2021 02:42 PM Modules accepted: Orders Allergies As of Date: 10/03/2021 Noted Allergy Reaction PENICILLINS 05/11/2011 2 - Rash Date Reviewed: 09/20/2021 Reviewed by: Divina Hernandez - Fully Assessed Reason for Visit: additional medication from ER, etc. [Other] Primary Visit Diagnosis:IPF (idiopathic pulmonary fibrosis) ([facility]) [J84.112] Order(s):SPIROMETRY WITH DILATOR IF OBSTRUCTED [4281028] Order #: [id number]: 1 FUTURE LUNG DIFFUSION CAPACITY (DLCO) [[id number]] Order #: [id number]: 1 FUTURE LUNG VOLUMES [[id number]] Order #: [id number]: 1 FUTURE Prescriptions as of 10/11/2021 - furosemide (LASIX) 20 mg tablet Take 1 tablet by mouth once daily. - apixaban (ELIQUIS) 5 mg tab(s) Take by mouth twice daily. - predniSONE (DELTASONE) 5 mg tablet Take 3 tablets per day for 2 weeks, then take 2 tablets per day for 2 weeks, then take 1 tablet per day for 2 weeks. - metoprolol tartrate, short acting, (LOPRESSOR) 25 mg tablet Take 12.5 mg by mouth twice daily. - atorvastatin (LIPITOR) 20 mg tablet once daily. - lisinopril (ZESTRIL, PRINIVIL) 5 mg tablet once daily. - tamsulosin (FLOMAX) 0.4 mg Take 0.4 mg by mouth once daily. - MULTIVITAMIN ORAL Take by mouth. - Lacto.acidophilus-Bif. animalis (ONE-A-DAY TRUBIOTICS) 2 billion cell cap Take by mouth. - Magnesium 250 mg tab Take 250 mg by mouth once daily. Problem List As Of Date: 10/03/2021 (None) Medications Discontinued During This Encounter Prescriptions - mycophenolate Mofetil (CELLCEPT) 500 mg tablet (Discontinued) Take 1,000 mg by mouth twice daily. Encounter Status:Closed by NELDA MORRISON on 10/04/21 [facility] OBSOLETEon 09-22-2021 OBSOLETE Refill (PULMMN) LB VIZCAINO ([id number]) 1945 M Date Time Provider Department 09/22/21 ELIJAH WOODS) PULMMBianca During your visit today, we recorded the following information about you: Elijah Woods Coord 09/22/2021 4:42 PM Signed New script for Esbriet 267mg sent to [facility] to be filled for pt. Allergies As of Date: 09/22/2021 Noted Allergy Reaction PENICILLINS 05/11/2011 2 - Rash Date Reviewed: 09/20/2021 Reviewed by: Divina Hernandez - Fully Assessed Reason for Visit: New Medication [4091] Prescriptions as of 10/13/2021 - furosemide (LASIX) 20 mg tablet Take 1 tablet by mouth once daily. - apixaban (ELIQUIS) 5 mg tab(s) Take by mouth twice daily. - predniSONE (DELTASONE) 5 mg tablet Take 3 tablets per day for 2 weeks, then take 2 tablets per day for 2 weeks, then take 1 tablet per day for 2 weeks. - metoprolol tartrate, short acting, (LOPRESSOR) 25 mg tablet Take 12.5 mg by mouth twice daily. - atorvastatin (LIPITOR) 20 mg tablet once daily. - lisinopril (ZESTRIL, PRINIVIL) 5 mg tablet once daily. - tamsulosin (FLOMAX) 0.4 mg Take 0.4 mg by mouth once daily. - MULTIVITAMIN ORAL Take by mouth. - Lacto.acidophilus-Bif. animalis (ONE-A-DAY TRUBIOTICS) 2 billion cell cap Take by mouth. - Magnesium 250 mg tab Take 250 mg by mouth once daily. Problem List As Of Date: 09/22/2021 (None) Encounter Status:Closed by ELIJAH VICKERS on 10/13/21 [facility] BOZENA Panel 1on 09-20-2021 BOZENA by EIA 0.3 OD Ratio Normal [facility] Comment on above: Result Comment: OD R atio is interpreted as follows: Negative <1.0 Positive >=1.0 Performed By: #### C MP, RF, ANA1, CK, CBCDIF, NTBNP #### [facility] [address] [place], [place] [address] #### HYPNE1 #### [facility] [address] [place] [address] BOZENA by EIA, Qual Negative Normal Negative [facility] Comment on above: Result Comment: The qualitative antinuclear antibody screen test performed using enzyme immunoassay including the following antigens: dsDNA, histones, SS-A, SS-B, Sm, Sm/BATTER DEPOSITOR, Scl-70, Tita-1, and centromeric antigens. Performed By: #### C MP, RF, ANA1, CK, CBCDIF, NTBNP #### [place] [phone] #### HYPNE1 #### [facility] [address] [place] [phone] CBC and Differentialon 09-20 Abs Baso 0.00 k/uL Normal <0.11 [facility] Comment on above: Performed By: #### C MP, RF, ANA1, CK, CBCDIF, NTBNP #### [place] [phone] #### HYPNE1 #### [facility] [address] [place] [phone] Abs [place] 1.03 k/uL High <0.87 [facility] Comment on above: Performed By: #### C MP, RF, ANA1, CK, CBCDIF, NTBNP #### [place] [phone] #### HYPNE1 #### [facility] [address] [place] [phone] Abs Neut 8.64 k/uL High 1.45-7.50 [facility] Comment on above: Performed By: #### C MP, RF, ANA1, CK, CBCDIF, NTBNP #### [place] [phone] #### HYPNE1 #### [facility] [address] [place] [phone] Anisocytosis Ql (Bld) Present Normal [facility] Comment on above: Performed By: #### C MP, RF, ANA1, CK, CBCDIF, NTBNP #### [place] [address] #### HYPNE1 #### [facility] [address] [place] [address] Basophils/100 WBC (Bld) 0.0 % Normal [facility] Comment on above: Performed By: #### C MP, RF, ANA1, CK, CBCDIF, NTBNP #### [place] [address] [place] [phone] #### HYPNE1 #### [facility] [address] [place] [address] DTYPE Manual Diff Normal [facility] Comment on above: Performed By: #### C MP, RF, ANA1, CK, CBCDIF, NTBNP #### [place] [phone] #### HYPNE1 #### [facility] [address] [place] [phone] Eosinophils (Bld) [#/Vol] 0.11 10*3/uL Normal <0.46 [facility] Comment on above: Performed By: #### C MP, RF, ANA1, CK, CBCDIF, NTBNP #### [place] [address] [place] [phone] #### HYPNE1 #### [facility] [address] [place] [phone] Eosinophils/100 WBC (Bld) 0.9 % Normal [facility] Comment on above: Performed By: #### C MP, RF, ANA1, CK, CBCDIF, NTBNP #### [place] [address] [place] [phone] #### HYPNE1 #### [facility] [address] [place] [address] Erythrocyte distribution width (RBC) [Ratio] 15.3 % High 11.5-15.0 [facility] Comment on above: Performed By: #### C MP, RF, ANA1, CK, CBCDIF, NTBNP #### [place] [address] [place] [phone] #### HYPNE1 #### [facility] [address] [place] [phone] Hematocrit (Bld) [Volume fraction] 40.1 % Normal 39.0-51.0 [facility] Comment on above: Performed By: #### C MP, RF, ANA1, CK, CBCDIF, NTBNP #### [place] [phone] #### HYPNE1 #### [facility] [address] [place] [phone] Hemoglobin (Bld) [Mass/Vol] 12.8 g/dL Low 13.0-17.0 [facility] Comment on above: Performed By: #### C MP, RF, ANA1, CK, CBCDIF, NTBNP #### [place] [phone] #### HYPNE1 #### [facility] [address] [place] [phone] Left Shift Present Normal [facility] Comment on above: Performed By: #### C MP, RF, ANA1, CK, CBCDIF, NTBNP #### [place] [phone] #### HYPNE1 #### [facility] [address] [place] [phone] Lymphocytes (Bld) [#/Vol] 1.86 10*3/uL Normal 1.00-4.00 [facility] Comment on above: Performed By: #### C MP, RF, ANA1, CK, CBCDIF, NTBNP #### [place] [address] [place] [phone] #### HYPNE1 #### [facility] [address] [place] [address] Lymphocytes/100 WBC (Bld) 15.7 % Normal [facility] Comment on above: Performed By: #### C MP, RF, ANA1, CK, CBCDIF, NTBNP #### [place] [address] #### HYPNE1 #### [facility] [address] [place] [address] MCH 35.7 pG High 26.0-34.0 [facility] Comment on above: Performed By: #### C MP, RF, ANA1, CK, CBCDIF, NTBNP #### [place] [phone] #### HYPNE1 #### [facility] [address] [place] [address] MCHC (RBC) [Mass/Vol] 31.9 g/dL Normal 30.5-36.0 [facility] Comment on above: Performed By: #### C MP, RF, ANA1, CK, CBCDIF, NTBNP #### [place] [address] #### HYPNE1 #### [facility] [address] [place] [address] MCV (RBC) [Entitic vol] 111.7 fL High 80.0-100.0 [facility] Comment on above: Performed By: #### C MP, RF, ANA1, CK, CBCDIF, NTBNP #### [place] [address] #### HYPNE1 #### [facility] [address] [place] [address] Monocytes/100 WBC (Bld) 8.7 % Normal [facility] Comment on above: Performed By: #### C MP, RF, ANA1, CK, CBCDIF, NTBNP #### [facility] [address] [place] [phone] #### HYPNE1 #### [facility] [address] [place] [address] Myelo% 1.7 % Normal [facility] Comment on above: Performed By: #### C MP, RF, ANA1, CK, CBCDIF, NTBNP #### [place] [address] [place] [phone] #### HYPNE1 #### [facility] [address] [place], [place] [address] [phone] Neutrophils/100 WBC (Bld) 73.0 % Normal [facility] Comment on above: Performed By: #### C MP, RF, ANA1, CK, CBCDIF, NTBNP #### [place] [phone] #### HYPNE1 #### [facility] [address] [place] [address] NRBCs 1 /100 WBC High 0 [facility] Comment on above: Performed By: #### C MP, RF, ANA1, CK, CBCDIF, NTBNP #### [place] [address] [place] [phone] #### HYPNE1 #### [facility] [address] [place], [place] [address] [phone] Ovalocytes Few Normal [facility] Comment on above: Performed By: #### C MP, RF, ANA1, CK, CBCDIF, NTBNP #### [place] [address] [place] [phone] #### HYPNE1 #### [facility] [address] [place] [address] Platelet Estimate Platelet estimate adequate Normal [facility] Comment on above: Performed By: #### C MP, RF, ANA1, CK, CBCDIF, NTBNP #### [place] [address] [place] [phone] #### HYPNE1 #### [facility] [address] [place] [address] Platelet mean volume (Bld) [Entitic vol] 9.6 fL Normal 9.0-12.7 [facility] Comment on above: Performed By: #### C MP, RF, ANA1, CK, CBCDIF, NTBNP #### [place] [phone] #### HYPNE1 #### [facility] [address] [place] [phone] Platelets (Bld) [#/Vol] 182 10*3/uL Normal 150-400 [facility] Comment on above: Performed By: #### C MP, RF, ANA1, CK, CBCDIF, NTBNP #### [place] [phone] #### HYPNE1 #### [facility] [address] [place] [phone] Polychromasia Slight Normal [facility] Comment on above: Performed By: #### C MP, RF, ANA1, CK, CBCDIF, NTBNP #### [place] [phone] #### HYPNE1 #### [facility] [address] [place] [address] RBC (Bld) [#/Vol] 3.59 10*6/uL Low 4.20-6.00 [facility] Comment on above: Performed By: #### C MP, RF, ANA1, CK, CBCDIF, NTBNP #### [place] [phone] #### HYPNE1 #### [facility] [address] [place] [address] RBC Fragments Few Normal [facility] Comment on above: Performed By: #### C MP, RF, ANA1, CK, CBCDIF, NTBNP #### [place] [phone] #### HYPNE1 #### [facility] [address] [place] [address] WBC (Bld) [#/Vol] 11.83 10*3/uL High 3.70-11.00 [facility] Comment on above: Performed By: #### C MP, RF, ANA1, CK, CBCDIF, NTBNP #### [facility] [address] [place] [phone] #### HYPNE1 #### [facility] [address] [place] [address] CKon 09-20-2021 CK [Catalytic activity/Vol] 43 U/L Low 51-298 [facility] Comment on above: Performed By: #### C MP, RF, ANA1, CK, CBCDIF, NTBNP #### [place] [phone] #### HYPNE1 #### [facility] [address] [place] [address] CNCOon 09-20-2021 CNCO Letter Text Normal [facility] CNOVon 09-20-2021 CNOV Office Visit (BERNARD ) LB VIZCAINO ([id number]) 1945 M Date Time Provider Department 09/20/21 10:00 AM SAMANTHA SHARMA During your visit today, we recorded the following information about you: Temperature Pulse Respiration Blood pressure 97.2 degrees 91/minute 18/minute 137/93 Weight Height 113.9 kg 1.93 m Samantha Sharma MD 09/20/2021 12:18 PM Signed Lb Vizcaino is a 75 year old male who presents for evaluation of an interstitial lung disease. Consult from Dr. Camacho. Opinion sent. HISTORY OF PRESENT ILLNESS: Mr. Vizcaino describes his baseline as being reasonably active, able to golf and fish, walk 1.5 miles without stopping. Around the summer of 2019 he began to notice increased dyspnea with his activities. This has gradually progressed and now he doubts he could walk 0.5 miles. He has also had a largely non-productive cough without hemoptysis. He does not have chest pain, fevers, or appetite problems. He has not had skin rashes, joint pains, or muscle aches. He has not had headaches or vision changes. He does not have swallowing difficulties or appetite problems. He has noticed some GERD symptoms and side effects from prednisone use. Mr. Vizcaino previously smoked cigarettes, 1/3 ppd x 35 years, quitting in 2004. He had not previously been told of a chronic lung problem or had a severe respiratory infection. 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 He had difficulties with hay exposure early in his career and [place]. He enjoys wood working (daisy, maple, walnut). 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 He does not have pets or birds at home. He has not taken amiodarone. His other medical history includes CAD s/p CABG in 2006, cataracts, hypothyroid, SHAHIDA and skin cancers. He has not had any rheumatologic conditions. He has had vaccinations. Mr. Vizcaino's evaluation has included cardiac testing (including a left heart cath), pulmonary function testing, and chest CT imaging. He says labwork was obtained. He was diagnosed with pulmonary fibrosis. He was treated with OFEV for 6 months. This was stopped due to significant GI intolerance. He has also been treated with prednisone (up to 40 mg, now 20 mg) and Cellcept. Treatment has not seemed to impact his condition. Side effects from prednisone have included bruising, swelling, decreased muscle tone, thrush, and GERD. REVIEW OF SYSTEMS: The rest of the review of systems is negative. PAST MEDICAL HISTORY: See HPI FAMILY HISTORY: mother - cancer (bowel) sister - pulmonary fibrosis (no meds), brother - unsure SOCIAL HISTORY: 11/07 ppd x 35 years, quit in 2004 PHYSICAL EXAM: Mr. Vizcaino was in no distress, speaking full sentences, with an oxygen saturation of 93% on room air. The oropharynx was clear and there was no adenopathy. The chest had faint crackles at the lung bases, left more than right. Cardiac exam revealed a RRR without extra heart sounds. There was no JVD or edema. The abdomen was soft and non-tender, with bowel sounds present. There was no clubbing or cyanosis. Neurologic exam was grossly non-focal. TESTING: CT chest from 02/2021 and 05/2021 reviewed. There are peripheral interstitial changes in all lung zones without clear architectural distortion or honeycombing. There is not much change between exams. There is no adenopathy or pleural disease. Outside PFTs showed an FVC of 57%, TLC 51% and DLCO 55% (date unclear) which was down from FVC 63%, FEV1 68%, TLC 73%, and DLCO of 70%. BOZENA, RF, ANCA, Scl-70, GUDELIA, CRP - reported as normal or negative. IMPRESSION/PLAN: 75 year old man with an interstitial lung disease. Mr. Vizcaino has an interstitial lung disease that has been progressive subjectively and on pulmonary function testing despite treatment with anti-inflammatory therapy. Though the imaging does not provide absolute evidence of idiopathic pulmonary fibrosis, his age, lack of systemic symptoms, and lack of exposures beyond wood working, suggest this is most likely. I will review his case at our multi-disciplinary ILD conference to get the team's thoughts about his underlying diagnosis, need for additional testing, and possible treatment. Bactrim will be suggested if prednisone is not going to be tapered off. Mr. Vizcaino understands this plan and is comfortable with it. I spent a total of 80 minutes on the date of the service which included preparing to see the patient, [id number] patient care, completing clinical documentation, obtaining and/or reviewing separately obtained history, performing a medically appropriate examination, counseling and educating the patient/family/caregiv er, ordering medications, tests, or pro (more content not included)... Normal [facility] Comp Metabolic Panelon 09-20 Albumin [Mass/Vol] 4.2 g/dL Normal 3.9-4.9 [facility] Comment on above: Performed By: #### C MP, RF, ANA1, CK, CBCDIF, NTBNP #### [place] [phone] #### HYPNE1 #### [facility] [address] [place] [address] ALP [Catalytic activity/Vol] 61 U/L Normal 38-113 [facility] Comment on above: Performed By: #### C MP, RF, ANA1, CK, CBCDIF, NTBNP #### [place] [phone] #### HYPNE1 #### [facility] [address] [place] [address] ALT [Catalytic activity/Vol] 44 U/L Normal 10-54 [facility] Comment on above: Performed By: #### C MP, RF, ANA1, CK, CBCDIF, NTBNP #### [place] [phone] #### HYPNE1 #### [facility] [address] [place] [address] Anion gap [Moles/Vol] 15 mmol/L Normal 9-18 [facility] Comment on above: Performed By: #### C MP, RF, ANA1, CK, CBCDIF, NTBNP #### [place] [phone] #### HYPNE1 #### [facility] [address] [place] [address] AST [Catalytic activity/Vol] 26 U/L Normal 14-40 [facility] Comment on above: Performed By: #### C MP, RF, ANA1, CK, CBCDIF, NTBNP #### [facility] [address] [place] [phone] #### HYPNE1 #### [facility] [address] [place] [address] Bilirubin [Mass/Vol] 0.6 mg/dL Normal 0.2-1.3 [facility] Comment on above: Performed By: #### C MP, RF, ANA1, CK, CBCDIF, NTBNP #### [place] [address] [place] [phone] #### HYPNE1 #### [facility] [address] [place] [address] Calcium [Mass/Vol] 9.6 mg/dL Normal 8.5-10.2 [facility] Comment on above: Performed By: #### C MP, RF, ANA1, CK, CBCDIF, NTBNP #### [place] [phone] #### HYPNE1 #### [facility] [address] [place] [address] Chloride [Moles/Vol] 103 mmol/L Normal 97-105 [facility] Comment on above: Performed By: #### C MP, RF, ANA1, CK, CBCDIF, NTBNP #### [place] [address] [place] [phone] #### HYPNE1 #### [facility] [address] [place] [address] CO2 [Moles/Vol] 22 mmol/L Normal 22-30 [facility] Comment on above: Performed By: #### C MP, RF, ANA1, CK, CBCDIF, NTBNP #### [place] [address] [place] [phone] #### HYPNE1 #### [facility] [address] [place] [address] Creatinine [Mass/Vol] 1.21 mg/dL Normal 0.73-1.22 [facility] Comment on above: Performed By: #### C MP, RF, ANA1, CK, CBCDIF, NTBNP #### [facility] [address] [place] [phone] #### HYPNE1 #### [facility] [address] [place] [address] eGFR- Amer. >60 Normal [facility] Comment on above: Performed By: #### C MP, RF, ANA1, CK, CBCDIF, NTBNP #### [place] [phone] #### HYPNE1 #### [facility] [address] [place] [address] eGFR-All Other Races 58 . Normal [facility] Comment on above: Result Comment: eGFR (Estimated GFR) Units of measure: mL/min/1.73 meters squared eGFR is derived from the reexpressed MDRD Study equation using the following parameters: serum creatinine, age, gender and race. The creatinine assay has been calibrated to be traceable to IDMS. An eGFR <60 mL/min/1.73m2 for >3 months is consistent with chronic kidney disease. Refer to KDOQI guidelines for clinical interpretation. In patients with unstable renal function, e.g. those with acute kidney injury, the eGFR may not accurately reflect actual GFR. Performed By: #### C MP, RF, ANA1, CK, CBCDIF, NTBNP #### [facility] [address] [phone] #### HYPNE1 #### [facility] [address] [place] [address] Glucose [Mass/Vol] 96 mg/dL Normal 74-99 [facility] Comment on above: Result Comment: The [place] Diabetes Association (ADA) provides guidance for cutoff values for fasting glucose and random glucose. The ADA defines fasting as no caloric intake for at least 8 hours. Fasting plasma glucose results between 100 to 125 mg/dL indicate increased risk for diabetes (prediabetes). Fasting plasma glucose results greater than or equal to 126 mg/dL meet the criteria for diagnosis of diabetes. In the absence of unequivocal hyperglycemia, results should be confirmed by repeat testing. In a patient with classic symptoms of hyperglycemia or hyperglycemic crisis, random plasma glucose results greater than or equal to 200 mg/dL meet the criteria for diagnosis of diabetes. Reference: Standards of Medical Care in Diabetes 2016, [place] [employer] Association. Diabetes Care. 2016.39(Suppl 1). Performed By: #### C MP, RF, ANA1, CK, CBCDIF, NTBNP #### [place] [address] [place] [phone] #### HYPNE1 #### [facility] [address] [place] [address] Potassium [Moles/Vol] 4.8 mmol/L Normal 3.7-5.1 [facility] Comment on above: Performed By: #### C MP, RF, ANA1, CK, CBCDIF, NTBNP #### [place] [phone] #### HYPNE1 #### [facility] [address] [place] [address] Protein [Mass/Vol] 6.4 g/dL Normal 6.3-8.0 [facility] Comment on above: Performed By: #### C MP, RF, ANA1, CK, CBCDIF, NTBNP #### [place] [address] [address] [place] [phone] #### HYPNE1 #### [facility] [address] [place] [address] Sodium [Moles/Vol] 140 mmol/L Normal 136-144 [facility] Comment on above: Performed By: #### C MP, RF, ANA1, CK, CBCDIF, NTBNP #### [place] [phone] #### HYPNE1 #### [address] [address] Urea nitrogen [Mass/Vol] 22 mg/dL Normal 9-24 [facility] Comment on above: Performed By: #### C MP, RF, ANA1, CK, CBCDIF, NTBNP #### [place] [phone] #### HYPNE1 #### [place] [address] Hypersensitivity Pneon 09-20 Aspergil fumigatus 1 Not detected Normal NONE DETECTED [facility] Comment on above: Result Comment: (NOT E) Performed By: [place] [address] Performed By: #### C MP, RF, ANA1, CK, CBCDIF, NTBNP #### [place] [phone] #### HYPNE1 #### [address] [address] [phone] Aspergil fumigatus 6 Not detected Normal NONE DETECTED [facility] Comment on above: Result Comment: (NOT E) Performed By: [place] [address] Performed By: #### C MP, RF, ANA1, CK, CBCDIF, NTBNP #### [place] [phone] #### HYPNE1 #### [address] [address] Aureobasid pullulans Not detected Normal NONE DETECTED [facility] Comment on above: Result Comment: (NOT E) Performed By: [facility] [address] [place] [address] Performed By: #### C MP, RF, ANA1, CK, CBCDIF, NTBNP #### [place] [address] #### HYPNE1 #### [address] [address] Micropolyspora faeni Not detected Normal NONE DETECTED [facility] Comment on above: Result Comment: (NOT E) Performed By: [address] [address] Performed By: #### C MP, RF, ANA1, CK, CBCDIF, NTBNP #### [place] [phone] #### HYPNE1 #### [address] [address] [place] Serum Not detected Normal NONE DETECTED [facility] Comment on above: Result Comment: (NOT E) Performed By: [place] [address] Performed By: #### C MP, RF, ANA1, CK, CBCDIF, NTBNP #### [place] [phone] #### HYPNE1 #### [place] [address] Thermoact vulgaris 1 SEE NOTE Normal NONE DETECTED [facility] Comment on above: Result Comment: (NOT E) Testing includes antibodies directed at Aureobasidium pullulans, Aspergillus fumigatus #1, Aspergillus fumigatus #6, Micropolyspora faeni, [place] Serum and Thermoactinomyces vulgaris #1. Thermoactinomyces vulgaris #1 testing not performed due to unsatisfactory reagent performance. A credit will be issued for this component. Performed By: [place] [address] Performed By: #### C MP, RF, ANA1, CK, CBCDIF, NTBNP #### [place] [phone] #### HYPNE1 #### [address] [address] NT Pro BNPon 09-20-2021 PRO B Natr Peptide 603 pg/mL High <450 [facility] Comment on above: Performed By: #### C MP, RF, ANA1, CK, CBCDIF, NTBNP #### [facility] [address] [place], [place] [address] #### HYPNE1 #### [facility] [address] [place] [address] Rheumatoid Factoron 09-20-20 21 Rheumatoid Factor <10 Normal <16 [facility] Comment on above: Performed By: #### C MP, RF, ANA1, CK, CBCDIF, NTBNP #### [facility] [address] [place], [place] [address] #### HYPNE1 #### [facility] [address] [place] [address] CNPNon 08-22-2021 CNPN Telephone (BERNARD) LB VIZCAINO ([id number]) 1945 M Date Time Provider Department 08/22/21 SAMANTHA SHARMA During your visit today, we recorded the following information about you[place]gy [place] [facility] [place] 11:07 AM Addendum Please call Dr. Francisco Zee @ [phone] to discuss mutual patient who is scheduled to see Dr. Sharma on 09/20/21. He needs to be seen sooner than September. Thank you. Dr. Chacko's office called back and only wants Dr. Sharma. Patient will keep 09/20/21 apt. Allergies As of Date: 08/22/2021 (Not on File) Date Reviewed: Never Reviewed Reason for Visit: patient needs to be seen sooner than September, etc. [Other] Problem List As Of Date: 08/22/2021 (None) Encounter Status:Closed by PORSHA APPLE on 08/24/21 Normal [facility] Lab Report: Lipid Profileon 01-01-2018 Cholesterol 96 mg/dL Invalid Interpretation Code 200 [facility] Work Phone: [phone] HDL Cholesterol 36 mg/dL Low [facility] Work Phone: [phone] LDL Cholesterol 44 mg/dL Invalid Interpretation Code 0-130 [facility] Work Phone: [phone] Triglyceride 81 mg/dL Invalid Interpretation Code [facility] Work Phone: [phone] very low density lipoproteins 16 mg/dL Invalid Interpretation Code 5-40 [facility] Work Phone: [phone] Lab Report: Liver Profileon 01-01-2018 Alanine aminotransferase (ALT) 29 U/L Invalid Interpretation Code 16-61 [facility] Work Phone: [phone] Albumin 3.6 g/dL Invalid Interpretation Code 3.2-5.0 [facility] Work Phone: [phone] Alkaline phosphatase (ALP) 107 U/L Invalid Interpretation Code 45-117 [facility] Work Phone: [phone] Aspartate aminotransferase (AST) 21 U/L Invalid Interpretation Code 15-37 [facility] Work Phone: [phone] Bilirubin (direct) 0.12 mg/dL Invalid Interpretation Code 0.00-0.30 [facility] Work Phone: [phone] Bilirubin (total) 0.60 mg/dL Invalid Interpretation Code 0.20-1.00 [facility] Work Phone: [phone] Globulin 3.8 g/dL Invalid Interpretation Code 2.2-4.2 [facility] Work Phone: [phone] Protein 7.4 g/dL Invalid Interpretation Code 6.4-8.2 [facility] Work Phone: [phone] Chart Maintenanceon 07-16-20 17 Left ventricular Ejection fraction 55 % Invalid Interpretation Code [facility] Work Phone: [phone] Lab Report: BNP,B-Type NATRI URETIC PEPTIDEon 06-28-2017 BNP 47.4 pg/mL Invalid Interpretation Code 0-100 [facility] Work Phone: [phone] Office Visiton 06-28-2017 Documentation of current medications (procedure) Done Invalid Interpretation Code [facility] Work Phone: [phone] Fall risk assessment No Invalid Interpretation Code [facility] Work Phone: [phone] Protein mass conc Done [facility] Work Phone: [phone] Lab Report: Lipid Profileon 06-26-2017 Cholesterol in HDL mass conc 35 mg/dL Low [facility] Work Phone: [phone] Cholesterol in LDL mass conc 41 mg/dL Invalid Interpretation Code 0-130 [facility] Work Phone: [phone] Cholesterol mass conc 92 mg/dL Invalid Interpretation Code 200 [facility] Work Phone: [phone] Lipoprotein.pre-beta mass conc 16 mg/dL Invalid Interpretation Code 5-40 [facility] Work Phone: [phone] Triglyceride mass conc 82 mg/dL Invalid Interpretation Code [facility] Work Phone: [phone] Lab Report: Liver Profileon 06-26-2017 Albumin mass conc 3.5 g/dL Invalid Interpretation Code 3.4-5.0 [facility] Work Phone: [phone] Alkaline phosphatase (ALP) 101 U/L Invalid Interpretation Code 45-117 [facility] Work Phone: [phone] ALP enzyme act/vol (Bld) 101 U/L 45-117 [facility] Work Phone: [phone] ALT enzyme act/vol 40 U/L Invalid Interpretation Code 12-78 [facility] Work Phone: [phone] AST enzyme act/vol 26 U/L Invalid Interpretation Code 15-37 [facility] Work Phone: [phone] Bilirubin mass conc 0.50 mg/dL Invalid Interpretation Code 0.20-1.00 [facility] Work Phone: [phone] Bilirubin.direct mass conc 0.13 mg/dL Invalid Interpretation Code 0.00-0.30 [facility] Work Phone: [phone] Globulin 3.8 g/dL High 2.3-3.5 [facility] Work Phone: [phone] Globulin mass conc (S) 3.8 g/dL High 2.3-3.5 [facility] Work Phone: [phone] Protein mass conc 7.3 g/dL Invalid Interpretation Code 6.4-8.2 [facility] Work Phone: [phone] Office Visiton 12-14-2016 Documentation of current medications (procedure) Done Invalid Interpretation Code [facility] Work Phone: [phone] Protein mass conc Done [facility] Work Phone: [phone] Clinical 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-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 Left ventricular Ejection fraction 60 % [facility] Work Phone: [phone] Replaced Document: Alex Burton CG Observationson 06-08-2016 EKG QRS axis 17 deg [facility] Work Phone: [phone] electrocardiogram interpretation Sinus Bradycardia -First degree A-V block Steffi = 222BORDERLINE RHYTHM Invalid Interpretation Code [facility] Work Phone: [phone] GE use only - for [employer] import when terms are not otherwise specified 413 ms Invalid Interpretation Code [facility] Work Phone: [phone] Interpretation Sinus Bradycardia -First degree A-V block Steffi = 222BORDERLINE RHYTHM [facility] Work Phone: [phone] P [place] 40 deg [facility] Work Phone: [phone] P wave axis, electrocardiogram 40 deg Invalid Interpretation Code [facility] Work Phone: CT Interval 222 ms [facility] Work Phone: CT interval, electrocardiogram 222 ms Invalid Interpretation Code [facility] Work Phone: Pulse (Heart Rate) 50 /min Invalid Interpretation Code [facility] Work Phone: QRS axis, electrocardiogram 17 deg Invalid Interpretation Code [facility] Work Phone: [phone] QRS Duration 110 ms [facility] Work Phone: [phone] QRS duration, electrocardiogram 110 ms Invalid Interpretation Code [facility] Work Phone: QT Interval new path ms [facility] Work Phone: [phone] QT interval, electrocardiogram new path ms Invalid Interpretation Code [facility] Work Phone: [phone] QTc Roberts 413 ms [facility] Work Phone: [phone] T [place] 63 deg [facility] Work Phone: [phone] T wave axis, electrocardiogram 63 deg Invalid Interpretation Code [facility] Work Phone: [phone] Office Visiton 12-02-2015 Dietary management education, guidance, and counseling (procedure) yes Invalid Interpretation Code [facility] Work Phone: [phone] Tobacco smoking status NHIS Tobacco smoking status NHIS Invalid Interpretation Code [facility] Work Phone: [phone] Tobacco smoking status NHIS Former smoker [facility] Work Phone: [phone] Tobacco use [facility] Former smoker Invalid Interpretation Code [facility] Work Phone: [phone] Office Visiton 11-27-2014 cardiac risk group C Invalid Interpretation Code [facility] Work Phone: [phone] General cardiovascular disease 10Y risk [#] [place].Asaf'Agostbony N/A Invalid Interpretation Code [facility] Work Phone: [phone]) Clinical Lists Update: 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 2014 Thyrotropin Qn 4.94 u[iU]/mL High [facility] Work Phone: [phone] Clinical Lists Update: 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 10-23-2014 Anion gap 7 mmol/L Invalid Interpretation Code [facility] Work Phone: [phone] Anion gap molar conc 7 mmol/L [facility] Work Phone: [phone] Chloride molar conc 106 mmol/L Invalid Interpretation Code [facility] Work Phone: [phone] CO2 28.0 mmol/L Invalid Interpretation Code [facility] Work Phone: [phone] CO2 ppres (BldV) 28.0 mmol/L [facility] Work Phone: [phone] Creatinine mass conc 1.1 mg/dL Invalid Interpretation Code [facility] Work Phone: [phone] Erythrocytes (RBC) 4.02 10*6/uL Low [facility] Work Phone: [phone] Glucose 111 mg/dL Invalid Interpretation Code [facility] Work Phone: [phone] Glucose mass conc 111 mg/dL [facility] Work Phone: [phone] Hematocrit (HCT) 40.2 % Invalid Interpretation Code [facility] Work Phone: [phone] Hematocrit Volume Fraction (Bld) 40.2 % [facility] Work Phone: [phone] Hemoglobin mass conc (Bld) 13.7 g/dL Invalid Interpretation Code [facility] Work Phone: [phone] MCH 34.1 pg High [facility] Work Phone: [phone] MCH Entitic mass (RBC) 34.1 pg High [facility] Work Phone: [phone] MCV 100.0 fL High [facility] Work Phone: [phone] MCV Entitic volume (RBC) 100.0 fL High [facility] Work Phone: [phone] Platelets 194 10*3/mm3 Invalid Interpretation Code [facility] Work Phone: [phone] Platelets #/vol (Bld) 194 10*3/mm3 [facility] Work Phone: [phone] Potassium molar conc 4.3 mmol/L Invalid Interpretation Code [facility] Work Phone: [phone] RBC #/vol (Bld) 4.02 10*6/uL Low [facility] Work Phone: [phone] Sodium molar conc 141 mmol/L Invalid Interpretation Code [facility] Work Phone: [phone] Urea nitrogen mass conc 16 mg/dL Invalid Interpretation Code [facility] Work Phone: [phone] Urea nitrogen/Creatinine mass ratio 14.5 mg/mg Invalid Interpretation Code [facility] Work Phone: [phone] WBC #/vol (Bld) 6.4 10*3/uL [facility] Work Phone: [phone] WBC (Leukocytes) 6.4 10*3/uL Invalid Interpretation Code [facility] Work Phone: [phone] Replaced Document: Alex E CG Observationson 05-27-2014 Pulse (Heart Rate) 414 ms Invalid Interpretation Code [facility] Work Phone: [phone] Lab Report: [facility] - copyon Calcium mass conc 8.6 mg/dL Normal 8.5-10.1 [facility] Work Phone: [phone] Vital Signs Date Time Vital Sign Value Performing Clinician Berto ruiz 06-28-2017 13:49-0400 BMI (Body Mass Index) 29.96 kg/m2 MD [facility] Work Phone: 06-28-2017 13:49-0400 BP Diastolic 76 mm[Hg] Tru Queen MD [place] [facility] Work Phone: 06-28-2017 13:49-0400 BP Systolic 112 mm[Hg] Tru Queen MD [place] [facility] Work Phone: 06-28-2017 13:49-0400 Height 193.04 cm Tru Queen MD [facility] Work Phone: 06-28-2017 13:49-0400 Pulse (Heart Rate) 60 /min Tru Queen MD [facility] Work Phone: 06-28-2017 13:49-0400 Respiratory Rate 20 /min Tru Queen MD [place] [facility] Work Phone: 06-28-2017 13:49-0400 Weight 111.64 kg Tru Queen MD [place] [facility] Work Phone: 12-14-2016 08:58-0500 BMI (Body Mass Index) 29.7 kg/m2 MD [facility] Work Phone: 12-14-2016 08:58-0500 BP Diastolic 54 mm[Hg] MD [facility] Work Phone: 12-14-2016 08:58-0500 BP Systolic 100 mm[Hg] MD [facility] Work Phone: 12-14-2016 08:58-0500 BSA (Body Surface Area) 2.41 m2 MD [facility] Work Phone: 12-14-2016 08:58-0500 Pulse (Heart Rate) 60 /min MD [facility] Work Phone: 12-14-2016 08:58-0500 Respiratory Rate 20 /min MD [facility] Work Phone: 12-14-2016 08:58-0500 Weight 110.68 kg MD [facility] Work Phone: 06-08-2016 08:42-0400 Heart rate 50 /min MD [facility] Work Phone: 12-02-2015 09:43-0500 Height 193.04 cm MD [facility] Work Phone: 05-27-2014 09:22-0400 Heart rate 414 ms MD [facility] Work Phone: Encounters Encounter Date Encounter Type Care Provider Facility Start: 02-23-2025 End: 02-23-2025 ambulatory Earnest Chi Isai Facility:[facility] Start: 10-16-2024 End: 10-16-2024 ambulatory Earnest Chi Isai Facility:[facility] Start: 10-05-2024 ambulatory [facility] ty:[facility] Start: 09-22-2024 End: 10-04-2024 ambulatory [facility] Facility:[facility] Start: 09-09-2024 End: 09-09-2024 ambulatory Earnest Chi Isai Facility:[facility] Start: 09-05-2024 ambulatory [facility] ty:[facility] Start: 09-03-2024 End: 09-03-2024 ambulatory [facility] Facility:[facility] Start: 09-01-2024 ambulatory Earnest Chi Isai Facility:[facility] Start: 08-20-2024 End: 08-21-2024 ambulatory Earnest Chi Isai Facility:[facility] Start: 08-12-2024 ambulatory Crow Kim Facilit y:[facility] Start: 08-12-2024 End: 08-14-2024 Evaluation and management of inpatient Crow Kim Facility:[facility] Start: 08-11-2024 End: 08-11-2024 ambulatory Earnest Chi Isai Facility:[facility] Start: 08-05-2024 End: 08-05-2024 ambulatory Earnest Chi Isai Facility:[facility] Start: 07-16-2024 End: 07-16-2024 ambulatory Earnest Chi Isai Facility:[facility] Start: 07-11-2024 End: 07-11-2024 ambulatory Earnest Chi Isai Facility:[facility] Start: 07-08-2024 End: 07-08-2024 ambulatory Earnest Chi Isai Facility:[facility] Start: 07-01-2024 End: 07-01-2024 ambulatory Earnest Chi Isai Facility:[facility] Start: 06-30-2024 End: 06-30-2024 ambulatory Earnest Chi Isai Facility:[facility] Start: 04-17-2024 End: 04-17-2024 ambulatory Earnest Chi Isai Facility:[facility] Start: 10-18-2023 End: 10-18-2023 ambulatory [facility] Work Phone: Start: 10-18-2023 End: 10-18-2023 Patient encounter procedure [facility]y Office 3rd Flr Start: 10-12-2022 End: 10-12-2022 ambulatory [facility] Work Phone: Start: 10-12-2022 End: 10-12-2022 Patient encounter procedure [facility]y Office 3rd Flr Procedures Date Procedure Procedure Detail Performing Clinician Start: 12-27-2017 End: 01-04-2018 *Hepatic Function Panel Donald Sepulveda Start: 12-27-2017 End: 01-04-2018 Lipid panel [AGGREGATE] Donald Sepulveda Start: 06-28-2017 End: 06-29-2017 BNP Tru Queen MD Start: 06-28-2017 End: 07-16-2017 Echocardiography Tru Queen MD Start: 06-28-2017 End: 06-28-2017 Follow Up Appt 6 months Donald Sepulveda Start: 06-28-2017 End: 06-28-2017 MMM Tru Queen MD Start: 06-28-2017 End: 07-16-2017 Nuclear stress test -exercise Tru Queen MD Start: 06-15-2017 End: 06-26-2017 *Hepatic Function Panel Alivia hoyt PA-C Work Phone: Start: 06-15-2017 End: 06-26-2017 Lipid panel [AGGREGATE] Alivia hoyt PA-C Work Phone: Start: 12-14-2016 End: 12-14-2016 Follow Up Appt 6 months Donald Sepulveda Start: 12-14-2016 End: 12-14-2016 MMDonald Queen MD Start: 12-06-2016 End: 12-08-2016 *Hepatic Function Panel Alivia hoyt PA-C Work Phone: Start: 12-06-2016 End: 12-08-2016 Lipid panel [AGGREGATE] Alivia hoyt PA-C Work Phone: Start: 06-08-2016 End: 06-08-2016 PHOTORESIST CONTACT PRINTER Alivia Collins PA-C Work Phone: Start: 06-08-2016 End: 06-08-2016 Electrocardiogram, complete Alivia Harmon PA-C Work Phone: Start: 06-08-2016 End: 06-08-2016 Follow Up Appt 6 months Alivia hoyt PA-C Work Phone: Start: 06-06-2016 End: 06-07-2016 *Hepatic Function Panel Alivia hoyt PA-C Work Phone: Start: 06-06-2016 End: 06-07-2016 Lipid panel [AGGREGATE] Alivia hoyt PA-C Work Phone: Start: 12-02-2015 End: 12-02-2015 Dietary management education, guidance, and counseling Tru Queen MD Start: 12-02-2015 End: 12-02-2015 Follow Up Appt 6 months Donald Sepulveda Start: 12-02-2015 End: 12-02-2015 [facility] Tru Queen MD Start: 11-19-2015 End: 12-01-2015 *Hepatic Function Panel Alivia Donald hoyt PA-C Work Phone: Start: 11-19-2015 End: 12-01-2015 Lipid panel [AGGREGATE] Alivia hoyt PA-C Work Phone: Start: 05-26-2015 End: 05-26-2015 PHOTORESIST CONTACT PRINTER Alivia Collins PA-C Work Phone: Start: 05-26-2015 End: 05-26-2015 Follow Up Appt 6 months Alivia hoyt PA-C Work Phone: Start: 05-20-2015 End: 05-20-2015 *Hepatic Function Panel Alivia hoyt PA-C Work Phone: Start: 05-20-2015 End: 05-20-2015 Lipid panel [AGGREGATE] Alivia hoyt PA-C Work Phone: Start: 11-27-2014 End: 05-12-2015 *Hepatic Function Panel Donald Sepulveda Start: 11-27-2014 End: 11-28-2014 Documentation of current medications Tru Queen MD Start: 11-27-2014 End: 11-27-2014 Follow Up Appt 6 months Donald Sepulveda Start: 11-27-2014 End: 05-12-2015 Lipid panel [AGGREGATE] Donald Sepulveda Start: 11-27-2014 End: 11-27-2014 URVASHI Queen MD Start: 11-05-2014 End: 11-18-2014 *Hepatic Function Panel Alivia hoyt PA-C Work Phone: Start: 11-05-2014 End: 11-18-2014 Lipid panel [AGGREGATE] Alivia hoyt PA-C Work Phone: Start: 05-27-2014 End: 05-27-2014 PHOTORESIST CONTACT PRINTER Alivia Collins PA-C Work Phone: Start: 05-27-2014 End: 05-27-2014 Electrocardiogram, complete Alivia Harmon PA-C Work Phone: Start: 05-27-2014 End: 05-27-2014 Follow Up Appt 6 months Alivia hoyt PA-C Work Phone: Start: 05-05-2014 End: 05-25-2014 *Hepatic Function Panel Alivia hoyt PA-C Work Phone: Start: 05-05-2014 End: 05-25-2014 Lipid panel [AGGREGATE] Alivia hoyt PA-C Work Phone: Start: 12-05-2013 End: 12-05-2013 Follow Up Appt 6 months Donald Sepulveda Start: 12-05-2013 End: 12-05-2013 URVASHI Queen MD Start: 11-05-2013 End: 12-02-2013 *Hepatic Function Panel Alivia hoyt PA-C Work Phone: Start: 11-05-2013 End: 12-02-2013 Lipid panel [AGGREGATE] Alivia hoyt PA-C Work Phone: Start: 05-20-2013 End: 05-20-2013 *BMP Alivia Collins PA-C Work Phone: Start: 05-20-2013 End: 05-20-2013 *CBC with Differential Alivia meyer PA-C Work Phone: Start: 05-20-2013 End: 05-20-2013 *Hepatic Function Panel Alivia hoyt PA-C Work Phone: Start: 05-20-2013 End: 05-20-2013 PHOTORESIST CONTACT PRINTER Alivia Collins PA-C Work Phone: Start: 05-20-2013 End: 05-20-2013 Follow Up Appt 6 months Alivia hoyt PA-C Work Phone: Start: 05-20-2013 End: 05-20-2013 Lipid panel [AGGREGATE] Alivia hoyt PA-C Work Phone: Start: 05-20-2013 End: 12-05-2013 Thyroid stimulating hormone (TSH) Alivia Collins PA-C Work Phone: Start: 11-26-2012 End: 12-02-2012 Echocardiography Tru Queen MD Start: 11-26-2012 End: 11-26-2012 Follow Up Appt 6 months Donald Sepulveda Start: 11-26-2012 End: 11-26-2012 MMM Tru Queen MD Start: 11-26-2012 End: 12-02-2012 Nuclear stress test -exercise Tru Queen MD Start: 05-28-2012 End: 11-26-2012 *Hepatic Function Panel Donald Sepulveda Start: 05-28-2012 End: 05-28-2012 Follow Up Appt 6 months Donald Sepulveda Start: 05-28-2012 End: 11-26-2012 Lipid panel [AGGREGATE] Donald Sepulveda Start: 09-13-2007 History of coronary artery bypass grafting H/O coronary artery bypass surgery Plan of Treatment Date Care Activity Detail Author Start: 01-04-2018 End: 01-04-2018 Appointment Appointment [facility] Work Phone: Start: 12-27-2017 End: 01-04-2018 *Hepatic Function Panel *Hepatic Function Panel [facility] Work Phone: Start: 12-27-2017 End: 01-04-2018 Lipid panel [AGGREGATE] *Lipid Profile CC PCP [facility] Work Phone: Start: 06-28-2017 End: 06-28-2017 Appointment Appointment [facility] Work Phone: Start: 06-28-2017 End: 06-29-2017 BNP *Brain Natriuretic Peptide BNP [facility] Work Phone: Start: 06-28-2017 End: 06-29-2017 Echocardiography Echocardiogram (complete) [facility] Work Phone: Start: 06-28-2017 End: 06-28-2017 Follow Up Appt 6 months Follow Up Appt 6 months [facility] Work Phone: Start: 06-28-2017 End: 06-28-2017 MMM MMM [facility] Work Phone: Start: 06-28-2017 End: 06-29-2017 Nuclear stress test -exercise Nuclear stress test -exercise [facility] Work Phone: Start: 06-15-2017 End: 06-26-2017 *Hepatic Function Panel *Hepatic Function Panel [facility] Work Phone: Start: 06-15-2017 End: 06-26-2017 Lipid panel [AGGREGATE] *Lipid Profile CC PCP [facility] Work Phone: Start: 12-14-2016 End: 12-14-2016 Follow Up Appt 6 months Follow Up Appt 6 months [facility] Work Phone: Start: 12-14-2016 End: 12-14-2016 MMM MMM [facility] Work Phone: Start: 12-06-2016 End: 12-08-2016 *Hepatic Function Panel *Hepatic Function Panel [facility] Work Phone: Start: 12-06-2016 End: 12-08-2016 Lipid panel [AGGREGATE] *Lipid Profile CC PCP [facility] Work Phone: Start: 06-08-2016 End: 06-08-2016 PHOTORESIST CONTACT PRINTER PHOTORESIST CONTACT PRINTER [facility] Work Phone: Start: 06-08-2016 End: 06-08-2016 Electrocardiogram, complete EKG (In office) [facility] Work Phone: Start: 06-08-2016 End: 06-08-2016 Follow Up Appt 6 months Follow Up Appt 6 months [facility] Work Phone: Start: 06-06-2016 End: 06-07-2016 *Hepatic Function Panel *Hepatic Function Panel [facility] Work Phone: Start: 06-06-2016 End: 06-07-2016 Lipid panel [AGGREGATE] *Lipid Profile CC PCP [facility] Work Phone: Start: 12-02-2015 End: 12-02-2015 Follow Up Appt 6 months Follow Up Appt 6 months [facility] Work Phone: Start: 12-02-2015 End: 12-02-2015 MMM MMM [facility] Work Phone: Start: 11-19-2015 End: 12-01-2015 *Hepatic Function Panel *Hepatic Function Panel [facility] Work Phone: Start: 11-19-2015 End: 12-01-2015 Lipid panel [AGGREGATE] *Lipid Profile CC PCP [facility] Work Phone: Start: 06-04-2015 End: 05-20-2015 *Hepatic Function Panel *Hepatic Function Panel [facility] Work Phone: Start: 06-04-2015 End: 05-20-2015 Lipid panel [AGGREGATE] *Lipid Profile CC PCP [facility] Work Phone: Start: 05-26-2015 End: 05-26-2015 PHOTORESIST CONTACT PRINTER PHOTORESIST CONTACT PRINTER [facility] Work Phone: Start: 05-26-2015 End: 05-26-2015 Follow Up Appt 6 months Follow Up Appt 6 months [facility] Work Phone: Start: 11-27-2014 End: 05-12-2015 *Hepatic Function Panel *Hepatic Function Panel [facility] Work Phone: Start: 11-27-2014 End: 11-27-2014 Follow Up Appt 6 months Follow Up Appt 6 months [facility] Work Phone: Start: 11-27-2014 End: 05-12-2015 Lipid panel [AGGREGATE] *Lipid Profile CC PCP [facility] Work Phone: Start: 11-27-2014 End: 11-27-2014 MMM MMM [facility] Work Phone: Start: 11-05-2014 End: 11-18-2014 *Hepatic Function Panel *Hepatic Function Panel [facility] Work Phone: Start: 11-05-2014 End: 11-18-2014 Lipid panel [AGGREGATE] *Lipid Profile CC PCP [facility] Work Phone: Start: 05-27-2014 End: 05-27-2014 PHOTORESIST CONTACT PRINTER PHOTORESIST CONTACT PRINTER [facility] Work Phone: Start: 05-27-2014 End: 05-27-2014 Electrocardiogram, complete EKG (In office) [facility] Work Phone: Start: 05-27-2014 End: 05-27-2014 Follow Up Appt 6 months Follow Up Appt 6 months [facility] Work Phone: Start: 05-05-2014 End: 05-25-2014 *Hepatic Function Panel *Hepatic Function Panel [facility] Work Phone: Start: 05-05-2014 End: 05-25-2014 Lipid panel [AGGREGATE] *Lipid Profile CC PCP [facility] Work Phone: Start: 12-05-2013 End: 12-05-2013 Follow Up Appt 6 months Follow Up Appt 6 months [facility] Work Phone: Start: 12-05-2013 End: 12-05-2013 MMM MMM [facility] Work Phone: Start: 11-05-2013 End: 12-02-2013 *Hepatic Function Panel *Hepatic Function Panel [facility] Work Phone: Start: 11-05-2013 End: 12-02-2013 Lipid panel [AGGREGATE] *Lipid Profile CC PCP [facility] Work Phone: Start: 05-20-2013 End: 05-20-2013 *BMP *BMP [facility] Work Phone: Start: 05-20-2013 End: 05-20-2013 *CBC with Differential *CBC with Differential [facility] Work Phone: Start: 05-20-2013 End: 05-20-2013 *Hepatic Function Panel *Hepatic Function Panel [facility] Work Phone: Start: 05-20-2013 End: 05-20-2013 PHOTORESIST CONTACT PRINTER PHOTORESIST CONTACT PRINTER [facility] Work Phone: Start: 05-20-2013 End: 05-20-2013 Follow Up Appt 6 months Follow Up Appt 6 months [facility] Work Phone: Start: 05-20-2013 End: 05-20-2013 Lipid panel [AGGREGATE] *Lipid Profile CC PCP [facility] Work Phone: Start: 05-20-2013 End: 12-05-2013 Thyroid stimulating hormone (TSH) *TSH [facility] Work Phone: Start: 11-26-2012 End: 11-26-2012 Echocardiography Echocardiogram (complete) [facility] Work Phone: Start: 11-26-2012 End: 11-26-2012 Follow Up Appt 6 months Follow Up Appt 6 months [facility] Work Phone: Start: 11-26-2012 End: 11-26-2012 MMM MMM [facility] Work Phone: Start: 11-26-2012 End: 11-26-2012 Nuclear stress test -exercise Nuclear stress test -exercise [facility] Work Phone: Start: 05-28-2012 End: 11-26-2012 *Hepatic Function Panel *Hepatic Function Panel [facility] Work Phone: Start: 05-28-2012 End: 05-28-2012 Follow Up Appt 6 months Follow Up Appt 6 months [facility] Work Phone: Start: 05-28-2012 End: 11-26-2012 Lipid panel [AGGREGATE] *Lipid Profile [facility] Work Phone: Patient Education [facility] Work Phone: Payers Date Payer Category Payer Self-pay [id number] 2015 Medicare [id number] Unknown [id number] 2.16.8 [id number] Unknown [id number] 2.16.8 40.1.212725.3.579.2.462 Unknown [id number] 2.16.8 40.1.205465.3.579.2.462 Unknown [id number] 2.16.8 40.1.086452.3.579.2.462 Unknown [id number] 2.16.8 40.1.487938.3.579.2.462 Unknown [id number] 2.16.8 40.1.984612.3.579.2.462 Unknown [id number] 2.16.8 40.1.816370.3.579.2.462 Unknown [id number] 2.16.8 40.1.339732.3.579.2.462 Unknown [id number] 2.16.8 40.1.094214.3.579.2.462 Unknown [id number] 2.16.8 40.1.462132.3.579.2.462 Unknown [id number] 2.16.8 40.1.513830.3.579.2.462 Unknown [id number] 2.16.8 40.1.609962.3.579.2.462 Unknown [id number] 2.16.8 40.1.712401.3.579.2.462 Unknown [id number] 2.16.8 40.1.491980.3.579.2.462 Unknown [id number] 2.16.8 40.1.939473.3.579.2.462 Unknown [id number] 2.16.8 40.1.528601.3.579.2.462 Unknown [id number] 2.16.8 40.1.388336.3.579.2.462 Unknown [id number] 2.16.8 40.1.019922.3.579.2.462 Unknown [id number] 2.16.8 40.1.639937.3.579.2.462 Unknown [id number] 2.16.8 40.1.431080.3.579.2.462 Unknown [id number] 2.16.8 40.1.310538.3.579.2.462 Unknown [id number] 2.16.8 40.1.933638.3.579.2.462 Unknown [id number] 2.16.8 40.1.524253.3.579.2.462 Social History Date Type Detail Facility [facility]: [facility] Start: 1945 Sex Assigned At Male W [facility] Discharge summary note 08-14-2024 Note Date & Type Note Facility 08-14-2024 Note [facility] Medical Records Department [address] [place] [address] Discharge Summary 08/14/24 1248 MR#: [id number] Acct: [id number] Name: LB VIZCAINO Rep #: [id number] : 1945 78 From: Oralia Patel DO PCP: Dr. Earnest Arvizu MD Status:ADM IN Location: [facility] IW061-1 Providers Date of Admission: 08/12/24 Date of Discharge: 08/14/24 Primary Care Physician: Dr. Earnest Arvizu MD Consultations 08/12/24 16:44 Consult: Podiatry Routine Consulting Provider: Crow Kim Reason for Consult: R great toe osteomyelitis EMERGENT Consult: No Notified: Yes Date Notified: 08/12/24 Time Notified: 16:49 Method of Notification: Text 08/13/24 07:42 Consult: Infectious Disease Routine Consulting Provider: Francisco Lopez Reason for Consult: right great and 2nd toe infection EMERGENT Consult: No Notified: Yes Date Notified: 08/13/24 Time Notified: 07:42 Method of Notification: Answering Service Reason For Visit: OSTEOMYELITIS OF R GREAT TOE Diagnosis Discharge Diagnosis (1) Acute osteomyelitis of right foot: Status: Acute Code(s): M86.171 - Other acute osteomyelitis, right ankle and foot (2) Other hereditary and idiopathic neuropathies: Status: Acute Code(s): G60.8 - Other hereditary and idiopathic neuropathies Medications at Discharge Home Medications lisinopril 5 mg tablet 5 mg PO DAILY BLOOD PRESSURE 12/31/17 tamsulosin 0.4 mg capsule 0.4 mg PO DAILY PROSTATE 12/31/17 metoprolol tartrate 25 mg tablet 12.5 mg PO DAILY BLOOD PRESSURE 01/04/18 atorvastatin 20 mg tablet 20 mg PO QPM CHOLESTEROL #90 tabs 08/05/19 levothyroxine 75 mcg tablet 75 mcg PO DAILY THYROID #90 tabs 08/05/19 prednisone 10 mg tablet 10 mg PO DAILY STEROID 11/09/20 furosemide 40 mg tablet (Lasix) 40 mg PO DAILY PRN EDEMA 07/16/21 albuterol sulfate 90 mcg/actuation aerosol inhaler 2 puff inhalation Q4H PRN SHORTNESS OF BREATH/WHEEZING 08/12/24 fexofenadine 180 mg tablet (Allergy Relief (fexofenadine)) 180 mg PO DAILY 08/12/24 ceftriaxone 2 gram intravenous solution 2 g IV Q24H 39 days 08/14/24 metronidazole 500 mg tablet 500 mg PO TID 39 days #117 tabs 08/14/24 vancomycin 1.25 gram intravenous solution 1.25 g IV Q12H 39 days 08/14/24 Hospital Course Operations None Procedures PICC line placement Summary of Care Provided Minutes Spent on Discharge: 37 Hospital Course: Patient is an 78-year-old white male who presented to the emergency department at [facility] on 08/13/2020 for with right foot wound of the great toe. He reported that he became somewhat aggressive and clipping his toenails about 3 weeks prior to presentation and started having bleeding on the medial aspect of his great toe. Since that point in time his great toe had become red and he was being treated in the outpatient setting with oral antibiotics. He is on doxycycline and another medication of which he could not remember at the time of presentation. He follows in the outpatient setting with Dr. Cope but was seen by Dr. Kim due to no improvement in his symptoms and an MRI was performed in the outpatient setting yesterday and consistent with osteomyelitis of the great toe. He had no systemic symptoms and he indicated that he feels that his toe is actually decreased in the amount of redness he has had. He does have some neuropathy but is not diabetic and is not having a great deal of pain. Vital signs on presentation showed temperature of 97.5, heart rate 66, blood pressure 130/79, pulse ox was 98% room air. CBC had no leukocytosis but he did have his left shift with a 79.9% neutrophilia. Chemistry panel was overtly unremarkable other than some mild hyperglycemia with a blood sugar of 135. He did have a hemoglobin A1c in April which was 5.5. Liver functions are normal. Lactic acid on presentation was 3.3 but resolved quickly with fluid administration down to 1.7. His UA is not consistent with infection. MRI was reviewed and shows skin ulceration on the medial aspect of the great toe with a fluid signal tracking from the skin surface to the medial cortex of the distal phalanx of the great toe with suspected osteomyelitis of the distal phalanx of the great toe, tendon rupture at the flexor houses longus at the first MTP, atrophy and fat infiltration of the intrinsic musculature of the foot, subcutaneous soft tissue edema around the great toe and along the dorsum of the foot and increased T2 signal marrow edema consistent with osteomyelitis of the second distal phalanx. He was admitted to the medical floor and placed on broad-spectrum antibiotics. He was evaluated by podiatry and infectious disease. Podiatry offered amputation versus antibiotics and the patient wanted to discuss options with infectious disease as well. They evaluated the patient and patient opted for long-term antibiotics with ongoing (more content not included)... [facility] Consultation note 08-12-2024 Note Date & Type Note Facility 08-12-2024 Note [facility] Medical Records Department [address] [place] [address] Consultation 08/12/242023 MR#: [id number] Acct: [id number] Name: LB VIZCAINO Rep #: [id number] : 1945 78 From: Crow Kim DPM PCP: Dr. Earnest Arvizu MD Status:ADM IN Location: [facility] AV420-7 Assessment Plan Assessment/Plan (1) Acute osteomyelitis of right foot: (2) Other hereditary and idiopathic neuropathies: PLAN: Plan Evaluation performed. Reviewed diagnostic data. There is evidence of infection right 1st toe, but also trace erythema and edema to right 2nd toe with ulceration. MRI shows findings consistent with osteomyelitis right 1st toe distal phalanx, also concern for osteomyelitis right 2nd toe distal phalanx. I have placed a call to radiologist to discuss this. At this time there is nothing to culture via swab, reviewed previous culture from Jul 2024 which show MSSA. Patient is on antibiotic therapy at this time. Discussed further options with patient course of antibiotic therapy and also amputation options. Reviewed possible benefits vs risks, goals, expectations of each. He relates he is leaning toward the surgery/amputation. He relates his family will be in first time tomorrow morning and would like to involve them in decision, so will discuss with them in morning with patient. If we proceed with the amputation we would plan for 08/14/2024 in the afternoon. Reviewed recent LEAS and noted good arterial flow to right foot. Podiatry will continue to follow, thank you for consultation. HPI Consult Data Date of Consult: 08/12/24 HPI Narrative Reason for Consultation: Right 1st toe bone infection HPI Narrative: LB VIZCAINO, is a 78 M who presents due to osteomyelitis right 1st toe. He relates he has neuropathy in feet, and trimmed his right 1st toenail to close, also 1st toe rubs on 2nd toe, and he has a wound on right 2nd toe as well. He relates to redness and swelling of the right 1st and 2nd toes, although he relates it does appear to be improving. He relates the wound on the right 2nd toe is healing nicely. Patient had MRI right yesterday and shows bone marrow edema to the distal phalanx of the right 1st toe, I also noticed there is bone marrow edema right 2nd toe distal phalanx but radiologist did not read this. Patient has been started on antibiotics Vanc and Cefepime, as well as flagyl. Patient has been admitted for further evaluation and management. [facility] Medical History (Updated 08/12/24 @ 21:[address] 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 in diseases classified elsewhere Idiopathic pulmonary fibrosis Obstructive sleep apnea Pulmonary fibrosis Chronic diastolic (congestive) heart failure Multiple premature ventricular complexes Left carotid artery stenosis Hypothyroidism Essential (primary) hypertension BPH (benign prostatic hyperplasia) Atherosclerotic heart disease of [place] coronary artery without angina pectoris Hyperlipidemia Home Medications ???Medication ???Instructions ???Recorded ???Last Taken ???Type lisinopril 5 mg tablet 5 mg PO DAILY BLOOD PRESSURE 12/31/17 05/30/21 History tamsulosin 0.4 mg capsule 0.4 mg PO DAILY PROSTATE 12/31/17 Unknown History metoprolol tartrate 25 mg tablet 12.5 mg PO DAILY BLOOD PRESSURE 01/04/18 05/30/21 History atorvastatin 20 mg tablet 20 mg PO QPM CHOLESTEROL #90 tabs 08/05/19 Unknown History levothyroxine 75 mcg tablet 75 mcg PO DAILY THYROID #90 tabs 08/05/19 05/30/21 History prednisone 10 mg tablet 10 mg PO DAILY STEROID 11/09/20 Unknown History furosemide 40 mg tablet (Lasix) 40 mg PO DAILY PRN EDEMA 05/20/21 Unknown History albuterol sulfate 90 mcg/actuation 2 puff inhalation Q4H PRN 08/12/24 Unknown History aerosol inhaler SHORTNESS OF BREATH/WHEEZING fexofenadine 180 mg tablet 180 mg PO DAILY 08/12/24 Unknown History (Allergy Relief (fexofenadine)) Allergy/AdvReac Type Severity Reaction Status Date / Time Penicillins AdvReac Severe Rash Verified 08/12/24 11:50 Family History Father Cancer Prostate cancer FH: CABG (coronary artery bypass surgery) FH: rheumatic fever Heart disease Mother Cancer Other Family history of coronary artery disease Surgical History History of detached retina repair History of left heart catheterization (05/30/21) 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) Social History Smoking Status: Former smoker how long ago did patient quit smokin alcohol i (more content not included)... [facility] Progress note 09-22-2021 Note Date & Type Note Facility 09-22-2021 Note HNO ID: [id number] Author: Samantha Sharma MD Service: ? Author Type: Physician Type: Progress Notes Filed: 09/22/2021 1:12 PM Note Text: Mr. Lopezs history and testing were discussed at our ILD multi-disciplinary meeting this morning. The overall clinical and imaging presentation were felt to be compatible with IPF. Additional testing, including biopsy, was not felt to be needed. Treatment recommendations include coming off of prednisone and mycophenolate and starting pirfenidone. I spoke to Dr. Camacho (Mr. Vizcaino's steam drier tender) about Mr. Vizcaino's care. I also spoke with Mr. Vizcaino. He would like me to continue to direct his care. Samantha Sharma MD [facility] Progress note 09-20-2021 Note Date & Type Note Facility 09-20-2021 Note HNO ID: [id number] Author: Samantha Sharma MD Service: ? Author Type: Physician Type: Progress Notes Filed: 09/20/2021 12:18 PM Note Text: Lb Vizcaino is a 75 year old male who presents for evaluation of an interstitial lung disease. Consult from Dr. Camacho. Opinion sent. HISTORY OF PRESENT ILLNESS: Mr. Vizcaino describes his baseline as being reasonably active, able to golf and fish, walk 1.5 miles without stopping. Around the summer of 2019 he began to notice increased dyspnea with his activities. This has gradually progressed and now he doubts he could walk 0.5 miles. He has also had a largely non-productive cough without hemoptysis. He does not have chest pain, fevers, or appetite problems. He has not had skin rashes, joint pains, or muscle aches. He has not had headaches or vision changes. He does not have swallowing difficulties or appetite problems. He has noticed some GERD symptoms and side effects from prednisone use. Mr. Vizcaino previously smoked cigarettes, 1/3 ppd x 35 years, quitting in 2004. He had not previously been told of a chronic lung problem or had a severe respiratory infection. 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 He had difficulties with hay exposure early in his career [place]. He enjoys wood working (daisy, maple, walnut). 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 He does not have pets or birds at home. He has not taken amiodarone. His other medical history includes CAD s/p CABG in 2006, cataracts, hypothyroid, SHAHIDA and skin cancers. He has not had any rheumatologic conditions. He has had vaccinations. Mr. Vizcaino's evaluation has included cardiac testing (including a left heart cath), pulmonary function testing, and chest CT imaging. He says labwork was obtained. He was diagnosed with pulmonary fibrosis. He was treated with OFEV for 6 months. This was stopped due to significant GI intolerance. He has also been treated with prednisone (up to 40 mg, now 20 mg) and Cellcept. Treatment has not seemed to impact his condition. Side effects from prednisone have included bruising, swelling, decreased muscle tone, thrush, and GERD. REVIEW OF SYSTEMS: The rest of the review of systems is negative. PAST MEDICAL HISTORY: See HPI FAMILY HISTORY: mother - cancer (bowel) sister - pulmonary fibrosis (no meds), brother - unsure SOCIAL HISTORY: 11/07 ppd x 35 years, quit in 2004 PHYSICAL EXAM: Mr. Vizcaino was in no distress, speaking full sentences, with an oxygen saturation of 93% on room air. The oropharynx was clear and there was no adenopathy. The chest had faint crackles at the lung bases, left more than right. Cardiac exam revealed a RRR without extra heart sounds. There was no JVD or edema. The abdomen was soft and non-tender, with bowel sounds present. There was no clubbing or cyanosis. Neurologic exam was grossly non-focal. TESTING: CT chest from 02/2021 and 05/2021 reviewed. There are peripheral interstitial changes in all lung zones without clear architectural distortion or honeycombing. There is not much change between exams. There is no adenopathy or pleural disease. Outside PFTs showed an FVC of 57%, TLC 51% and DLCO 55% (date unclear) which was down from FVC 63%, FEV1 68%, TLC 73%, and DLCO of 70%. BOZENA, RF, ANCA, Scl-70, GUDELIA, CRP - reported as normal or negative. IMPRESSION/PLAN: 75 year old man with an interstitial lung disease. Mr. Vizcaino has an interstitial lung disease that has been progressive subjectively and on pulmonary function testing despite treatment with anti-inflammatory therapy. Though the imaging does not provide absolute evidence of idiopathic pulmonary fibrosis, his age, lack of systemic symptoms, and lack of exposures beyond wood working, suggest this is most likely. I will review his case at our multi-disciplinary ILD conference to get the team's thoughts about his underlying diagnosis, need for additional testing, and possible treatment. Bactrim will be suggested if prednisone is not going to be tapered off. Mr. Vizcaino understands this plan and is comfortable with it. I spent a total of 80 minutes on the date of the service which included preparing to see the patient, [id number] patient care, completing clinical documentation, obtaining and/or reviewing separately obtained history, performing a medically appropriate examination, counseling and educating the patient/family/caregiver, ordering medications, tests, or procedures, communicating with other HCPs (not separately reported), independently interpreting results (not separately reported) and communicating results to the patient/family/caregiver. Samantha Sharma MD [facility] Evaluation note Note Date & Type Note Facility Evaluation note No assessment information availa natalie [facility] Work Phone: Summary Purpose Family History No Family History Records Found Relationship Condition Age at Onset Recorded Date/T ange Not Specified Family history of co ronary artery disease Unknown father Malignant neoplasm Unknown Family history of co ronary artery bypass surgery Unknown Family history of rheumatic fever Unknown Cardiac disease Unknown mother Malignant neoplasm Unknown Advance Directives No Advanced Directives Records Found Advance Directive Response Recorded Date/ Time Advance Directives Yes May 30 6:10am Living Will Yes October 01 021 8:38am Power of Technical Producer Yes October 01, 2021 8:38am Additional Source Comments (unrecognized sect ion and content) No Status Records FoundNo Status Records Found INFORMATION SOURCE (unrecogn ized section and content) DATE CREATED AUTHOR 01/26/2022 [facility] DATE CREATED AUTHOR AUTHOR'S ORGANIZ ATION 02/26/2025 [facility] Goals (unrecognized section and content) Goals may be documented in a n alternate sectionGoals may be documented in an alternate section Care Teams (unrecognized sec tion and content) Team Status: Active Member Role Status Dates Dr. Earnest Arvizu MD Family Provider Active Dr. Earnest Arvizu MD Primary Care Provider Active Team Status: Inactive Member Role Status Dates Dr. Earnest Arvizu MD Primary Care Provider, Attending Provider Active FOR RECORDS PERTAINING TO PATIENTS WHO ARE OR HAVE BEEN ENROLLED IN A CHEMICAL DEPENDENCY/SUBSTANCEABUSE PROGRAM, SOME INFORMATION MAY BE OMITTED. This clinical summary was aggregated from multiple sources. Caution should be exercised in using it in the provision of clinical care. This summary normalizes information from multiple sources, and as a consequence, information in this document may materially change the coding, format and clinical context of patient data. In addition, data may be omitted in some cases. CLINICAL DECISIONS SHOULD BE BASED ON THE PRIMARY CLINICAL RECORDS. [employer] provides no warranty or guarantee of the accuracy or completeness of information in this document.
[2025-04-21 16:00] LABS: Cholesterol 135 mg/dL (<=200); High Density Lipoprotein 59 mg/dL; Low Density Lipoprotein Calc. 56 mg/dL; Triglycerides 101 mg/dL; Very Low Density Lipoprotein 20 mg/dL (5-40); cholesterol:hdl ratio screen 2.31
[2025-04-21 16:01] LABS: ALB/GLOB Ratio 1.4 RATIO (0.9-2.4); AST(SGOT) 33 U/L (<=37); Alanine Aminotransfer ALT/SGPT 55 U/L (<=46); Albumin, Serum 3.9 g/dL (3.4-4.8); Alkaline Phosphatase 68 U/L (40-129); Anion Gap 12 (5-15); BUN 25 mg/dL (4-19); BUN/Creat Ratio 18.5 RATIO (10-20); Calcium,Total 9.3 mg/dL (7.6-11.0); Chloride 104 mmol/L (98-108); Creatinine, Serum 1.37 mg/dL (0.70-1.20); EST Glomerular Filtration Rate 52 (>60); Globulin 2.8 g/dL (2.2-4.2); Glucose 135 mg/dL (70-99); Potassium 4.4 mmol/L (3.3-5.1); Protein, Total 6.7 g/dL (5.9-8.4); Sodium Level 138 mmol/L (133-145); Total Bilirubin 0.43 mg/dL (0.00-1.30); Vitamin D,25 Hydroxy 25.7 ng/mL (30-100)
== END | disposition home or self-care (01) ==
LOC: LAB 09:36
PROVIDERS: PCP Family Medicine Geriatric Medicine; Referring Provider Family Medicine Geriatric Medicine; Visit Provider Family Medicine Geriatric Medicine
DX: E11.65 Type 2 diabetes mellitus with hyperglycemia (principal); I10 Essential (primary) hypertension; E55.9 Vitamin D deficiency, unspecified; E78.5 Hyperlipidemia, unspecified
CPT/HCPCS: 36415; 80053; 80061; 82306; 83036; 84443; 85025

== ENCOUNTER → 2025-07-28 | Outpatient (CLI) | payer MEDICARE, SELFPAY ==
--- NOTE | 2025-07-28 14:07 | RAD_ITS ---
PROCEDURE: CHEST PA AND LATERAL 07/28/2025 REASON FOR EXAM: SOB TECHNIQUE: Procedure Code: RADCXR Modality: DX Procedure: CHEST PA AND LATERAL COMPARISON: Two-view chest, 06/30/2024. FINDINGS: There is severe chronic interstitial lung disease. There is cardiomegaly. Status post CABG surgery. Status post median sternotomy. The upper abdominal bowel gas pattern is normal. There is mild dextroscoliosis of the thoracic spine. RAD/Chest PA and Lateral IMPRESSION: Chronic interstitial lung disease. Cardiomegaly. Other findings as noted. Reading Location: [id number]
== END | disposition home or self-care (01) ==
PROVIDERS: PCP Family Medicine Geriatric Medicine; Referring Provider Family Medicine Geriatric Medicine; Visit Provider Family Medicine Geriatric Medicine
DX: J98.8 Other specified respiratory disorders (principal); R06.02 Shortness of breath
CPT/HCPCS: 71046; 87631

== ENCOUNTER → 2025-10-21 | Outpatient (CLI) | payer MEDICARE, SELFPAY ==
--- OUTSIDE RECORDS SUMMARY | 2025-10-21 09:10 | XMS RPT_ITS | CCD ---
Author Organization [facility] [place] Care Team Providers Care Site Physician Name Role Phone Enriqueta RNMary Unavailable Unavailable G Nurse Unavailable Unavailable Mary Robison RN Unavailable Unavailable Salvador Soto Unavailable Unavailable MD Bernice, Tru S Unavailable Salvador Soto Unavailable Unavailable MD Bernice, [place] S Unavailable Salvador Soto Unavailable Unavailable Isai KHAN, Dr. Earnest Lau Primary Care Provider Isai KHAN, Dr. Earnest Lau Attending Provider Isai KHAN, Dr. Earnest Lau Referring Provider Isai KHAN, Dr. Earnest Lau Primary Care Physician Isai KHAN, Dr. Earnest Lau Attending Physician Isai KHAN, Dr. Earnest Lau Referring Provider Francisco Lopez Referring Unavailable Isai, Earnest Chi Primary Care Unavailable Francisco Lopez Attending Unavailable Francisco Lopez Referring Unavailable Francisco Lopez Attending Unavailable Isai, Earnest Chi Primary Care Unavailable Isai, Earnest Chi Primary Care Unavailable Su Adams Attending Unavailable Isai, Earnest Chi Primary Care Unavailable Crow Kim Consulting Unavailable Miguel Call Admitting Unavailable Oralia Patel Attending Unavailable Miguel Call Consulting Unavailable Francisco Lopez Consulting Unavailable Oralia Patel Consulting Unavailable Miguel Call Attending Unavailable Isai, Earnest Chi Attending Unavailable Isai, Earnest Chi Primary Care Unavailable Isai, Earnest Chi Referring Unavailable Francisco Lopez Referring Unavailable Francisco Lopez Attending Unavailable Isai, Earnest Chi Primary Care Unavailable Francisco Lopez Referring Unavailable Isai, Earnest Chi Primary Care Unavailable Francisco Lopez Attending Unavailable Isai, Earnest Chi Attending Unavailable Isai, Earnest Chi Primary Care Unavailable Isai, Earnest Chi Primary Care Unavailable Crow Kim Consulting Unavailable Miguel Call Admitting Unavailable Oralia Patel Attending Unavailable Miguel Call Consulting Unavailable Francisco Lopez Consulting Unavailable Francisco Lopez Referring Unavailable Isai, Earnest Chi Primary Care Unavailable Francisco Lopez Attending Unavailable Isai, Earnest Chi Attending Unavailable Isai, [...] Unavailable Isai, Earnest Chi Primary Care Unavailable Allergies Allergy Classification Reported Allergen(s) Allergy Type Date of Onset Reaction(s) Facility (9 sources) penicillin drug allergy 1 [facility] Work Phone: (4 sources) Penicillins Propensity to adverse reactions 2 [facility] (1 source) Penicillins Drug allergy (disorder) 4 [facility] Rep[facility] Medications Current Medications Medication Drug Class(es) Dates Sig (Normalized) Sig (Original) [id number] 200 actuat albuterol 0.09 mg/actuat metered dose inhaler (2 sources) beta2-Adrenergic Agonist Start: 08-12-2024 atorvastatin 20 mg oral tablet (17 sources) HMG-CoA Reductase Inhibitor Start: 08-05-2019 take 1 tablet by mouth once daily in the evening Start: 11-27-2014 End: 08-05-2019 take 1 tablet by mouth once daily Atorvastatin 10 mg tablet Discontinued 10 mg PO daily December 31, 2017 1:00am August 05, 2019 9:34am cefTRIAXone 2000 mg injection (2 sources) Cephalosporin Antibacterial Start: 08-14-2024 fexofenadine hydrochloride 180 mg oral tablet (2 sources) Histamine-1 Receptor Antagonist Start: 08-12-2024 take 1 tablet by mouth once daily Fish Oil-Dha-Epa (2 sources) Start: 08-12-2020 take 2 capsules by mouth once daily Fish Oil-Dha-Epa Active 2 CAP PO DAILY August 11, 2020 11:00pm levothyroxine sodium 0.075 mg oral tablet (20 sources) l-Thyroxine Start: 08-05-2019 take 1 tablet by mouth once daily Start: 11-27-2014 End: 08-05-2019 take 1 tablet by mouth once daily Levothyroxine 25 mcg tablet Discontinued 25 ug PO daily 0 December 31, 2017 1:00am August 05, 2019 9:33am Start: 11-27-2014 take 1 tablet by mouth once LE VOTHYROXINE SODIUM 50 MCG TABS One tablet by mouth daily per Dr. Alex verify dose at next visit LEVOTHYROXINE SODIUM [id number] Tru Queen MD lisinopril 5 mg oral tablet (13 sources) Angiotensin Converting Enzyme Inhibitor Start: 05-11-2011 take 1 tablet by mouth once daily metoprolol tartrate 25 mg oral tablet (20 sources) beta-Adrenergic Larissa Start: 01-04-2018 Start: 01-04-2018 take 12.5 mg by mout h twice daily Metoprolol Tartrate Active 12.5 MG PO TWICE A DAY January 04, 2018 10:07am Start: 05-28-2012 End: 01-04-2018 take 1 tablet by mouth twice daily Metoprolol Tartrate 25 mg tablet Discontinued 25 mg PO TWICE A DAY December 31, 2017 1:00am January 04, 2018 11:07am Start: 05-11-2011 METOPROLOL TAR TRATE 25 MG TABS 1/2 tablet 2 X daily METOPROLOL TARTRATE [id number] Alivia Collins PA-C metroNIDAZOLE 500 mg oral tablet (2 sources) Nitroimidazole Antimicrobial Start: 08-14-2024 take 1 tablet by mouth three times daily predniSONE 10 mg oral tablet (4 sources) Start: 11-09-2020 take 1 tablet by mouth once daily tamsulosin hydrochloride 0.4 mg oral capsule (13 sources) alpha-Adrenergic Larissa Start: 05-11-2011 take 1 capsule by mouth once daily vancomycin 1250 mg injection (2 sources) Glycopeptide Antibacterial Start: 08-14-2024 Vit A-Vit C-Vit P-Ybvu-Kmswzq (2 sources) Start: 08-05-2019 Vit A-Vit C-Vit Y-Tsxy-Ucpuvm Active TABLET PO August 04, 2019 11:00pm Completed/Discontinued Medications Medication Drug Class(es) Dates Sig (Normalized) Sig (Original) apixaban 5 mg oral tablet (4 sources) Factor Xa Inhibitor Start: 10-01-2021 End: 08-12-2024 take 2 tablets by mouth twice daily, then take 1 tablet by mouth twice daily Apixaban (Eliquis) 5 mg tablet Discontinued 5 mg PO TWICE A DAY 74 0 October 01, 2021 1:00am August 12, 2024 2:57pm AFIB 10 mg twice a day for the first week. Then 5 mg twice a day. aspirin 81 mg delayed release oral tablet (20 sources) Platelet Aggregation Inhibitor, Nonsteroidal Anti-inflammatory Drug Start: 05-20-2021 End: 08-12-2024 Aspirin (Adult Low Dose Aspirin) 81 mg tablet,delayed release (DR/EC) Discontinued 81 mg PO DAILY May 20, 2021 12:00am August 12, 2024 2:57pm AgileMD Start: 08-05-2019 End: 05-20-2021 take 1 tablet by mouth once daily Aspirin 325 mg tablet Discontinued 325 mg PO DAILY August 05, 2019 12:00am May 20, 2021 2:50pm Start: 05-11-2011 End: 08-05-2019 Aspirin (Adult Low Dose Aspi rin) 81 mg tablet,delayed release (DR/EC) Discontinued 81 mg PO daily 0 December 31, 2017 1:00am August 05, 2019 9:32am Start: 05-11-2011 take 1 tablet by kirk th once daily ASPIRIN 325 MG TABS One tablet by mouth daily ASPIRIN [id number] Sana Bowens Start: 05-11-2011 take 1 tablet by kirk th once daily ASPIRIN 81 MG TABS One tablet by mouth daily ASPIRIN [id number] Tru Queen MD Start: 05-11-2011 take 1 tablet by kirk th once daily ASPIRIN 81 MG TABS One tablet by mouth daily ASPIRIN [id number] Tru Queen MD BUDESONIDE-FORMOTEROL FUMARATE (18 sources) Corticosteroid, beta2-Adrenergic Agonist Start: 11-27-2014 End: 05-26-2015 SYMBICORT 160-4.5 MCG/ACT AERO inhale as directed BUDESONIDE-FORMOTEROL FUMARATE [id number] Alivia Collins PA-C Start: 11-27-2014 SYMBICORT 160- 4.5 MCG/ACT AERO inhale as directed BUDESONIDE-FORMOTEROL FUMARATE [id number] Tru Queen MD Start: 11-27-2014 End: 05-26-2015 SYMBICORT 160-4.5 MCG/ACT AE RO inhale as directed BUDESONIDE-FORMOTEROL FUMARATE [id number] Tru Queen MD Start: 11-27-2014 SYMBICORT 160- 4.5 MCG/ACT AERO inhale as directed BUDESONIDE-FORMOTEROL FUMARATE [id number] Tru Queen MD Start: 11-27-2014 End: 05-26-2015 SYMBICORT 160-4.5 MCG/ACT AE RO inhale as directed BUDESONIDE-FORMOTEROL FUMARATE [id number] Alivia Collins, LULÚ cefdinir 300 mg oral capsule (2 sources) Cephalosporin Antibacterial Start: 08-12-2024 End: 08-12-2024 take 1 capsule by mouth every twelve hours Cefdinir 300 mg capsule Discontinued 300 mg PO Q12H August 12, 2024 12:00am August 12, 2024 2:57pm ANTIBIOTIC doxycycline hyclate 100 mg oral tablet (2 sources) Tetracycline-class Drug Start: 08-12-2024 End: 08-12-2024 take 1 tablet by mouth twice daily Doxycycline Hyclate 100 mg tablet Discontinued 100 mg PO TWICE A DAY August 12, 2024 12:00am August 12, 2024 2:57pm ANTIBIOTIC Fish Oil-Dha-Epa 1,200-144-216 mg capsule (2 sources) Start: 08-12-2020 End: 08-12-2024 take 1 capsule by mouth once daily Fish Oil-Dha-Epa 1,200-144-216 mg capsule Discontinued 2 NMA PO DAILY August 12, 2020 12:00am August 12, 2024 2:58pm SUPPLEMENT Start: 08-12-2020 End: 08-12-2024 take 1 capsule by mouth once daily Fish Oil-Dha-Epa 1,200-144-216 mg capsule Discontinued 2 NMA PO DAILY August 12, 2020 12:00am August 12, 2024 2:58pm furosemide 40 mg oral tablet (16 sources) Loop Diuretic Start: 08-12-2020 End: 05-20-2021 take 1 tablet by mouth once daily Furosemide (Lasix) 40 mg tablet Discontinued 40 mg PO DAILY 90 3 November 24, 2020 4:12pm May 20, 2021 1:49pm latanoprost 0.05 mg/ml ophthalmic solution (13 sources) Prostaglandin Analog Start: 08-01-2018 End: 08-12-2020 Latanoprost 0.005 % drops Discontinued 1 NMA OPHTHALMIC EVERY EVENING August 01, 2018 12:00am August 12, 2020 9:32am Start: 05-11-2011 XALATAN 0.005 % SOLN eye gtts as directed LATANOPROST [id number] Sana Bowens Start: 05-11-2011 XALATAN 0.005 % SOLN eye gtts as directed LATANOPROST [id number] Sana Bowens Start: 05-11-2011 XALATAN 0.005 % SOLN eye gtts as directed LATANOPROST [id number] Sana Bowens linezolid 600 mg oral tablet (2 sources) Oxazolidinone Antibacterial Start: 08-12-2024 End: 08-12-2024 take 1 tablet by mouth every twelve hours Linezolid 600 mg tablet Discontinued 600 mg PO Q12H August 12, 2024 12:00am August 12, 2024 2:58pm ANTIBIOTIC lutein 6 mg oral capsule (18 sources) Start: 05-11-2011 End: 05-27-2014 take 1 tablet by mouth once daily LUTEIN 6 MG CAPS One tablet by mouth daily LUTEIN [id number] Alivia Collins PA-C MULTIPLE VITAMIN (7 sources) Start: 05-11-2011 take 1 tablet by mouth once daily MULTIVITAMINS TABS One tablet by mouth daily MULTIPLE VITAMIN [id number] Sana Bowens MULTIPLE VITAMIN (2 sources) Start: 05-11-2011 take 1 tablet by mouth once daily MULTIVITAMINS TABS One tablet by mouth daily MULTIPLE VITAMIN [id number] Sana Bowens MULTIPLE VITAMINS-MINERAL S (7 sources) Start: 11-27-2014 take 1 tablet by mouth once daily [facility] One tablet by mouth daily MULTIPLE VITAMINS-MINERALS [id number] Tru Queen MD Start: 11-27-2014 take 1 tablet by kirk once daily [facility] MISC One tablet by mouth daily MULTIPLE VITAMINS-MINERALS 70672579174 Tru Queen MD MULTIPLE VITAMINS-MINERALS (2 sources) Start: 11-27-2014 take 1 tablet by mouth once daily [facility] MISC One tablet by mouth daily MULTIPLE VITAMINS-MINERALS 92920222315 Tru Queen MD niacin 500 mg extended release oral tablet (20 sources) Nicotinic Acid Start: 05-11-2011 End: 11-27-2014 take 1 tablet by mouth once daily NIASPAN 500 MG CR-TABS One tablet by mouth daily NIACIN (ANTIHYPERLIPIDEMIC) [id number] Tru Queen MD Start: 05-11-2011 End: 11-27-2014 take 1 tablet by mouth once daily NIASPAN 500 MG CR-TABS One tablet by mouth daily NIACIN (ANTIHYPERLIPIDEMIC) 49603121685 Tru Queen MD OMEGA-3 FATTY ACIDS CPDR (7 sources) Start: 12-02-2015 take 1 tablet by mouth once daily OMEGA 3 CPDR One tablet by mouth daily OMEGA-3 FATTY ACIDS CPDR 70234351133 Tru Queen MD OMEGA-3 FATTY ACIDS CPDR (2 sources) Start: 12-02-2015 take 1 tablet by mouth once daily OMEGA 3 CPDR One tablet by mouth daily OMEGA-3 FATTY ACIDS CPDR 06111719418 Tru Queen MD simvastatin 20 mg oral tablet (20 sources) HMG-CoA Reductase Inhibitor Start: 05-11-2011 End: 11-27-2014 take 1 tablet by mouth once daily ZOCOR 20 MG TABS One tablet by mouth daily SIMVASTATIN 21204824597 Alivia Collins, JALYN-Padmini Vit A-Vit C-Vit W-Urih-Ixkssp 7,160-113-100 xjpa-wt-bejc tablet (2 sources) Start: 08-05-2019 End: 08-12-2024 Vit A-Vit C-Vit I-Lrhy-Eaqbjw 7,160-113-100 yjqm-or-wiqf tablet Discontinued 1 {tbl} PO TWICE A DAY 0 August 05, 2019 12:00am August 12, 2024 2:59pm [facility] Start: 08-05-2019 End: 08-12-2024 Vit A-Vit C-Vit K-Lejy-Esesz r 7,160-113-100 xmrd-nw-yqaq tablet Discontinued 1 {tbl} PO TWICE A DAY August 05, 2019 12:00am August 12, 2024 2:59pm Problems Active Problems Problem Classification Problem Date Documented Da te Episodic/Chronic Cardiac dysrhythmias (4 sources) Multiple premature ventricular complexes; Translations: [Ventricular premature depolarization] 08-11-2020 Chronic Complication of device; implant or graft (9 sources) Arteriosclerosis of coronary artery bypass graft; Translations: [Atherosclerosis of coronary artery bypass graft(s) without angina pectoris] Onset: 4 12-05-2013 Chronic Congestive heart failure; nonhypertensive (4 sources) Chronic diastolic heart failure; Translations: [Chronic diastolic (congestive) heart failure] 10-25-2020 Chronic Coronary atherosclerosis and other heart disease (13 sources) Atherosclerotic heart disease of [place] coronary artery without angina pectoris; Translations: [Coronary atherosclerosis] Onset: 1 05-11-2011 Chronic Diabetes mellitus with complications (1 source) Type 2 diabetes mellitus with hyperglycemia; Translations: [Type 2 diabetes mellitus with hyperglycemia] Onset: Chronic Disorders of lipid metabolism (13 sources) Hyperlipidemia; Translations: [Hyperlipidemia, unspecified] Onset: 3 05-26-2013 Chronic Essential hypertension (13 sources) Hypertensive disorder; Translations: [Essential hypertension] Onset: 1 05-11-2011 Chronic Fluid and electrolyte disorders (2 sources) Lactic acidosis; Translations: [Lactic acidosis] 08-22-2024 Episodic Infective arthritis and osteomyelitis (except that caused by tuberculosis or sexually transmitted disease) (8 sources) Acute osteomyelitis of right foot; Translations: [Other acute osteomyelitis, right ankle and foot] Onset: 4 08-12-2024 Chronic Malaise and fatigue (4 sources) Fatigue; Translations: [Other fatigue] 08-11-2020 Episodic Occlusion or stenosis of precerebral arteries (4 sources) Left carotid artery stenosis; Translations: [Occlusion and stenosis of left carotid artery] 08-11-2020 Chronic Other aftercare (2 sources) Patient encounter status; Translations: [Other ocean transportation intermediary (current) drug therapy] 07-31-2018 Episodic Other aftercare (2 sources) Long-term current use of drug therapy; Translations: [Other ocean transportation intermediary (current) drug therapy] 07-31-2018 Episodic Other lower respiratory disease (4 sources) Fibrosis of lung; Translations: [Pulmonary fibrosis, unspecified] 05-20-2021 Chronic Other lower respiratory disease (17 sources) Dyspnea; Translations: [Shortness of breath] Onset: 1 05-11-2011 Episodic Other lower respiratory disease (1 source) Other specified respiratory disorders; Translations: [Other specified respiratory disorders] Onset: 5 Episodic Other nervous system disorders (2 sources) Neuropathy; Translations: [Other hereditary and idiopathic neuropathies] 08-22-2024 Chronic Other nervous system disorders (1 source) Other hereditary and idiopathic neuropathies; Translations: [Other hereditary and idiopathic neuropathies] Onset: 4 Chronic Other nutritional; endocrine; and metabolic disorders (9 sources) Body mass index (BMI) 30.0-30.9, adult; Translations: [Body mass index (BMI) 30.0-30.9, adult] Onset: 4 12-05-2013 Chronic Phlebitis; thrombophlebitis and thromboembolism (4 sources) Acute deep vein thrombosis of lower limb; Translations: [Acute embolism and thrombosis of unspecified deep veins of right lower extremity] 10-09-2021 Episodic Unclassified (2 sources) Long-term drug therapy; Translations: [Other senior care (current) drug therapy] Onset: 1 05-11-2011 Unclassified (4 sources) Age more than 65 years; Translations: [Over 65 years old] 11-21-2021 Unclassified (1 source) Acidosis, unspecified; Translations: [Acidosis, unspecified] Onset: 4 Viral infection (4 sources) Disease caused by 2019-nCoV; Translations: [COVID-19] [...] 05-11-2011 Episodic Other aftercare (7 sources) Other ocean transportation intermediary (current) drug therapy; Translations: [Other senior care (current) drug therapy] Onset: 05-11-2011 05-11-2011 Episodic Other connective tissue disease (1 source) Pain in right foot; Translations: [Pain in right foot] Onset: 09-01-2024 Episodic Other nutritional; endocrine; and metabolic disorders [...] Test Name Value Interpretation Reference Range Facility Chest PA and Lateralon 07-28 Chest PA and Lateral [facility] Imaging Services [address] [place] [id number] Chest PA and Lateral MR#: [id number] Acct: [id number] Name: LB VIZCAINO Rep #: [id number] : 1945 M 79 From: Kashif Hamilton MD PCP: Dr. Earnest Alex MD Status: REG CLI Study: Chest PA and Lateral Date of Exam: 07/28/25 Exam# [id number] Ordering Dr: Earnest Alex MD PROCEDURE: CHEST PA AND LATERAL 07/28/2025 REASON FOR EXAM: SOB TECHNIQUE: Procedure Code: RADCXR Modality: DX Procedure: CHEST PA AND LATERAL COMPARISON: Two-view chest, 06/30/2024. FINDINGS: There is severe chronic interstitial lung disease. There is cardiomegaly. Status post CABG surgery. Status post median sternotomy. The upper abdominal bowel gas pattern is normal. There is mild dextroscoliosis of the thoracic spine. RAD/Chest PA and Lateral IMPRESSION: Chronic interstitial lung disease. Cardiomegaly. Other findings as noted. Reading Location: [id number] CC: Dr. Earnest Alex MD Resident Buyer: Signed Normal [facility] Influenza virus A and B and SARS-CoV-2 (COVID-19) and Respiratory syncytial virus RNAOrdered By: Earnest Alex on 07-28-2025 SARS-CoV-2 (COVID-19) RNA KALI+probe Ql (Unsp spec) SARS-CoV-2 (COVID 19 PCR) Abnormal [facility] M100.678on 07-28-2025 M100.678 Copy of report sent to Infection Control Printer MS#[id number] 07/28/25 7023 BLUCAS. SARS-CoV-2 (COVID 19) A Positive A INFLUENZA A Negative INFLUENZA B Negative RSV PCR Negative SARS-CoV-2 (COVID 19 PCR) Normal [facility] Comment on above: Performed By: #### L 100.0100, L501.9985, L500.4100, L506.1001, L501.9520, L502.0250, L500.4050 #### [facility] [address] [place], [place], [id number] Comprehensive Metabolic Prof pron 04-21-2025 Albumin [Mass/Vol] 3.9 g/dL Normal 3.4-4.8 [facility] Comment on above: Performed By: #### L 100.0100, L501.9985, L500.4100, L506.1001, L501.9520, L502.0250, L500.4050 #### [facility] [address] [place], [address] Albumin/Globulin [Mass ratio] 1.4 {ratio} Normal 0.9-2.4 [facility] Comment on above: Performed By: #### L 100.0100, L501.9985, L500.4100, L506.1001, L501.9520, L502.0250, L500.4050 #### [facility] [address] [place], [address] ALK PHOS 68 U/L Normal 40-129 [facility] Comment on above: Performed By: #### L 100.0100, L501.9985, L500.4100, L506.1001, L501.9520, L502.0250, L500.4050 #### [facility] [address] [place], [address] ALT [Catalytic activity/Vol] 55 U/L High <=46 [facility] Comment on above: Performed By: #### L 100.0100, L501.9985, L500.4100, L506.1001, L501.9520, L502.0250, L500.4050 #### [facility] [address] [place], [address] AST [Catalytic activity/Vol] 33 U/L Normal <=37 [facility] Comment on above: Performed By: #### L 100.0100, L501.9985, L500.4100, L506.1001, L501.9520, L502.0250, L500.4050 #### [facility] [address] [place], [address] Bilirubin [Mass/Vol] 0.43 mg/dL Normal 0.00-1.30 [facility] Comment on above: Performed By: #### L 100.0100, L501.9985, L500.4100, L506.1001, L501.9520, L502.0250, L500.4050 #### [facility] [address] [place], [address] BUN/CRE 18.5 RATIO Normal 10-20 [facility] Comment on above: Performed By: #### L 100.0100, L501.9985, L500.4100, L506.1001, L501.9520, L502.0250, L500.4050 #### [facility] [address] [place], [address] Calcium [Mass/Vol] 9.3 mg/dL Normal 7.6-11.0 [facility] Comment on above: Performed By: #### L 100.0100, L501.9985, L500.4100, L506.1001, L501.9520, L502.0250, L500.4050 #### [facility] [address] [place], [address] Chloride [Moles/Vol] 104 mmol/L Normal 98-108 [facility] Comment on above: Performed By: #### L 100.0100, L501.9985, L500.4100, L506.1001, L501.9520, L502.0250, L500.4050 #### [facility] [address] [place], [address] CO2 [Moles/Vol] 22.0 mmol/L Normal 21.0-32.0 [facility] Comment on above: Performed By: #### L 100.0100, L501.9985, L500.4100, L506.1001, L501.9520, L502.0250, L500.4050 #### [facility] [address] [place], [address] Creatinine [Mass/Vol] 1.37 mg/dL High 0.70-1.20 [facility] Comment on above: Performed By: #### L 100.0100, L501.9985, L500.4100, L506.1001, L501.9520, L502.0250, L500.4050 #### [facility] [address] [place], [address] GAP 12 Normal 5-15 [facility] Comment on above: Performed By: #### L 100.0100, L501.9985, L500.4100, L506.1001, L501.9520, L502.0250, L500.4050 #### [facility] [address] [place], [address] GFR/1.73 sq M.predicted among non-blacks MDRD (S/P/Bld) [Vol rate/Area] 52 mL/min/{1.73_m2} Low >60 [facility] Comment on above: Result Comment: mL/m in/1.73m2 CKD-EPI Creatinine Equation (2020) Performed By: #### L 100.0100, L501.9985, L500.4100, L506.1001, L501.9520, L502.0250, L500.4050 #### [facility] [address] [place], [address] Globulin (S) [Mass/Vol] 2.8 g/dL Normal 2.2-4.2 [facility] Comment on above: Performed By: #### L 100.0100, L501.9985, L500.4100, L506.1001, L501.9520, L502.0250, L500.4050 #### [facility] [address] [place], [address] Glucose [Mass/Vol] 135 mg/dL High 70-99 [facility] Comment on above: Performed By: #### L 100.0100, L501.9985, L500.4100, L506.1001, L501.9520, L502.0250, L500.4050 #### [facility] [address] [place], [address] Potassium [Moles/Vol] 4.4 mmol/L Normal 3.3-5.1 [facility] Comment on above: Result Comment: Hemo lysis present, Results??could be affected. ?? Performed By: #### L 100.0100, L501.9985, L500.4100, L506.1001, L501.9520, L502.0250, L500.4050 #### [facility] [address] [place], [address] Sodium [Moles/Vol] 138 mmol/L Normal 133-145 [facility] Comment on above: Performed By: #### L 100.0100, L501.9985, L500.4100, L506.1001, L501.9520, L502.0250, L500.4050 #### [facility] [address] [place], [place], [id number] (593) T PROT 6.7 g/dL Normal 5.9-8.4 [facility] Comment on above: Performed By: #### L 100.0100, L501.9985, L500.4100, L506.1001, L501.9520, L502.0250, L500.4050 #### [facility] [address] [place], [address] Urea nitrogen [Mass/Vol] 25 mg/dL High 4-19 [facility] Comment on above: Performed By: #### L 100.0100, L501.9985, L500.4100, L506.1001, L501.9520, L502.0250, L500.4050 #### [facility] [address] [place], [address] Lipid Profileon 04-21-2025 CHOL:HDL 2.31 Normal [facility] Comment on above: Performed By: #### L 100.0100, L501.9985, L500.4100, L506.1001, L501.9520, L502.0250, L500.4050 #### [facility] [address] [place], [address] Cholesterol [Mass/Vol] 135 mg/dL Normal <=200 [facility] Comment on above: Result Comment: Chol esterol level, Desirable <200 mg/dL Borderline high cholesterol 200-239 mg/dL High cholesterol >=240 mg/dL Recommendations of the NCEP Adult Treatment Panel for the following risk-cutoff thresholds for the [place] population. Performed By: #### L 100.0100, L501.9985, L500.4100, L506.1001, L501.9520, L502.0250, L500.4050 #### [facility] [address] [place], [address] Cholesterol in HDL [Mass/Vol] 59 mg/dL Normal [facility] Comment on above: Result Comment: [place] Cholesterol Education Program (NCEP) guidelines: <40 mg/dL: Low HDL-cholesterol (major risk factor for CHD) >= 60 mg/dL: High HDL-cholesterol (negative risk factor for CHD) HDL-cholesterol is affected by a number of factors, e.g. smoking, exercise, hormones, sex and age. Performed By: #### L 100.0100, L501.9985, L500.4100, L506.1001, L501.9520, L502.0250, L500.4050 #### [facility] [address] [place], [address] Cholesterol in LDL [Mass/Vol] 56 mg/dL Normal [facility] Comment on above: Result Comment: Bord katpds=191-899 mg/dL Higher Yxia=987 mg/dL or greater Performed By: #### L 100.0100, L501.9985, L500.4100, L506.1001, L501.9520, L502.0250, L500.4050 #### [facility] [address] [place], [address] Cholesterol in VLDL [Mass/Vol] 20 mg/dL Normal 5-40 [facility] Comment on above: Performed By: #### L 100.0100, L501.9985, L500.4100, L506.1001, L501.9520, L502.0250, L500.4050 #### [facility] [address] [place], [address] Triglyceride [Mass/Vol] 101 mg/dL Normal [facility] Comment on above: Result Comment: The drugs N-Acetylcysteine and Metamizole may falsely depress this assay. Normal range: <150 mg/dL Borderline High: 150-199 mg/dL High: 200-499 mg/dL Very High: >500 mg/dL Performed By: #### L 100.0100, L501.9985, L500.4100, L506.1001, L501.9520, L502.0250, L500.4050 #### [facility] [address] [place], [address] Thyroid Stim Hormone (TSH)on 04-21-2025 TSH 1.020 uIU/mL Normal 0.300-4.200 [facility] Comment on above: Performed By: #### L 100.0100, L501.9985, L500.4100, L506.1001, L501.9520, L502.0250, L500.4050 #### [facility] [address] [place], [address] Vitamin D,25 Hydroxyon 04-21 Vitamin D 25-OH 25.7 ng/mL Low 30-100 [facility] Comment on above: Result Comment: Mary min D Status Deficiency: <20 ng/mL (50nmol/L) Insufficiency: 20-30 ng/mL (50-75 nmol/L) Sufficiency: 30-100 ng/mL (75-250 nmol/L) Toxicity: >100 ng/mL (>250 nmol/L) Performed By: #### L 100.0100, L501.9985, L500.4100, L506.1001, L501.9520, L502.0250, L500.4050 #### [facility] [address] [place], [address] Absolute lymphocyte countOrd ered By: Earnest Alex on 04-20-2025 Lymphocytes Auto (Unsp spec) [#/Vol] 1.16 10*3/uL 0.83-4.51 [facility] Absolute neutrophil countOrd ered By: Earnest Alex on 04-20-2025 Neutrophils (Bld) [#/Vol] 6.3 10*3/uL 2.0-7.7 [facility] Anion gap in Serum or Plasma Ordered By: Earnest Alex on 04-20-2025 Anion gap [Moles/Vol] 12 mmol/L 5-15 [facility] Automated lymphocyte count a s percentage of total leukocytesOrdered By: Earnest Alex on 04-20-2025 Lymphocytes/100 WBC Auto (Unsp spec) 13.6 % Low 19-41 [facility] BUN/creatinine ratioOrdered By: Earnest Alex on 04-20-2025 Urea nitrogen/Creatinine [Mass ratio] 18.5 mg/mg 10-20 [facility] Basophil percentageOrdered B y: Earnest Alex on 04-20-2025 Basophils/100 WBC (Bld) 0.5 % 0- [facility] Bilirubin, totalOrdered By: Earnest Alex on 04-20-2025 Bilirubin [Mass/Vol] 0.43 mg/dL 0.00-1.30 [facility] [place] CBC W/Diff, Automatedon 04-05 Absolute Lymph 1.16 X10 3/uL Normal 0.83-4.51 [facility] Comment on above: Performed By: #### L 100.0100, L501.9985, L500.4100, L506.1001, L501.9520, L502.0250, L500.4050 #### [facility] [address] [place], [address] Absolute Neut 6.3 X10 3/uL Normal 2.0-7.7 [facility] Comment on above: Performed By: #### L 100.0100, L501.9985, L500.4100, L506.1001, L501.9520, L502.0250, L500.4050 #### [facility] [address] [place], [address] Basophils/100 WBC (Bld) 0.5 % Normal 0-1 [facility] Comment on above: Performed By: #### L 100.0100, L501.9985, L500.4100, L506.1001, L501.9520, L502.0250, L500.4050 #### [facility] [address] [place], [address] Eosinophils/100 WBC (Bld) 0.6 % Normal 0-5 [facility] Comment on above: Performed By: #### L 100.0100, L501.9985, L500.4100, L506.1001, L501.9520, L502.0250, L500.4050 #### [facility] [address] [place], [address] Erythrocyte distribution width (RBC) [Ratio] 13.7 % Normal 11.6-14.6 [facility] Comment on above: Performed By: #### L 100.0100, L501.9985, L500.4100, L506.1001, L501.9520, L502.0250, L500.4050 #### [facility] [address] [place], [address] Hematocrit (Bld) [Volume fraction] 35.3 % Low 40-54 [facility] Comment on above: Performed By: #### L 100.0100, L501.9985, L500.4100, L506.1001, L501.9520, L502.0250, L500.4050 #### [facility] [address] [place], [address] Hemoglobin (Bld) [Mass/Vol] 11.9 g/dL Low 13.0-16.5 [facility] Comment on above: Performed By: #### L 100.0100, L501.9985, L500.4100, L506.1001, L501.9520, L502.0250, L500.4050 #### [facility] [address] [place], [address] IG% 1.400 High 0.0-0.9 [facility] Comment on above: Result Comment: IG% - Immature Granulocytes (promyelocytes, myelocytes and metamyelocytes) > 1% indicates that a LEFT SHIFT is Present. Performed By: #### L 100.0100, L501.9985, L500.4100, L506.1001, L501.9520, L502.0250, L500.4050 #### [facility] [address] [place], [address] Lymphocytes/100 WBC (Bld) 13.6 % Low 19-41 [facility] Comment on above: Performed By: #### L 100.0100, L501.9985, L500.4100, L506.1001, L501.9520, L502.0250, L500.4050 #### [facility] [address] [place], [address] MCH (RBC) [Entitic mass] 35.5 pg High 27.0-32.0 [facility] Comment on above: Performed By: #### L 100.0100, L501.9985, L500.4100, L506.1001, L501.9520, L502.0250, L500.4050 #### [facility] [address] [place], [address] MCHC (RBC) [Mass/Vol] 33.7 g/dL Normal 32-36 [facility] Comment on above: Performed By: #### L 100.0100, L501.9985, L500.4100, L506.1001, L501.9520, L502.0250, L500.4050 #### [facility] [address] [place], [address] MCV (RBC) [Entitic vol] 105.4 fL High 80-94 [facility] Comment on above: Performed By: #### L 100.0100, L501.9985, L500.4100, L506.1001, L501.9520, L502.0250, L500.4050 #### [facility] [address] [place], [address] Monocytes/100 WBC (Bld) 9.7 % Normal 0-10 [facility] Comment on above: Performed By: #### L 100.0100, L501.9985, L500.4100, L506.1001, L501.9520, L502.0250, L500.4050 #### [facility] [address] [place], [address] Neutrophils/100 WBC (Bld) 74.2 % High 47-70 [facility] Comment on above: Performed By: #### L 100.0100, L501.9985, L500.4100, L506.1001, L501.9520, L502.0250, L500.4050 #### [facility] [address] [place], [address] Nucleated RBC (Bld) [#/Vol] 0 10*3/uL Normal 0-5 [facility] Comment on above: Performed By: #### L 100.0100, L501.9985, L500.4100, L506.1001, L501.9520, L502.0250, L500.4050 #### [facility] [address] [place], [address] Platelet mean volume (Bld) [Entitic vol] 9.6 fL Normal 6.2-12.0 [facility] Comment on above: Performed By: #### L 100.0100, L501.9985, L500.4100, L506.1001, L501.9520, L502.0250, L500.4050 #### [facility] [address] [place], [address] Platelets (Bld) [#/Vol] 157 10*3/uL Normal 150-450 [facility] Comment on above: Performed By: #### L 100.0100, L501.9985, L500.4100, L506.1001, L501.9520, L502.0250, L500.4050 #### [facility] [address] [place], [address] RBC (Bld) [#/Vol] 3.35 10*6/uL Low 4.6-6.2 [facility] Comment on above: Performed By: #### L 100.0100, L501.9985, L500.4100, L506.1001, L501.9520, L502.0250, L500.4050 #### [facility] [address] [place], [address] RDW SD 53.1 fl High 35.1-43.9 [facility] Comment on above: Performed By: #### L 100.0100, L501.9985, L500.4100, L506.1001, L501.9520, L502.0250, L500.4050 #### [facility] [address] [place], [address] WBC (Bld) [#/Vol] 8.5 10*3/uL Normal 4.4-11.0 [facility] Comment on above: Performed By: #### L 100.0100, L501.9985, L500.4100, L506.1001, L501.9520, L502.0250, L500.4050 #### [facility] [address] [place], [address] Calculated very low density lipoprotein (VLDL) cholesterol measurementOrdered By: Earnest Alex on 04-20-2025 Calculated very low density lipoprotein (VLDL) cholesterol measurement 20 mg/dL 5-40 [facility] Carbon dioxide, total [Moles /volume] in Central venous bloodOrdered By: Earnest Alex on 04-20-2025 CO2 [Moles/Vol] 22.0 mmol/L 21.0-32.0 [facility] Chloride assayOrdered By: Brandon Alex on 04-20-2025 Chloride [Moles/Vol] 104 mmol/L 98-108 [facility] [place] Eosinophil percentageOrdered By: Earnest Alex on 04-20-2025 Eosinophils/100 WBC (Bld) 0.6 % 0-5 [facility] Erythrocyte distribution wid th ratioOrdered By: Earnest Alex on 04-20-2025 Erythrocyte distribution width (RBC) [Ratio] 13.7 % 11.6-14.6 [facility] Erythrocyte distribution wid th standard deviationOrdered By: Earnest Alex on 04-20-2025 Erythrocyte distribution width (RBC) [Ratio] 53.1 fl High 35.1-43.9 [facility] Glomerular filtration rate ( GFR) estimation/1.73 sq m using serum, plasma, or whole bOrdered By: Earnest Alex on 04-20-2025 GFR/1.73 sq M.predicted among non-blacks MDRD (S/P/Bld) [Vol rate/Area] 52 mL/min/{1.73_m2} Low >60 [facility] Comment on above: mL/min/1.73m2 CKD-EP I Creatinine Equation (2020) Hematocrit Auto (Bld) [Volum e fraction]Ordered By: Earnest Alex on 04-20-2025 Hematocrit (Bld) [Volume fraction] 35.3 % Low 40-54 [facility] Hemoglobin A1con 04-20-2025 HbA1c (Bld) [Mass fraction] 6.0 % High <=5.6 [facility] Comment on above: Result Comment: Norm al < 5.7 % Prediabetic 5.7 - 6.4 % Diabetic >or= 6.5 % Please note range changes. Performed By: #### L 100.0100, L501.9985, L500.4100, L506.1001, L501.9520, L502.0250, L500.4050 #### [facility] [address] [place], [address] Hemoglobin A1c percentageOrd ered By: Earnest Alex on 04-20-2025 HbA1c (Bld) [Mass fraction] 6.0 % High <5.7 [facility] Comment on above: Normal < 5.7 % Predi abetic 5.7 - 6.4 % Diabetic >or= 6.5 % Please note range changes. Hemoglobin measurementOrdere d By: Earnest Alex on 04-20-2025 Hemoglobin (Bld) [Mass/Vol] 11.9 g/dL Low 13.0-16.5 [facility] Immature granulocytes/100 WB C Auto (Bld)Ordered By: Earnest Alex 04-20-2025 Immature granulocytes/100 WBC (Bld) 1.400 % High 0.0-0.9 [facility] Comment on above: IG% - Immature Granu locytes (promyelocytes, myelocytes and metamyelocytes) > 1% indicates that a LEFT SHIFT is Present. LDL calc ser/plasOrdered By: Earnest Alex 04-20-2025 Cholesterol in LDL [Mass/Vol] 56 mg/dL [facility] Comment on above: Zlsdqhprbq=382-350 m g/dL & Higher Zxzu=008 mg/dL or greater Laboratory - Chemistry and C hemistry - challengeOrdered By: Earnest Alex 04-20-2025 AST [Catalytic activity/Vol] 33 U/L <38 [facility] MCV (mean corpuscular volume ) determinationOrdered By: Earnest Alex 04-20-2025 MCV (RBC) [Entitic vol] 105.4 fL High 80-94 [facility] Mean corpuscular hemoglobin (MCH) determinationOrdered By: Earnest Alex 04-20-2025 MCH (RBC) [Entitic mass] 35.5 pg High 27.0-32.0 [facility] Mean corpuscular hemoglobin concentration (MCHC) determinationOrdered By: Earnest Alex 04-20-2025 MCHC (RBC) [Mass/Vol] 33.7 g/dL 32-36 [facility] Mean platelet volume determi nationOrdered By: Earnest Alex on 04-20-2025 Platelet mean volume (Bld) [Entitic vol] 9.6 fL 6.2-12.0 [facility] Microalb:Creat Ratio,Random URon 04-20-2025 MALB:CREAT Normal [facility] Comment on above: Result Comment: @PAT IENT DIDNT WANT TO DO. DOING NEXT TIME Performed By: #### L 100.0100, L501.9985, L500.4100, L506.1001, L501.9520, L502.0250, L500.4050 #### [facility] [address] [place], [place], [id number] MICROALBUMIN,UR Normal NO RANGE EST. [facility] Comment on above: Result Comment: @PAT IENT DIDNT WANT TO DO. DOING NEXT TIME Performed By: #### L 100.0100, L501.9985, L500.4100, L506.1001, L501.9520, L502.0250, L500.4050 #### [facility] [address] [place], [place], [id number] UR CREAT Normal 39.00-259.00 [facility] Comment on above: Result Comment: @PAT IENT DIDNT WANT TO DO. DOING NEXT TIME Performed By: #### L 100.0100, L501.9985, L500.4100, L506.1001, L501.9520, L502.0250, L500.4050 #### [facility] [address] [place], [place], [id number] Monocyte percentageOrdered B y: Earnest Alex on 04-20-2025 Monocytes/100 WBC (Bld) 9.7 % 0-10 [facility] Neutrophil percentageOrdered By: Earnest Alex on 04-20-2025 Neutrophils/100 WBC (Bld) 74.2 % High 47-70 [facility] Nucleated red blood cell per centageOrdered By: Earnest Alex on 04-20-2025 Nucleated RBC/100 WBC (Bld) [Ratio] 0 % 0-5 [facility] Platelet countOrdered By: Brandon Alex on 04-20-2025 Platelets (Bld) [#/Vol] 157 10*3/uL 150-450 [facility] Potassium measurement (mass/ volume)Ordered By: Earnest Alex on 04-20-2025 Potassium (Unsp spec) [Mass/Vol] 4.4 mmol/L 3.3-5.1 [facility] Comment on above: Hemolysis present, R esults could be affected. RBC Auto (Bld) [#/Vol]Ordere d By: Earnest Alex on 04-20-2025 RBC (Bld) [#/Vol] 3.35 10*6/uL Low 4.6-6.2 [facility] Screening total cholesterol/ high density lipoprotein (HDL) cholesterol ratioOrdered By: Earnest Alex on 04-20-2025 Cholesterol.total/Tiffanie sterol in HDL [Mass ratio] 2.31 {ratio} [facility] Serum creatinine measurement (mass/volume)Ordered By: Earnest Alex on 04-20-2025 Creatinine [Mass/Vol] 1.37 mg/dL High 0.70-1.20 [facility] Serum globulin measurementOr dered By: Earnest Alex 04-20-2025 Globulin (S) [Mass/Vol] 2.8 g/dL 2.2-4.2 [facility] Serum glucose measurement (m ass/volume)Ordered By: Earnest Alex 04-20-2025 Glucose [Mass/Vol] 135 mg/dL High 70-99 [facility] Serum or plasma alanine mireles otransferase (ALT) measurementOrdered By: Earnest Alex 04-20-2025 ALT [Catalytic activity/Vol] 55 U/L High <47 [facility] Serum or plasma albumin jimmy urement (mass/volume)Ordered By: Earnest Alex on 04-20-2025 Albumin [Mass/Vol] 3.9 g/dL 3.4-4.8 [facility] Serum or plasma albumin/glob ulin mass ratioOrdered By: Earnest Alex 04-20-2025 Albumin/Globulin [Mass ratio] 1.4 {ratio} 0.9-2.4 [facility] Serum or plasma alkaline kyra sphatase measurementOrdered By: Earnest Alex 04-20-2025 ALP [Catalytic activity/Vol] 68 U/L 40-129 [facility] Serum or plasma calcium jimmy urement (mass/volume)Ordered By: Earnest Alex 04-20-2025 Calcium [Mass/Vol] 9.3 mg/dL 7.6-11.0 [facility] Serum or plasma cholesterol in HDL measurement (mass/volume)Ordered By: Earnest Alex 04-20-2025 Cholesterol in HDL [Mass/Vol] 59 mg/dL >40 [facility] Comment on above: National Cholesterol Education Program (NCEP) guidelines:<40 mg/dL: Low HDL-cholesterol (major risk factor for CHD)>= 60 mg/dL: High HDL-cholesterol (negative risk factor for CHD)HDL-cholesterol is affected by a number of factors, e.g. smoking, exercise, hormones, sex and age. Serum or plasma cholesterol measurement (mass/volume)Ordered By: Earnest Alex 04-20-2025 Cholesterol [Mass/Vol] 135 mg/dL <201 [facility] Comment on above: Cholesterol level, D esirable <200 mg/dLBorderline high cholesterol 200-239 mg/dLHigh cholesterol >=240 mg/dLRecommendations of the NCEP Adult Treatment Panel for the following risk-cutoff thresholds for the [place] population. Serum or plasma urea nitroge n measurement (mass/volume)Ordered By: Earnest Alex 04-20-2025 Urea nitrogen [Mass/Vol] 25 mg/dL High 4-19 [facility] Sodium levelOrdered By: Earnest Alex 04-20-2025 Sodium [Moles/Vol] 138 mmol/L 133-145 [facility] TSH DL <= 0.005 mIU/L QnOrde red By: Earnest Alex 04-20-2025 TSH Qn 1.020 uIU/mL 0.300-4.200 [facility] Total proteinOrdered By: Earnest Alex 04-20-2025 Protein [Mass/Vol] 6.7 g/dL 5.9-8.4 [facility] Triglycerides measurementOrd ered By: Earnest Alex 5 Triglyceride [Mass/Vol] 101 mg/dL <199 [facility] Comment on above: The drugs N-Acetylcy steine and Metamizole may falsely depress this assay. Normal range: <150 mg/dLBorderline High: 150-199 mg/dLHigh: 200-499 mg/dLVery High: >500 mg/dL White blood cell (WBC) count Ordered By: Earnest Alex on 04-20-2025 WBC (Bld) [#/Vol] 8.5 10*3/uL 4.4-11.0 [facility] Influenza virus A and B and SARS-CoV-2 (COVID-19) and Respiratory syncytial virus RNAOrdered By: Earnest Alex on 02-23-2025 SARS-CoV-2 (COVID-19) RNA KALI+probe Ql (Unsp spec) [facility] M100.678on 02-23-2025 M100.678 Pending SARS-CoV-2 (COVID 19) Negative INFLUENZA A Negative INFLUENZA B Negative RSV PCR Negative Normal [facility] Comment on above: Performed By: #### L 100.0100, L501.9985, L500.4100, L506.1001, L501.9520, L502.0250, L500.4050 #### [facility] [address] [place], [address] CBC W/Diff, Automatedon 10-05 Absolute Lymph 1.53 X10 3/uL Normal 0.83-4.51 [facility] Comment on above: Performed By: #### L 100.0100, L501.9985, L500.4100, L506.1001, L501.9520, L502.0250, L500.4050 #### [facility] [address] [place], [address] ( Absolute Neut 8.1 X10 3/uL High 2.0-7.7 [facility] Comment on above: Performed By: #### L 100.0100, L501.9985, L500.4100, L506.1001, L501.9520, L502.0250, L500.4050 #### [facility] [address] [place], [address] Basophils/100 WBC (Bld) 0.4 % Normal 0-1 [facility] Comment on above: Performed By: #### L 100.0100, L501.9985, L500.4100, L506.1001, L501.9520, L502.0250, L500.4050 #### [facility] [address] [place], [address] Eosinophils/100 WBC (Bld) 1.6 % Normal 0-5 [facility] Comment on above: Performed By: #### L 100.0100, L501.9985, L500.4100, L506.1001, L501.9520, L502.0250, L500.4050 #### [facility] [address] [place], [address] Erythrocyte distribution width (RBC) [Ratio] 13.9 % Normal 11.6-14.6 [facility] Comment on above: Performed By: #### L 100.0100, L501.9985, L500.4100, L506.1001, L501.9520, L502.0250, L500.4050 #### [facility] [address] [place], [address] Hematocrit (Bld) [Volume fraction] 34.5 % Low 40-54 [facility] Comment on above: Performed By: #### L 100.0100, L501.9985, L500.4100, L506.1001, L501.9520, L502.0250, L500.4050 #### [facility] [address] [place], [address] Hemoglobin (Bld) [Mass/Vol] 11.3 g/dL Low 13.0-16.5 [facility] Comment on above: Performed By: #### L 100.0100, L501.9985, L500.4100, L506.1001, L501.9520, L502.0250, L500.4050 #### [facility] [address] [place], [address] IG% 1.200 High 0.0-0.9 [facility] Comment on above: Result Comment: IG% - Immature Granulocytes (promyelocytes, myelocytes and metamyelocytes) > 1% indicates that a LEFT SHIFT is Present. Performed By: #### L 100.0100, L501.9985, L500.4100, L506.1001, L501.9520, L502.0250, L500.4050 #### [facility] [address] [place], [address] Lymphocytes/100 WBC (Bld) 13.9 % Low 19-41 [facility] Comment on above: Performed By: #### L 100.0100, L501.9985, L500.4100, L506.1001, L501.9520, L502.0250, L500.4050 #### [facility] [address], [address] MCH (RBC) [Entitic mass] 34.0 pg High 27.0-32.0 [facility] Comment on above: Performed By: #### L 100.0100, L501.9985, L500.4100, L506.1001, L501.9520, L502.0250, L500.4050 #### [facility] [address] [place], [address] MCHC (RBC) [Mass/Vol] 32.8 g/dL Normal 32-36 [facility] Comment on above: Performed By: #### L 100.0100, L501.9985, L500.4100, L506.1001, L501.9520, L502.0250, L500.4050 #### [facility] [address] [place], [address] MCV (RBC) [Entitic vol] 103.9 fL High 80-94 [facility] Comment on above: Performed By: #### L 100.0100, L501.9985, L500.4100, L506.1001, L501.9520, L502.0250, L500.4050 #### [facility] [address] [place], [address] Monocytes/100 WBC (Bld) 9.3 % Normal 0-10 [facility] Comment on above: Performed By: #### L 100.0100, L501.9985, L500.4100, L506.1001, L501.9520, L502.0250, L500.4050 #### [facility] [address] [place], [address] Neutrophils/100 WBC (Bld) 73.6 % High 47-70 [facility] Comment on above: Performed By: #### L 100.0100, L501.9985, L500.4100, L506.1001, L501.9520, L502.0250, L500.4050 #### [facility] [address] [place], [address] Nucleated RBC (Bld) [#/Vol] 0 10*3/uL Normal 0-5 [facility] Comment on above: Performed By: #### L 100.0100, L501.9985, L500.4100, L506.1001, L501.9520, L502.0250, L500.4050 #### [facility] [address] [place], [address] Platelet mean volume (Bld) [Entitic vol] 9.4 fL Normal 6.2-12.0 [facility] Comment on above: Performed By: #### L 100.0100, L501.9985, L500.4100, L506.1001, L501.9520, L502.0250, L500.4050 #### [facility] [address] [place], [address] Platelets (Bld) [#/Vol] 169 10*3/uL Normal 150-450 [facility] Comment on above: Performed By: #### L 100.0100, L501.9985, L500.4100, L506.1001, L501.9520, L502.0250, L500.4050 #### [facility] [address] [place], [address] RBC (Bld) [#/Vol] 3.32 10*6/uL Low 4.6-6.2 [facility] Comment on above: Performed By: #### L 100.0100, L501.9985, L500.4100, L506.1001, L501.9520, L502.0250, L500.4050 #### [facility] [address] [place], [address] RDW SD 53.1 fl High 35.1-43.9 [facility] Comment on above: Performed By: #### L 100.0100, L501.9985, L500.4100, L506.1001, L501.9520, L502.0250, L500.4050 #### [facility] [address] [place], [address] WBC (Bld) [#/Vol] 11.0 10*3/uL Normal 4.4-11.0 [facility] Comment on above: Performed By: #### L 100.0100, L501.9985, L500.4100, L506.1001, L501.9520, L502.0250, L500.4050 #### [facility] [address] [place], [address] Comprehensive Metabolic Prof il10-16-2024 Albumin [Mass/Vol] 3.5 g/dL Normal 3.2-5.0 [facility] Comment on above: Performed By: #### L 100.0100, L501.9985, L500.4100, L506.1001, L501.9520, L502.0250, L500.4050 #### [facility] [address] [place], [address] Albumin/Globulin [Mass ratio] 0.9 {ratio} Normal 0.9-2.4 [facility] Comment on above: Performed By: #### L 100.0100, L501.9985, L500.4100, L506.1001, L501.9520, L502.0250, L500.4050 #### [facility] [address] [place], [address] ALK P 74 U/L Normal 45-117 [facility] Comment on above: Performed By: #### L 100.0100, L501.9985, L500.4100, L506.1001, L501.9520, L502.0250, L500.4050 #### [facility] [address] [place], [address] ALT [Catalytic activity/Vol] 18 U/L Normal 16-61 [facility] Comment on above: Performed By: #### L 100.0100, L501.9985, L500.4100, L506.1001, L501.9520, L502.0250, L500.4050 #### [facility] [address] [place], [address] AST [Catalytic activity/Vol] 15 U/L Normal 15-37 [facility] Comment on above: Performed By: #### L 100.0100, L501.9985, L500.4100, L506.1001, L501.9520, L502.0250, L500.4050 #### [facility] [address] [place], [address] Bilirubin [Mass/Vol] 0.70 mg/dL Normal 0.20-1.00 [facility] [place] Comment on above: Result Comment: For patients on eltrombopag therapy, use of Dimension [place] TBIL is not recommended. Performed By: #### L 100.0100, L501.9985, L500.4100, L506.1001, L501.9520, L502.0250, L500.4050 #### [facility] [address] [place], [address] BUN/CRE 18.7 RATIO Normal 10-20 [facility] Comment on above: Performed By: #### L 100.0100, L501.9985, L500.4100, L506.1001, L501.9520, L502.0250, L500.4050 #### [facility] [address] [place], [address] CA,Total 9.0 mg/dL Normal 8.5-10.1 [facility] Comment on above: Performed By: #### L 100.0100, L501.9985, L500.4100, L506.1001, L501.9520, L502.0250, L500.4050 #### [facility] [address] [place], [address] Chloride [Moles/Vol] 108 mmol/L High 98-107 [facility] [place] Comment on above: Performed By: #### L 100.0100, L501.9985, L500.4100, L506.1001, L501.9520, L502.0250, L500.4050 #### [facility] [address] [place], [address] CO2 [Moles/Vol] 25.0 mmol/L Normal 21.0-32.0 [facility] Comment on above: Performed By: #### L 100.0100, L501.9985, L500.4100, L506.1001, L501.9520, L502.0250, L500.4050 #### [facility] [address] [place], [place], [phone] (128) Creatinine [Mass/Vol] 1.39 mg/dL High 0.70-1.30 [facility] Comment on above: Result Comment: The validity of the calculated GFR GFRAA in patients over 70 years has not been determined. Clinical correlation is essential. Performed By: #### L 100.0100, L501.9985, L500.4100, L506.1001, L501.9520, L502.0250, L500.4050 #### [facility] [address] [place], [place], [phone] (345) EST GFR - AA 63 mL/min Normal >60 [facility] Comment on above: Result Comment: Afri can Bhutanese GFR Calc Performed By: #### L 100.0100, L501.9985, L500.4100, L506.1001, L501.9520, L502.0250, L500.4050 #### [facility] [address] [place], [place], [phone] (158) GAP 5 Normal 5-15 [facility] Comment on above: Performed By: #### L 100.0100, L501.9985, L500.4100, L506.1001, L501.9520, L502.0250, L500.4050 #### [facility] [address] [place], [place], [id number] (485 GFR/1.73 sq M.predicted among non-blacks MDRD (S/P/Bld) [Vol rate/Area] 52 mL/min/{1.73_m2} Low >60 [facility] Comment on above: Result Comment: Non- GFR Calc Performed By: #### L 100.0100, L501.9985, L500.4100, L506.1001, L501.9520, L502.0250, L500.4050 #### [facility] [address] [place], [address] Globulin (S) [Mass/Vol] 3.7 g/dL Normal 2.2-4.2 [facility] Comment on above: Performed By: #### L 100.0100, L501.9985, L500.4100, L506.1001, L501.9520, L502.0250, L500.4050 #### [facility] [address] [place], [address] Glucose [Mass/Vol] 168 mg/dL High 74-106 [facility] Comment on above: Result Comment: Fast ing Glucose result greater than or equal to 126 mg/dL suggests DIABETES MELLITUS per A.D.A. criteria. Performed By: #### L 100.0100, L501.9985, L500.4100, L506.1001, L501.9520, L502.0250, L500.4050 #### [facility] [address] [place], [address] Potassium [Moles/Vol] 4.1 mmol/L Normal 3.5-5.1 [facility] Comment on above: Performed By: #### L 100.0100, L501.9985, L500.4100, L506.1001, L501.9520, L502.0250, L500.4050 #### [facility] [address] [place], [address] Sodium [Moles/Vol] 139 mmol/L Normal 136-145 [facility] Comment on above: Performed By: #### L 100.0100, L501.9985, L500.4100, L506.1001, L501.9520, L502.0250, L500.4050 #### [facility] [address] [place], [address] T PROT 7.2 g/dL Normal 6.4-8.2 [facility] Comment on above: Performed By: #### L 100.0100, L501.9985, L500.4100, L506.1001, L501.9520, L502.0250, L500.4050 #### [facility] [address] [place], [address] Urea nitrogen [Mass/Vol] 26 mg/dL High 7-18 [facility] Comment on above: Performed By: #### L 100.0100, L501.9985, L500.4100, L506.1001, L501.9520, L502.0250, L500.4050 #### [facility] [address] [place], [address] Hemoglobin A1con 10-16-2024 HbA1c (Bld) [Mass fraction] 5.9 % High 3.8-5.6 [facility] Comment on above: Result Comment: Norm al < 5.7 % Prediabetic 5.7 - 6.4 % Diabetic >or= 6.5 % Please note range changes. Performed By: #### L 100.0100, L501.9985, L500.4100, L506.1001, L501.9520, L502.0250, L500.4050 #### [facility] [address] [place], [address] Lipid Profileon 10-16-2024 Cholesterol [Mass/Vol] 134 mg/dL Normal 200 [facility] Comment on above: Result Comment: <200 mg/dL Desirable 200-240 mg/dL Borderline >240 mg/dL High Risk Performed By: #### L 100.0100, L501.9985, L500.4100, L506.1001, L501.9520, L502.0250, L500.4050 #### [facility] [address] [place], [address] Cholesterol in HDL [Mass/Vol] 60 mg/dL Normal [facility] Comment on above: Result Comment: The drugs N-Acetylcysteine and Metamizole may falsely depress this assay. Reference Range HDL <40 mg/dL Low HDL Cholesterol HDL >or= 60 mg/dL High HDL Cholesterol Performed By: #### L 100.0100, L501.9985, L500.4100, L506.1001, L501.9520, L502.0250, L500.4050 #### [facility] [address] [place], [address] Cholesterol in LDL [Mass/Vol] 52 mg/dL Normal 0-130 [facility] Comment on above: Performed By: #### L 100.0100, L501.9985, L500.4100, L506.1001, L501.9520, L502.0250, L500.4050 #### [facility] [address] [place], [address] Cholesterol in VLDL [Mass/Vol] 22 mg/dL Normal 5-40 [facility] Comment on above: Performed By: #### L 100.0100, L501.9985, L500.4100, L506.1001, L501.9520, L502.0250, L500.4050 #### [facility] [address] [place], [address] Triglyceride [Mass/Vol] 109 mg/dL Normal [facility] Comment on above: Result Comment: The drugs N-Acetylcysteine and Metamizole may falsely depress this assay. Serum Triglycerides Reference Interval Normal <150 mg/dL Borderline high 150 - 199 mg/dL High 200 - 499 mg/dL Very High > or = 500 mg/dL Performed By: #### L 100.0100, L501.9985, L500.4100, L506.1001, L501.9520, L502.0250, L500.4050 #### [facility] [address] [place], [address] Thyroid Stim Hormone (TSH)on 10-16-2024 TSH 1.540 uIU/mL Normal 0.358-3.740 [facility] Comment on above: Performed By: #### L 100.0100, L501.9985, L500.4100, L506.1001, L501.9520, L502.0250, L500.4050 #### [facility] [address] [place], [address] Vitamin D,25 Hydroxyon 10-16 Vitamin D 25-OH 27.1 ng/mL Normal [facility] Comment on above: Result Comment: Mary min D 25(OH) Status Range Deficiency <20 ng/mL (50nmol/L) Insufficiency 20 - 30 ng/mL (50 - 75 nmol/L) Sufficiency 30 - 100 ng/mL (75 - 250 nmol/L) Toxicity >100 ng/mL (>250 nmol/L) Performed By: #### L 100.0100, L501.9985, L500.4100, L506.1001, L501.9520, L502.0250, L500.4050 #### [facility] [address] [place], [address] Basic Metabolic Profile (BMP )on 09-23-2024 BUN/CRE 19.1 RATIO Normal 10-20 [facility] Comment on above: Performed By: #### M 100.2200, L400.0001 #### [facility] [address] [place], [address] CA,Total 8.5 mg/dL Normal 8.5-10.1 [facility] Comment on above: Performed By: #### M 100.2200, L400.0001 #### [facility] [address] [place], [address] Chloride [Moles/Vol] 108 mmol/L High 98-107 [facility] [place] Comment on above: Performed By: #### M 100.2200, L400.0001 #### [facility] [address] [place], [address] CO2 [Moles/Vol] 24.0 mmol/L Normal 21.0-32.0 [facility] Comment on above: Performed By: #### M 100.2200, L400.0001 #### [facility] [address] [place], [address] Creatinine [Mass/Vol] 1.31 mg/dL High 0.70-1.30 [facility] Comment on above: Result Comment: The validity of the calculated GFR GFRAA in patients over 70 years has not been determined. Clinical correlation is essential. Performed By: #### M 100.2200, L400.0001 #### [facility] [address] [place], [address] EST GFR - AA 68 mL/min Normal >60 [facility] Comment on above: Result Comment: Afri can Bhutanese GFR Calc Performed By: #### M 100.2200, L400.0001 #### [facility] [address] [place], [address] GAP 5 Normal 5-15 [facility] Comment on above: Performed By: #### M 100.2200, L400.0001 #### [facility] [address] [place], [address] GFR/1.73 sq M.predicted among non-blacks MDRD (S/P/Bld) [Vol rate/Area] 56 mL/min/{1.73_m2} Low >60 [facility] Comment on above: Result Comment: Non- GFR Calc Performed By: #### M 100.2200, L400.0001 #### [facility] [address] [place], [address] Glucose [Mass/Vol] 100 mg/dL Normal 74-106 [facility] Comment on above: Result Comment: Fast ing Glucose result from 100 to 125 mg/dL suggests IMPAIRED HOMEOSTASIS per A.D.A. criteria. Performed By: #### M 100.2200, L400.0001 #### [facility] [address] [place], [address] Potassium [Moles/Vol] 4.1 mmol/L Normal 3.5-5.1 [facility] Comment on above: Performed By: #### M 100.2200, L400.0001 #### [facility] [address] [place], [address] Sodium [Moles/Vol] 138 mmol/L Normal 136-145 [facility] Comment on above: Performed By: #### M 100.2200, L400.0001 #### [facility] [address] [place], [address] Urea nitrogen [Mass/Vol] 25 mg/dL High 7-18 [facility] Comment on above: Performed By: #### M 100.2200, L400.0001 #### [facility] [address] [place], [address] CBC-Complete Blood Cnt No Di ffon 09-23-2024 Erythrocyte distribution width (RBC) [Ratio] 14.0 % Normal 11.6-14.6 [facility] Comment on above: Performed By: #### M 100.2200, L400.0001 #### [facility] [address] [place], [address] Hematocrit (Bld) [Volume fraction] 29.0 % Low 40-54 [facility] Comment on above: Performed By: #### M 100.2200, L400.0001 #### [facility] [address] [place], [address] Hemoglobin (Bld) [Mass/Vol] 9.5 g/dL Low 13.0-16.5 [facility] Comment on above: Performed By: #### M 100.2200, L400.0001 #### [facility] [address] [place], [address] MCH (RBC) [Entitic mass] 34.4 pg High 27.0-32.0 [facility] Comment on above: Performed By: #### M 100.2200, L400.0001 #### [facility] [address] [place], [address] MCHC (RBC) [Mass/Vol] 32.8 g/dL Normal 32-36 [facility] Comment on above: Performed By: #### M 100.2200, L400.0001 #### [facility] [address] [place], [address] MCV (RBC) [Entitic vol] 105.1 fL High 80-94 [facility] Comment on above: Performed By: #### M 100.2200, L400.0001 #### [facility] [address] [place], [address] Platelet mean volume (Bld) [Entitic vol] 9.9 fL Normal 6.2-12.0 [facility] Comment on above: Performed By: #### M 100.2200, L400.0001 #### [facility] [address] [place], [address] Platelets (Bld) [#/Vol] 153 10*3/uL Normal 150-450 [facility] Comment on above: Performed By: #### M 100.2200, L400.0001 #### [facility] [address] [place], [address] RBC (Bld) [#/Vol] 2.76 10*6/uL Low 4.6-6.2 [facility] Comment on above: Performed By: #### M 100.2200, L400.0001 #### [facility] [address] [place], [address] RDW SD 53.9 fl High 35.1-43.9 [facility] Comment on above: Performed By: #### M 100.2200, L400.0001 #### [facility] [address] [place], [address] WBC (Bld) [#/Vol] 9.0 10*3/uL Normal 4.4-11.0 [facility] Comment on above: Performed By: #### M 100.2200, L400.0001 #### [facility] [address] [place], [address] Erythrocyte Sed Rateon 09-23 SED RATE 9 mm/hr Normal 0-20 [facility] Comment on above: Performed By: #### M 100.2200, L400.0001 #### [facility] [address] [place], [address] Vancomycin, Trough Levelon 2023 VANCO, TROUGH 14.5 ug/mL Normal 5.0-15.0 [facility] Comment on above: Order Comment: 0000 Result Comment: VANC OMYCIN STANDARED DRUG THERAPY TROUGH LEVEL: 5.0 - 15.0 mg/L VANCOMYCIN HIGH INTENSITY THERAPY TROUGH LEVEL: 15.0 - 20.0 mg/L High Intensity therapy recommended for serious life threatening infections include: - Meningitis -Endocarditis -Pneumonia (Ventilator/Healtcare Associated) -Sepsis PLEASE CONTACT PHARMACY SERVICES (#[id number]) FOR INTERPRETATION OF RESULTS. Performed By: #### M 100.2200, L400.0001 #### [facility] [address] [place], [address] Basic Metabolic Profile (BMP )on 09-22-2024 BUN Normal -18 [facility] Comment on above: Result Comment: ON TUBE DID NOT MATCH ORDER/COMPUTER. PER JANEL PATIENT BEING REDRAWN. Performed By: #### M 100.2200, L400.0001 #### [facility] [address] [place], [address] BUN/CRE Normal 10-20 [facility] Comment on above: Result Comment: ON TUBE DID NOT MATCH ORDER/COMPUTER. PER JANEL PATIENT BEING REDRAWN. Performed By: #### M 100.2200, L400.0001 #### [facility] [address] [place], [address] CA,Total Normal 8.5-10.1 [facility] Comment on above: Result Comment: ON TUBE DID NOT MATCH ORDER/COMPUTER. PER JANEL PATIENT BEING REDRAWN. Performed By: #### M 100.2200, L400.0001 #### [facility] [address] [place], [address] CL Normal 98-107 [facility] Comment on above: Result Comment: ON TUBE DID NOT MATCH ORDER/COMPUTER. PER JANEL PATIENT BEING REDRAWN. Performed By: #### M 100.2200, L400.0001 #### [facility] [address] [place], [address] CO2 Normal 21.0-32.0 [facility] Comment on above: Result Comment: ON TUBE DID NOT MATCH ORDER/COMPUTER. PER JANEL PATIENT BEING REDRAWN. Performed By: #### M 100.2200, L400.0001 #### [facility] [address] [place], [address] CREAT,SERUM Normal 0.70-1.30 [facility] Comment on above: Result Comment: ON TUBE DID NOT MATCH ORDER/COMPUTER. PER JANEL PATIENT BEING REDRAWN. Performed By: #### M 100.2200, L400.0001 #### [facility] [address] [place], [address] EST GFR Normal >60 [facility] Comment on above: Result Comment: ON TUBE DID NOT MATCH ORDER/COMPUTER. PER JANEL PATIENT BEING REDRAWN. Performed By: #### M 100.2200, L400.0001 #### [facility] [address] [place], [address] EST GFR - AA Normal >60 [facility] Comment on above: Result Comment: ON TUBE DID NOT MATCH ORDER/COMPUTER. PER JANEL PATIENT BEING REDRAWN. Performed By: #### M 100.2200, L400.0001 #### [facility] [address] [place], [address] GAP Normal 5-15 [facility] Comment on above: Result Comment: ON TUBE DID NOT MATCH ORDER/COMPUTER. PER JANEL PATIENT BEING REDRAWN. Performed By: #### M 100.2200, L400.0001 #### [facility] [address] [place], [address] GLU Normal 74-106 [facility] Comment on above: Result Comment: ON TUBE DID NOT MATCH ORDER/COMPUTER. PER JANEL PATIENT BEING REDRAWN. Performed By: #### M 100.2200, L400.0001 #### [facility] [address] [place], [address] Potassium Normal 3.5-5.1 [facility] Comment on above: Result Comment: ON TUBE DID NOT MATCH ORDER/COMPUTER. PER JANEL PATIENT BEING REDRAWN. Performed By: #### M 100.2200, L400.0001 #### [facility] [address] [place], [address] Basic Metabolic Profile (BMP) Normal 136-145 [facility] Comment on above: Result Comment: ON TUBE DID NOT MATCH ORDER/COMPUTER. PER JANEL PATIENT BEING REDRAWN. Performed By: #### M 100.2200, L400.0001 #### [facility] [address] [place], [address] CBC-Complete Blood Cnt No Di ffon 09-22-2024 HCT Normal 40-54 [facility] Comment on above: Result Comment: ON TUBE DID NOT MATCH ORDER/COMPUTER. PER JANEL PATIENT BEING REDRAWN. Performed By: #### L 100.0100, L501.9985, L500.4100, L506.1001, L501.9520, L502.0250, L500.4050 #### [facility] [address] [place], [place], [phone] ([phone]) HGB Normal 13.0-16.5 [facility] Comment on above: Result Comment: ON TUBE DID NOT MATCH ORDER/COMPUTER. PER JANEL PATIENT BEING REDRAWN. Performed By: #### L 100.0100, L501.9985, L500.4100, L506.1001, L501.9520, L502.0250, L500.4050 #### [facility] [address] [place], [address] (527) MCH Normal 27.0-32.0 [facility] Comment on above: Result Comment: ON TUBE DID NOT MATCH ORDER/COMPUTER. PER JEROME PATIENT BEING REDRAWN. Performed By: #### L 100.0100, L501.9985, L500.4100, L506.1001, L501.9520, L502.0250, L500.4050 #### [facility] [address] [place], [place], [phone] (758) MCHC Normal 32-36 [facility] Comment on above: Result Comment: ON TUBE DID NOT MATCH ORDER/COMPUTER. PER JANEL PATIENT BEING REDRAWN. Performed By: #### L 100.0100, L501.9985, L500.4100, L506.1001, L501.9520, L502.0250, L500.4050 #### [facility] [address] [place], [address] (835) MCV Normal 80-94 [facility] Comment on above: Result Comment: ON TUBE DID NOT MATCH ORDER/COMPUTER. PER JANEL PATIENT BEING REDRAWN. Performed By: #### L 100.0100, L501.9985, L500.4100, L506.1001, L501.9520, L502.0250, L500.4050 #### [facility] [address] [place], [address] PLT Normal 150-450 [facility] Comment on above: Result Comment: ON TUBE DID NOT MATCH ORDER/COMPUTER. PER JEROME PATIENT BEING REDRAWN. Performed By: #### L 100.0100, L501.9985, L500.4100, L506.1001, L501.9520, L502.0250, L500.4050 #### [facility] [address] [place], [address] RBC Normal 4.6-6.2 [facility] Comment on above: Result Comment: ON TUBE DID NOT MATCH ORDER/COMPUTER. PER JEROME PATIENT BEING REDRAWN. Performed By: #### L 100.0100, L501.9985, L500.4100, L506.1001, L501.9520, L502.0250, L500.4050 #### [facility] [address] [place], [address] RDW CV Normal 11.6-14.6 [facility] Comment on above: Result Comment: ON TUBE DID NOT MATCH ORDER/COMPUTER. PER JEROME PATIENT BEING REDRAWN. Performed By: #### L 100.0100, L501.9985, L500.4100, L506.1001, L501.9520, L502.0250, L500.4050 #### [facility] [address] [place], [address] RDW SD Normal 35.1-43.9 [facility] Comment on above: Result Comment: ON TUBE DID NOT MATCH ORDER/COMPUTER. PER JANEL PATIENT BEING REDRAWN. Performed By: #### L 100.0100, L501.9985, L500.4100, L506.1001, L501.9520, L502.0250, L500.4050 #### [facility] [address] [place], [address] WBC Normal 4.4-11.0 [facility] Comment on above: Result Comment: ON TUBE DID NOT MATCH ORDER/COMPUTER. PER JANEL PATIENT BEING REDRAWN. Performed By: #### L 100.0100, L501.9985, L500.4100, L506.1001, L501.9520, L502.0250, L500.4050 #### [facility] [address] [place], [address] Erythrocyte Sed Rateon 09-22 SED RATE Normal 0-20 [facility] Comment on above: Result Comment: ON TUBE DID NOT MATCH ORDER/COMPUTER. PER JANEL PATIENT BEING REDRAWN. Performed By: #### L 100.0100, L501.9985, L500.4100, L506.1001, L501.9520, L502.0250, L500.4050 #### [facility] [address] [place], [address] Basic Metabolic Profile (BMP )on 09-15-2024 BUN/CRE 14.0 RATIO Normal 10-20 [facility] Comment on above: Performed By: #### L 100.0100, L501.9985, L500.4100, L506.1001, L501.9520, L502.0250, L500.4050 #### [facility] [address] [place], [address] CA,Total 8.8 mg/dL Normal 8.5-10.1 [facility] Comment on above: Performed By: #### L 100.0100, L501.9985, L500.4100, L506.1001, L501.9520, L502.0250, L500.4050 #### [facility] [address] [place], [address] Chloride [Moles/Vol] 104 mmol/L Normal 98-107 [facility] Comment on above: Performed By: #### L 100.0100, L501.9985, L500.4100, L506.1001, L501.9520, L502.0250, L500.4050 #### [facility] [address] [place], [address] CO2 [Moles/Vol] 28.0 mmol/L Normal 21.0-32.0 [facility] Comment on above: Performed By: #### L 100.0100, L501.9985, L500.4100, L506.1001, L501.9520, L502.0250, L500.4050 #### [facility] [address] [place], [address] Creatinine [Mass/Vol] 1.43 mg/dL High 0.70-1.30 [facility] Comment on above: Result Comment: The validity of the calculated GFR GFRAA in patients over 70 years has not been determined. Clinical correlation is essential. Performed By: #### L 100.0100, L501.9985, L500.4100, L506.1001, L501.9520, L502.0250, L500.4050 #### [facility] [address] [place], [address] EST GFR - AA 61 mL/min Normal >60 [facility] Comment on above: Result Comment: Afri can Bhutanese GFR Calc Performed By: #### L 100.0100, L501.9985, L500.4100, L506.1001, L501.9520, L502.0250, L500.4050 #### [facility] [address] [place], [address] GAP 4 Low 5-15 [facility] Comment on above: Performed By: #### L 100.0100, L501.9985, L500.4100, L506.1001, L501.9520, L502.0250, L500.4050 #### [facility] [address] [place], [address] GFR/1.73 sq M.predicted among non-blacks MDRD (S/P/Bld) [Vol rate/Area] 51 mL/min/{1.73_m2} Low >60 [facility] Comment on above: Result Comment: Non- GFR Calc Performed By: #### L 100.0100, L501.9985, L500.4100, L506.1001, L501.9520, L502.0250, L500.4050 #### [facility] [address] [place], [address] Glucose [Mass/Vol] 119 mg/dL High 74-106 [facility] Comment on above: Result Comment: Fast ing Glucose result from 100 to 125 mg/dL suggests IMPAIRED HOMEOSTASIS per A.D.A. criteria. Performed By: #### L 100.0100, L501.9985, L500.4100, L506.1001, L501.9520, L502.0250, L500.4050 #### [facility] [address] [place], [address] Potassium [Moles/Vol] 3.9 mmol/L Normal 3.5-5.1 [facility] Comment on above: Performed By: #### L 100.0100, L501.9985, L500.4100, L506.1001, L501.9520, L502.0250, L500.4050 #### [facility] [address] [place], [address] Sodium [Moles/Vol] 137 mmol/L Normal 136-145 [facility] Comment on above: Performed By: #### L 100.0100, L501.9985, L500.4100, L506.1001, L501.9520, L502.0250, L500.4050 #### [facility] [address] [place], [address] Urea nitrogen [Mass/Vol] 20 mg/dL High 7-18 [facility] Comment on above: Performed By: #### L 100.0100, L501.9985, L500.4100, L506.1001, L501.9520, L502.0250, L500.4050 #### [facility] [address] [place], [address] CBC-Complete Blood Cnt No Di ffon 09-15-2024 Erythrocyte distribution width (RBC) [Ratio] 14.2 % Normal 11.6-14.6 [facility] Comment on above: Performed By: #### L 100.0100, L501.9985, L500.4100, L506.1001, L501.9520, L502.0250, L500.4050 #### [facility] [address] [place], [address] Hematocrit (Bld) [Volume fraction] 28.7 % Low 40-54 [facility] Comment on above: Performed By: #### L 100.0100, L501.9985, L500.4100, L506.1001, L501.9520, L502.0250, L500.4050 #### [facility] [address] [place], [address] Hemoglobin (Bld) [Mass/Vol] 9.3 g/dL Low 13.0-16.5 [facility] Comment on above: Performed By: #### L 100.0100, L501.9985, L500.4100, L506.1001, L501.9520, L502.0250, L500.4050 #### [facility] [address] [place], [address] MCH (RBC) [Entitic mass] 34.1 pg High 27.0-32.0 [facility] Comment on above: Performed By: #### L 100.0100, L501.9985, L500.4100, L506.1001, L501.9520, L502.0250, L500.4050 #### [facility] [address] [place], [address] MCHC (RBC) [Mass/Vol] 32.4 g/dL Normal 32-36 [facility] Comment on above: Performed By: #### L 100.0100, L501.9985, L500.4100, L506.1001, L501.9520, L502.0250, L500.4050 #### [facility] [address] [place], [address] MCV (RBC) [Entitic vol] 105.1 fL High 80-94 [facility] Comment on above: Performed By: #### L 100.0100, L501.9985, L500.4100, L506.1001, L501.9520, L502.0250, L500.4050 #### [facility] [address] [place], [address] Platelet mean volume (Bld) [Entitic vol] 10.2 fL Normal 6.2-12.0 [facility] Comment on above: Performed By: #### L 100.0100, L501.9985, L500.4100, L506.1001, L501.9520, L502.0250, L500.4050 #### [facility] [address] [place], [address] Platelets (Bld) [#/Vol] 161 10*3/uL Normal 150-450 [facility] Comment on above: Performed By: #### L 100.0100, L501.9985, L500.4100, L506.1001, L501.9520, L502.0250, L500.4050 #### [facility] [address] [place], [address] RBC (Bld) [#/Vol] 2.73 10*6/uL Low 4.6-6.2 [facility] Comment on above: Performed By: #### L 100.0100, L501.9985, L500.4100, L506.1001, L501.9520, L502.0250, L500.4050 #### [facility] [address] [place], [address] (668) RDW SD 54.5 fl High 35.1-43.9 [facility] Comment on above: Performed By: #### L 100.0100, L501.9985, L500.4100, L506.1001, L501.9520, L502.0250, L500.4050 #### [facility] [address] [place], [address] (401) WBC (Bld) [#/Vol] 7.2 10*3/uL Normal 4.4-11.0 [facility] Comment on above: Performed By: #### L 100.0100, L501.9985, L500.4100, L506.1001, L501.9520, L502.0250, L500.4050 #### [facility] [address] [place], [address] (084) Erythrocyte Sed Rateon 09-15 SED RATE 10 mm/hr Normal 0-20 [facility] Comment on above: Performed By: #### L 100.0100, L501.9985, L500.4100, L506.1001, L501.9520, L502.0250, L500.4050 #### [facility] [address] [place], [address] Vancomycin, Trough Levelon 1 11-15-2023 VANCO, TROUGH 14.3 ug/mL Normal 5.0-15.0 [facility] Comment on above: Order Comment: 0000 Result Comment: VANC OMYCIN STANDARED DRUG THERAPY TROUGH LEVEL: 5.0 - 15.0 mg/L VANCOMYCIN HIGH INTENSITY THERAPY TROUGH LEVEL: 15.0 - 20.0 mg/L High Intensity therapy recommended for serious life threatening infections include: - Meningitis -Endocarditis -Pneumonia (Ventilator/Healtcare Associated) -Sepsis PLEASE CONTACT PHARMACY SERVICES (#[id number]) FOR INTERPRETATION OF RESULTS. Performed By: #### L 100.0100, L501.9985, L500.4100, L506.1001, L501.9520, L502.0250, L500.4050 #### [facility] [address] [place], [address] CBC W/Diff, Automatedon 11-0 5-2023 Absolute Lymph 0.90 X10 3/uL Normal 0.83-4.51 [facility] Comment on above: Performed By: #### L 100.0100, L501.9985, L500.4100, L506.1001, L501.9520, L502.0250, L500.4050 #### [facility] [address] [place], [address] Absolute Neut 4.7 X10 3/uL Normal 2.0-7.7 [facility] Comment on above: Performed By: #### L 100.0100, L501.9985, L500.4100, L506.1001, L501.9520, L502.0250, L500.4050 #### [facility] [address] [place], [address] Basophils/100 WBC (Bld) 0.8 % Normal 0-1 [facility] Comment on above: Performed By: #### L 100.0100, L501.9985, L500.4100, L506.1001, L501.9520, L502.0250, L500.4050 #### [facility] [address] [place], [address] Eosinophils/100 WBC (Bld) 1.1 % Normal 0-5 [facility] Comment on above: Performed By: #### L 100.0100, L501.9985, L500.4100, L506.1001, L501.9520, L502.0250, L500.4050 #### [facility] [address] [place], [address] Erythrocyte distribution width (RBC) [Ratio] 14.2 % Normal 11.6-14.6 [facility] Comment on above: Performed By: #### L 100.0100, L501.9985, L500.4100, L506.1001, L501.9520, L502.0250, L500.4050 #### [facility] [address] [place], [address] Hematocrit (Bld) [Volume fraction] 31.2 % Low 40-54 [facility] Comment on above: Performed By: #### L 100.0100, L501.9985, L500.4100, L506.1001, L501.9520, L502.0250, L500.4050 #### [facility] [address] [place], [address] Hemoglobin (Bld) [Mass/Vol] 10.4 g/dL Low 13.0-16.5 [facility] Comment on above: Performed By: #### L 100.0100, L501.9985, L500.4100, L506.1001, L501.9520, L502.0250, L500.4050 #### [facility] [address] [place], [address] IG% 0.300 Normal 0.0-0.9 [facility] Comment on above: Result Comment: IG% - Immature Granulocytes (promyelocytes, myelocytes and metamyelocytes) > 1% indicates that a LEFT SHIFT is Present. Performed By: #### L 100.0100, L501.9985, L500.4100, L506.1001, L501.9520, L502.0250, L500.4050 #### [facility] [address] [place], [address] Lymphocytes/100 WBC (Bld) 13.8 % Low 19-41 [facility] Comment on above: Performed By: #### L 100.0100, L501.9985, L500.4100, L506.1001, L501.9520, L502.0250, L500.4050 #### [facility] [address] [place], [address] MCH (RBC) [Entitic mass] 34.7 pg High 27.0-32.0 [facility] Comment on above: Performed By: #### L 100.0100, L501.9985, L500.4100, L506.1001, L501.9520, L502.0250, L500.4050 #### [facility] [address] [place], [address] MCHC (RBC) [Mass/Vol] 33.3 g/dL Normal 32-36 [facility] Comment on above: Performed By: #### L 100.0100, L501.9985, L500.4100, L506.1001, L501.9520, L502.0250, L500.4050 #### [facility] [address] [place], [address] MCV (RBC) [Entitic vol] 104.0 fL High 80-94 [facility] Comment on above: Performed By: #### L 100.0100, L501.9985, L500.4100, L506.1001, L501.9520, L502.0250, L500.4050 #### [facility] [address] [place], [address] Monocytes/100 WBC (Bld) 11.4 % High 0-10 [facility] Comment on above: Performed By: #### L 100.0100, L501.9985, L500.4100, L506.1001, L501.9520, L502.0250, L500.4050 #### [facility] [address] [place], [address] Neutrophils/100 WBC (Bld) 72.6 % High 47-70 [facility] Comment on above: Performed By: #### L 100.0100, L501.9985, L500.4100, L506.1001, L501.9520, L502.0250, L500.4050 #### [facility] [address] [place], [address] Nucleated RBC (Bld) [#/Vol] 0 10*3/uL Normal 0-5 [facility] Comment on above: Performed By: #### L 100.0100, L501.9985, L500.4100, L506.1001, L501.9520, L502.0250, L500.4050 #### [facility] [address] [place], [address] Platelet mean volume (Bld) [Entitic vol] 10.3 fL Normal 6.2-12.0 [facility] Comment on above: Performed By: #### L 100.0100, L501.9985, L500.4100, L506.1001, L501.9520, L502.0250, L500.4050 #### [facility] [address] [place], [address] Platelets (Bld) [#/Vol] 172 10*3/uL Normal 150-450 [facility] Comment on above: Performed By: #### L 100.0100, L501.9985, L500.4100, L506.1001, L501.9520, L502.0250, L500.4050 #### [facility] [address] [place], [address] RBC (Bld) [#/Vol] 3.00 10*6/uL Low 4.6-6.2 [facility] Comment on above: Performed By: #### L 100.0100, L501.9985, L500.4100, L506.1001, L501.9520, L502.0250, L500.4050 #### [facility] [address] [place], [address] RDW SD 54.2 fl High 35.1-43.9 [facility] Comment on above: Performed By: #### L 100.0100, L501.9985, L500.4100, L506.1001, L501.9520, L502.0250, L500.4050 #### [facility] [address] [place], [address] WBC (Bld) [#/Vol] 6.5 10*3/uL Normal 4.4-11.0 [facility] Comment on above: Performed By: #### L 100.0100, L501.9985, L500.4100, L506.1001, L501.9520, L502.0250, L500.4050 #### [facility] [address] [place], [address] Ferritinon 09-09-2024 Ferritin [Mass/Vol] 369 ng/mL Normal 26-388 [facility] Comment on above: Order Comment: N Performed By: #### L 100.0100, L501.9985, L500.4100, L506.1001, L501.9520, L502.0250, L500.4050 #### [facility] [address] [place], [address] Folates, (Folic Acid)on FOLATES 6.40 ng/mL Normal 3.1-55.4 [facility] Comment on above: Order Comment: N Performed By: #### L 100.0100, L501.9985, L500.4100, L506.1001, L501.9520, L502.0250, L500.4050 #### [facility] [address] [place], [address] Folates, RBCon 09-09-2024 Fol.,Hemolysate Normal [facility] Comment on above: Result Comment: WRON G TEST ORDERED Performed By: #### L 100.0100, L501.9985, L500.4100, L506.1001, L501.9520, L502.0250, L500.4050 #### [facility] [address] [place], [address] Folate, RBC Normal 280-791 [facility] Comment on above: Result Comment: WRON G TEST ORDERED Performed By: #### L 100.0100, L501.9985, L500.4100, L506.1001, L501.9520, L502.0250, L500.4050 #### [facility] [address] [place], [address] Hematocrit Normal 36.0-50.0 [facility] Comment on above: Result Comment: WRON G TEST ORDERED Performed By: #### L 100.0100, L501.9985, L500.4100, L506.1001, L501.9520, L502.0250, L500.4050 #### [facility] [address] [place], [address] Iron+Iron Binding Capacityon 09-09-2024 Iron [Mass/Vol] 39 ug/dL Low 65-175 [facility] Comment on above: Order Comment: N Performed By: #### L 100.0100, L501.9985, L500.4100, L506.1001, L501.9520, L502.0250, L500.4050 #### [facility] [address] [place], [address] IRON SATURATION 23.4 Normal 15.0-55.0 [facility] Comment on above: Order Comment: N Performed By: #### L 100.0100, L501.9985, L500.4100, L506.1001, L501.9520, L502.0250, L500.4050 #### [facility] [address] [place], [address] TIBC 167 ug/dL Low 250-450 [facility] Comment on above: Order Comment: N Performed By: #### L 100.0100, L501.9985, L500.4100, L506.1001, L501.9520, L502.0250, L500.4050 #### [facility] [address] [place], [address] Retic Panelon 09-09-2024 IM RET FRACTION 10.50 Normal 3.00-15.90 [facility] Comment on above: Performed By: #### L 100.0100, L501.9985, L500.4100, L506.1001, L501.9520, L502.0250, L500.4050 #### [facility] [address] [place], [address] RET-HE 37.1 pg High 30-35 [facility] Comment on above: Performed By: #### L 100.0100, L501.9985, L500.4100, L506.1001, L501.9520, L502.0250, L500.4050 #### [facility] [address] [place], [address] Retic Count 1.38 Normal 0.5-1.5 [facility] Comment on above: Performed By: #### L 100.0100, L501.9985, L500.4100, L506.1001, L501.9520, L502.0250, L500.4050 #### [facility] [address] [place], [address] Vitamin B12on 09-09-2024 Cobalamin (Vitamin B12) [Mass/Vol] 412 pg/mL Normal 211-911 [facility] Comment on above: Performed By: #### L 100.0100, L501.9985, L500.4100, L506.1001, L501.9520, L502.0250, L500.4050 #### [facility] [address] [place], [address] Basic Metabolic Profile (BMP )on 09-08-2024 BUN/CRE 8.2 RATIO Low 10-20 [facility] Comment on above: Performed By: #### L 100.0100, L501.9985, L500.4100, L506.1001, L501.9520, L502.0250, L500.4050 #### [facility] [address] [place], [address] CA,Total 8.4 mg/dL Low 8.5-10.1 [facility] Comment on above: Performed By: #### L 100.0100, L501.9985, L500.4100, L506.1001, L501.9520, L502.0250, L500.4050 #### [facility] [address] [place], [address] Chloride [Moles/Vol] 106 mmol/L Normal 98-107 [facility] Comment on above: Performed By: #### L 100.0100, L501.9985, L500.4100, L506.1001, L501.9520, L502.0250, L500.4050 #### [facility] [address] [place], [address] CO2 [Moles/Vol] 27.0 mmol/L Normal 21.0-32.0 [facility] Comment on above: Performed By: #### L 100.0100, L501.9985, L500.4100, L506.1001, L501.9520, L502.0250, L500.4050 #### [facility] [address] [place], [address] Creatinine [Mass/Vol] 1.58 mg/dL High 0.70-1.30 [facility] Comment on above: Result Comment: The validity of the calculated GFR GFRAA in patients over 70 years has not been determined. Clinical correlation is essential. Performed By: #### L 100.0100, L501.9985, L500.4100, L506.1001, L501.9520, L502.0250, L500.4050 #### [facility] [address] [place], [place], [id number] (747) EST GFR - AA 54 mL/min Low >60 [facility] Comment on above: Result Comment: Afri can Bhutanese GFR Calc Performed By: #### L 100.0100, L501.9985, L500.4100, L506.1001, L501.9520, L502.0250, L500.4050 #### [facility] [address] [place], [address] GAP 7 Normal 5-15 [facility] Comment on above: Performed By: #### L 100.0100, L501.9985, L500.4100, L506.1001, L501.9520, L502.0250, L500.4050 #### [facility] [address] [place], [address] GFR/1.73 sq M.predicted among non-blacks MDRD (S/P/Bld) [Vol rate/Area] 45 mL/min/{1.73_m2} Low >60 [facility] Comment on above: Result Comment: Non- GFR Calc Performed By: #### L 100.0100, L501.9985, L500.4100, L506.1001, L501.9520, L502.0250, L500.4050 #### [facility] [address] [place], [address] Glucose [Mass/Vol] 124 mg/dL High 74-106 [facility] Comment on above: Result Comment: Fast ing Glucose result from 100 to 125 mg/dL suggests IMPAIRED HOMEOSTASIS per A.D.A. criteria. Performed By: #### L 100.0100, L501.9985, L500.4100, L506.1001, L501.9520, L502.0250, L500.4050 #### [facility] [address] [place], [address] Potassium [Moles/Vol] 3.9 mmol/L Normal 3.5-5.1 [facility] Comment on above: Performed By: #### L 100.0100, L501.9985, L500.4100, L506.1001, L501.9520, L502.0250, L500.4050 #### [facility] [address] [place], [address] Sodium [Moles/Vol] 140 mmol/L Normal 136-145 [facility] Comment on above: Performed By: #### L 100.0100, L501.9985, L500.4100, L506.1001, L501.9520, L502.0250, L500.4050 #### [facility] [address] [place], [address] Urea nitrogen [Mass/Vol] 13 mg/dL Normal 7-18 [facility] Comment on above: Performed By: #### L 100.0100, L501.9985, L500.4100, L506.1001, L501.9520, L502.0250, L500.4050 #### [facility] [address] [place], [address] CBC-Complete Blood Cnt No Di ffon 09-08-2024 Erythrocyte distribution width (RBC) [Ratio] 14.2 % Normal 11.6-14.6 [facility] Comment on above: Performed By: #### L 100.0100, L501.9985, L500.4100, L506.1001, L501.9520, L502.0250, L500.4050 #### [facility] [address] [place], [address] Hematocrit (Bld) [Volume fraction] 28.3 % Low 40-54 [facility] Comment on above: Performed By: #### L 100.0100, L501.9985, L500.4100, L506.1001, L501.9520, L502.0250, L500.4050 #### [facility] [address] [place], [address] Hemoglobin (Bld) [Mass/Vol] 9.0 g/dL Low 13.0-16.5 [facility] Comment on above: Performed By: #### L 100.0100, L501.9985, L500.4100, L506.1001, L501.9520, L502.0250, L500.4050 #### [facility] [address] [place], [address] MCH (RBC) [Entitic mass] 33.8 pg High 27.0-32.0 [facility] Comment on above: Performed By: #### L 100.0100, L501.9985, L500.4100, L506.1001, L501.9520, L502.0250, L500.4050 #### [facility] [address] [place], [address] MCHC (RBC) [Mass/Vol] 31.8 g/dL Low 32-36 [facility] Comment on above: Performed By: #### L 100.0100, L501.9985, L500.4100, L506.1001, L501.9520, L502.0250, L500.4050 #### [facility] [address] [place], [address] MCV (RBC) [Entitic vol] 106.4 fL High 80-94 [facility] Comment on above: Performed By: #### L 100.0100, L501.9985, L500.4100, L506.1001, L501.9520, L502.0250, L500.4050 #### [facility] [address] [place], [address] Platelet mean volume (Bld) [Entitic vol] 10.6 fL Normal 6.2-12.0 [facility] Comment on above: Performed By: #### L 100.0100, L501.9985, L500.4100, L506.1001, L501.9520, L502.0250, L500.4050 #### [facility] [address] [place], [address] Platelets (Bld) [#/Vol] 147 10*3/uL Low 150-450 [facility] Comment on above: Performed By: #### L 100.0100, L501.9985, L500.4100, L506.1001, L501.9520, L502.0250, L500.4050 #### [facility] [address] [place], [address] RBC (Bld) [#/Vol] 2.66 10*6/uL Low 4.6-6.2 [facility] Comment on above: Performed By: #### L 100.0100, L501.9985, L500.4100, L506.1001, L501.9520, L502.0250, L500.4050 #### [facility] [address] [place], [address] RDW SD 55.6 fl High 35.1-43.9 [facility] Comment on above: Performed By: #### L 100.0100, L501.9985, L500.4100, L506.1001, L501.9520, L502.0250, L500.4050 #### [facility] [address] [place], [address] WBC (Bld) [#/Vol] 6.3 10*3/uL Normal 4.4-11.0 [facility] Comment on above: Performed By: #### L 100.0100, L501.9985, L500.4100, L506.1001, L501.9520, L502.0250, L500.4050 #### [facility] [address] [place], [address] Erythrocyte Sed Rateon 09-08 SED RATE 8 mm/hr Normal [facility] Comment on above: Performed By: #### L 100.0100, L501.9985, L500.4100, L506.1001, L501.9520, L502.0250, L500.4050 #### [facility] [address] [place], [address] Vancomycin, Trough Levelon 1 11-08-2023 VANCO, TROUGH 13.7 ug/mL Normal 5.0-15.0 [facility] Comment on above: Order Comment: 1043 Result Comment: VANC OMYCIN STANDARED DRUG THERAPY TROUGH LEVEL: 5.0 - 15.0 mg/L VANCOMYCIN HIGH INTENSITY THERAPY TROUGH LEVEL: 15.0 - 20.0 mg/L High Intensity therapy recommended for serious life threatening infections include: - Meningitis -Endocarditis -Pneumonia (Ventilator/Healtcare Associated) -Sepsis PLEASE CONTACT PHARMACY SERVICES (#[id number]) FOR INTERPRETATION OF RESULTS. Performed By: #### L 100.0100, L501.9985, L500.4100, L506.1001, L501.9520, L502.0250, L500.4050 #### [facility] [address] [place], [address] Basic Metabolic Profile (BMP )on 09-03-2024 BUN/CRE 10.9 RATIO Normal 08-24 [facility] Comment on above: Performed By: #### L 100.0100, L501.9985, L500.4100, L506.1001, L501.9520, L502.0250, L500.4050 #### [facility] [address] [place], [address] CA,Total 8.5 mg/dL Normal 8.5-10.1 [facility] Comment on above: Performed By: #### L 100.0100, L501.9985, L500.4100, L506.1001, L501.9520, L502.0250, L500.4050 #### [facility] [address] [place], [address] Chloride [Moles/Vol] 107 mmol/L Normal 98-107 [facility] Comment on above: Performed By: #### L 100.0100, L501.9985, L500.4100, L506.1001, L501.9520, L502.0250, L500.4050 #### [facility] [address] [place], [address] CO2 [Moles/Vol] 27.0 mmol/L Normal 21.0-32.0 [facility] Comment on above: Performed By: #### L 100.0100, L501.9985, L500.4100, L506.1001, L501.9520, L502.0250, L500.4050 #### [facility] [address] [place], [address] Creatinine [Mass/Vol] 1.74 mg/dL High 0.70-1.30 [facility] Comment on above: Result Comment: The validity of the calculated GFR GFRAA in patients over 70 years has not been determined. Clinical correlation is essential. Performed By: #### L 100.0100, L501.9985, L500.4100, L506.1001, L501.9520, L502.0250, L500.4050 #### [facility] [address] [place], [address] EST GFR - AA 49 mL/min Low >60 [facility] Comment on above: Result Comment: Afri can Bhutanese GFR Calc Performed By: #### L 100.0100, L501.9985, L500.4100, L506.1001, L501.9520, L502.0250, L500.4050 #### [facility] [address] [place], [address] GAP 7 Normal 5-15 [facility] Comment on above: Performed By: #### L 100.0100, L501.9985, L500.4100, L506.1001, L501.9520, L502.0250, L500.4050 #### [facility] [address] [place], [address] GFR/1.73 sq M.predicted among non-blacks MDRD (S/P/Bld) [Vol rate/Area] 40 mL/min/{1.73_m2} Low >60 [facility] Comment on above: Result Comment: Non- GFR Calc Performed By: #### L 100.0100, L501.9985, L500.4100, L506.1001, L501.9520, L502.0250, L500.4050 #### [facility] [address] [place], [address] Glucose [Mass/Vol] 127 mg/dL High 74-106 [facility] Comment on above: Result Comment: Fast ing Glucose result greater than or equal to 126 mg/dL suggests DIABETES MELLITUS per A.D.A. criteria. Performed By: #### L 100.0100, L501.9985, L500.4100, L506.1001, L501.9520, L502.0250, L500.4050 #### [facility] [address] [place], [address] Potassium [Moles/Vol] 3.5 mmol/L Normal 3.5-5.1 [facility] Comment on above: Performed By: #### L 100.0100, L501.9985, L500.4100, L506.1001, L501.9520, L502.0250, L500.4050 #### [facility] [address] [place], [address] Sodium [Moles/Vol] 141 mmol/L Normal 136-145 [facility] Comment on above: Performed By: #### L 100.0100, L501.9985, L500.4100, L506.1001, L501.9520, L502.0250, L500.4050 #### [facility] [address] [place], [address] Urea nitrogen [Mass/Vol] 19 mg/dL High 7-18 [facility] Comment on above: Performed By: #### L 100.0100, L501.9985, L500.4100, L506.1001, L501.9520, L502.0250, L500.4050 #### [facility] [address] [place], [address] CBC-Complete Blood Cnt No Di ffon 09-03-2024 Erythrocyte distribution width (RBC) [Ratio] 14.3 % Normal 11.6-14.6 [facility] Comment on above: Performed By: #### L 100.0100, L501.9985, L500.4100, L506.1001, L501.9520, L502.0250, L500.4050 #### [facility] [address] [place], [address] Hematocrit (Bld) [Volume fraction] 29.9 % Low 40-54 [facility] Comment on above: Performed By: #### L 100.0100, L501.9985, L500.4100, L506.1001, L501.9520, L502.0250, L500.4050 #### [facility] [address] [place], [address] Hemoglobin (Bld) [Mass/Vol] 9.5 g/dL Low 13.0-16.5 [facility] Comment on above: Performed By: #### L 100.0100, L501.9985, L500.4100, L506.1001, L501.9520, L502.0250, L500.4050 #### [facility] [address] [place], [address] MCH (RBC) [Entitic mass] 33.6 pg High 27.0-32.0 [facility] Comment on above: Performed By: #### L 100.0100, L501.9985, L500.4100, L506.1001, L501.9520, L502.0250, L500.4050 #### [facility] [facility] [address] [place], [address] MCHC (RBC) [Mass/Vol] 31.8 g/dL Low 32-36 [facility] Comment on above: Performed By: #### L 100.0100, L501.9985, L500.4100, L506.1001, L501.9520, L502.0250, L500.4050 #### [facility] [address] [place], [address] MCV (RBC) [Entitic vol] 105.7 fL High 80-94 [facility] Comment on above: Performed By: #### L 100.0100, L501.9985, L500.4100, L506.1001, L501.9520, L502.0250, L500.4050 #### [facility] [address] [place], [address] Platelet mean volume (Bld) [Entitic vol] 10.3 fL Normal 6.2-12.0 [facility] Comment on above: Performed By: #### L 100.0100, L501.9985, L500.4100, L506.1001, L501.9520, L502.0250, L500.4050 #### [facility] [address] [place], [address] Platelets (Bld) [#/Vol] 186 10*3/uL Normal 150-450 [facility] Comment on above: Performed By: #### L 100.0100, L501.9985, L500.4100, L506.1001, L501.9520, L502.0250, L500.4050 #### [facility] [address] [place], [address] RBC (Bld) [#/Vol] 2.83 10*6/uL Low 4.6-6.2 [facility] Comment on above: Performed By: #### L 100.0100, L501.9985, L500.4100, L506.1001, L501.9520, L502.0250, L500.4050 #### [facility] [address] [place], [address] RDW SD 55.2 fl High 35.1-43.9 [facility] Comment on above: Performed By: #### L 100.0100, L501.9985, L500.4100, L506.1001, L501.9520, L502.0250, L500.4050 #### [facility] [address] [place], [address] WBC (Bld) [#/Vol] 6.6 10*3/uL Normal 4.4-11.0 [facility] Comment on above: Performed By: #### L 100.0100, L501.9985, L500.4100, L506.1001, L501.9520, L502.0250, L500.4050 #### [facility] [address] [place], [address] Erythrocyte Sed Rateon 09-03 SED RATE 8 mm/hr Normal - [facility] Comment on above: Performed By: #### L 100.0100, L501.9985, L500.4100, L506.1001, L501.9520, L502.0250, L500.4050 #### [facility] [address] [place], [address] Vancomycin, Trough Levelon 1 VANCO, TROUGH 14.5 ug/mL Normal 5.0-15.0 [facility] Comment on above: Order Comment: 0000 Result Comment: VANC OMYCIN STANDARED DRUG THERAPY TROUGH LEVEL: 5.0 - 15.0 mg/L VANCOMYCIN HIGH INTENSITY THERAPY TROUGH LEVEL: 15.0 - 20.0 mg/L High Intensity therapy recommended for serious life threatening infections include: - Meningitis -Endocarditis -Pneumonia (Ventilator/Healtcare Associated) -Sepsis PLEASE CONTACT PHARMACY SERVICES (#[id number]) FOR INTERPRETATION OF RESULTS. Performed By: #### L 100.0100, L501.9985, L500.4100, L506.1001, L501.9520, L502.0250, L500.4050 #### [facility] [address] [place], [address] Basic Metabolic Profile (BMP )on 08-26-2024 BUN/CRE 12.2 RATIO Normal 08-24 [facility] Comment on above: Performed By: #### L 100.0100, L501.9985, L500.4100, L506.1001, L501.9520, L502.0250, L500.4050 #### [facility] [address] [place], [address] CA,Total 8.6 mg/dL Normal 8.5-10.1 [facility] Comment on above: Performed By: #### L 100.0100, L501.9985, L500.4100, L506.1001, L501.9520, L502.0250, L500.4050 #### [facility] [address] [place], [address] Chloride [Moles/Vol] 108 mmol/L High 98-107 [facility] Comment on above: Performed By: #### L 100.0100, L501.9985, L500.4100, L506.1001, L501.9520, L502.0250, L500.4050 #### [facility] [address] [place], [address] CO2 [Moles/Vol] 25.0 mmol/L Normal 21.0-32.0 [facility] Comment on above: Performed By: #### L 100.0100, L501.9985, L500.4100, L506.1001, L501.9520, L502.0250, L500.4050 #### [facility] [address] [place], [address] Creatinine [Mass/Vol] 1.80 mg/dL High 0.70-1.30 [facility] Comment on above: Result Comment: The validity of the calculated GFR GFRAA in patients over 70 years has not been determined. Clinical correlation is essential. Performed By: #### L 100.0100, L501.9985, L500.4100, L506.1001, L501.9520, L502.0250, L500.4050 #### [facility] [address] [place], [address] EST GFR - AA 47 mL/min Low >60 [facility] Comment on above: Result Comment: Afri can Bhutanese GFR Calc Performed By: #### L 100.0100, L501.9985, L500.4100, L506.1001, L501.9520, L502.0250, L500.4050 #### [facility] [address] [place], [address] GAP 6 Normal 5-15 [facility] Comment on above: Performed By: #### L 100.0100, L501.9985, L500.4100, L506.1001, L501.9520, L502.0250, L500.4050 #### [facility] [address] [place], [address] GFR/1.73 sq M.predicted among non-blacks MDRD (S/P/Bld) [Vol rate/Area] 39 mL/min/{1.73_m2} Low >60 [facility] Comment on above: Result Comment: Non- GFR Calc Performed By: #### L 100.0100, L501.9985, L500.4100, L506.1001, L501.9520, L502.0250, L500.4050 #### [facility] [address] [place], [address] Glucose [Mass/Vol] 121 mg/dL High 74-106 [facility] Comment on above: Result Comment: Fast ing Glucose result from 100 to 125 mg/dL suggests IMPAIRED HOMEOSTASIS per A.D.A. criteria. Performed By: #### L 100.0100, L501.9985, L500.4100, L506.1001, L501.9520, L502.0250, L500.4050 #### [facility] [address] [place], [address] Potassium [Moles/Vol] 3.6 mmol/L Normal 3.5-5.1 [facility] Comment on above: Performed By: #### L 100.0100, L501.9985, L500.4100, L506.1001, L501.9520, L502.0250, L500.4050 #### [facility] [address] [place], [address] Sodium [Moles/Vol] 139 mmol/L Normal 136-145 [facility] Comment on above: Performed By: #### L 100.0100, L501.9985, L500.4100, L506.1001, L501.9520, L502.0250, L500.4050 #### [facility] [address] [place], [address] Urea nitrogen [Mass/Vol] 22 mg/dL High 7-18 [facility] Comment on above: Performed By: #### L 100.0100, L501.9985, L500.4100, L506.1001, L501.9520, L502.0250, L500.4050 #### [facility] [address] [place], [address] CBC-Complete Blood Cnt No Di ffon 08-26-2024 Erythrocyte distribution width (RBC) [Ratio] 13.9 % Normal 11.6-14.6 [facility] Comment on above: Performed By: #### L 100.0100, L501.9985, L500.4100, L506.1001, L501.9520, L502.0250, L500.4050 #### [facility] [address] [place], [address] Hematocrit (Bld) [Volume fraction] 27.6 % Low 40-54 [facility] Comment on above: Performed By: #### L 100.0100, L501.9985, L500.4100, L506.1001, L501.9520, L502.0250, L500.4050 #### [facility] [address] [place], [address] Hemoglobin (Bld) [Mass/Vol] 9.0 g/dL Low 13.0-16.5 [facility] Comment on above: Performed By: #### L 100.0100, L501.9985, L500.4100, L506.1001, L501.9520, L502.0250, L500.4050 #### [facility] [address] [place], [address] MCH (RBC) [Entitic mass] 34.0 pg High 27.0-32.0 [facility] Comment on above: Performed By: #### L 100.0100, L501.9985, L500.4100, L506.1001, L501.9520, L502.0250, L500.4050 #### [facility] [address] [place], [address] MCHC (RBC) [Mass/Vol] 32.6 g/dL Normal 32-36 [facility] Comment on above: Performed By: #### L 100.0100, L501.9985, L500.4100, L506.1001, L501.9520, L502.0250, L500.4050 #### [facility] [address] [place], [address] MCV (RBC) [Entitic vol] 104.2 fL High 80-94 [facility] Comment on above: Performed By: #### L 100.0100, L501.9985, L500.4100, L506.1001, L501.9520, L502.0250, L500.4050 #### [facility] [address] [place], [address] Platelet mean volume (Bld) [Entitic vol] 10.1 fL Normal 6.2-12.0 [facility] Comment on above: Performed By: #### L 100.0100, L501.9985, L500.4100, L506.1001, L501.9520, L502.0250, L500.4050 #### [facility] [address] [place], [address] Platelets (Bld) [#/Vol] 167 10*3/uL Normal 150-450 [facility] Comment on above: Performed By: #### L 100.0100, L501.9985, L500.4100, L506.1001, L501.9520, L502.0250, L500.4050 #### [facility] [address] [place], [address] RBC (Bld) [#/Vol] 2.65 10*6/uL Low 4.6-6.2 [facility] Comment on above: Performed By: #### L 100.0100, L501.9985, L500.4100, L506.1001, L501.9520, L502.0250, L500.4050 #### [facility] [address] [place], [address] RDW SD 52.6 fl High 35.1-43.9 [facility] Comment on above: Performed By: #### L 100.0100, L501.9985, L500.4100, L506.1001, L501.9520, L502.0250, L500.4050 #### [facility] [address] [place], [address] WBC (Bld) [#/Vol] 8.5 10*3/uL Normal 4.4-11.0 [facility] Comment on above: Performed By: #### L 100.0100, L501.9985, L500.4100, L506.1001, L501.9520, L502.0250, L500.4050 #### [facility] [address] [place], [address] Erythrocyte Sed Rateon 08-26 SED RATE 13 mm/hr Normal 0-20 [facility] Comment on above: Performed By: #### L 100.0100, L501.9985, L500.4100, L506.1001, L501.9520, L502.0250, L500.4050 #### [facility] [address] [place], [address] Vancomycin, Trough Levelon 1 VANCO, TROUGH 15.8 ug/mL High 5.0-15.0 [facility] Comment on above: Order Comment: 0000 Result Comment: VANC OMYCIN STANDARED DRUG THERAPY TROUGH LEVEL: 5.0 - 15.0 mg/L VANCOMYCIN HIGH INTENSITY THERAPY TROUGH LEVEL: 15.0 - 20.0 mg/L High Intensity therapy recommended for serious life threatening infections include: - Meningitis -Endocarditis -Pneumonia (Ventilator/Healtcare Associated) -Sepsis PLEASE CONTACT PHARMACY SERVICES (#[id number]) FOR INTERPRETATION OF RESULTS. Performed By: #### L 100.0100, L501.9985, L500.4100, L506.1001, L501.9520, L502.0250, L500.4050 #### [facility] [address] [place], [address] Basic Metabolic Profile (BMP )on 08-22-2024 BUN/CRE 13.7 RATIO Normal 08-24 [facility] Comment on above: Performed By: #### L 100.0100, L501.9985, L500.4100, L506.1001, L501.9520, L502.0250, L500.4050 #### [facility] [address] [place], [place], [id number] (474) CA,Total 8.3 mg/dL Low 8.5-10.1 [facility] Comment on above: Performed By: #### L 100.0100, L501.9985, L500.4100, L506.1001, L501.9520, L502.0250, L500.4050 #### [facility] [address] [place], [address] Chloride [Moles/Vol] 108 mmol/L High 98-107 [facility] Comment on above: Performed By: #### L 100.0100, L501.9985, L500.4100, L506.1001, L501.9520, L502.0250, L500.4050 #### [facility] [address] [place], [address] (544) CO2 [Moles/Vol] 23.0 mmol/L Normal 21.0-32.0 [facility] Comment on above: Performed By: #### L 100.0100, L501.9985, L500.4100, L506.1001, L501.9520, L502.0250, L500.4050 #### [facility] [address] [place], [address] (162) Creatinine [Mass/Vol] 2.11 mg/dL High 0.70-1.30 [facility] Comment on above: Result Comment: The validity of the calculated GFR GFRAA in patients over 70 years has not been determined. Clinical correlation is essential. Performed By: #### L 100.0100, L501.9985, L500.4100, L506.1001, L501.9520, L502.0250, L500.4050 #### [facility] [address] [place], [address] (884 EST GFR - AA 39 mL/min Low >60 [facility] Comment on above: Result Comment: Afri can Bhutanese GFR Calc Performed By: #### L 100.0100, L501.9985, L500.4100, L506.1001, L501.9520, L502.0250, L500.4050 #### [facility] [address] [place], [address] GAP 7 Normal 5-15 [facility] Comment on above: Performed By: #### L 100.0100, L501.9985, L500.4100, L506.1001, L501.9520, L502.0250, L500.4050 #### [facility] [address] [place], [address] (121 GFR/1.73 sq M.predicted among non-blacks MDRD (S/P/Bld) [Vol rate/Area] 32 mL/min/{1.73_m2} Low >60 [facility] Comment on above: Result Comment: Non- GFR Calc Performed By: #### L 100.0100, L501.9985, L500.4100, L506.1001, L501.9520, L502.0250, L500.4050 #### [facility] [address] [place], [address] Glucose [Mass/Vol] 153 mg/dL High 74-106 [facility] Comment on above: Result Comment: Fast ing Glucose result greater than or equal to 126 mg/dL suggests DIABETES MELLITUS per A.D.A. criteria. Performed By: #### L 100.0100, L501.9985, L500.4100, L506.1001, L501.9520, L502.0250, L500.4050 #### [facility] [address] [place], [address] Potassium [Moles/Vol] 3.3 mmol/L Low 3.5-5.1 [facility] Comment on above: Performed By: #### L 100.0100, L501.9985, L500.4100, L506.1001, L501.9520, L502.0250, L500.4050 #### [facility] [address] [place], [address] Sodium [Moles/Vol] 138 mmol/L Normal 136-145 [facility] Comment on above: Performed By: #### L 100.0100, L501.9985, L500.4100, L506.1001, L501.9520, L502.0250, L500.4050 #### [facility] [address] [place], [address] Urea nitrogen [Mass/Vol] 29 mg/dL High 7-18 [facility] Comment on above: Performed By: #### L 100.0100, L501.9985, L500.4100, L506.1001, L501.9520, L502.0250, L500.4050 #### [facility] [address] [place], [address] CBC-Complete Blood Cnt No Di ffon 08-22-2024 Erythrocyte distribution width (RBC) [Ratio] 13.9 % Normal 11.6-14.6 [facility] Comment on above: Performed By: #### L 100.0100, L501.9985, L500.4100, L506.1001, L501.9520, L502.0250, L500.4050 #### [facility] [address] [place], [address] Hematocrit (Bld) [Volume fraction] 28.1 % Low 40-54 [facility] Comment on above: Performed By: #### L 100.0100, L501.9985, L500.4100, L506.1001, L501.9520, L502.0250, L500.4050 #### [facility] [address] [place], [address] Hemoglobin (Bld) [Mass/Vol] 9.2 g/dL Low 13.0-16.5 [facility] Comment on above: Performed By: #### L 100.0100, L501.9985, L500.4100, L506.1001, L501.9520, L502.0250, L500.4050 #### [facility] [address] [place], [address] MCH (RBC) [Entitic mass] 33.9 pg High 27.0-32.0 [facility] Comment on above: Performed By: #### L 100.0100, L501.9985, L500.4100, L506.1001, L501.9520, L502.0250, L500.4050 #### [facility] [address] [place], [address] MCHC (RBC) [Mass/Vol] 32.7 g/dL Normal 32-36 [facility] Comment on above: Performed By: #### L 100.0100, L501.9985, L500.4100, L506.1001, L501.9520, L502.0250, L500.4050 #### [facility] [address] [place], [address] MCV (RBC) [Entitic vol] 103.7 fL High 80-94 [facility] Comment on above: Performed By: #### L 100.0100, L501.9985, L500.4100, L506.1001, L501.9520, L502.0250, L500.4050 #### [facility] [address] [place], [address] Platelet mean volume (Bld) [Entitic vol] 10.1 fL Normal 6.2-12.0 [facility] Comment on above: Performed By: #### L 100.0100, L501.9985, L500.4100, L506.1001, L501.9520, L502.0250, L500.4050 #### [facility] [address] [place], [address] Platelets (Bld) [#/Vol] 116 10*3/uL Low 150-450 [facility] Comment on above: Performed By: #### L 100.0100, L501.9985, L500.4100, L506.1001, L501.9520, L502.0250, L500.4050 #### [facility] [address] [place], [address] RBC (Bld) [#/Vol] 2.71 10*6/uL Low 4.6-6.2 [facility] Comment on above: Performed By: #### L 100.0100, L501.9985, L500.4100, L506.1001, L501.9520, L502.0250, L500.4050 #### [facility] [address] [place], [address] RDW SD 53.0 fl High 35.1-43.9 [facility] Comment on above: Performed By: #### L 100.0100, L501.9985, L500.4100, L506.1001, L501.9520, L502.0250, L500.4050 #### [facility] [address] [place], [address] WBC (Bld) [#/Vol] 8.9 10*3/uL Normal 4.4-11.0 [facility] Comment on above: Performed By: #### L 100.0100, L501.9985, L500.4100, L506.1001, L501.9520, L502.0250, L500.4050 #### [facility] [address] [place], [place], [phone] Erythrocyte Sed Rateon 08-22 SED RATE 11 mm/hr Normal 0-20 [facility] Comment on above: Performed By: #### L 100.0100, L501.9985, L500.4100, L506.1001, L501.9520, L502.0250, L500.4050 #### [facility] [address] [place], [address] Vancomycin, Trough Levelon 1 VANCO, TROUGH 20.5 ug/mL High 5.0-15.0 [facility] Comment on above: Order Comment: 1345 Result Comment: VANC OMYCIN STANDARED DRUG THERAPY TROUGH LEVEL: 5.0 - 15.0 mg/L VANCOMYCIN HIGH INTENSITY THERAPY TROUGH LEVEL: 15.0 - 20.0 mg/L High Intensity therapy recommended for serious life threatening infections include: - Meningitis -Endocarditis -Pneumonia (Ventilator/Healtcare Associated) -Sepsis PLEASE CONTACT PHARMACY SERVICES (#[id number]) FOR INTERPRETATION OF RESULTS. Performed By: #### L 100.0100, L501.9985, L500.4100, L506.1001, L501.9520, L502.0250, L500.4050 #### [facility] [address] [place], [address] Stool Occult Blood iFOBon STOB Negative Normal [facility] Comment on above: Performed By: #### L 100.0100, L501.9985, L500.4100, L506.1001, L501.9520, L502.0250, L500.4050 #### [facility] [address] [place], [address] Basic Metabolic Profile (BMP )on 08-20-2024 BUN/CRE 11.2 RATIO Normal 08-24 [facility] Comment on above: Order Comment: FAX R ESULTS TO [phone] Performed By: #### L 100.0100, L501.9985, L500.4100, L506.1001, L501.9520, L502.0250, L500.4050 #### [facility] [address] [place], [address] CA,Total 8.3 mg/dL Low 8.5-10.1 [facility] Comment on above: Order Comment: FAX R ESULTS TO [phone] Performed By: #### L 100.0100, L501.9985, L500.4100, L506.1001, L501.9520, L502.0250, L500.4050 #### [facility] [address] [place], [address] Chloride [Moles/Vol] 108 mmol/L High 98-107 [facility] Comment on above: Order Comment: FAX R ESULTS TO [phone] Performed By: #### L 100.0100, L501.9985, L500.4100, L506.1001, L501.9520, L502.0250, L500.4050 #### [facility] [address] [place], [place], [id number] CO2 [Moles/Vol] 22.0 mmol/L Normal 21.0-32.0 [facility] Comment on above: Order Comment: FAX R ESULTS TO [phone] Performed By: #### L 100.0100, L501.9985, L500.4100, L506.1001, L501.9520, L502.0250, L500.4050 #### [facility] [address] [place], [place], [id number] Creatinine [Mass/Vol] 2.15 mg/dL High 0.70-1.30 [facility] Comment on above: Order Comment: FAX R ESULTS TO [phone] Result Comment: The validity of the calculated GFR GFRAA in patients over 70 years has not been determined. Clinical correlation is essential. Performed By: #### L 100.0100, L501.9985, L500.4100, L506.1001, L501.9520, L502.0250, L500.4050 #### [facility] [address] [place], [place], [id number] EST GFR - AA 38 mL/min Low >60 [facility] Comment on above: Order Comment: FAX R ESULTS TO [phone] Result Comment: Afri can Bhutanese GFR Calc Performed By: #### L 100.0100, L501.9985, L500.4100, L506.1001, L501.9520, L502.0250, L500.4050 #### [facility] [address] [place], [place], [id number] GAP 7 Normal 5-15 [facility] Comment on above: Order Comment: FAX R ESULTS TO [phone] Performed By: #### L 100.0100, L501.9985, L500.4100, L506.1001, L501.9520, L502.0250, L500.4050 #### [facility] [address] [place], [address] GFR/1.73 sq M.predicted among non-blacks MDRD (S/P/Bld) [Vol rate/Area] 32 mL/min/{1.73_m2} Low >60 [facility] Comment on above: Order Comment: FAX R ESULTS TO [phone] Result Comment: Non- GFR Calc Performed By: #### L 100.0100, L501.9985, L500.4100, L506.1001, L501.9520, L502.0250, L500.4050 #### [facility] [address] [place], [address] (103) Glucose [Mass/Vol] 165 mg/dL High 74-106 [facility] Comment on above: Order Comment: FAX R ESULTS TO [phone] Result Comment: Fast ing Glucose result greater than or equal to 126 mg/dL suggests DIABETES MELLITUS per A.D.A. criteria. Performed By: #### L 100.0100, L501.9985, L500.4100, L506.1001, L501.9520, L502.0250, L500.4050 #### [facility] [address] [place], [address] Potassium [Moles/Vol] 3.5 mmol/L Normal 3.5-5.1 [facility] Comment on above: Order Comment: FAX R ESULTS TO [phone] Performed By: #### L 100.0100, L501.9985, L500.4100, L506.1001, L501.9520, L502.0250, L500.4050 #### [facility] [address] [place], [address] Sodium [Moles/Vol] 138 mmol/L Normal 136-145 [facility] Comment on above: Order Comment: FAX R ESULTS TO [phone] Performed By: #### L 100.0100, L501.9985, L500.4100, L506.1001, L501.9520, L502.0250, L500.4050 #### [facility] [address] [place], [address] Urea nitrogen [Mass/Vol] 24 mg/dL High 7-18 [facility] Comment on above: Order Comment: FAX R ESULTS TO [phone] Performed By: #### L 100.0100, L501.9985, L500.4100, L506.1001, L501.9520, L502.0250, L500.4050 #### [facility] [address] [place], [place], [id number] CBC-Complete Blood Cnt No Di ffon 08-20-2024 Erythrocyte distribution width (RBC) [Ratio] 13.8 % Normal 11.6-14.6 [facility] Comment on above: Performed By: #### L 100.0100, L501.9985, L500.4100, L506.1001, L501.9520, L502.0250, L500.4050 #### [facility] [address] [place], [place], [phone] (852) Hematocrit (Bld) [Volume fraction] 27.9 % Low 40-54 [facility] Comment on above: Performed By: #### L 100.0100, L501.9985, L500.4100, L506.1001, L501.9520, L502.0250, L500.4050 #### [facility] [address] [place], [address] Hemoglobin (Bld) [Mass/Vol] 9.3 g/dL Low 13.0-16.5 [facility] Comment on above: Performed By: #### L 100.0100, L501.9985, L500.4100, L506.1001, L501.9520, L502.0250, L500.4050 #### [facility] [address] [place], [address] MCH (RBC) [Entitic mass] 34.6 pg High 27.0-32.0 [facility] Comment on above: Performed By: #### L 100.0100, L501.9985, L500.4100, L506.1001, L501.9520, L502.0250, L500.4050 #### [facility] [address] [place], [address] MCHC (RBC) [Mass/Vol] 33.3 g/dL Normal 32-36 [facility] Comment on above: Performed By: #### L 100.0100, L501.9985, L500.4100, L506.1001, L501.9520, L502.0250, L500.4050 #### [facility] [address] [place], [address] MCV (RBC) [Entitic vol] 103.7 fL High 80-94 [facility] Comment on above: Performed By: #### L 100.0100, L501.9985, L500.4100, L506.1001, L501.9520, L502.0250, L500.4050 #### [facility] [address] [place], [address] Platelet mean volume (Bld) [Entitic vol] 10.2 fL Normal 6.2-12.0 [facility] Comment on above: Performed By: #### L 100.0100, L501.9985, L500.4100, L506.1001, L501.9520, L502.0250, L500.4050 #### [facility] [address] [place], [address] Platelets (Bld) [#/Vol] 103 10*3/uL Low 150-450 [facility] Comment on above: Performed By: #### L 100.0100, L501.9985, L500.4100, L506.1001, L501.9520, L502.0250, L500.4050 #### [facility] [address] [place], [address] RBC (Bld) [#/Vol] 2.69 10*6/uL Low 4.6-6.2 [facility] Comment on above: Performed By: #### L 100.0100, L501.9985, L500.4100, L506.1001, L501.9520, L502.0250, L500.4050 #### [facility] [address] [place], [address] RDW SD 52.0 fl High 35.1-43.9 [facility] Comment on above: Performed By: #### L 100.0100, L501.9985, L500.4100, L506.1001, L501.9520, L502.0250, L500.4050 #### [facility] [address] [place], [address] WBC (Bld) [#/Vol] 10.7 10*3/uL Normal 4.4-11.0 [facility] Comment on above: Performed By: #### L 100.0100, L501.9985, L500.4100, L506.1001, L501.9520, L502.0250, L500.4050 #### [facility] [address] [place], [address] Erythrocyte Sed Rateon 08-20 SED RATE 7 mm/hr Normal 0-20 [facility] Comment on above: Performed By: #### L 100.0100, L501.9985, L500.4100, L506.1001, L501.9520, L502.0250, L500.4050 #### [facility] [address] [place], [address] Vancomycin, Trough Levelon 1 VANCO, TROUGH 34.2 ug/mL High 5.0-15.0 [facility] Comment on above: Order Comment: 1050 Result Comment: VANC OMYCIN STANDARED DRUG THERAPY TROUGH LEVEL: 5.0 - 15.0 mg/L VANCOMYCIN HIGH INTENSITY THERAPY TROUGH LEVEL: 15.0 - 20.0 mg/L High Intensity therapy recommended for serious life threatening infections include: - Meningitis -Endocarditis -Pneumonia (Ventilator/Healtcare Associated) -Sepsis PLEASE CONTACT PHARMACY SERVICES (#[id number]) FOR INTERPRETATION OF RESULTS. Performed By: #### L 100.0100, L501.9985, L500.4100, L506.1001, L501.9520, L502.0250, L500.4050 #### [facility] [address] [place], [address] Culture, Blood (WB)on 2023 CUB Blood cultures x2, from two different sites No growth in 5 days. Normal [facility] Comment on above: Performed By: #### L 100.0100, L501.9985, L500.4100, L506.1001, L501.9520, L502.0250, L500.4050 #### [facility] [address] [place], [address] Basic Metabolic Profile (BMP )on 08-14-2024 BUN/CRE 16.1 RATIO Normal - [facility] Comment on above: Performed By: #### M 100.2200, L400.0001 #### [facility] [address] [place], [address] CA,Total 8.8 mg/dL Normal 8.5-10.1 [facility] Comment on above: Performed By: #### M 100.2200, L400.0001 #### [facility] [address] [place], [address] Chloride [Moles/Vol] 107 mmol/L Normal 98-107 [facility] Comment on above: Performed By: #### M 100.2200, L400.0001 #### [facility] [address] [place], [address] CO2 [Moles/Vol] 25.0 mmol/L Normal 21.0-32.0 [facility] Comment on above: Performed By: #### M 100.2200, L400.0001 #### [facility] [address] [place], [address] Creatinine [Mass/Vol] 1.12 mg/dL Normal 0.70-1.30 [facility] Comment on above: Result Comment: The validity of the calculated GFR GFRAA in patients over 70 years has not been determined. Clinical correlation is essential. Performed By: #### M 100.2200, L400.0001 #### [facility] [address] [place], [address] ECRCL 70.77 ml/min Normal [facility] Comment on above: Performed By: #### M 100.2200, L400.0001 #### [facility] [address] [place], [address] EST GFR - AA 81 mL/min Normal >60 [facility] Comment on above: Result Comment: Afri can Bhutanese GFR Calc Performed By: #### M 100.2200, L400.0001 #### [facility] [address] [place], [address] GAP 5 Normal 5-15 [facility] Comment on above: Performed By: #### M 100.2200, L400.0001 #### [facility] [address] [place], [address] GFR/1.73 sq M.predicted among non-blacks MDRD (S/P/Bld) [Vol rate/Area] 67 mL/min/{1.73_m2} Normal >60 [facility] Comment on above: Result Comment: Non- GFR Calc Performed By: #### M 100.2200, L400.0001 #### [facility] [address] [place], [address] Glucose [Mass/Vol] 88 mg/dL Normal 74-106 [facility] Comment on above: Performed By: #### M 100.2200, L400.0001 #### [facility] [address] [place], [address] Potassium [Moles/Vol] 4.2 mmol/L Normal 3.5-5.1 [facility] Comment on above: Performed By: #### M 100.2200, L400.0001 #### [facility] [address] [place], [address] Sodium [Moles/Vol] 137 mmol/L Normal 136-145 [facility] Comment on above: Performed By: #### M 100.2200, L400.0001 #### [facility] [address] [place], [address] Urea nitrogen [Mass/Vol] 18 mg/dL Normal 7-18 [facility] Comment on above: Performed By: #### M 100.2200, L400.0001 #### [facility] [address] [place], [address] CBC W/Diff, Automatedon 10-1 0-2024 Absolute Lymph 2.23 X10 3/uL Normal 0.83-4.51 [facility] Comment on above: Performed By: #### M 100.2200, L400.0001 #### [facility] [address] [place], [address] Absolute Neut 4.8 X10 3/uL Normal 2.0-7.7 [facility] Comment on above: Performed By: #### M 100.2200, L400.0001 #### [facility] [address] [place], [address] Basophils/100 WBC (Bld) 0.7 % Normal 0-1 [facility] Comment on above: Performed By: #### M 100.2200, L400.0001 #### [facility] [address] [place], [address] Eosinophils/100 WBC (Bld) 1.5 % Normal 0-5 [facility] Comment on above: Performed By: #### M 100.2200, L400.0001 #### [facility] [address] [place], [address] Erythrocyte distribution width (RBC) [Ratio] 13.3 % Normal 11.6-14.6 [facility] Comment on above: Performed By: #### M 100.2200, L400.0001 #### [facility] [address] [place], [address] Hematocrit (Bld) [Volume fraction] 35.2 % Low 40-54 [facility] Comment on above: Performed By: #### M 100.2200, L400.0001 #### [facility] [address] [place], [address] Hemoglobin (Bld) [Mass/Vol] 11.6 g/dL Low 13.0-16.5 [facility] Comment on above: Performed By: #### M 100.2200, L400.0001 #### [facility] [address] [place], [address] IG% 0.500 Normal 0.0-0.9 [facility] Comment on above: Result Comment: IG% - Immature Granulocytes (promyelocytes, myelocytes and metamyelocytes) > 1% indicates that a LEFT SHIFT is Present. Performed By: #### M 100.2200, L400.0001 #### [facility] [address] [place], [address] Lymphocytes/100 WBC (Bld) 27.3 % Normal 19-41 [facility] Comment on above: Performed By: #### M 100.2200, L400.0001 #### [facility] [address] [place], [address] MCH (RBC) [Entitic mass] 33.6 pg High 27.0-32.0 [facility] Comment on above: Performed By: #### M 100.2200, L400.0001 #### [facility] [address] [place], [address] MCHC (RBC) [Mass/Vol] 33.0 g/dL Normal 32-36 [facility] Comment on above: Performed By: #### M 100.2200, L400.0001 #### [facility] [address] [place], [address] MCV (RBC) [Entitic vol] 102.0 fL High 80-94 [facility] Comment on above: Performed By: #### M 100.2200, L400.0001 #### [facility] [address] [place], [address] Monocytes/100 WBC (Bld) 11.1 % High 0-10 [facility] Comment on above: Performed By: #### M 100.2200, L400.0001 #### [facility] [address] [place], [address] Neutrophils/100 WBC (Bld) 58.9 % Normal 47-70 [facility] Comment on above: Performed By: #### M 100.2200, L400.0001 #### [facility] [address] [place], [address] Nucleated RBC (Bld) [#/Vol] 0 10*3/uL Normal 0-5 [facility] Comment on above: Performed By: #### M 100.2200, L400.0001 #### [facility] [address] [place], [address] Platelet mean volume (Bld) [Entitic vol] 9.0 fL Normal 6.2-12.0 [facility] Comment on above: Performed By: #### M 100.2200, L400.0001 #### [facility] [address] [place], [address] Platelets (Bld) [#/Vol] 174 10*3/uL Normal 150-450 [facility] Comment on above: Performed By: #### M 100.2200, L400.0001 #### [facility] [address] [place], [address] RBC (Bld) [#/Vol] 3.45 10*6/uL Low 4.6-6.2 [facility] Comment on above: Performed By: #### M 100.2200, L400.0001 #### [facility] [address] [place], [address] RDW SD 50.1 fl High 35.1-43.9 [facility] Comment on above: Performed By: #### M 100.2200, L400.0001 #### [facility] [address] [place], [address] WBC (Bld) [#/Vol] 8.2 10*3/uL Normal 4.4-11.0 [facility] Comment on above: Performed By: #### M 100.2200, L400.0001 #### [facility] [address] [place], [address] Foot min 3 Viewson 4 Foot min 3 Views [facility] Imaging Services [address] [place] [address] Foot min 3 Views MR#: [id number] Acct: [id number] Name: LB VIZCAINO Rep #: [id number] : 1945 M 78 From: Fidel Lima MD PCP: Dr. Earnest Alex MD Status: ADM IN Study: Foot min 3 Views Date of Exam: 08/14/24 Exam# [id number] Ordering Dr: Crow Kim DPM [id number] STUDY: X-RAY - RIGHT FOOT CLINICAL: Male, [...] Lima MD at 13:42 EDT , CC: MAX Kim; Dr. Earnest Alex MD Resident Buyer: Signed Normal [facility] Vancomycin, Trough Levelon VANCO, TROUGH 18.6 ug/mL High 5.0-15.0 [facility] Comment on above: Order Comment: 0100 Result Comment: VANC OMYCIN STANDARED DRUG THERAPY TROUGH LEVEL: 5.0 - 15.0 mg/L VANCOMYCIN HIGH INTENSITY THERAPY TROUGH LEVEL: 15.0 - 20.0 mg/L High Intensity therapy recommended for serious life threatening infections include: - Meningitis -Endocarditis -Pneumonia (Ventilator/Healtcare Associated) -Sepsis PLEASE CONTACT PHARMACY SERVICES (#[id number]) FOR INTERPRETATION OF RESULTS. Performed By: #### L 501.8820 #### [facility] [address] [place], [address] Basic Metabolic Profile (BMP )on 08-13-2024 BUN/CRE 17.9 RATIO Normal 10-20 [facility] Comment on above: Performed By: #### L 100.0100, L501.9985, L500.4100, L506.1001, L501.9520, L502.0250, L500.4050 #### [facility] [address] [place], [address] CA,Total 8.4 mg/dL Low 8.5-10.1 [facility] Comment on above: Performed By: #### L 100.0100, L501.9985, L500.4100, L506.1001, L501.9520, L502.0250, L500.4050 #### [facility] [address] [place], [address] Chloride [Moles/Vol] 108 mmol/L High 98-107 [facility] Comment on above: Performed By: #### L 100.0100, L501.9985, L500.4100, L506.1001, L501.9520, L502.0250, L500.4050 #### [facility] [address] [place], [address] CO2 [Moles/Vol] 24.0 mmol/L Normal 21.0-32.0 [facility] Comment on above: Performed By: #### L 100.0100, L501.9985, L500.4100, L506.1001, L501.9520, L502.0250, L500.4050 #### [facility] [address] [place], [address] Creatinine [Mass/Vol] 1.12 mg/dL Normal 0.70-1.30 [facility] Comment on above: Result Comment: The validity of the calculated GFR GFRAA in patients over 70 years has not been determined. Clinical correlation is essential. Performed By: #### L 100.0100, L501.9985, L500.4100, L506.1001, L501.9520, L502.0250, L500.4050 #### [facility] [address] [place], [address] ECRCL 70.77 ml/min Normal [facility] Comment on above: Performed By: #### L 100.0100, L501.9985, L500.4100, L506.1001, L501.9520, L502.0250, L500.4050 #### [facility] [address] [place], [address] EST GFR - AA 81 mL/min Normal >60 [facility] Comment on above: Result Comment: Afri can Bhutanese GFR Calc Performed By: #### L 100.0100, L501.9985, L500.4100, L506.1001, L501.9520, L502.0250, L500.4050 #### [facility] [address] [place], [address] GAP 4 Low 5-15 [facility] Comment on above: Performed By: #### L 100.0100, L501.9985, L500.4100, L506.1001, L501.9520, L502.0250, L500.4050 #### [facility] [address] [place], [address] GFR/1.73 sq M.predicted among non-blacks MDRD (S/P/Bld) [Vol rate/Area] 67 mL/min/{1.73_m2} Normal >60 [facility] Comment on above: Result Comment: Non- GFR Calc Performed By: #### L 100.0100, L501.9985, L500.4100, L506.1001, L501.9520, L502.0250, L500.4050 #### [facility] [address] [place], [address] Glucose [Mass/Vol] 90 mg/dL Normal 74-106 [facility] Comment on above: Performed By: #### L 100.0100, L501.9985, L500.4100, L506.1001, L501.9520, L502.0250, L500.4050 #### [facility] [address] [place], [address] Potassium [Moles/Vol] 4.0 mmol/L Normal 3.5-5.1 [facility] Comment on above: Performed By: #### L 100.0100, L501.9985, L500.4100, L506.1001, L501.9520, L502.0250, L500.4050 #### [facility] [address] [place], [address] Sodium [Moles/Vol] 136 mmol/L Normal 136-145 [facility] Comment on above: Performed By: #### L 100.0100, L501.9985, L500.4100, L506.1001, L501.9520, L502.0250, L500.4050 #### [facility] [address] [place], [address] Urea nitrogen [Mass/Vol] 20 mg/dL High 7-18 [facility] Comment on above: Performed By: #### L 100.0100, L501.9985, L500.4100, L506.1001, L501.9520, L502.0250, L500.4050 #### [facility] [address] [place], [address] CBC W/Diff, Automatedon 10-0 -2023 Absolute Lymph 2.06 X10 3/uL Normal 0.83-4.51 [facility] Comment on above: Performed By: #### L 100.0100, L501.9985, L500.4100, L506.1001, L501.9520, L502.0250, L500.4050 #### [facility] [address] [place], [address] Absolute Neut 4.2 X10 3/uL Normal 2.0-7.7 [facility] Comment on above: Performed By: #### L 100.0100, L501.9985, L500.4100, L506.1001, L501.9520, L502.0250, L500.4050 #### [facility] [address] [place], [address] Basophils/100 WBC (Bld) 0.7 % Normal 0-1 [facility] Comment on above: Performed By: #### L 100.0100, L501.9985, L500.4100, L506.1001, L501.9520, L502.0250, L500.4050 #### [facility] [address] [place], [address] Eosinophils/100 WBC (Bld) 1.8 % Normal 0-5 [facility] Comment on above: Performed By: #### L 100.0100, L501.9985, L500.4100, L506.1001, L501.9520, L502.0250, L500.4050 #### [facility] [address] [place], [address] Erythrocyte distribution width (RBC) [Ratio] 13.4 % Normal 11.6-14.6 [facility] Comment on above: Performed By: #### L 100.0100, L501.9985, L500.4100, L506.1001, L501.9520, L502.0250, L500.4050 #### [facility] [address] [place], [address] Hematocrit (Bld) [Volume fraction] 33.6 % Low 40-54 [facility] Comment on above: Performed By: #### L 100.0100, L501.9985, L500.4100, L506.1001, L501.9520, L502.0250, L500.4050 #### [facility] [address] [place], [address] Hemoglobin (Bld) [Mass/Vol] 10.9 g/dL Low 13.0-16.5 [facility] Comment on above: Performed By: #### L 100.0100, L501.9985, L500.4100, L506.1001, L501.9520, L502.0250, L500.4050 #### [facility] [address] [place], [address] IG% 0.400 Normal 0.0-0.9 [facility] Comment on above: Result Comment: IG% - Immature Granulocytes (promyelocytes, myelocytes and metamyelocytes) > 1% indicates that a LEFT SHIFT is Present. Performed By: #### L 100.0100, L501.9985, L500.4100, L506.1001, L501.9520, L502.0250, L500.4050 #### [facility] [address] [place], [address] Lymphocytes/100 WBC (Bld) 28.5 % Normal 19-41 [facility] Comment on above: Performed By: #### L 100.0100, L501.9985, L500.4100, L506.1001, L501.9520, L502.0250, L500.4050 #### [facility] [address] [place], [address] MCH (RBC) [Entitic mass] 33.2 pg High 27.0-32.0 [facility] Comment on above: Performed By: #### L 100.0100, L501.9985, L500.4100, L506.1001, L501.9520, L502.0250, L500.4050 #### [facility] [address] [place], [address] MCHC (RBC) [Mass/Vol] 32.4 g/dL Normal 32-36 [facility] Comment on above: Performed By: #### L 100.0100, L501.9985, L500.4100, L506.1001, L501.9520, L502.0250, L500.4050 #### [facility] [address] [place], [address] MCV (RBC) [Entitic vol] 102.4 fL High 80-94 [facility] Comment on above: Performed By: #### L 100.0100, L501.9985, L500.4100, L506.1001, L501.9520, L502.0250, L500.4050 #### [facility] [address] [place], [address] Monocytes/100 WBC (Bld) 10.7 % High 0-10 [facility] Comment on above: Performed By: #### L 100.0100, L501.9985, L500.4100, L506.1001, L501.9520, L502.0250, L500.4050 #### [facility] [address] [place], [address] Neutrophils/100 WBC (Bld) 57.9 % Normal 47-70 [facility] Comment on above: Performed By: #### L 100.0100, L501.9985, L500.4100, L506.1001, L501.9520, L502.0250, L500.4050 #### [facility] [address] [place], [address] Nucleated RBC (Bld) [#/Vol] 0 10*3/uL Normal 0-5 [facility] Comment on above: Performed By: #### L 100.0100, L501.9985, L500.4100, L506.1001, L501.9520, L502.0250, L500.4050 #### [facility] [address] [place], [address] Platelet mean volume (Bld) [Entitic vol] 9.3 fL Normal 6.2-12.0 [facility] Comment on above: Performed By: #### L 100.0100, L501.9985, L500.4100, L506.1001, L501.9520, L502.0250, L500.4050 #### [facility] [address] [place], [address] Platelets (Bld) [#/Vol] 184 10*3/uL Normal 150-450 [facility] Comment on above: Performed By: #### L 100.0100, L501.9985, L500.4100, L506.1001, L501.9520, L502.0250, L500.4050 #### [facility] [address] [place], [address] RBC (Bld) [#/Vol] 3.28 10*6/uL Low 4.6-6.2 [facility] Comment on above: Performed By: #### L 100.0100, L501.9985, L500.4100, L506.1001, L501.9520, L502.0250, L500.4050 #### [facility] [address] [place], [address] RDW SD 50.7 fl High 35.1-43.9 [facility] Comment on above: Performed By: #### L 100.0100, L501.9985, L500.4100, L506.1001, L501.9520, L502.0250, L500.4050 #### [facility] [address] [place], [address] WBC (Bld) [#/Vol] 7.2 10*3/uL Normal 4.4-11.0 [facility] Comment on above: Performed By: #### L 100.0100, L501.9985, L500.4100, L506.1001, L501.9520, L502.0250, L500.4050 #### [facility] [address] [facility] [place], [place], [address] Consultation - Infectious Dx on 08-13-2024 Consultation - Infectious Dx [facility] Medical Records Department [address] [place] [address] Consultation - Infectious Dx 08/13/24 1547 MR#: [id number] Acct: [id number] Name: LB VIZCAINO Rep #: [id number] : 1945 78 From: Francisco Lopez MD PCP: Dr. Earnest Alex MD Status:ADM IN Location: [place] [address] Assessment Plan Assessment/Plan (1) Acute osteomyelitis of [...] performed and neg except as noted above. 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 Normal [facility] Urine Cultureon 08-13-2024 [facility] Culture exhibits no growth. Normal [facility] Comment on above: Performed By: #### M 100.2200, L400.0001 #### [facility] [address] [place], [address] 12 Lead EKGon 08-12-2024 12 Lead EKG [facility] Cardiovascular Services [address] [place] [address] 12 Lead EKG 08/12/24 1255 MR#: [id number] Acct: [id number] Name: MADELINLBIftikhar SWIFT Rep #: [id number] : 1945 78 From: Tru Queen MD Attending Dr: Dr. Oralia Patel DO Status: ADM I N Ordering Dr: Israel Paiz MD Date: 08/12/24 Location: 3 Sex: M C Admitted: 08/12/24 Test Reason [...] Abdoulaye product ) Abnormal ECG Confirmed by BERNICE KHAN, TRU ([id number]), editor sound ROSA MORROW ([id number]) on 08/13/2024 9:37:31 AM Referred By: Confirmed By:TRU QUEEN MD 08/13/24 0937 Date Tru Queen MD CC: Dr. Israel Paiz MD; Dr. Oralia Patel DO; Dr. Earnest Alex MD Signed Normal [facility] CBC W/Diff, Automatedon 10-0 Absolute Lymph 1.17 X10 3/uL Normal 0.83-4.51 [facility] Comment on above: Performed By: #### M 100.2200, L400.0001 #### [facility] [address] [place], [address] Absolute Neut 8.3 X10 3/uL High 2.0-7.7 [facility] Comment on above: Performed By: #### M 100.2200, L400.0001 #### [facility] [address] [place], [address] Basophils/100 WBC (Bld) 0.5 % Normal 0-1 [facility] Comment on above: Performed By: #### M 100.2200, L400.0001 #### [facility] [address] [place], [address] Eosinophils/100 WBC (Bld) 0.5 % Normal 0-5 [facility] Comment on above: Performed By: #### M 100.2200, L400.0001 #### [facility] [address] [place], [address] Erythrocyte distribution width (RBC) [Ratio] 13.3 % Normal 11.6-14.6 [facility] Comment on above: Performed By: #### M 100.2200, L400.0001 #### [facility] [address] [place], [address] Hematocrit (Bld) [Volume fraction] 40.0 % Normal 40-54 [facility] Comment on above: Performed By: #### M 100.2200, L400.0001 #### [facility] [address] [place], [address] Hemoglobin (Bld) [Mass/Vol] 13.3 g/dL Normal 13.0-16.5 [facility] Comment on above: Performed By: #### M 100.2200, L400.0001 #### [facility] [address] [place], [address] IG% 0.600 Normal 0.0-0.9 [facility] Comment on above: Result Comment: IG% - Immature Granulocytes (promyelocytes, myelocytes and metamyelocytes) > 1% indicates that a LEFT SHIFT is Present. Performed By: #### M 100.2200, L400.0001 #### [facility] [address] [place], [address] Lymphocytes/100 WBC (Bld) 11.3 % Low 19-41 [facility] Comment on above: Performed By: #### M 100.2200, L400.0001 #### [facility] [address] [place], [address] MCH (RBC) [Entitic mass] 34.1 pg High 27.0-32.0 [facility] Comment on above: Performed By: #### M 100.2200, L400.0001 #### [facility] [address] [place], [address] MCHC (RBC) [Mass/Vol] 33.3 g/dL Normal 32-36 [facility] Comment on above: Performed By: #### M 100.2200, L400.0001 #### [facility] [address] [place], [address] MCV (RBC) [Entitic vol] 102.6 fL High 80-94 [facility] Comment on above: Performed By: #### M 100.2200, L400.0001 #### [facility] [address] [place], [address] Monocytes/100 WBC (Bld) 7.2 % Normal 0-10 [facility] Comment on above: Performed By: #### M 100.2200, L400.0001 #### [facility] [address] [place], [address] Neutrophils/100 WBC (Bld) 79.9 % High 47-70 [facility] Comment on above: Performed By: #### M 100.2200, L400.0001 #### [facility] [address] [place], [address] Nucleated RBC (Bld) [#/Vol] 0 10*3/uL Normal 0-5 [facility] Comment on above: Performed By: #### M 100.2200, L400.0001 #### [facility] [address] [place], [address] Platelet mean volume (Bld) [Entitic vol] 9.0 fL Normal 6.2-12.0 [facility] Comment on above: Performed By: #### M 100.2200, L400.0001 #### [facility] [address] [place], [address] Platelets (Bld) [#/Vol] 231 10*3/uL Normal 150-450 [facility] Comment on above: Performed By: #### M 100.2200, L400.0001 #### [facility] [address] [place], [address] RBC (Bld) [#/Vol] 3.90 10*6/uL Low 4.6-6.2 [facility] Comment on above: Performed By: #### M 100.2200, L400.0001 #### [facility] [address] [place], [address] RDW SD 50.8 fl High 35.1-43.9 [facility] Comment on above: Performed By: #### M 100.2200, L400.0001 #### [facility] [address] [place], [address] WBC (Bld) [#/Vol] 10.3 10*3/uL Normal 4.4-11.0 [facility] Comment on above: Performed By: #### M 100.2200, L400.0001 #### [facility] [address] [place], [address] [facility] 08-12-2024 Albumin [Mass/Vol] 3.2 g/dL Normal 3.2-5.0 [facility] Comment on above: Performed By: #### M 100.2200, L400.0001 #### [facility] [address] [place], [address] Albumin/Globulin [Mass ratio] 0.7 {ratio} Low 0.9-2.4 [facility] Comment on above: Performed By: #### M 100.2200, L400.0001 #### [facility] [address] [place], [address] ALK P 87 U/L Normal 45-117 [facility] Comment on above: Performed By: #### M 100.2200, L400.0001 #### [facility] [address] [place], [address] ALT [Catalytic activity/Vol] 39 U/L Normal 16-61 [facility] Comment on above: Performed By: #### M 100.2200, L400.0001 #### [facility] [address] [place], [address] AST [Catalytic activity/Vol] 22 U/L Normal 15-37 [facility] Comment on above: Performed By: #### M 100.2200, L400.0001 #### [facility] [address] [place], [address] Bilirubin [Mass/Vol] 0.90 mg/dL Normal 0.20-1.00 [facility] Comment on above: Result Comment: For patients on eltrombopag therapy, use of Dimension [place] TBIL is not recommended. Performed By: #### M 100.2200, L400.0001 #### [facility] [address] [place], [address] BUN/CRE 19.2 RATIO Normal 10-20 [facility] Comment on above: Performed By: #### M 100.2200, L400.0001 #### [facility] [address] [place], [address] CA,Total 9.2 mg/dL Normal 8.5-10.1 [facility] Comment on above: Performed By: #### M 100.2200, L400.0001 #### [facility] [address] [place], [address] Chloride [Moles/Vol] 104 mmol/L Normal 98-107 [facility] Comment on above: Performed By: #### M 100.2200, L400.0001 #### [facility] [address] [place], [address] CO2 [Moles/Vol] 23.0 mmol/L Normal 21.0-32.0 [facility] Comment on above: Performed By: #### M 100.2200, L400.0001 #### [facility] [address] [place], [address] Creatinine [Mass/Vol] 1.20 mg/dL Normal 0.70-1.30 [facility] Comment on above: Result Comment: The validity of the calculated GFR GFRAA in patients over 70 years has not been determined. Clinical correlation is essential. Performed By: #### M 100.2200, L400.0001 #### [facility] [address] [place], [address] ECRCL 66.67 ml/min Normal [facility] Comment on above: Performed By: #### M 100.2200, L400.0001 #### [facility] [address] [place], [address] EST GFR - AA 75 mL/min Normal >60 [facility] Comment on above: Result Comment: Afri can Bhutanese GFR Calc Performed By: #### M 100.2200, L400.0001 #### [facility] [address] [place], [address] GAP 9 Normal 5-15 [facility] Comment on above: Performed By: #### M 100.2200, L400.0001 #### [facility] [address] [place], [address] GFR/1.73 sq M.predicted among non-blacks MDRD (S/P/Bld) [Vol rate/Area] 62 mL/min/{1.73_m2} Normal >60 [facility] Comment on above: Result Comment: Non- GFR Calc Performed By: #### M 100.2200, L400.0001 #### [facility] [address] [place], [address] Globulin (S) [Mass/Vol] 4.4 g/dL High 2.2-4.2 [facility] Comment on above: Performed By: #### M 100.2200, L400.0001 #### [facility] [address] [place], [address] Glucose [Mass/Vol] 135 mg/dL High 74-106 [facility] Comment on above: Result Comment: Fast ing Glucose result greater than or equal to 126 mg/dL suggests DIABETES MELLITUS per A.D.A. criteria. Performed By: #### M 100.2200, L400.0001 #### [facility] [address] [place], [address] Potassium [Moles/Vol] 4.6 mmol/L Normal 3.5-5.1 [facility] Comment on above: Performed By: #### M 100.2200, L400.0001 #### [facility] [address] [place], [address] Sodium [Moles/Vol] 136 mmol/L Normal 136-145 [facility] Comment on above: Performed By: #### M 100.2200, L400.0001 #### [facility] [address] [place], [address] T PROT 7.6 g/dL Normal 6.4-8.2 [facility] Comment on above: Performed By: #### M 100.2200, L400.0001 #### [facility] [address] [place], [address] Urea nitrogen [Mass/Vol] 23 mg/dL High 7-18 [facility] Comment on above: Performed By: #### M 100.2200, L400.0001 #### [facility] [address] [place], [address] Emergency Department Summary on 08-12-2024 Emergency Department Summary [facility] Medical Records Department [address] [place] [address] Emergency Department Summary 08/12/24 MR#: [id number] Acct: [id number] Name: LB VIZCAINO Rep #: [id number] : 1945 78 From: Israel Paiz MD PCP: Dr. Earnest Alex MD Status:REG ER Location: ED HPI History [...] a lot of great toe pain. His copy director Dr. 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 Kim for admission. [facility] Medical History (Updated 08/12/24 @ 14:56 by [...] (benign prostatic hyperplasia) Atherosclerotic heart disease of [place] coronary artery without angina pectoris Hyperlipidemia Home [...] evidence o (more content not included)... Normal [facility] H AND P Exam - Hospitaliston 08-12-2024 H&P Exam - Hospitalist [facility] Medical Records Department [address] [place] [address] H P Exam - Hospitalist 08/12/24 1440 MR#: [id number] Acct: [id number] Name: LB VIZCAINO Rep #: [id number] : 1945 78 From: Miguel Call MD PCP: Dr. Earnest Alex MD Status:ADM IN Location: [facility] TR289-5 HPI - General General Date of Admission: [...] the second toe of his right foot. [facility] Medical History (Updated 08/12/24 @ 23:44 by [...] (benign prostatic hyperplasia) Atherosclerotic heart disease of [place] coronary artery without angina pectoris Hyperlipidemia Home [...] deformities, step-off (more content not included)... Normal [facility] Lactic Acidon 08-12-2024 Lactate [Moles/Vol] 1.7 mmol/L Normal 0.4-1.9 [facility] Comment on above: Performed By: #### L 100.0100, L501.9985, L500.4100, L506.1001, L501.9520, L502.0250, L500.4050 #### [facility] [address] [place], [place], [address] Lactate [Moles/Vol] 3.3 mmol/L Invalid Interpretation Code 0.4-1.9 [facility] Comment on above: Order Comment: Y Result Comment: Crit ical Result(s) Called at: 13:43:55 08/12/2024 by: Xin Wyatt to Lizzette Aguilera. Results read back by same. Performed By: #### M 100.2200, L400.0001 #### [facility] [address] [place], [address] Urinalysis, Completeon 08-12 RBC 0-5 SEEN Normal 0-5 [facility] Comment on above: Order Comment: COLLE CTOR TO SPECIFY Performed By: #### M 100.2200, L400.0001 #### [facility] [address] [place], [address] BACTERIA 1+ /hpf Normal None Seen [facility] Comment on above: Order Comment: COLLE CTOR TO SPECIFY Performed By: #### M 100.2200, L400.0001 #### [facility] [address] [place], [address] Mucus Ql (Urine sed) 1+ /hpf Normal [facility] Comment on above: Order Comment: COLLE CTOR TO SPECIFY Performed By: #### M 100.2200, L400.0001 #### [facility] [address] [place], [address] EPI,SQUAMOUS 0 SEEN Normal 0-5 [facility] Comment on above: Order Comment: COLLE CTOR TO SPECIFY Performed By: #### M 100.2200, L400.0001 #### [facility] [address] [place], [address] WBC 0 SEEN Normal 0-[address] [place] [address] Comment on above: Order Comment: COLLE CTOR TO SPECIFY Performed By: #### M 100.2200, L400.0001 #### [facility] [address] [place], [address] Lower Ext Joint Only W/WO Co nton 08-11-2024 Lower Ext Joint Only W/WO Cont [facility] Imaging Services [address] [place] [address] Lower Ext Joint Only W/WO Cont MR#: [id number] Acct: [id number] Name: LB VIZCAINO Rep #: [id number] : 1945 M 78 From: Grady Patel MD PCP: Dr. Earnest Alex MD Status: REG CLI Study: Lower Ext Joint Only W/WO Cont Date of Exam: 1 Exam# [id number] Ordering Dr: Earnest Alex MD ADDENDUM by Dr. Filemon Garces MD on 08/12/24 at 2123 ====== ADDENDUM ====== [id number] Additionally, there is increased T2 signal marrow edema consistent with osteomyelitis of the second distal phalanx, series 9 image 18 and series 7 image 30. Electronically Signed: Filemon Garces MD at 21:24 EDT , 08/12/242123 Date cc: Dr. Earnest Alex MD * Signed ADDENDUM by Dr. Filemon Garces MD on 08/12/24 at 2124 MRI/Lower Ext Joint Only W/WO Cont IMPRESSION: undefined 08/12/242130 Date cc: Dr. Earnest Alex MD * Signed [id number] STUDY: MRI RIGHT FOREFOOT WITH AND WITHOUT [...] Signed: Grady Patel MD at 13:31 EDT , CC: Dr. Earnest Alex MD Resident Buyer: Signed Normal [facility] Absolute lymphocyte countOrd ered By: Earnest Alex on 10-18-2023 Lymphocytes Auto (Unsp spec) [#/Vol] 1.22 10*3/uL 0.83-4.51 [facility] Basophil percentageOrdered B y: Earnest Alex on 10-18-2023 Basophils/100 WBC (Bld) 0.5 % 0-1 [facility] Bilirubin [Mass/Vol] 0.90 mg/dL 0.20-1.00 [facility] Comment on above: For patients on eltr ombopag therapy, use of Dimension [place] TBIL is not recommended. Chloride [Moles/Vol] 106 mmol/L 98-107 [facility] Eosinophils/100 WBC (Bld) 1.2 % 0-5 [facility] Glucose [Mass/Vol] 148 mg/dL 74-106 [facility] Comment on above: Fasting Glucose resu lt greater than or equal to 126 mg/dL suggests DIABETES MELLITUS per A.D.A. criteria. Neutrophils (Bld) [#/Vol] 7.0 10*3/uL 2.0-7.7 [facility] Neutrophils/100 WBC (Bld) 75.4 % 47-70 [facility] Potassium [Moles/Vol] 4.2 mmol/L 3.5-5.1 [facility] Protein [Mass/Vol] 7.5 g/dL 6.4-8.2 [facility] Sodium [Moles/Vol] 137 mmol/L 136-145 [facility] WBC (Bld) [#/Vol] 9.4 10*3/uL 4.4-11.0 [facility] Blood erythrocytes count (nu mber/volume)Ordered By: Earnest Alex on 10-18-2023 RBC (Bld) [#/Vol] 3.87 10*6/uL 4.6-6.2 [facility] Blood hemoglobin measurement (mass/volume)Ordered By: Earnest Alex on 10-18-2023 Hemoglobin (Bld) [Mass/Vol] 13.4 g/dL 13.0-16.5 [facility] Blood lymphocytes/100 leukoc ytesOrdered By: [facility] on 10-18-2023 Lymphocytes/100 WBC (Bld) 13.0 % 19-41 [facility] Blood monocytes/100 leukocyt esOrdered By: [facility] on 10-18-2023 Monocytes/100 WBC (Bld) 9.2 % 0-10 [facility] Blood platelet mean volumeOr dered By: [facility] on 10-18-2023 Platelet mean volume (Bld) [Entitic vol] 10.1 fL 6.2-12.0 [facility] Determination of erythrocyte mean corpuscular volume (MCV)Ordered By: [facility] on 10-18-2023 MCV (RBC) [Entitic vol] 105.7 fL 80-94 [facility] Hematocrit Auto (Bld) [Volum e fraction]Ordered By: [facility] on 10-18-2023 Hematocrit (Bld) [Volume fraction] 40.9 % 40-54 [facility] - Chemistry and C hemistry - challengeOrdered By: [facility] 10-18-2023 ALP [Catalytic activity/Vol] 80 U/L 45-117 [facility] ALT [Catalytic activity/Vol] 34 U/L 16-61 [facility] CO2 [Moles/Vol] 26.0 mmol/L 21.0-32.0 [facility] Globulin (S) [Mass/Vol] 3.9 g/dL 2.2-4.2 [facility] Urea nitrogen/Creatinine [Mass ratio] 16.3 mg/mg 10-20 [facility] - Hematology and Cell countsOrdered By: [facility] 10-18-2023 Erythrocyte distribution width (RBC) [Entitic vol] 52.1 fL 35.1-43.9 [facility] Erythrocyte distribution width (RBC) [Ratio] 13.5 % 11.6-14.6 [facility] Immature granulocytes/100 WBC (Bld) 0.700 % 0.0-0.9 [facility] Comment on above: IG% - Immature Granu locytes (promyelocytes, myelocytes and metamyelocytes) > 1% indicates that a LEFT SHIFT is Present. MCH (RBC) [Entitic mass] 34.6 pg 27.0-32.0 [facility] Nucleated RBC/100 WBC (Bld) [Ratio] 0 % [facility]5 [facility] ([facility]) [Mass/Vol]Or dered By: Earnest Alex on 10-18-2023 MCHC (RBC) [Mass/Vol] 32.8 g/dL 32-36 [facility] No Panel InformationOrdered By: Earnest Alex on 10-18-2023 Estimated GFR (MDRD) Amer 69 mL/min >60 [facility] Comment on above: GFR Calc Estimated GFR (MDRD) Non-Af Amer 57 mL/min >60 [facility] Comment on above: Non- GFR Calc Thyroid Stimulating Hormone (TSH) 1.88 uIU/mL 0.358-3.74 [facility] Vitamin D 25-Hydroxy 32.6 ng/mL [facility] Comment on above: Vitamin D 25(OH) Sta tus Range Deficiency <20 ng/mL (50nmol/L) Insufficiency 20 - 30 ng/mL (50 - 75 nmol/L) Sufficiency 30 - 100 ng/mL (75 - 250 nmol/L) Toxicity >100 ng/mL (>250 nmol/L) Platelets bldOrdered By: Earnest Alex on 10-18-2023 Platelets (Bld) [#/Vol] 208 10*3/uL 150-450 [facility] Serum or plasma albumin jimmy urement (mass/volume)Ordered By: Earnest Alex on 10-18-2023 Albumin [Mass/Vol] 3.6 g/dL 3.2-5.0 [facility] Serum or plasma albumin/glob ulin mass ratioOrdered By: Earnest Alex on 10-18-2023 Albumin/Globulin [Mass ratio] 0.9 {ratio} 0.9-2.4 [facility] Serum or plasma calcium jimmy urement (mass/volume)Ordered By: Earnest Alex on 10-18-2023 Calcium [Mass/Vol] 9.1 mg/dL 8.5-10.1 [facility] Serum or plasma creatinine m easurement (mass/volume)Ordered By: Earnest Alex on 10-18-2023 Creatinine [Mass/Vol] 1.29 mg/dL 0.70-1.30 [facility] Comment on above: The validity of the calculated GFR & GFRAA in patients over 70 years has not been determined. Clinical correlation is essential. Serum or plasma urea nitroge n measurement (mass/volume)Ordered By: Earnest Alex on 10-18-2023 Urea nitrogen [Mass/Vol] 21 mg/dL 7-18 [facility] Thin prep Papanicolaou smear with manual screeningOrdered By: Earnest Alex on 10-18-2023 Thin prep Papanicolaou smear with manual screening 23 U/L 15- [facility] Thin prep Papanicolaou smear with manual screening 5 5-15 [facility] Absolute lymphocyte counton 10-12-2022 Lymphocytes Auto (Unsp spec) [#/Vol] 1.28 10*3/uL 0.83-4.51 [facility] Work Phone: Basophil percentageon 2021 Basophils/100 WBC (Bld) 0.4 % 0-1 [facility] Work Phone: Bilirubin [Mass/Vol] 0.60 mg/dL 0.20-1.00 [facility] Work Phone: Comment on above: For patients on eltr ombopag therapy, use of Dimension [place] TBIL is not recommended. Chloride [Moles/Vol] 107 mmol/L 98-107 [facility] Work Phone: Eosinophils/100 WBC (Bld) 0.9 % 0-5 [facility] Work Phone: Glucose [Mass/Vol] 115 mg/dL 74-106 [facility] Work Phone: [phone] Comment on above: Fasting Glucose resu lt from 100 to 125 mg/dL suggests IMPAIRED HOMEOSTASIS per A.D.A. criteria. Neutrophils (Bld) [#/Vol] 8.4 10*3/uL 2.0-7.7 [facility] Work Phone: Neutrophils/100 WBC (Bld) 79.3 % 47-70 [facility] Work Phone: Potassium [Moles/Vol] 4.2 mmol/L 3.5-5.1 [facility] Work Phone: Protein [Mass/Vol] 7.0 g/dL 6.4-8.2 [facility] Work Phone: Sodium [Moles/Vol] 140 mmol/L 136-145 [facility] Work Phone: WBC (Bld) [#/Vol] 10.5 10*3/uL 4.4-11.0 [facility] Work Phone: Blood erythrocytes count (nu mber/volume)on 10-12-2022 RBC (Bld) [#/Vol] 3.86 10*6/uL 4.6-6.2 [facility] Work Phone: Blood hemoglobin measurement (mass/volume)on 10-12-2022 Hemoglobin (Bld) [Mass/Vol] 13.0 g/dL 13.0-16.5 [facility] Work Phone: Blood lymphocytes/100 leukoc yteson 10-12-2022 Lymphocytes/100 WBC (Bld) 12.2 % 19-41 [facility] Work Phone: Blood monocytes/100 leukocyt eson 10-12-2022 Monocytes/100 WBC (Bld) 6.5 % 0-10 [facility] Work Phone: Blood platelet mean volumeon 10-12-2022 Platelet mean volume (Bld) [Entitic vol] 10.6 fL 6.2-12.0 [facility] Work Phone: Determination of erythrocyte mean corpuscular volume (MCV)on 10-12-2022 MCV (RBC) [Entitic vol] 104.4 fL 80-94 [facility] Work Phone: Hematocrit Auto (Bld) [Volum e fraction]on 10-12-2022 Hematocrit (Bld) [Volume fraction] 40.3 % 40-54 [facility] Work Phone: Laboratory - Chemistry and C hemistry - challengeon 10-12-2022 ALP [Catalytic activity/Vol] 79 U/L 45-117 [facility] Work Phone: ALT [Catalytic activity/Vol] 35 U/L 16-61 [facility] Work Phone: CO2 [Moles/Vol] 29.0 mmol/L 21.0-32.0 [facility] Work Phone: Globulin (S) [Mass/Vol] 3.5 g/dL 2.2-4.2 [facility] Work Phone: Urea nitrogen/Creatinine [Mass ratio] 16.8 mg/mg 10-20 [facility] Work Phone: Laboratory - Hematology and Cell countson 10-12-2022 Erythrocyte distribution width (RBC) [Entitic vol] 50.6 fL 35.1-43.9 [facility] Work Phone: Erythrocyte distribution width (RBC) [Ratio] 13.4 % 11.6-14.6 [facility] Work Phone: Immature granulocytes/100 WBC (Bld) 0.700 % 0.0-0.9 [facility] Work Phone: Comment on above: IG% - Immature Granu locytes (promyelocytes, myelocytes and metamyelocytes) > 1% indicates that a LEFT SHIFT is Present. MCH (RBC) [Entitic mass] 33.7 pg 27.0-32.0 [facility] Work Phone: Nucleated RBC/100 WBC (Bld) [Ratio] 0 % 0-5 [facility] Work Phone: MCHC Auto (RBC) [Mass/Vol]on 10-12-2022 MCHC (RBC) [Mass/Vol] 32.3 g/dL 32-36 [facility] Work Phone: No Panel Informationon 10-12 Estimated GFR (MDRD) Amer 81 mL/min >60 [facility] Work Phone: Comment on above: GFR Calc Estimated GFR (MDRD) Non-Af Amer 67 mL/min >60 [facility] Work Phone: Comment on above: Non- GFR Calc Thyroid Stimulating Hormone (TSH) 2.58 uIU/mL 0.358-3.74 [facility] Work Phone: Vitamin D 25-Hydroxy 31.7 ng/mL [facility] Work Phone: Comment on above: Vitamin D 25(OH) Sta tus Range Deficiency <20 ng/mL (50nmol/L) Insufficiency 20 - 30 ng/mL (50 - 75 nmol/L) Sufficiency 30 - 100 ng/mL (75 - 250 nmol/L) Toxicity >100 ng/mL (>250 nmol/L) Platelets bldon 10-12-2022 Platelets (Bld) [#/Vol] 204 10*3/uL 150-450 [facility] Work Phone: Serum or plasma albumin jimmy urement (mass/volume)on 10-12-2022 Albumin [Mass/Vol] 3.5 g/dL 3.2-5.0 [facility] Work Phone: Serum or plasma albumin/glob ulin mass ratioon 10-12-2022 Albumin/Globulin [Mass ratio] 1.0 {ratio} 0.9-2.4 [facility] Work Phone: Serum or plasma calcium jimmy urement (mass/volume)on 10-12-2022 Calcium [Mass/Vol] 8.9 mg/dL 8.5-10.1 [facility] Work Phone: Serum or plasma creatinine m easurement (mass/volume)on 10-12-2022 Creatinine [Mass/Vol] 1.13 mg/dL 0.70-1.30 [facility] Work Phone: Comment on above: The validity of the calculated GFR & GFRAA in patients over 70 years has not been determined. Clinical correlation is essential. Serum or plasma urea nitroge n measurement (mass/volume)on 10-12-2022 Urea nitrogen [Mass/Vol] 19 mg/dL 7-18 [facility] Work Phone: Thin prep Papanicolaou smear with manual screeningon 10-12-2022 Thin prep Papanicolaou smear with manual screening 24 U/L 15-37 [facility] Work Phone: Thin prep Papanicolaou smear with manual screening 4 5-15 [facility] Work Phone: CNPNon 11-10-2021 PRETTYN Telephone ([facility]) LB VIZCAINO ([id number]) 1945 M Date Time Provider Department 11/10/21 CELIA LOPEZ During your visit today, we recorded the following information about you: Celia Lopez APRN.PAVING MACHINE OPERATOR 11/10/2021 1:26 PM Signed Spoke to the [...] preference of sites and will go to [place] ED. I further discussed related to his [...] likely require prednisone and cellcept Celia Lopez TYPE ROLLING MACHINE OPERATOR Allergies As of Date: 11/10/2021 Noted Allergy [...] Encounter Status:Closed by CELIA LOPEZ on 11/10/21 [facility] 10-26-2021 [facility] ([id number]) 1945 M Date Time Provider Department 10/26/21 ELIJAH WOODS ([place]) During your visit today, we recorded the following information about you: Elijah Cage 10/26/2021 12:51 PM Signed PA for pt's Esbriet has been done through cover my meds and has been approved. Approvedtoday CaseId:[id number];Status :Approved;Review Type:Prior Auth;Coverage Start Date:09/26/2021;Covera ge End Date:10/26/2022; Pt and pharmacy have been notified. Allergies As of Date: 10/26/2021 Noted Allergy Reaction PENICILLINS 05/11/2011 2 - Rash Date Reviewed: 09/20/2021 Reviewed by: Divina Hernandez - Fully Assessed Reason for Visit: Insurance Authorization [[id number]] Prescriptions as of 10/26/2021 - furosemide (LASIX) [...] Encounter Status:Closed by ELIJAH VICKERS on 10/26/21 [facility] 10-17-2021 CNPN Telephone ([facility]) LB VIZCAINO ([id number]) 1945 M Date Time Provider Department 10/17/21 SAMANTHA SHARMA During your visit today, we recorded the following information about you: Maggy [place]ayor [facility] [place]/17/2021 9:32 AM Signed Patient's Kaity called stating they have not heard anything yet on Esbriet. Looks like Elijah Woods sent in the prescription to [facility] on 09/22/21. Elijah, please let patient know status on Esbriet @ [phone]. Thank you. Allergies As of Date: 10/17/2021 [...] Date: 10/17/2021 (None) Encounter Status:Closed by [facility] [place] [place] [place]) MADELINBL ([id number]) 1945 M Date Time Provider Department 10/03/21 SAMANTHA SHARMA During your visit today, we recorded the following information about you: Maggy [place]emayor [facility] 10/03/2021 12:33 PM Signed Patient's called to advise Dr. Zachary Asher went to [facility] on 10/01/21, for a blood clot in his leg. They placed him on Elliquis and they want to confirm there will be no contraindication with the treatment plan Dr. Sharma is doing. They may be reached @ [phone] or [phone]. Thank you. Nelda Morrison PA-C 10/04/2021 2:34 [...] [Other] Primary Visit Diagnosis:IPF (idiopathic pulmonary fibrosis) ([facility]) [J84.112] Order(s):SPIROMETRY WITH DILATOR IF OBSTRUCTED [1760312] Order #: [id number]: 1 FUTURE LUNG DIFFUSION CAPACITY (DLCO) [1297642] Order #: [id number]: 1 FUTURE LUNG VOLUMES [[id number]] Order #: [id number]: 1 FUTURE Prescriptions as of 10/11/2021 - [...] Encounter Status:Closed by NELDA MORRISON on 10/04/21 [facility] OBSOLETEon 09-22-2021 OBSOLETE Refill (PULMMN) LB VIZCAINO ([id number]) 1945 M Date Time Provider Department 09/22/21 ELIJAH WOODS (COORD) During your visit today, we recorded the following information about you: Elijah Cage 09/22/2021 4:42 PM Signed New script for [...] Status:Closed by ELIJAH VICKERS on 10/13/21 Normal [facility] BOZENA Panel 1on 09-20-2021 BOZENA by EIA 0.3 OD Ratio Normal [facility] Comment on above: Result Comment: OD R atio is interpreted as follows: Negative <1.0 Positive >=1.0 Performed By: #### C MP, RF, ANA1, CK, CBCDIF, NTBNP #### [facility] [address] [place], [place] [address] #### HYPNE1 #### [facility] [address] [place] [address] BOZENA by EIA, Qual Negative Normal Negative [place] Comment on above: Result Comment: The qualitative antinuclear antibody screen test performed using enzyme immunoassay including the following antigens: dsDNA, histones, SS-A, SS-B, Sm, Sm/BASKETBALL REFEREE, Scl-70, Tita-1, and centromeric antigens. Performed By: #### C MP, RF, ANA1, CK, CBCDIF, NTBNP #### [place] [phone] #### HYPNE1 #### [facility] [address], [place] [address] [phone] CBC and Differentialon 09-20 Abs Baso 0.00 k/uL Normal <0.11 [facility] Comment on above: Performed By: #### C MP, RF, ANA1, CK, CBCDIF, NTBNP #### [place] [phone] #### HYPNE1 #### [facility] [address], [place] [address] [phone] Abs Cassia 1.03 k/uL High <0.87 [facility] Comment on above: Performed By: #### C MP, RF, ANA1, CK, CBCDIF, NTBNP #### [place] [phone] #### HYPNE1 #### [facility] [address], [place] [address] [phone] Abs Neut 8.64 k/uL High 1.45-7.50 [facility] Comment on above: Performed By: #### C MP, RF, ANA1, CK, CBCDIF, NTBNP #### [place] [phone] #### HYPNE1 #### [facility] [address] [place] [address] Anisocytosis Ql (Bld) Present Normal [facility] Comment on above: Performed By: #### C MP, RF, ANA1, CK, CBCDIF, NTBNP #### [place] [address] [place] [phone] #### HYPNE1 #### [facility] [address] [place] [address] Basophils/100 WBC (Bld) 0.0 % Normal C [facility] Comment on above: Performed By: #### C MP, RF, ANA1, CK, CBCDIF, NTBNP #### [place] [address] [place] [phone] #### HYPNE1 #### [facility] [address] [place] [phone] DTYPE Manual Diff Normal [facility] Comment on above: Performed By: #### C MP, RF, ANA1, CK, CBCDIF, NTBNP #### [place] [phone] #### HYPNE1 #### [facility] [address] [place] [address] Eosinophils (Bld) [#/Vol] 0.11 10*3/uL Normal <0.46 [facility] Comment on above: Performed By: #### C MP, RF, ANA1, CK, CBCDIF, NTBNP #### [place] [phone] #### HYPNE1 #### [facility] [address] [place] [address] Eosinophils/100 WBC (Bld) 0.9 % Normal [facility] Comment on above: Performed By: #### C MP, RF, ANA1, CK, CBCDIF, NTBNP #### [place] [address] [place] [phone] #### HYPNE1 #### [facility] [address], [place] [address] [phone] Erythrocyte distribution width (RBC) [Ratio] 15.3 % High 11.5-15.0 [facility] Comment on above: Performed By: #### C MP, RF, ANA1, CK, CBCDIF, NTBNP #### [place] [phone] #### HYPNE1 #### [facility] [address] [place] [address] Hematocrit (Bld) [Volume fraction] 40.1 % Normal 39.0-51.0 [facility] Comment on above: Performed By: #### C MP, RF, ANA1, CK, CBCDIF, NTBNP #### [place] [phone] #### HYPNE1 #### [facility] [address] [place] [address] Hemoglobin (Bld) [Mass/Vol] 12.8 g/dL Low 13.0-17.0 [facility] Comment on above: Performed By: #### C MP, RF, ANA1, CK, CBCDIF, NTBNP #### [place] [phone] #### HYPNE1 #### [facility] [address] [place] [address] Left Shift Present Normal [facility] Comment on above: Performed By: #### C MP, RF, ANA1, CK, CBCDIF, NTBNP #### [place] [phone] #### HYPNE1 #### [facility] [address] [place] [address] Lymphocytes (Bld) [#/Vol] 1.86 10*3/uL Normal 1.00-4.00 [facility] Comment on above: Performed By: #### C MP, RF, ANA1, CK, CBCDIF, NTBNP #### [address], [place] [address] #### HYPNE1 #### [facility] [address] [place] [address] Lymphocytes/100 WBC (Bld) 15.7 % Normal [facility] Comment on above: Performed By: #### C MP, RF, ANA1, CK, CBCDIF, NTBNP #### [place] [phone] #### HYPNE1 #### [facility] [address] [place] [address] MCH 35.7 pG High 26.0-34.0 [facility] Comment on above: Performed By: #### C MP, RF, ANA1, CK, CBCDIF, NTBNP #### [place] [phone] #### HYPNE1 #### [facility] [address] [place] [address] MCHC (RBC) [Mass/Vol] 31.9 g/dL Normal 30.5-36.0 [facility] Comment on above: Performed By: #### C MP, RF, ANA1, CK, CBCDIF, NTBNP #### [place] [phone] #### HYPNE1 #### [facility] [address] [place] [address] MCV (RBC) [Entitic vol] 111.7 fL High 80.0-100.0 [facility] Comment on above: Performed By: #### C MP, RF, ANA1, CK, CBCDIF, NTBNP #### [place] [address] #### HYPNE1 #### [facility] [address] [place] [address] Monocytes/100 WBC (Bld) 8.7 % Normal C [facility] Comment on above: Performed By: #### C MP, RF, ANA1, CK, CBCDIF, NTBNP #### [facility] [address] [place] [phone] #### HYPNE1 #### [facility] [address] [place] [address] Myelo% 1.7 % Normal [facility] Comment on above: Performed By: #### C MP, RF, ANA1, CK, CBCDIF, NTBNP #### [facility] [address] [place] [phone] #### HYPNE1 #### [facility] [address] [place] [address] Neutrophils/100 WBC (Bld) 73.0 % Normal [facility] Comment on above: Performed By: #### C MP, RF, ANA1, CK, CBCDIF, NTBNP #### [facility] [address] [place] [phone] #### HYPNE1 #### [facility] [address] [place] [address] NRBCs 1 /100 WBC High 0 [facility] Comment on above: Performed By: #### C MP, RF, ANA1, CK, CBCDIF, NTBNP #### [facility] [address] [place] [phone] #### HYPNE1 #### [facility] [address] [place] [address] Ovalocytes Few Normal [facility] Comment on above: Performed By: #### C MP, RF, ANA1, CK, CBCDIF, NTBNP #### [facility] [address] [place] [phone] #### HYPNE1 #### [facility] [address] [place] [address] Platelet Estimate Platelet estimate adequate Normal [facility] Comment on above: Performed By: #### C MP, RF, ANA1, CK, CBCDIF, NTBNP #### [place] [address] [place] [phone] #### HYPNE1 #### [facility] [address] [place] [address] Platelet mean volume (Bld) [Entitic vol] 9.6 fL Normal 9.0-12.7 [facility] Comment on above: Performed By: #### C MP, RF, ANA1, CK, CBCDIF, NTBNP #### [place] [phone] #### HYPNE1 #### [facility] [address] [place] [address] Platelets (Bld) [#/Vol] 182 10*3/uL Normal 150-400 [facility] Comment on above: Performed By: #### C MP, RF, ANA1, CK, CBCDIF, NTBNP #### [place] [phone] #### HYPNE1 #### [facility] [address] [place] [address] Polychromasia Slight Normal [facility] Comment on above: Performed By: #### C MP, RF, ANA1, CK, CBCDIF, NTBNP #### [place] [phone] #### HYPNE1 #### [facility] [address] [place] [address] RBC (Bld) [#/Vol] 3.59 10*6/uL Low 4.20-6.00 [facility] Comment on above: Performed By: #### C MP, RF, ANA1, CK, CBCDIF, NTBNP #### [place] [phone] #### HYPNE1 #### [facility] [address] [place] [address] RBC Fragments Few Normal [facility] Comment on above: Performed By: #### C MP, RF, ANA1, CK, CBCDIF, NTBNP #### [place] [address] [place] [address] #### HYPNE1 #### [facility] [address] [place] [address] WBC (Bld) [#/Vol] 11.83 10*3/uL High 3.70-11.00 [facility] Comment on above: Performed By: #### C MP, RF, ANA1, CK, CBCDIF, NTBNP #### [place] [address] #### HYPNE1 #### [facility] [address] [place] [address] CKon 09-20-2021 CK [Catalytic activity/Vol] 43 U/L Low 51-298 [facility] Comment on above: Performed By: #### C MP, RF, ANA1, CK, CBCDIF, NTBNP #### [place] [address] [place] [address] #### HYPNE1 #### [facility] [address] [place] [address] CNCOon 09-20-2021 CNCO Letter Text [facility] CNOVon 09-20-2021 CNOV Office Visit (PULMMN ) LB VIZCAINO ([id number]) 1945 M Date Time Provider Department 09/20/21 [...] severe respiratory infection. 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 He had difficulties with hay exposure early in his career and [place]. He enjoys wood working (daisy, maple, walnut). He served in the [employer] in [place] for 4 years and early in his [...] which included preparing to see the patient, [id number] patient care, completing clinical documentation, obtaining and/or reviewing separately obtained history, performing a medically appropriate examination, counseling and educating the patient/family/caregiv er, ordering medications, tests, or pro (more content not included)... Normal [facility] Comp Metabolic Panelon 09-20 Albumin [Mass/Vol] 4.2 g/dL Normal 3.9-4.9 [facility] Comment on above: Performed By: #### C MP, RF, ANA1, CK, CBCDIF, NTBNP #### [place] [phone] #### HYPNE1 #### [facility] [address] [place] [address] ALP [Catalytic activity/Vol] 61 U/L Normal 38-113 [facility] Comment on above: Performed By: #### C MP, RF, ANA1, CK, CBCDIF, NTBNP #### [place] [phone] #### HYPNE1 #### [facility] [address] [place] [address] ALT [Catalytic activity/Vol] 44 U/L Normal 10-54 [facility] Comment on above: Performed By: #### C MP, RF, ANA1, CK, CBCDIF, NTBNP #### [place] [phone] #### HYPNE1 #### [facility] [address] [place] [address] Anion gap [Moles/Vol] 15 mmol/L Normal 9-18 [facility] Comment on above: Performed By: #### C MP, RF, ANA1, CK, CBCDIF, NTBNP #### [place] [phone] #### HYPNE1 #### [facility] [address] [place] [address] AST [Catalytic activity/Vol] 26 U/L Normal 14-40 [facility] Comment on above: Performed By: #### C MP, RF, ANA1, CK, CBCDIF, NTBNP #### [place] [phone] #### HYPNE1 #### [facility] [address] [place] [address] Bilirubin [Mass/Vol] 0.6 mg/dL Normal 0.2-1.3 [facility] Comment on above: Performed By: #### C MP, RF, ANA1, CK, CBCDIF, NTBNP #### [place] [phone] #### HYPNE1 #### [facility] [address] [place] [address] Calcium [Mass/Vol] 9.6 mg/dL Normal 8.5-10.2 [facility] Comment on above: Performed By: #### C MP, RF, ANA1, CK, CBCDIF, NTBNP #### [place] [phone] #### HYPNE1 #### [facility] [address] [place] [address] Chloride [Moles/Vol] 103 mmol/L Normal 97-105 [facility] Comment on above: Performed By: #### C MP, RF, ANA1, CK, CBCDIF, NTBNP #### [place] [address] #### HYPNE1 #### [facility] [address] [place] [address] CO2 [Moles/Vol] 22 mmol/L Normal 22-30 [facility] Comment on above: Performed By: #### C MP, RF, ANA1, CK, CBCDIF, NTBNP #### [address] [address] #### HYPNE1 #### [facility] [address] [place] [address] Creatinine [Mass/Vol] 1.21 mg/dL Normal 0.73-1.22 [facility] Comment on above: Performed By: #### C MP, RF, ANA1, CK, CBCDIF, NTBNP #### [place] [address] [place] [phone] #### HYPNE1 #### [facility] [address] [place] [address] eGFR- Amer. >60 Normal [facility] Comment on above: Performed By: #### C MP, RF, ANA1, CK, CBCDIF, NTBNP #### [place] [phone] #### HYPNE1 #### [facility] [address] [place] [address] eGFR-All Other Races 58 . Normal [facility] Comment on above: Result Comment: eGFR (Estimated [...] MP, RF, ANA1, CK, CBCDIF, NTBNP #### [place] [address] [place] [phone] #### HYPNE1 #### [facility] [address] [place] [address] Glucose [Mass/Vol] 96 mg/dL Normal 74-99 [facility] Comment on above: Result Comment: The [place] Diabetes Association (ADA) provides guidance for cutoff [...] Standards of Medical Care in Diabetes 2016, [place] [employer]. Diabetes Care. 2016.39(Suppl 1). Performed By: #### C MP, RF, ANA1, CK, CBCDIF, NTBNP #### [place] [phone] #### HYPNE1 #### [facility] [address] [place] [address] Potassium [Moles/Vol] 4.8 mmol/L Normal 3.7-5.1 [facility] Comment on above: Performed By: #### C MP, RF, ANA1, CK, CBCDIF, NTBNP #### [place] [phone] #### HYPNE1 #### [facility] [address] [place] [address] Protein [Mass/Vol] 6.4 g/dL Normal 6.3-8.0 [facility] Comment on above: Performed By: #### C MP, RF, ANA1, CK, CBCDIF, NTBNP #### [place] [phone] #### HYPNE1 #### [facility] [address] [place] [address] Sodium [Moles/Vol] 140 mmol/L Normal 136-144 [facility] Comment on above: Performed By: #### C MP, RF, ANA1, CK, CBCDIF, NTBNP #### [place] [phone] #### HYPNE1 #### [place] [phone] Urea nitrogen [Mass/Vol] 22 mg/dL Normal 9-24 [facility] Comment on above: Performed By: #### C MP, RF, ANA1, CK, CBCDIF, NTBNP #### [place] [phone] #### HYPNE1 #### [place] [phone] Hypersensitivity Pneon 09-20 Aspergil fumigatus 1 Not detected Normal NONE DETECTED [facility] Comment on above: Result Comment: (NOT E) Performed By: [place] [address] Performed By: #### C MP, RF, ANA1, CK, CBCDIF, NTBNP #### [place] [phone] #### HYPNE1 #### [place] [phone] Aspergil fumigatus 6 Not detected Normal NONE DETECTED [facility] Comment on above: Result Comment: (NOT E) Performed By: [place] [address] Performed By: #### C MP, RF, ANA1, CK, CBCDIF, NTBNP #### [place] [phone] #### HYPNE1 #### [place] [phone] Aureobasid pullulans Not detected Normal NONE DETECTED [facility] Comment on above: Result Comment: (NOT E) Performed By: [place] [address] Performed By: #### C MP, RF, ANA1, CK, CBCDIF, NTBNP #### [facility] [address] [place] [phone] #### HYPNE1 #### [place] [phone] Micropolyspora faeni Not detected Normal NONE DETECTED [facility] Comment on above: Result Comment: (NOT E) Performed By: [place] [address] Performed By: #### C MP, RF, ANA1, CK, CBCDIF, NTBNP #### [place] [phone] #### HYPNE1 #### [place] [phone] [place] Serum Not detected Normal NONE DETECTED [facility] Comment on above: Result Comment: (NOT E) Performed By: [place] [address] Performed By: #### C MP, RF, ANA1, CK, CBCDIF, NTBNP #### [place] [phone] #### HYPNE1 #### [place] [phone] Thermoact vulgaris 1 SEE NOTE Normal NONE DETECTED [facility] Comment on above: Result Comment: (NOT E) Testing includes antibodies directed at Aureobasidium pullulans, Aspergillus fumigatus #1, Aspergillus fumigatus #6, Micropolyspora faeni, [place] Serum and Thermoactinomyces vulgaris #1. Thermoactinomyces vulgaris #1 testing not performed due to unsatisfactory reagent performance. A credit will be issued for this component. Performed By: [place] [address] Performed By: #### C MP, RF, ANA1, CK, CBCDIF, NTBNP #### [facility] [address] [place] [address] #### HYPNE1 #### [place] [address] NT Pro BNPon 09-20-2021 PRO B Natr Peptide 603 pg/mL High <450 [facility] Comment on above: Performed By: #### C MP, RF, ANA1, CK, CBCDIF, NTBNP #### [facility] [address] [place] [id number] #### HYPNE1 #### [facility] [address] [place] [address] Rheumatoid Factoron 09-20-20 21 Rheumatoid Factor <10 Normal <16 [facility] Comment on above: Performed By: #### C MP, RF, ANA1, CK, CBCDIF, NTBNP #### [facility] [address] [place], [place] [address] #### HYPNE1 #### [facility] [address] [place] [address] CNPShira 08-22-2021 PRETTYN Telephone (BERNARD) LB VIZCAINO ([id number]) 1945 M Date Time Provider Department 08/22/21 SAMANTHA SHARMA During your visit today, we recorded the following information about you: Maggy Gibsonurer [facility] [place] 11:07 AM Addendum Please call Dr. Francisco Zee @ [phone] to discuss mutual patient who is scheduled [...] Status:Closed by PORSHA APPLE on 08/24/21 Normal [facility] Lab Report: Lipid Profileon 01-01-2018 Cholesterol 96 mg/dL Invalid Interpretation Code 200 [employer] Work Phone: [phone] HDL Cholesterol 36 mg/dL Low [employer] Work Phone: [phone] LDL Cholesterol 44 mg/dL Invalid Interpretation Code 0-130 [employer] Work Phone: [phone] Triglyceride 81 mg/dL Invalid Interpretation Code [employer] Work Phone: [phone] very low density lipoproteins 16 mg/dL Invalid Interpretation Code 5-40 [employer] Work Phone: [phone] Lab Report: Liver Profileon 01-01-2018 Alanine aminotransferase (ALT) 29 U/L Invalid Interpretation Code 16-61 [employer] Work Phone: [phone] Albumin 3.6 g/dL Invalid Interpretation Code 3.2-5.0 [employer] Work Phone: [phone] Alkaline phosphatase (ALP) 107 U/L Invalid Interpretation Code 45-117 [employer] Work Phone: [phone] Aspartate aminotransferase (AST) 21 U/L Invalid Interpretation Code 15-37 [employer] Phone: [phone] Bilirubin (direct) 0.12 mg/dL Invalid Interpretation Code 0.00-0.30 [employer] Work Phone: [phone] Bilirubin (total) 0.60 mg/dL Invalid Interpretation Code 0.20-1.00 [employer] Work Phone: [phone] Globulin 3.8 g/dL Invalid Interpretation Code 2.2-4.2 [employer] Work Phone: [phone] Protein 7.4 g/dL Invalid Interpretation Code 6.4-8.2 [employer] Work Phone: [phone] Chart Maintenanceon 07-16-20 17 Left ventricular Ejection fraction 55 % Invalid Interpretation Code [employer] Work Phone: [phone] Lab Report: BNP,B-Type NATRI URETIC PEPTIDEon 06-28-2017 BNP 47.4 pg/mL Invalid Interpretation Code 0-100 [employer] Work Phone: [phone] Office Visiton 06-28-2017 Documentation of current medications (procedure) Done Invalid Interpretation Code [employer] Work Phone: [phone] Fall risk assessment No Invalid Interpretation Code [employer] Work Phone: [phone] Protein mass conc Done [employer] Work Phone: [phone] Lab Report: Lipid Profileon 06-26-2017 Cholesterol in HDL mass conc 35 mg/dL Low [employer] Work Phone: [phone] Cholesterol in LDL mass conc 41 mg/dL Invalid Interpretation Code 0-130 [employer] Work Phone: [phone] Cholesterol mass conc 92 mg/dL Invalid Interpretation Code 200 [employer] Work Phone: [phone] Lipoprotein.pre-beta mass conc 16 mg/dL Invalid Interpretation Code 5-40 [employer] Work Phone: [phone] Triglyceride mass conc 82 mg/dL Invalid Interpretation Code [employer] Work Phone: [phone] Lab Report: Liver Profileon 06-26-2017 Albumin mass conc 3.5 g/dL Invalid Interpretation Code 3.4-5.0 [employer] Work Phone: [phone] Alkaline phosphatase (ALP) 101 U/L Invalid Interpretation Code 45-117 [employer] Work Phone: [phone] ALP enzyme act/vol (Bld) 101 U/L 45-117 [employer] Work Phone: [phone] ALT enzyme act/vol 40 U/L Invalid Interpretation Code 12-78 [employer] Work Phone: [phone] AST enzyme act/vol 26 U/L Invalid Interpretation Code 15-37 [employer] Work Phone: [phone] Bilirubin mass conc 0.50 mg/dL Invalid Interpretation Code 0.20-1.00 [employer] Work Phone: [phone] Bilirubin.direct mass conc 0.13 mg/dL Invalid Interpretation Code 0.00-0.30 [facility] Work Phone: [phone] Globulin 3.8 g/dL High 2.3-3.5 [facility] Work Phone: [phone] Globulin mass conc (S) 3.8 g/dL High 2.3-3.5 [facility] Work Phone: [phone] Protein mass conc 7.3 g/dL Invalid Interpretation Code 6.4-8.2 [facility] Work Phone: [phone] Office Visiton 12-14-2016 Documentation of current medications (procedure) Done Invalid Interpretation Code [facility] Work Phone: [phone] Protein mass conc Done [facility] Work Phone: [phone] Clinical Lists Update: 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 12-13-2016 Left ventricular Ejection fraction 60 % [facility] Work Phone: [phone] Replaced Document: Alex Burton CG Observationson 06-08-2016 EKG QRS axis 17 deg [facility] Work Phone: [phone] electrocardiogram interpretation Sinus Bradycardia -First degree A-V block Steffi = 222BORDERLINE RHYTHM Invalid Interpretation Code [facility] Work Phone: [phone] GE use only - for [employer] import when terms are not otherwise specified 413 ms Invalid Interpretation Code [facility] Work Phone: [phone] Interpretation Sinus Bradycardia -First degree A-V block Steffi = 222BORDERLINE RHYTHM [facility] Work Phone: [phone] P [place] 40 deg [facility] Work Phone: [phone] P wave axis, electrocardiogram 40 deg Invalid Interpretation Code [facility] Work Phone: [phone] DE Interval 222 ms [facility] Work Phone: [phone] DE interval, electrocardiogram 222 ms Invalid Interpretation Code [facility] Work Phone: [phone] Pulse (Heart Rate) 50 /min Invalid Interpretation Code [facility] Work Phone: [phone] QRS axis, electrocardiogram 17 deg Invalid Interpretation Code [facility] Work Phone: [phone] QRS Duration 110 ms [facility] Work Phone: [phone] QRS duration, electrocardiogram 110 ms Invalid Interpretation Code [facility] Work Phone: [phone] QT Interval new path ms [facility] Work Phone: [phone] QT interval, electrocardiogram new path ms Invalid Interpretation Code [facility] Work Phone: [phone] QTc [place] 413 ms [facility] Work Phone: [phone] T [place] 63 deg [facility] Work Phone: [phone] T wave axis, electrocardiogram 63 deg Invalid Interpretation Code [facility] Work Phone: [phone] Office Visiton 12-02-2015 Dietary management education, guidance, and counseling (procedure) yes Invalid Interpretation Code [facility] Work Phone: [phone] Tobacco smoking status NHIS Tobacco smoking status NHIS Invalid Interpretation Code [facility] Work Phone: [phone] Tobacco smoking status NHIS Former smoker [facility] Work Phone: [phone] Tobacco use [facility] Former smoker Invalid Interpretation Code [facility] Work Phone: [phone] Office Visiton 11-27-2014 cardiac risk group C Invalid Interpretation Code [facility] Work Phone: [phone] General cardiovascular disease 10Y risk [#] [place] N/A Invalid Interpretation Code [facility] Work Phone: [phone]) Clinical Lists Update: 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 Thyrotropin Qn 4.94 u[iU]/mL High [facility] Work Phone: [phone] Clinical Lists Update: 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 10-23-2014 Anion gap 7 mmol/L Invalid Interpretation Code [facility] Work Phone: [phone] Anion gap molar conc 7 mmol/L [facility] Work Phone: [phone] Chloride molar conc 106 mmol/L Invalid Interpretation Code [facility] Work Phone: [phone] CO2 28.0 mmol/L Invalid Interpretation Code [facility] Work Phone: [phone] CO2 ppres (BldV) 28.0 mmol/L [facility] Work Phone: [phone] Creatinine mass conc 1.1 mg/dL Invalid Interpretation Code [facility] Work Phone: [phone] Erythrocytes (RBC) 4.02 10*6/uL Low [facility] Work Phone: [phone] Glucose 111 mg/dL Invalid Interpretation Code [facility] Work Phone: [phone] Glucose mass conc 111 mg/dL [facility] Work Phone: [phone] Hematocrit (HCT) 40.2 % Invalid Interpretation Code [facility] Work Phone: [phone] Hematocrit Volume Fraction (Bld) 40.2 % [facility] Work Phone: [phone] Hemoglobin mass conc (Bld) 13.7 g/dL Invalid Interpretation Code [facility] Work Phone: [phone] MCH 34.1 pg High [facility] Work Phone: [phone] MCH Entitic mass (RBC) 34.1 pg High [facility] Work Phone: [phone] MCV 100.0 fL High [facility] Work Phone: [phone] MCV Entitic volume (RBC) 100.0 fL High [facility] Work Phone: [phone] Platelets 194 10*3/mm3 Invalid Interpretation Code [facility] Work Phone: [phone] Platelets #/vol (Bld) 194 10*3/mm3 [facility] Work Phone: [phone] Potassium molar conc 4.3 mmol/L Invalid Interpretation Code [facility] Work Phone: [phone] RBC #/vol (Bld) 4.02 10*6/uL Low [facility] Work Phone: [phone] Sodium molar conc 141 mmol/L Invalid Interpretation Code [facility] Work Phone: [phone] Urea nitrogen mass conc 16 mg/dL Invalid Interpretation Code [facility] Work Phone: [phone] Urea nitrogen/Creatinine mass ratio 14.5 mg/mg Invalid Interpretation Code [facility] Work Phone: [phone] WBC #/vol (Bld) 6.4 10*3/uL [facility] Work Phone: [phone] WBC (Leukocytes) 6.4 10*3/uL Invalid Interpretation Code [facility] Work Phone: Replaced Document: [facility]ine CG Observationson 05-27-2014 Pulse (Heart Rate) 414 ms Invalid Interpretation Code [facility] Work Phone: Lab Report: BMP - copyon Calcium mass conc 8.6 mg/dL Normal 8.5-10.1 [facility] Work Phone: Vital Signs Date Time Vital Sign Value Performing Clinician Berto ruiz 06-28-2017 13:49-0400 BMI (Body Mass Index) 29.96 kg/m2 MD [facility] Work Phone: 06-28-2017 13:49-0400 BP Diastolic 76 mm[Hg] Tru Queen MD [facility] Work Phone: 06-28-2017 13:49-0400 BP Systolic 112 mm[Hg] Tru Queen MD [facility] Work Phone: 06-28-2017 13:49-0400 Height 193.04 cm Tru Queen MD [facility] Work Phone: 06-28-2017 13:49-0400 Pulse (Heart Rate) 60 /min Tru Queen MD [facility] Work Phone: 06-28-2017 13:49-0400 Respiratory Rate 20 /min Tru Queen MD [facility] Work Phone: 06-28-2017 13:49-0400 Weight 111.64 kg Tru Queen MD [facility] Work Phone: 12-14-2016 08:58-0500 BMI (Body Mass Index) 29.7 kg/m2 MD [facility] Work Phone: 12-14-2016 08:58-0500 BP Diastolic 54 mm[Hg] MD [facility] Work Phone: 12-14-2016 08:58-0500 BP Systolic 100 mm[Hg] Tru Queen MD [facility] Work Phone: 12-14-2016 08:58-0500 BSA (Body Surface Area) 2.41 m2 Tru Queen MD [facility] Work Phone: 12-14-2016 08:58-0500 Pulse (Heart Rate) 60 /min Tru Queen MD [facility] Work Phone: 12-14-2016 08:58-0500 Respiratory Rate 20 /min Tru Queen MD [facility] Work Phone: 12-14-2016 08:58-0500 Weight 110.68 kg Tru Queen MD [facility] Work Phone: 06-08-2016 08:42-0400 Heart rate 50 /min Tru Queen MD [facility] Work Phone: 12-02-2015 09:43-0500 Height 193.04 cm Tru Queen MD [facility] Work Phone: 05-27-2014 09:22-0400 Heart rate 414 ms Tru Queen MD [facility] Work Phone: Encounters Encounter Date Encounter Type Care Provider Facility Start: 07-28-2025 End: 07-28-[address] Earnest Alex MD Work Phone: -Radiology [facility] Start: 07-28-2025 End: 07-28-[address] Earnest Alex MD -Radiology [facility] Work Phone: Start: 07-28-2025 End: 07-28-2025 ambulatory Earnest Alex Facility:[facility] Start: 04-20-2025 End: 04-20-[address] Earnest Alex MD Work Phone: [facility] Work Phone: Start: 04-20-2025 End: 04-20-[address] Earnest Alex MD -Laboratory Work Phone: Start: 04-20-2025 End: 04-20-2025 ambulatory Earnest Chi Isai Facility:[facility] Start: 02-23-2025 End: 02-23-[address] Earnest Alex MD -Laboratory Specimen Work Phone: Start: 02-23-2025 End: 02-23-2025 ambulatory Earnest Chi Isai Facility:[facility] Start: 10-16-2024 End: 10-16-2024 ambulatory Earnest Chi Isai Facility:[facility] Start: 10-05-2024 ambulatory Francisco Jessica Facili ty:[facility] Start: 09-22-2024 End: 10-04-2024 ambulatory Francisco Jessica Facility:[facility] Start: 09-09-2024 End: 09-09-2024 ambulatory Earnest Chi Isai Facility:[facility] Start: 09-05-2024 ambulatory Francisco Jessica Facili ty:[facility] Start: 09-03-2024 End: 09-03-2024 [facility] Start: 09-01-2024 ambulatory Earnest Chi Isai Facility:[facility] Start: 08-20-2024 End: 08-21-2024 ambulatory Earnest Chi Isai Facility:[facility] Start: 08-12-2024 ambulatory Earnest Chi Isai Facility:[facility] Start: 08-12-2024 End: 08-14-2024 Evaluation and management of inpatient Earnest Chi Isai Facility:[facility] Start: 08-11-2024 End: 08-11-2024 ambulatory Earnest Chi Isai Facility:[facility] Start: 10-18-2023 End: 10-18-2023 ambulatory [facility] Work Phone: Start: 10-18-2023 End: 10-18-2023 Patient encounter procedure [facility]-Laboratory, Phy Office 3rd Flr Start: 10-12-2022 End: 10-12-2022 ambulatory [facility] Work Phone: Start: 10-12-2022 End: 10-12-2022 Patient encounter procedure [facility]-Laboratory, Phy Office 3rd Flr Procedures Date Procedure Procedure Detail Performing Clinician Start: 07-28-2025 Radiologic exam ches t [address] Earnest Alex MD Work Phone: Start: 07-28-2025 SARS-CoV-2, Influenz a & RSV (PCR) Dr. Earnest Alex MD Work Phone: Start: 04-20-2025 Vitamin D, 25-hydrox y measurement Dr. Earnest Alex MD Work Phone: Comment on above: Vitamin D StatusDefi ciency: <20 ng/mL (50nmol/L)Insufficiency: 20-30 ng/mL (50-75 nmol/L)Sufficiency: 30-100 ng/mL (75-250 nmol/L)Toxicity: >100 ng/mL (>250 nmol/L) Start: 02-23-2025 SARS-CoV-2, Influenz a & RSV (PCR) Dr. Earnest Alex MD Work Phone: Start: 12-27-2017 End: 01-04-2018 *Hepatic [...] 06-15-2017 End: 06-26-2017 *Hepatic Function Panel Alivia Collins PA-C Work Phone: Start: 06-15-2017 End: 06-26-2017 Lipid panel [AGGREGATE] Alivia Collins PA-C Work Phone: Start: 12-14-2016 End: 12-14-2016 Follow Up Appt 6 months Donald Sepulveda Start: 12-14-2016 End: 12-14-2016 URVASHI Queen MD Start: 12-06-2016 End: 12-08-2016 *Hepatic Function Panel Alivia Collins PA-C Work Phone: Start: 12-06-2016 End: 12-08-2016 Lipid panel [AGGREGATE] Alivia Collins PA-C Work Phone: Start: 06-08-2016 End: 06-08-2016 SUPERVISOR/PORT DIRECTOR Alivia Collins PA-C Work Phone: Start: 06-08-2016 End: 06-08-2016 Electrocardiogram, complete Alivia Collins PA-C Work Phone: Start: 06-08-2016 End: 06-08-2016 Follow Up Appt 6 months Alivia Collins PA-C Work Phone: Start: 06-06-2016 End: 06-07-2016 *Hepatic Function Panel Alivia Collins PA-C Work Phone: Start: 06-06-2016 End: 06-07-2016 Lipid panel [AGGREGATE] Alivia Collins PA-C Work Phone: Start: 12-02-2015 End: 12-02-2015 Dietary management education, guidance, and counseling Tru Queen MD Start: 12-02-2015 End: 12-02-2015 Follow Up Appt 6 months Donald Sepulveda Start: 12-02-2015 End: 12-02-2015 URVASHI Queen MD Start: 11-19-2015 End: 12-01-2015 *Hepatic Function Panel Alivia Collins PA-C Work Phone: Start: 11-19-2015 End: 12-01-2015 Lipid panel [AGGREGATE] Alivia Collins PA-C Work Phone: Start: 05-26-2015 End: 05-26-2015 SUPERVISOR/PORT DIRECTOR Alivia Collins PA-C Work Phone: Start: 05-26-2015 End: 05-26-2015 Follow Up Appt 6 months Alivia Collins PA-C Work Phone: Start: 05-20-2015 End: 05-20-2015 *Hepatic Function Panel Alivia Collins PA-C Work Phone: Start: 05-20-2015 End: 05-20-2015 Lipid panel [AGGREGATE] Alivia Collins PA-C Work Phone: Start: 11-27-2014 End: 05-12-2015 *Hepatic Function Panel Donald Sepulveda Start: 11-27-2014 End: 11-28-2014 Documentation of current medications Tru Queen MD Start: 11-27-2014 End: 11-27-2014 Follow Up Appt 6 months Donald Sepulveda Start: 11-27-2014 End: 05-12-2015 Lipid panel [AGGREGATE] Donald Sepulveda Start: 11-27-2014 End: 11-27-2014 [facility] Tru Queen MD Start: 11-05-2014 End: 11-18-2014 *Hepatic Function Panel Alivia Collins PA-C Work Phone: Start: 11-05-2014 End: 11-18-2014 Lipid panel [AGGREGATE] Alivia Collins PA-C Work Phone: Start: 05-27-2014 End: 05-27-2014 SUPERVISOR/PORT DIRECTOR Alivia Collins PA-C Work Phone: Start: 05-27-2014 End: 05-27-2014 Electrocardiogram, complete Alviia Collins PA-C Work Phone: Start: 05-27-2014 End: 05-27-2014 Follow Up Appt 6 months Alivia Collins PA-C Work Phone: Start: 05-05-2014 End: 05-25-2014 *Hepatic Function Panel Alivia Collins PA-C Work Phone: Start: 05-05-2014 End: 05-25-2014 Lipid panel [AGGREGATE] Alivia Collins PA-C Work Phone: Start: 12-05-2013 End: 12-05-2013 Follow Up Appt 6 months Donald Sepulveda Start: 12-05-2013 End: 12-05-2013 MMM Tru Queen MD Start: 11-05-2013 End: 12-02-2013 *Hepatic Function Panel Alivia Collins PA-C Work Phone: Start: 11-05-2013 End: 12-02-2013 Lipid panel [AGGREGATE] Alivia Collins PA-C Work Phone: Start: 05-20-2013 End: 05-20-2013 *BMP Alivia Collins PA-C Work Phone: Start: 05-20-2013 End: 05-20-2013 *CBC with Differential Alivia Collins PA-C Work Phone: Start: 05-20-2013 End: 05-20-2013 *Hepatic Function Panel Alivia Collins PA-C Work Phone: Start: 05-20-2013 End: 05-20-2013 SUPERVISOR/PORT DIRECTOR Alivia Collins PA-C Work Phone: Start: 05-20-2013 End: 05-20-2013 Follow Up Appt 6 months Alivia Collins PA-C Work Phone: Start: 05-20-2013 End: 05-20-2013 Lipid panel [AGGREGATE] Alivia Collins PA-C Work Phone: Start: 05-20-2013 End: 12-05-2013 [...] bypass grafting H/O coronary artery bypass surgery Comment on above: CABG x 3 CRANE-LAD, S VG-D1 and SVG-RCA 09/13/2007 Plan of Treatment Date Care Activity Detail Author Start: 01-04-2018 End: 01-04-2018 Appointment Appointment [facility] Work Phone: Start: 12-27-2017 End: 01-04-2018 *Hepatic Function Panel *Hepatic Function Panel [facility] Work Phone: Start: 12-27-2017 End: 01-04-2018 Lipid panel [AGGREGATE] *Lipid Profile CC PCP [facility] Work Phone: Start: 06-28-2017 End: 06-28-2017 Appointment Appointment [facility] Work Phone: Start: 06-28-2017 End: 06-29-2017 BNP *Brain Natriuretic Peptide BNP [facility] Work Phone: Start: 06-28-2017 End: 06-29-2017 Echocardiography Echocardiogram (complete) [facility] Work Phone: Start: 06-28-2017 End: 06-28-2017 Follow Up Appt 6 months Follow Up Appt 6 months [facility] Work Phone: Start: 06-28-2017 End: 06-28-2017 MMM MMM [facility] Work Phone: Start: 06-28-2017 End: 06-29-2017 Nuclear stress test -exercise Nuclear stress test -exercise [facility] Work Phone: Start: 06-15-2017 End: 06-26-2017 *Hepatic Function Panel *Hepatic Function Panel [facility] Work Phone: Start: 06-15-2017 End: 06-26-2017 Lipid panel [AGGREGATE] *Lipid Profile CC PCP [facility] Work Phone: Start: 12-14-2016 End: 12-14-2016 Follow Up Appt 6 months Follow Up Appt 6 months [facility] Work Phone: Start: 12-14-2016 End: 12-14-2016 MMM MMM [facility] Work Phone: Start: 12-06-2016 End: 12-08-2016 *Hepatic Function Panel *Hepatic Function Panel [facility] Work Phone: Start: 12-06-2016 End: 12-08-2016 Lipid panel [AGGREGATE] *Lipid Profile CC PCP [facility] Work Phone: Start: 06-08-2016 End: 06-08-2016 SUPERVISOR/PORT DIRECTOR SUPERVISOR/PORT DIRECTOR [facility] Work Phone: Start: 06-08-2016 End: 06-08-2016 Electrocardiogram, complete EKG (In office) [facility] Work Phone: Start: 06-08-2016 End: 06-08-2016 Follow Up Appt 6 months Follow Up Appt 6 months [facility] Work Phone: Start: 06-06-2016 End: 06-07-2016 *Hepatic Function Panel *Hepatic Function Panel [facility] Work Phone: Start: 06-06-2016 End: 06-07-2016 Lipid panel [AGGREGATE] *Lipid Profile CC PCP [facility] Work Phone: Start: 12-02-2015 End: 12-02-2015 Follow Up Appt 6 months Follow Up Appt 6 months [facility] Work Phone: Start: 12-02-2015 End: 12-02-2015 MMM MMM [facility] Work Phone: Start: 11-19-2015 End: 12-01-2015 *Hepatic Function Panel *Hepatic Function Panel [facility] Work Phone: Start: 11-19-2015 End: 12-01-2015 Lipid panel [AGGREGATE] *Lipid Profile CC PCP [facility] Work Phone: Start: 06-04-2015 End: 05-20-2015 *Hepatic Function Panel *Hepatic Function Panel [facility] Work Phone: Start: 06-04-2015 End: 05-20-2015 Lipid panel [AGGREGATE] *Lipid Profile CC PCP [facility] Work Phone: Start: 05-26-2015 End: 05-26-2015 SUPERVISOR/PORT DIRECTOR SUPERVISOR/PORT DIRECTOR [facility] Work Phone: Start: 05-26-2015 End: 05-26-2015 Follow Up Appt 6 months Follow Up Appt 6 months [facility] Work Phone: Start: 11-27-2014 End: 05-12-2015 *Hepatic Function Panel *Hepatic Function Panel [facility] Work Phone: Start: 11-27-2014 End: 11-27-2014 Follow Up Appt 6 months Follow Up Appt 6 months [facility] Work Phone: Start: 11-27-2014 End: 05-12-2015 Lipid panel [AGGREGATE] *Lipid Profile CC PCP [facility] Work Phone: Start: 11-27-2014 End: 11-27-2014 MMM MMM [facility] Work Phone: Start: 11-05-2014 End: 11-18-2014 *Hepatic Function Panel *Hepatic Function Panel [facility] Work Phone: Start: 11-05-2014 End: 11-18-2014 Lipid panel [AGGREGATE] *Lipid Profile CC PCP [facility] Work Phone: Start: 05-27-2014 End: 05-27-2014 SUPERVISOR/PORT DIRECTOR SUPERVISOR/PORT DIRECTOR [facility] Work Phone: Start: 05-27-2014 End: 05-27-2014 Electrocardiogram, complete EKG (In office) [facility] Work Phone: Start: 05-27-2014 End: 05-27-2014 Follow Up Appt 6 months Follow Up Appt 6 months [facility] Work Phone: Start: 05-05-2014 End: 05-25-2014 *Hepatic Function Panel *Hepatic Function Panel [facility] Work Phone: Start: 05-05-2014 End: 05-25-2014 Lipid panel [AGGREGATE] *Lipid Profile CC PCP [facility] Work Phone: Start: 12-05-2013 End: 12-05-2013 Follow Up Appt 6 months Follow Up Appt 6 months [facility] Work Phone: Start: 12-05-2013 End: 12-05-2013 MMM MMM [facility] Work Phone: Start: 11-05-2013 End: 12-02-2013 *Hepatic Function Panel *Hepatic Function Panel [facility] Work Phone: Start: 11-05-2013 End: 12-02-2013 Lipid panel [AGGREGATE] *Lipid Profile CC PCP [facility] Work Phone: Start: 05-20-2013 End: 05-20-2013 *BMP *BMP [facility] Work Phone: Start: 05-20-2013 End: 05-20-2013 *CBC with Differential *CBC with Differential [facility] Work Phone: Start: 05-20-2013 End: 05-20-2013 *Hepatic Function Panel *Hepatic Function Panel [facility] Work Phone: Start: 05-20-2013 End: 05-20-2013 SUPERVISOR/PORT DIRECTOR SUPERVISOR/PORT DIRECTOR [facility] Work Phone: Start: 05-20-2013 End: 05-20-2013 Follow Up Appt 6 months Follow Up Appt 6 months [facility] Work Phone: Start: 05-20-2013 End: 05-20-2013 Lipid panel [AGGREGATE] *Lipid Profile CC PCP [facility] Work Phone: Start: 05-20-2013 End: 12-05-2013 Thyroid stimulating hormone (TSH) *TSH [facility] Work Phone: Start: 11-26-2012 End: 11-26-2012 Echocardiography Echocardiogram (complete) [facility] Work Phone: Start: 11-26-2012 End: 11-26-2012 Follow Up Appt 6 months Follow Up Appt 6 months [facility] Work Phone: Start: 11-26-2012 End: 11-26-2012 MMM MMM [facility] Work Phone: Start: 11-26-2012 End: 11-26-2012 Nuclear stress test -exercise Nuclear stress test -exercise [facility] Work Phone: Start: 05-28-2012 End: 11-26-2012 *Hepatic Function Panel *Hepatic Function Panel [facility] Work Phone: Start: 05-28-2012 End: 05-28-2012 Follow Up Appt 6 months Follow Up Appt 6 months [facility] Work Phone: Start: 05-28-2012 End: 11-26-2012 Lipid panel [AGGREGATE] *Lipid Profile [facility] Work Phone: Patient Education [facility] Work Phone: Payers Date Payer Category Payer Self-pay [id number] 2015 Medicare [id number] Unknown [id number] 2.16.8 [id number] Unknown [id number] 2.16.8 [id number] Unknown [id number] 2.16.8 [id number] Unknown [id number] 2.16.8 [id number] Unknown [id number] 2.16.8 [id number] Unknown [id number] 2.16.8 [id number] Unknown [id number] 2.16.8 [id number] Unknown [id number] 2.16.8 [id number] Unknown [id number] 2.16.8 [id number] Unknown [id number] 2.16.8 [id number] Unknown [id number] 2.16.8 [id number] Unknown [id number] 2.16.8 [id number] Unknown [id number] 2.16.8 [id number] Unknown [id number] 2.16.8 [id number] Unknown [id number] 2.16.8 [id number] Unknown [id number] 2.16.8 [id number] Unknown [id number] 2.16.8 [id number] Social History Date Type Detail Facility Start: 11-21-2021 Tobacco smoking stat [facility] Unknown if ever smoked [facility] Start: 1945 Sex Assigned At Male [facility] Start: 08-13-2024 Tobacco smoking stat [facility] Ex-smoker (finding) [facility] Sex Male [facility] Radiology Diagnostic study note 07-28-2025 Note Date & Type Note Facility 07-28-2025 Radiology Diagnostic study note [facility] Imaging Services [address] [place] [address] [id number] Chest PA and Lateral MR#: [id number] Acct: [id number] Name: LB VIZCAINO Rep #: [id number] : 1945 M 79 From: Bryan Hamilton MD PCP: Dr. Earnest Alex MD Status: REG YIMI Study:Chest PA and Lateral Date of Exam: 07/28/25 Exam# [id number] Ordering Dr: Earnest Alex MD PROCEDURE: CHEST PA AND LATERAL 07/28/2025 REASON FOR EXAM: SOB TECHNIQUE: Procedure Code: RADCXR Modality: DX Procedure: CHEST PA AND LATERAL COMPARISON: Two-view chest, 06/30/2024. FINDINGS: There is severe chronic interstitial lung disease. There is cardiomegaly. Status post CABG surgery. Status post median sternotomy. The upper abdominal bowel gas pattern is normal. There is mild dextroscoliosis of the thoracic spine. RAD/Chest PA and Lateral IMPRESSION: Chronic interstitial lung disease. Cardiomegaly. Other findings as noted. Reading Location: [facility] CC: Dr. Earnest Alex MD ~ Resident Buyer: Signed [facility] Work Phone: Discharge summary note 08-14-2024 Note Date & Type Note Facility 08-14-2024 Note [facility] Medical Records Department [address] [place] [address] Discharge Summary 08/14/24 1248 MR#: [id number] Acct: [id number] Name: LB VIZCAINO Rep #: [id number] : 1945 78 From: Oralia Patel DO PCP: Dr. Earnest Alex MD Status:ADM IN Location: [facility] [id number] Providers Date of Admission: 08/12/24 Date of Discharge: 08/14/24 Primary Care Physician: Dr. Earnest Alex MD Consultations 08/12/24 16:44 Consult: Podiatry Routine [...] 40 mg PO DAILY PRN EDEMA 05/20/21 albuterol sulfate 90 mcg/actuation aerosol inhaler 2 [...] who presented to the emergency department at [facility] on 08/13/2020 for with right foot wound [...] antibiotics with ongoing (more content not included)... [facility] Consultation note 08-12-2024 Note Date & Type Note Facility 08-12-2024 Note [facility] Medical Records Department [address] [place] [address] Consultation 08/12/242023 MR#: [id number] Acct: [id number] Name: LB VIZCAINO Rep #: [id number] : 1945 78 From: Crow Kim DPM PCP: Dr. Earnest Alex MD Status:ADM IN Location: [facility]3 [id number] Assessment Plan Assessment/Plan (1) Acute osteomyelitis of [...] been admitted for further evaluation and management. [facility] Medical History (Updated 08/12/24 @ 21:10 by [...] (benign prostatic hyperplasia) Atherosclerotic heart disease of [place] coronary artery without angina pectoris Hyperlipidemia Home [...] smokin alcohol i (more content not included)... [facility] Progress note 09-22-2021 Note Date & Type Note Facility 09-22-2021 Note HNO ID: [id number] Author: Samantha Sharma MD Service: ? Author Type: Physician Type: Progress Notes Filed: 09/22/2021 1:12 PM Note Text: Mr. Vizcaino's history and testing were discussed at our ILD multi-disciplinary meeting this morning. The overall clinical and imaging presentation were felt to be compatible with IPF. Additional testing, including biopsy, was not felt to be needed. Treatment recommendations include coming off of prednisone and mycophenolate and starting pirfenidone. I spoke to Dr. Camacho (Mr. Vizcaino's excavator operator) about Mr. Vizcaino's care. I also spoke with Mr. Vizcaino. He would like me to continue to direct his care. Samantha Sharma MD [facility] Progress note 09-20-2021 Note Date & Type Note Facility 09-20-2021 Note HNO ID: [id number] Author: Samantha Sharma MD Service: ? Author [...] severe respiratory infection. 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 He had difficulties with hay exposure early in his career [place]. He enjoys wood working (daisy, maple, walnut). He served in the [employer] in [place] for 4 years and early in his [...] which included preparing to see the patient, [id number] patient care, completing clinical documentation, obtaining and/or reviewing separately obtained history, performing a medically appropriate examination, counseling and educating the patient/family/caregiver, ordering medications, tests, or procedures, communicating with other HCPs (not separately reported), independently interpreting results (not separately reported) and communicating results to the patient/family/caregiver. Samantha Sharma MD [facility] Evaluation note Note Date & Type Note Facility Evaluation note No assessment information availa ble [facility] Work Phone: Reason for referral (narrative) Note Date & Type Note Facility Reason for referral (narrative) No reason for referral information available [facility] Work Phone: Summary Purpose Family History No [...] May 30 6:10am Living Will Yes October 01, 8:38am Power of Laboratory Monitor Yes October 01, 2021 8:38am Advance Directive Response Recorded Date/ Time Advance Directives Yes May 30 7:10am Additional Source Comments (unrecognized sect ion and content) No Status Records FoundNo Status Records Found INFORMATION SOURCE (unrecogn ized section and content) DATE CREATED AUTHOR 01/26/2022 [facility] [facility] DATE CREATED AUTHOR AUTHOR'S ORGANIZ ATION 08/11/2025 [facility] Goals (unrecognized section and content) Goals may be documented in a n alternate sectionGoals may be documented in an alternate sectionGoals may be documented in an alternate sectionGoals may be documented in an alternate section Care Teams (unrecognized sec tion and content) Team Status: Active Member Role Status Dates Dr. Earnest Alex MD Family Provider Active Dr. Earnest Alex MD Primary Care Provider Active Team Status: Inactive Member Role Status Dates Dr. Earnest Alex MD Primary Care Provider, Attending Provider Active Team Status: Inactive Member Role Status Dates Dr. Earnest Alex MD Primary Care Provider Active Start: February 23, 2025 End: February 23, 2025 Dr. Earnest Alex MD Attending Provider Active Start: February 23, 2025 End: February 23, 2025 Dr. Earnest Alex MD Referring Provider Active Start: February 23, 2025 End: February 23, 2025 Team Status: Inactive Member Role Status Dates Dr. Earnest Alex MD Primary Care Provider Active Start: April 20, 2025 End: April 20, 2025 Dr. Earnest Alex MD Attending Provider Active Start: April 20, 2025 End: April 20, 2025 Dr. Earnest Alex MD Referring Provider Active Start: April 20, 2025 End: April 20, 2025 Team Status: Active Member Role/Relationship Status Dates Dr. Earnest Alex MD Primary care physician Active Team Status: Inactive Member Role/Relationship Status Dates Dr. Earnest Alex MD Primary care physician Active Start: April 20, 2025 End: April 20, 2025 Dr. Earnest Alex MD Attending physician Active Start: April 20, 2025 End: April 20, 2025 Dr. Earnest Alex MD Referring Provider Active Start: April 20, 2025 End: April 20, 2025 Team Status: Inactive Member Role/Relationship Status Dates Dr. Earnest Alex MD Primary care physician Active Start: July 28, 2025 End: July 28, 2025 Dr. Earnest Alex MD Attending physician Active Start: July 28, 2025 End: July 28, 2025 Dr. Earnest Alex MD Referring Provider Active Start: July 28, 2025 End: July 28, 2025 FOR RECORDS PERTAINING TO PATIENTS WHO ARE [...] BE BASED ON THE PRIMARY CLINICAL RECORDS. [facility] [employer] provides no warranty or guarantee of the accuracy or completeness of information in this document.
[2025-10-21 09:47] LABS: Hematocrit 36.0 % (40-54); Hemoglobin 12.0 g/dL (13.0-16.5); Immature Granulocytes Count 0.130 X10^3/uL (0.0-0.0); Mean Corp Hgb Conc 33.3 g/dL (32-36); Mean Corpuscular Volume 107.8 fL (80-94); Mean Platelet Vol. 9.3 fl (6.2-12.0); NRBC Flagged by Analyzer 0 % (0-5); Platelet Count 212 K/mm3 (150-450); RBC Distribution Width CV 13.8 % (11.6-14.6); RBC Distribution Width SD 54.8 fl (35.1-43.9); Red Blood Count 3.34 M/mm3 (4.6-6.2); White Blood Count 8.6 K/mm3 (4.4-11.0)
[2025-10-21 10:42] LABS: AST(SGOT) 21 U/L (<=37); Alanine Aminotransfer ALT/SGPT 19 U/L (<=46); Albumin, Serum 3.9 g/dL (3.4-4.8); Alkaline Phosphatase 55 U/L (40-129); Anion Gap 12 (5-15); BUN 22 mg/dL (4-19); BUN/Creat Ratio 16.5 RATIO (10-20); Calcium,Total 9.2 mg/dL (7.6-11.0); Carbon Dioxide 21.8 mmol/L (21.0-32.0); Chloride 104 mmol/L (98-108); Cholesterol 177 mg/dL (<=200); Globulin 2.8 g/dL (2.2-4.2); Glucose 125 mg/dL (70-99); Low Density Lipoprotein Calc. 108 mg/dL; Potassium 4.3 mmol/L (3.3-5.1); Triglycerides 108 mg/dL; Very Low Density Lipoprotein 22 mg/dL (5-40); Vitamin D,25 Hydroxy 25.0 ng/mL (30-100); cholesterol:hdl ratio screen 3.58
[2025-10-21 16:47] LABS: Xtra Tube Kwok EXTRA TUBE
== END | disposition home or self-care (01) ==
LOC: POLAB3 08:47
PROVIDERS: PCP Family Medicine Geriatric Medicine; Visit Provider Family Medicine Geriatric Medicine
DX: E03.9 Hypothyroidism, unspecified (principal); E11.65 Type 2 diabetes mellitus with hyperglycemia; E55.9 Vitamin D deficiency, unspecified; E78.5 Hyperlipidemia, unspecified; I10 Essential (primary) hypertension
CPT/HCPCS: 36415; 80053; 80061; 82306; 83036; 84443; 85025